=== PATIENT | female | born 1955 | race Caucasian/White ===

== ENCOUNTER 2017-02-09 06:55 | Inpatient (IN) | payer MEDICARE ==
[2017-02-09] MEDS ORDERED: IPRATROPIUM-ALBUTEROL 3 ML NEB INHALATION STA (07:06)
[2017-02-09] MEDS ORDERED: MAGNESIUM SULFATE-D5W PMX 1 GM in DEXTROSE/WATER 1 100ML.BAG IVPB STA (07:06)
[2017-02-09] MEDS ORDERED: SODIUM CHLORIDE 0.9% 1,000 ML IV STA (07:06)
[2017-02-09] MEDS ORDERED: methylPREDNISolone SOD SUCCI 125 MG/2 ML VIAL IV STA (07:06)
--- NOTE | 2017-02-09 07:22 | ED ---
SOB HPI - General Chief Complaint: Shortness of Breath Stated Complaint: Stemi Time Seen by Provider: 02/09/17 07:00 Source: patient, EMS, RN notes reviewed, old records reviewed Mode of arrival: EMS Limitations: physical limitation - History of Present Illness Initial Comments: This is a 61-year-old female history of COPD hypertension and depression who had the onset earlier this morning of shortness of breath. EMS was summoned and brought her in for evaluation. She was given 2 updraft treatments in route with some improvement. She complains some chest tightness. She also complains of fevers chills sweats also some phlegm production. MD Complaint: shortness of breath, chest pain - Related Data Home Medications Medication Instructions Recorded Confirmed Albuterol Inhaler [Ventolin Hfa 2 puff INHALATION RT-Q6H PRN 10/31/16 02/09/17 Inhaler] Cholecalciferol (Vitamin D3) 2,000 unit PO DAILY 10/31/16 02/09/17 [Vitamin D3] DULoxetine HCL [Cymbalta] 20 mg PO DAILY 10/31/16 02/09/17 Furosemide [Lasix] 20 mg PO DAILY 10/31/16 02/09/17 Ipratropium [place] [Atrovent Hfa] 2 puff INHALATION RT-BID 10/31/16 02/09/17 Potassium Chloride ER [K-Dur 20] 20 meq PO DAILY 10/31/16 02/09/17 Previous Rx's Medication Instructions Recorded ALPRAZolam [Xanax] 0.25 mg PO HS PRN #10 tab 11/04/16 Budesonide [Pulmicort] 0.5 mg INHALATION RT-BID #60 neb 11/04/16 Melatonin 10 mg PO HS tab 11/04/16 Montelukast [Singulair] 10 mg PO HS #30 tab 11/04/16 Omeprazole Magnesium [Prilosec OTC] 20 mg PO DAILY #30 tablet. 11/04/16 Allergies Allergy/AdvReac Type Severity Reaction Status Date / Time No Known Allergies Allergy Verified 02/09/17 07:37 Review of Systems ROS Statement: Those systems with pertinent positive or pertinent negative responses have been documented in the HPI. ROS Other: All systems not noted in ROS Statement are negative. Past Medical History Past Medical History: Asthma, Heart Failure, COPD, Osteoarthritis (OA), Pneumonia, Sleep Apnea/CPAP/BIPAP Additional Past Medical History / Comment(s): Bronhitis, chronic low back pain, TIMOTHY with CPAP, home O2 at 3L/NC, past L kneecap fx, occasional dependent pedal edema, depression, gallbladder disease, chronic tobacco use and dependence, urinary incontinence, migraine headaches, osteoporosis, sciatica, peptic ulcer disease, urethritis,. History of Any Multi-Drug Resistant Organisms: None Reported Past Surgical History: Hernia Repair, Tubal Ligation Additional Past Surgical History / Comment(s): Bilateral inguinal hernia repairs , colonoscopy with benign polyypectomy, surgery for "pinched nerve in my R hip. " Discectomy, right femur open reduction internal fixation. Past Psychological History: Depression Smoking Status: Former smoker Past Alcohol Use History: None Reported Past Drug Use History: Marijuana - Past Family History Father Family Medical History: Coronary Artery Disease (CAD) Additional Family Medical History / Comment(s): Father is 83 yrs old. He has had 2 vessel CABG and a pacer. Mother Family Medical History: Dementia Additional Family Medical History / Comment(s): Mother of dementia at the age of 78yrs. Brother(s) Family Medical History: No Reported History (patient had one brother who from an unknown cause) Sister(s) Family Medical History: No Reported History (patient has one sister no major medical problems.) Additional Family Medical History / Comment(s): Patient has 2 children no major medical problems. General Exam - General Exam Comments Initial Comments: This is a well-developed well-nourished awake alert oriented 3 female she is very anxious and very dyspneic Limitations: physical limitation General appearance: alert, anxious, in distress Head exam: Present: atraumatic, normocephalic, normal inspection Eye exam: Present: normal appearance, PERRL, EOMI. Absent: scleral icterus, conjunctival injection, periorbital swelling ENT exam: Present: mucous membranes dry Neck exam: Present: normal inspection. Absent: tenderness, meningismus, lymphadenopathy Respiratory exam: Present: accessory muscle use, decreased breath sounds. Absent: respiratory distress, wheezes, rales, rhonchi, stridor Cardiovascular Exam: Present: normal rhythm, tachycardia, normal heart sounds. Absent: systolic murmur, diastolic murmur, rubs, gallop, clicks GI/Abdominal exam: Present: soft, normal bowel sounds. Absent: distended, tenderness, guarding, rebound, rigid Extremities exam: Present: normal inspection, full ROM, normal capillary refill. Absent: tenderness, pedal edema, joint swelling, calf tenderness Back exam: Present: normal inspection Neurological exam: Present: alert, oriented X3, CN II-XII intact Psychiatric exam: Present: normal affect, normal mood Skin exam: Present: warm, dry, intact, normal color. Absent: rash Course Vital Signs 02/09/17 02/09/17 02/09/17 06:57 07:12 07:19 Temperature 99.6 F Pulse Rate 135 H 123 H 121 H Respiratory 28 H Rate Blood Pressure 160/84 O2 Sat by Pulse 85 L Oximetry 02/09/17 02/09/17 07:41 08:26 Temperature Pulse Rate 110 H 106 H Respiratory Rate Blood Pressure 134/79 130/80 O2 Sat by Pulse 97 97 Oximetry - Reevaluation(s) Reevaluation #1: 02/09/17 08:52 I did reevaluate the patient on several occasions she did demonstrate improvement. Medical Decision Making - Medical Decision Making The patient did demonstrate some improvement her saturation 97% on oxygen she is feeling somewhat better but still dyspneic. She will be admitted to the hospital for further inpatient treatment Dr. Michelle/Terri streeter is her jackaroo and will be consulted. - Lab Data Result diagrams: 02/09/17 06:59 02/09/17 06:59 Lab Results 02/09/17 02/09/17 02/09/17 Range/Units 06:59 06:59 06:59 WBC 13.0 H (3.8-10.6) k/uL RBC 4.84 (3.80-5.40) m/uL Hgb 13.3 (11.4-16.0) gm/dL Hct 45.8 (34.0-46.0) % MCV 94.6 (80.0-100.0) fL MCH 27.4 (25.0-35.0) pg MCHC 29.0 L (31.0-37.0) g/dL RDW 14.8 (11.5-15.5) % Plt Count 206 (150-450) k/uL Neutrophils % 87 % Lymphocytes % 4 % Monocytes % 7 % Eosinophils % 0 % Basophils % 1 % Neutrophils # 11.2 H (1.3-7.7) k/uL Lymphocytes # 0.5 L (1.0-4.8) k/uL Monocytes # 0.9 (0-1.0) k/uL Eosinophils # 0.0 (0-0.7) k/uL Basophils # 0.1 (0-0.2) k/uL Hypochromasia Marked PT (9.0-12.0) sec INR (<1.2) APTT (22.0-30.0) sec Sodium 139 (137-145) mmol/L Potassium 4.2 (3.5-5.1) mmol/L Chloride 85 L (98-107) mmol/L Carbon Dioxide 57 H* (22-30) mmol/L Anion Gap mmol/L BUN 14 (7-17) mg/dL Creatinine 0.45 L (0.52-1.04) mg/dL Est GFR (MDRD) Af Amer >60 (>60 ml/min/1.73 sqM) Est GFR (MDRD) Non-Af >60 (>60 ml/min/1.73 sqM) Glucose 191 H (74-99) mg/dL Calcium 9.7 (8.4-10.2) mg/dL Magnesium 2.0 (1.6-2.3) mg/dL Total Bilirubin 0.7 (0.2-1.3) mg/dL AST 19 (14-36) U/L ALT 41 (9-52) U/L Alkaline Phosphatase 168 H (38-126) U/L Total Creatine Kinase <20 L (30-135) U/L CK-MB (CK-2) 1.3 (0.0-2.4) ng/mL CK-MB (CK-2) Rel Index Troponin I <0.012 (0.000-0.034) ng/mL NT-Pro-B Natriuret Pep pg/mL Total Protein 6.4 (6.3-8.2) g/dL Albumin 3.7 (3.5-5.0) g/dL Influenza Type A RNA (Not Detectd) Influenza Type B (PCR) (Not Detectd) 02/09/17 02/09/17 02/09/17 Range/Units 06:59 06:59 07:52 WBC (3.8-10.6) k/uL RBC (3.80-5.40) m/uL Hgb (11.4-16.0) gm/dL Hct (34.0-46.0) % MCV (80.0-100.0) fL MCH (25.0-35.0) pg MCHC (31.0-37.0) g/dL RDW (11.5-15.5) % Plt Count (150-450) k/uL Neutrophils % % Lymphocytes % % Monocytes % % Eosinophils % % Basophils % % Neutrophils # (1.3-7.7) k/uL Lymphocytes # (1.0-4.8) k/uL Monocytes # (0-1.0) k/uL Eosinophils # (0-0.7) k/uL Basophils # (0-0.2) k/uL Hypochromasia PT 10.2 (9.0-12.0) sec INR 1.0 (<1.2) APTT 20.6 L (22.0-30.0) sec Sodium (137-145) mmol/L Potassium (3.5-5.1) mmol/L Chloride (98-107) mmol/L Carbon Dioxide (22-30) mmol/L Anion Gap mmol/L BUN (7-17) mg/dL Creatinine (0.52-1.04) mg/dL Est GFR (MDRD) Af Amer (>60 ml/min/1.73 sqM) Est GFR (MDRD) Non-Af (>60 ml/min/1.73 sqM) Glucose (74-99) mg/dL Calcium (8.4-10.2) mg/dL Magnesium (1.6-2.3) mg/dL Total Bilirubin (0.2-1.3) mg/dL AST (14-36) U/L ALT (9-52) U/L Alkaline Phosphatase (38-126) U/L Total Creatine Kinase (30-135) U/L CK-MB (CK-2) (0.0-2.4) ng/mL CK-MB (CK-2) Rel Index Troponin I (0.000-0.034) ng/mL NT-Pro-B Natriuret Pep 129 pg/mL Total Protein (6.3-8.2) g/dL Albumin (3.5-5.0) g/dL Influenza Type A RNA Not Detected (Not Detectd) Influenza Type B (PCR) Not Detected (Not Detectd) - EKG Data -: EKG Interpreted by Me (Sinus tachycardia rate of 109. Interval 172 QRS 128 QT since QTC of 374/50) Critical Care Time Critical Care Time: Yes Critical Care Time: 33 minutes of critical care time which includes the initial EMS encounter history physical labs x-rays multiple re-evaluations the patient response to therapy. Review of old charting review of labs and x-rays. Discussed with the patient regarding findings discussion with the admitting physician admission orders and documentation of the above. Disposition Clinical Impression: Adult respiratory distress syndrome, Acute exacerbation of chronic obstructive airways disease Disposition: ADMITTED IP TO THIS [facility] Condition: Stable Referrals: Matheus Benitez MD [Primary Care Provider] - 1-2 days
--- NOTE | 2017-02-09 07:26 | XR ---
EXAMINATION TYPE: XR chest 1V portable DATE OF EXAM: 02/09/2017 COMPARISON: 10/31/2016 HISTORY: Chest pain TECHNIQUE: Single frontal view of the chest is obtained. FINDINGS: There is no heart failure nor confluent pneumonic infiltrate. There is slight coarsening o f the lung markings. There is no definite pleural effusion. There are chest leads. Thoracic aorta is atheromatous. IMPRESSION: Mild pulmonary fibrosis. No heart failure. No change compared to last exam.
[2017-02-09 07:29] LABS: Basophils # (A) 0.1 k/uL (0-0.2); Basophils % (A) 1 %; Eosinophils % (A) 0 %; HCT 45.8 % (34.0-46.0); HGB 13.3 gm/dL (11.4-16.0); Hypochromasia Marked; Lymphocytes # (A) 0.5 k/uL (1.0-4.8); Lymphocytes % (A) 4 %; MCH 27.4 pg (25.0-35.0); MCV 94.6 fL (80.0-100.0); Mean Platelet Volume 6.9; Monocytes # (A) 0.9 k/uL (0-1.0); Monocytes % (A) 7 %; Neutrophils # (A) 11.2 k/uL (1.3-7.7); Neutrophils % (A) 87 %; Platelet Count 206 k/uL (150-450); RBC 4.84 m/uL (3.80-5.40); RDW 14.8 % (11.5-15.5)
[2017-02-09 07:41] LABS: Creatine Kinase <20 U/L (30-135); Partial Thromboplastin Time 20.6 sec (22.0-30.0); Prothrombin Time 10.2 sec (9.0-12.0)
[2017-02-09 07:43] LABS: ALT 41 U/L (9-52); AST 19 U/L (14-36); Albumin 3.7 g/dL (3.5-5.0); Alkaline Phosphatase 168 U/L (38-126); Blood Urea Nitrogen 14 mg/dL (7-17); Calcium 9.7 mg/dL (8.4-10.2); Chloride 85 mmol/L (98-107); Glucose 191 mg/dL (74-99); Potassium 4.2 mmol/L (3.5-5.1); Sodium 139 mmol/L (137-145); Total Bilirubin 0.7 mg/dL (0.2-1.3); Total Protein 6.4 g/dL (6.3-8.2)
[2017-02-09 07:53] LABS: Creatine Kinase MB 1.3 ng/mL (0.0-2.4); Troponin I <0.012 ng/mL (0.000-0.034)
[2017-02-09 07:55] LABS: Carbon Dioxide 57 mmol/L (22-30)
[2017-02-09] MEDS ORDERED: FUROSEMIDE 40 MG TAB PO SCH (09:00)
[2017-02-09] MEDS ORDERED: FUROSEMIDE 20 MG TAB PO SCH (09:30)
--- NOTE | 2017-02-09 09:46 | P.HPIM ---
History of Present Illness H&P Date: 02/09/17 Chief Complaint: SOB This is a 61-year-old female one of Dr. Benitez with a previous medical history significant for asthma/COPD on 3 L of oxygen 24 hours, anemia, anxiety disorder, chronic low back pain, depression, chronic tobacco use and dependence , migraine headaches, osteoarthritis, sciatica, patient was brought into the emergency department at [facility] today with increased shortness of breath associated with chest tightness, productive cough and fever. Patient underwent updraft treatment by the EMS and was found to be saturating at 87% at room air. The patient responded well to Solu-Medrol and to updraft treatment in the ER. Patient is too lethargic to give any history but does state that she was not feeling well for the past 2 days. She is currently on nonrebreather , tachycardic. EKG done in the ER suggest of right bundle branch block and left anterior fascicular block that was also seen in the previous EKG with sinus tachycardia. Chest x-ray suggestive of pulmonary fibrosis but no consolidation or sign of heart failure seen. And will be transferred to ICU for further management . Patient was last admitted on 11/01 for COPD exacerbation. Patient sees Dr. Green as outpatient and will be consulted Review of Systems Constitutional: Reports chills, Reports daytime sleepiness, Reports fatigue, Reports fever, Reports lethargy, Reports poor appetite, Reports weakness Eyes: denies diplopia, denies photophobia Ears, nose, mouth and throat: Denies headache, Denies hoarseness, Denies nasal congestion, Denies nasal discharge, Denies post-nasal drip, Denies sore throat Cardiovascular: Reports chest pain, Reports decreased exercise tolerance, Reports dyspnea on exertion, Reports shortness of breath, Denies edema, Denies irregular heart beat, Denies leg edema, Denies lightheadedness, Denies orthopnea , Denies syncope Respiratory: Reports congestion, Reports cough, Reports cough with sputum, Reports home oxygen, Reports wheezing Gastrointestinal: Denies abdominal pain, Denies belching, Denies bloating, Denies BRBPR, Denies change in bowel habits, Denies hematemesis, Denies hematochezia, Denies nausea, Denies vomiting Genitourinary: Denies hematuria, Denies kidney stones, Denies urinary frequency Musculoskeletal: Denies arm numbness/tingling, Denies low back pain, Denies morning stiffness, Denies muscle cramps, Denies muscle weakness Neurological: Denies aphasia, Denies change in speech, Denies motor disturbance Endocrine: Reports fatigue, Denies high blood sugars, Denies palpitations Past Medical History Past Medical History: Asthma, Heart Failure, COPD, Osteoarthritis (OA), Pneumonia, Sleep Apnea/CPAP/BIPAP Additional Past Medical History / Comment(s): Bronhitis, chronic low back pain, TIMOTHY with CPAP, home O2 at 3L/NC, past L kneecap fx, occasional dependent pedal edema, depression, gallbladder disease, chronic tobacco use and dependence, urinary incontinence, migraine headaches, osteoporosis, sciatica, peptic ulcer disease, urethritis,. History of Any Multi-Drug Resistant Organisms: None Reported Past Surgical History: Hernia Repair, Tubal Ligation Additional Past Surgical History / Comment(s): Bilateral inguinal hernia repairs , colonoscopy with benign polyypectomy, surgery for "pinched nerve in my R hip. " Discectomy, right femur open reduction internal fixation. Past Psychological History: Depression Smoking Status: Former smoker Past Alcohol Use History: None Reported Past Drug Use History: Marijuana - Past Family History Father Family Medical History: Coronary Artery Disease (CAD) Additional Family Medical History / Comment(s): Father is 83 yrs old. He has had 2 vessel CABG and a pacer. Mother Family Medical History: Dementia Additional Family Medical History / Comment(s): Mother of dementia at the age of 78yrs. Brother(s) Family Medical History: No Reported History (patient had one brother who from an unknown cause) Sister(s) Family Medical History: No Reported History (patient has one sister no major medical problems.) Additional Family Medical History / Comment(s): Patient has 2 children no major medical problems. Patient lives with her daughter Medications and Allergies Home Medications Medication Instructions Recorded Confirmed Type Albuterol Inhaler [Ventolin Hfa 2 puff INHALATION RT-Q6H PRN 10/31/16 02/09/17 History Inhaler] Cholecalciferol (Vitamin D3) 2,000 unit PO DAILY 10/31/16 02/09/17 History [Vitamin D3] DULoxetine HCL [Cymbalta] 20 mg PO DAILY 10/31/16 02/09/17 History Furosemide [Lasix] 20 mg PO DAILY 10/31/16 02/09/17 History Ipratropium [place] [Atrovent Hfa] 2 puff INHALATION RT-BID 10/31/16 02/09/17 History Potassium Chloride ER [K-Dur 20] 20 meq PO DAILY 10/31/16 02/09/17 History ALPRAZolam [Xanax] 0.25 mg PO HS PRN #10 tab 11/04/16 02/09/17 Rx Budesonide [Pulmicort] 0.5 mg INHALATION RT-BID #60 neb 11/04/16 02/09/17 Rx Melatonin 10 mg PO HS tab 11/04/16 02/09/17 Rx Montelukast [Singulair] 10 mg PO HS #30 tab 11/04/16 02/09/17 Rx Omeprazole Magnesium [Prilosec OTC] 20 mg PO DAILY #30 tablet. 11/04/16 Rx Allergies Allergy/AdvReac Type Severity Reaction Status Date / Time No Known Allergies Allergy Verified 02/09/17 07:37 Physical Exam Vitals: Vital Signs Temp Pulse Resp BP Pulse Ox 02/09/17 08:56 101 H 134/82 96 02/09/17 08:26 106 H 130/80 97 02/09/17 07:41 110 H 134/79 97 02/09/17 07:19 121 H 02/09/17 07:12 123 H 02/09/17 06:57 99.6 F 135 H 28 H 160/84 85 L Intake and Output 02/08/17 02/09/17 02/09/17 22:59 06:59 14:59 Other: Weight 65.771 kg - Constitutional General appearance: cooperative very lethargic, sleeps in between conversation. Currently on nonrebreather - EENT Eyes: anicteric sclerae, PERRLA, normal appearance ENT: hearing grossly normal - Neck Neck: no lymphadenopathy, normal ROM, no other, no rigidity, no stridor, no thyromegaly - Respiratory Respiratory: bilateral: Wheezing with rhonchi and dry crackles at bases - Cardiovascular Rhythm: Tachycardic Heart sounds: normal: S1, S2 Abnormal Heart Sounds: no systolic murmur, no diastolic murmur, no rub, no S3 Gallop, no S4 Gallop, no click, no other - Gastrointestinal General gastrointestinal: normal bowel sounds, soft, diffusely tender to palpate - Integumentary Integumentary: no rash - Neurologic Neurologic: Pupils are equal and reactive to light, no facial droop, patient moving both her extremities, no sensory deficit appreciated - Musculoskeletal Musculoskeletal: Gait not assessed strength equal bilaterally - Psychiatric Psychiatric: A&O x's 3, appropriate affect Results CBC & Chem 7: 02/09/17 06:59 02/09/17 06:59 Labs: Abnormal Lab Results - Last 24 Hours (Table) 02/09/17 02/09/17 02/09/17 Range/Units 06:59 06:59 06:59 WBC 13.0 H (3.8-10.6) k/uL MCHC 29.0 L (31.0-37.0) g/dL Neutrophils # 11.2 H (1.3-7.7) k/uL Lymphocytes # 0.5 L (1.0-4.8) k/uL APTT (22.0-30.0) sec Chloride 85 L (98-107) mmol/L Carbon Dioxide 57 H* (22-30) mmol/L Creatinine 0.45 L (0.52-1.04) mg/dL Glucose 191 H (74-99) mg/dL Alkaline Phosphatase 168 H (38-126) U/L Total Creatine Kinase <20 L (30-135) U/L 02/09/17 Range/Units 06:59 WBC (3.8-10.6) k/uL MCHC (31.0-37.0) g/dL Neutrophils # (1.3-7.7) k/uL Lymphocytes # (1.0-4.8) k/uL APTT 20.6 L (22.0-30.0) sec Chloride (98-107) mmol/L Carbon Dioxide (22-30) mmol/L Creatinine (0.52-1.04) mg/dL Glucose (74-99) mg/dL Alkaline Phosphatase (38-126) U/L Total Creatine Kinase (30-135) U/L Thrombosis Risk Factor Assmnt - DVT/VTE Prophylaxis DVT/VTE Prophylaxis: Pharmacologic Prophylaxis ordered Assessment and Plan Plan: 1. Acute respiratory insufficiency due to acute exacerbation of COPD with acute bronchitis. Patient currently on nonrebreather, patient would benefit from BiPAP placement. Start the patient on Solu-Medrol 60 mg IV push every 6 hours, nebulized treatment DuoNeb 3 mg nebulization 4 times every day, Pulmicort 1 mg position twice every day, start the patient on levofloxacin 500 mg IV once every day, pulmonary consultation from Dr. MELVIN Green. She would benefit from ICU monitoring for the first 24 hours 2. Chest pain. We will check cardiac enzymes 3, EKG with no ST or T-wave changes. Likely related to acute bronchitis 3. Chronic diastolic heart failure. Continue Lasix 20 mg orally once every day and potassium supplement, patient did have an echocardiogram last year in January 2016 that showed ejection fraction of 50% with right ventricular systolic pressure of 32 mmHg. 4. Depression. Continue patient on Cymbalta 20 mg orally once every day. 5. Osteoarthritis. Clinically stable. 6. 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 7. Migraine headaches. Stable at this point in time. 8. DVT prophylaxis. Lovenox 40 mg subcutaneously every 24 hours. 9. GI prophylaxis. Pepcid 20 mg twice a day 10. Admit to inpatient. Estimate length of stay 2 midnights. 11. Patient is a full code.
--- NOTE | 2017-02-09 09:56 | XR ---
EXAMINATION TYPE: XR abdomen 1V DATE OF EXAM: 02/09/2017 COMPARISON: NONE HISTORY: Tenderness TECHNIQUE: 2 views FINDINGS: There is no sign of intestinal obstruction or pneumoperitoneum. Fecal pattern is normal. Th ere is no evidence of a mass. There are no pathologic calcifications over the kidneys. Lung bases are clear. IMPRESSION: Nonacute abdomen.
[2017-02-09 10:09] LABS: ABG PH 7.34 (7.35-7.45)
[2017-02-09 10:10] LABS: ABG HCO3 50 mmol/L (21-25); ABG PCO2 94 mmHg (35-45); ABG PO2 254 mmHg (83-108); ABG TCO2 52 mmol/L (19-24)
[2017-02-09 10:47] LABS: Glucose,Whole Blood 216 mg/dL (75-99)
[2017-02-09] MEDS: IPRATROPIUM-ALBUTEROL 3 ML NEB INHALATION SCH ×4 (10:49→23:28)
[2017-02-09] MEDS ORDERED: NALOXONE 0.4 MG/ML 1 ML VIAL IV PRN (10:54)
[2017-02-09 11:10] VITALS: BMI 18.7
--- NOTE | 2017-02-09 12:27 | P.CNPUL ---
History of Present Illness Consult date: 02/09/17 Reason for consult: dyspnea, COPD Chief complaint: Shortness of breath History of present illness: This is a 61-year-old female who [facility] The patient presented emergency department complaining of shortness of breath. The patient states her daughter was smoking in the house around her. She also states she was around her grandchildren over the holidays who were sick. She does wear her BiPAP nightly. She has not had a cigarette in over a year. The patient was admitted to the ICU on BiPAP. Her ABG shows respiratory acidosis compensated with metabolic alkalosis. She does have a cough productive of phlegm. She does complain of some fevers and chills. Review of Systems All systems: negative Past Medical History Past Medical History: Asthma, Heart Failure, COPD, Osteoarthritis (OA), Pneumonia, Sleep Apnea/CPAP/BIPAP Additional Past Medical History / Comment(s): Bronhitis, chronic low back pain, TIMOTHY with CPAP, home O2 at 3L/NC, past L kneecap fx, occasional dependent pedal edema, depression, gallbladder disease, chronic tobacco use and dependence, urinary incontinence, migraine headaches, osteoporosis, sciatica, peptic ulcer disease, urethritis,. History of Any Multi-Drug Resistant Organisms: None Reported Past Surgical History: Hernia Repair, Tubal Ligation Additional Past Surgical History / Comment(s): Bilateral inguinal hernia repairs , colonoscopy with benign polyypectomy, surgery for "pinched nerve in my R hip. " Discectomy, right femur open reduction internal fixation. Smoking Status: Former smoker - Past Family History Father Family Medical History: Coronary Artery Disease (CAD) Additional Family Medical History / Comment(s): Father is 83 yrs old. He has had 2 vessel CABG and a pacer. Mother Family Medical History: Dementia Additional Family Medical History / Comment(s): Mother of dementia at the age of 78yrs. Brother(s) Family Medical History: No Reported History (patient had one brother who from an unknown cause) Sister(s) Family Medical History: No Reported History (patient has one sister no major medical problems.) Additional Family Medical History / Comment(s): Patient has 2 children no major medical problems. Patient lives with her daughter Medications and Allergies Home Medications Medication Instructions Recorded Confirmed Type Albuterol Inhaler [Ventolin Hfa 2 puff INHALATION RT-Q6H PRN 10/31/16 02/09/17 History Inhaler] Cholecalciferol (Vitamin D3) 2,000 unit PO DAILY 10/31/16 02/09/17 History [Vitamin D3] DULoxetine HCL [Cymbalta] 20 mg PO DAILY 10/31/16 02/09/17 History Furosemide [Lasix] 20 mg PO DAILY 10/31/16 02/09/17 History Ipratropium [place] [Atrovent Hfa] 2 puff INHALATION RT-BID 10/31/16 02/09/17 History Potassium Chloride ER [K-Dur 20] 20 meq PO DAILY 10/31/16 02/09/17 History ALPRAZolam [Xanax] 0.25 mg PO HS PRN #10 tab 11/04/16 02/09/17 Rx Budesonide [Pulmicort] 0.5 mg INHALATION RT-BID #60 neb 11/04/16 02/09/17 Rx Melatonin 10 mg PO HS tab 11/04/16 02/09/17 Rx Montelukast [Singulair] 10 mg PO HS #30 tab 11/04/16 02/09/17 Rx Omeprazole Magnesium [Prilosec OTC] 20 mg PO DAILY #30 tablet. 11/04/16 Rx Allergies Allergy/AdvReac Type Severity Reaction Status Date / Time No Known Allergies Allergy Verified 02/09/17 07:37 Physical Exam Osteopathic Statement: *. No significant issues noted on an osteopathic structural exam other than those noted in the History and Physical/Consult. Vitals: Vital Signs Temp Pulse Resp BP Pulse Ox 02/09/17 11:30 118 H 28 H 112/88 90 L 02/09/17 11:12 114 H 02/09/17 11:06 98.2 F 02/09/17 11:00 112 H 26 H 121/87 90 L 02/09/17 10:56 110 H 02/09/17 10:09 97.8 F 105 H 22 126/75 95 02/09/17 08:56 101 H 134/82 96 02/09/17 08:26 106 H 130/80 97 02/09/17 07:41 110 H 134/79 97 02/09/17 07:19 121 H 02/09/17 07:12 123 H 02/09/17 06:57 99.6 F 135 H 28 H 160/84 85 L Intake and Output 02/08/17 02/09/17 02/09/17 22:59 06:59 14:59 Intake Total 100 Balance 100 Intake: Intake, IV Titration 100 Amount Sodium Chloride 0.9% 1, 100 000 ml @ 100 mls/hr IV . Q10H [facility] Rx#:[id number] Other: Weight 65.771 kg 54.2 kg Patient Weight 02/10/17 06:59 Weight 54.2 kg Gen.: Patient is alert and oriented 3, she is tachypnic, on BiPAP Cardiovascular: Regular rate and rhythm, S1/S2, tachycardic Lungs: Diminished breath sounds bilaterally with scattered rhonchi Abdomen: Soft nontender nondistended positive bowel sounds Extremities: No edema Results - Laboratory Findings CBC and BMP: 02/09/17 06:59 02/09/17 06:59 ABG ABG pH 7.34 (7.35-7.45) L 02/09/17 09:48 ABG pCO2 94 mmHg (35-45) H* 02/09/17 09:48 ABG pO2 254 mmHg (83-108) H 02/09/17 09:48 ABG O2 Saturation 99.0 % (94-97) H 02/09/17 09:48 PT/INR, D-dimer PT 10.2 sec (9.0-12.0) 02/09/17 06:59 INR 1.0 (<1.2) 02/09/17 06:59 Abnormal lab findings: Abnormal Labs 02/09/17 02/09/17 02/09/17 06:59 06:59 06:59 WBC 13.0 H MCHC 29.0 L Neutrophils # 11.2 H Lymphocytes # 0.5 L APTT ABG pH ABG pCO2 ABG pO2 ABG HCO3 ABG Total CO2 ABG O2 Saturation Chloride 85 L Carbon Dioxide 57 H* Creatinine 0.45 L Glucose 191 H POC Glucose (mg/dL) Alkaline Phosphatase 168 H Total Creatine Kinase <20 L 02/09/17 02/09/17 02/09/17 06:59 09:48 10:44 WBC MCHC Neutrophils # Lymphocytes # APTT 20.6 L ABG pH 7.34 L ABG pCO2 94 H* ABG pO2 254 H ABG HCO3 50 H* ABG Total CO2 52 H ABG O2 Saturation 99.0 H Chloride Carbon Dioxide Creatinine Glucose POC Glucose (mg/dL) 216 H Alkaline Phosphatase Total Creatine Kinase - Diagnostic Findings Chest x-ray: report reviewed, image reviewed Assessment and Plan Assessment: Acute on chronic hypoxic and hypercapnic respiratory failure Acute exacerbation of COPD and severe persistent asthma Acute tracheobronchitis 3/4 SIRS Respiratory acidosis compensated with metabolic alkalosis History of tobacco abuse Depression and anxiety Chest pain, sinus tachycardia Chronic back pain History migraines Osteoarthritis Chronic diastolic congestive heart failure Continue BiPAP nightly and as needed O2 to maintain saturation greater than or equal to 88% IV Solu-Medrol Singulair Duo nebs Sputum culture Pulmicort Mucinex Gentle IVF hydration, hold Lasix for now Perforomist Tobacco cessation is to be continued Incentive spirometry and pulmonary hygiene Antibiotics: Levaquin GI and DVT prophylaxis: Lovenox and Pepcid EKG now, troponin, consult cardiology Thank you for this consultation. We will continue to follow along.
[2017-02-09 12:35] LABS: Glucose,Whole Blood 227 mg/dL (75-99)
[2017-02-09] MEDS: LEVOFLOXACIN 500MG-D5W PMX 500 MG in DEXTROSE/WATER 1 100ML.BAG IVPB SCH (12:46)
[2017-02-09] MEDS: SODIUM CHLORIDE 0.9% 1,000 ML IV SCH (12:47)
[2017-02-09] MEDS: INSULIN ASPART 100 UNIT/ML 1 ML 10 ML VIAL SQ SCH ×3 (12:49→21:07)
[2017-02-09] MEDS: CHOLECALCIFEROL 1,000 UNIT TAB PO SCH (12:55)
[2017-02-09] MEDS: POTASSIUM CHLORIDE ER 20 MEQ TAB.ER PO SCH (12:59)
[2017-02-09] MEDS: methylPREDNISolone SOD SUCCI 125 MG/2 ML VIAL IV SCH ×3 (12:59→23:05)
[2017-02-09] MEDS: DULoxetine HCL 20 MG CAPSULE.DR PO SCH (13:00)
[2017-02-09] MEDS: PANTOPRAZOLE 40 MG TABLET PO SCH (13:00)
[2017-02-09 17:45] LABS: Glucose,Whole Blood 186 mg/dL (75-99)
[2017-02-09 18:49] LABS: Hemoglobin A1C 7.1 % (4.0-6.0)
[2017-02-09] MEDS: FORMOTEROL FUMARATE 20 MCG/2 ML NEBU INHALATION SCH (19:31)
[2017-02-09] MEDS: BUDESONIDE 1 MG/2 ML NEBU INHALATION SCH (19:31)
[2017-02-09 20:38] LABS: Glucose,Whole Blood 180 mg/dL (75-99)
[2017-02-09] MEDS: FAMOTIDINE 20 MG TAB PO SCH (21:06)
[2017-02-09] MEDS: MONTELUKAST 10 MG TAB PO SCH (21:07)
[2017-02-09] MEDS: MELATONIN 5 MG TABLET PO SCH (21:07)
[2017-02-09] MEDS: guaiFENesin 600 MG TABLET.ER PO SCH (21:13)
[2017-02-10] MEDS: ALPRAZolam 0.25 MG TAB PO PRN ×2 (00:23→21:27)
[2017-02-10] MEDS: IPRATROPIUM-ALBUTEROL 3 ML NEB INHALATION SCH ×6 (03:24→23:07)
[2017-02-10 04:03] LABS: Anisocytosis Slight; Basophils % (A) 0 %; Eosinophils % (A) 0 %; HCT 42.7 % (34.0-46.0); HGB 12.1 gm/dL (11.4-16.0); Hypochromasia Marked; Lymphocytes # (A) 0.1 k/uL (1.0-4.8); Lymphocytes % (A) 2 %; MCH 27.4 pg (25.0-35.0); MCHC 28.4 g/dL (31.0-37.0); MCV 96.2 fL (80.0-100.0); Mean Platelet Volume 7.5; Monocytes # (A) 0.3 k/uL (0-1.0); Monocytes % (A) 5 %; Neutrophils # (A) 5.6 k/uL (1.3-7.7); Neutrophils % (A) 92 %; Platelet Count 158 k/uL (150-450); RBC 4.43 m/uL (3.80-5.40); RDW 16.4 % (11.5-15.5); WBC 6.1 k/uL (3.8-10.6)
[2017-02-10 04:13] LABS: Blood Urea Nitrogen 17 mg/dL (7-17); Calcium 9.5 mg/dL (8.4-10.2); Chloride 90 mmol/L (98-107); Glucose 205 mg/dL (74-99); Magnesium 1.9 mg/dL (1.6-2.3); Phosphorus 3.1 mg/dL (2.5-4.5); Potassium 4.6 mmol/L (3.5-5.1); Sodium 138 mmol/L (137-145)
[2017-02-10 04:19] LABS: Anion Gap 5 mmol/L
[2017-02-10 05:09] LABS: Carbon Dioxide 43 mmol/L (22-30)
[2017-02-10] MEDS: methylPREDNISolone SOD SUCCI 125 MG/2 ML VIAL IV SCH ×3 (05:31→17:29)
[2017-02-10] MEDS: SODIUM CHLORIDE 0.9% 1,000 ML IV SCH (05:31)
[2017-02-10] MEDS ORDERED: VANCOMYCIN 1,500 MG in SODIUM CHLORIDE 0.9% 500 ML IVPB STA (06:14)
[2017-02-10] MEDS ORDERED: VANCOMYCIN IV PER PHARMACY 1 EACH MISC MISCELLANE PRN (06:15)
[2017-02-10] MEDS: VANCOMYCIN 1,000 MG in SODIUM CHLORIDE 0.9% 250 ML IVPB SCH ×3 (06:57→22:13)
[2017-02-10] MEDS: MAGNESIUM SULFATE-D5W PMX 1 GM in DEXTROSE/WATER 1 100ML.BAG IVPB SCH ×2 (06:57→08:39)
[2017-02-10] MEDS: FORMOTEROL FUMARATE 20 MCG/2 ML NEBU INHALATION SCH ×2 (07:24→19:28)
[2017-02-10] MEDS: BUDESONIDE 1 MG/2 ML NEBU INHALATION SCH ×2 (07:24→19:28)
[2017-02-10 07:56] LABS: Glucose,Whole Blood 169 mg/dL (75-99)
[2017-02-10] MEDS: PANTOPRAZOLE 40 MG TABLET PO SCH (08:07)
[2017-02-10] MEDS: guaiFENesin 600 MG TABLET.ER PO SCH ×2 (08:07→21:13)
[2017-02-10] MEDS: CHOLECALCIFEROL 1,000 UNIT TAB PO SCH (08:07)
[2017-02-10] MEDS: DULoxetine HCL 20 MG CAPSULE.DR PO SCH (08:07)
[2017-02-10] MEDS: FAMOTIDINE 20 MG TAB PO SCH ×2 (08:07→21:13)
[2017-02-10] MEDS: POTASSIUM CHLORIDE ER 20 MEQ TAB.ER PO SCH (08:07)
[2017-02-10] MEDS: ENOXAPARIN 40 MG/0.4 ML SYRINGE SQ SCH (08:07)
[2017-02-10] MEDS: INSULIN ASPART 100 UNIT/ML 1 ML 10 ML VIAL SQ SCH ×4 (08:13→21:13)
--- NOTE | 2017-02-10 08:54 | P.CRDCN ---
History of Present Illness Consult date: 02/10/17 Chief complaint: Shortness of breath History of present illness: This is a pleasant 61-year-old female patient with a past medical history significant for chronic respiratory failure and chronic obstructive pulmonary disease presented to the hospital complaining of dyspnea. The patient describes shortness of breath associated with cough productive of sputum. Also she was having wheezing. No fever and no chills. In the hospital she was experiencing mild chest discomfort for and also she was feeling heart racing and fluttering. An EKG was performed and showed tachycardia and for that reason we get involved in her care. I reviewed the EKG which revealed to me sinus tachycardia with a differential diagnosis of atrial tachycardia and multifocal atrial tachycardia. The patient has been maintaining normal blood pressure. She is not aware of any prior cardiac history of coronary artery disease or congestive heart failure or any cardiac arrhythmia. She is known to have chronic respiratory failure and she is on home oxygen. Past Medical History Past Medical History: Asthma, Heart Failure, COPD, Osteoarthritis (OA), Pneumonia, Sleep Apnea/CPAP/BIPAP Additional Past Medical History / Comment(s): Bronhitis, chronic low back pain, TIMOTHY with CPAP, home O2 at 3L/NC, past L kneecap fx, occasional dependent pedal edema, depression, gallbladder disease, chronic tobacco use and dependence, urinary incontinence, migraine headaches, osteoporosis, sciatica, peptic ulcer disease, urethritis,. History of Any Multi-Drug Resistant Organisms: None Reported Past Surgical History: Hernia Repair, Tubal Ligation Additional Past Surgical History / Comment(s): Bilateral inguinal hernia repairs , colonoscopy with benign polyypectomy, surgery for "pinched nerve in my R hip. " Discectomy, right femur open reduction internal fixation. Past Psychological History: Depression Additional Psychological History / Comment(s): Pt resides with her krista in an apartment that has 4-5 steps. She uses a walker on occasion. She has a CPAP, nebulizer and home oxygen. She no longer drives, she uses senior transportation. Her daughter does most of the cooking and helps organize pt medication. Smoking Status: Former smoker Past Alcohol Use History: None Reported Past Drug Use History: Marijuana - Past Family History Father Family Medical History: Coronary Artery Disease (CAD) Additional Family Medical History / Comment(s): Father is 83 yrs old. He has had 2 vessel CABG and a pacer. Mother Family Medical History: Dementia Additional Family Medical History / Comment(s): Mother of dementia at the age of 78yrs. Brother(s) Family Medical History: No Reported History Sister(s) Family Medical History: No Reported History Additional Family Medical History / Comment(s): Patient has 2 children no major medical problems. Patient lives with her daughter Medications and Allergies Home Medications Medication Instructions Recorded Confirmed Type Albuterol Inhaler [Ventolin Hfa 2 puff INHALATION RT-Q6H PRN 10/31/16 02/09/17 History Inhaler] Cholecalciferol (Vitamin D3) 2,000 unit PO DAILY 10/31/16 02/09/17 History [Vitamin D3] DULoxetine HCL [Cymbalta] 20 mg PO DAILY 10/31/16 02/09/17 History Furosemide [Lasix] 20 mg PO DAILY 10/31/16 02/09/17 History Ipratropium [place] [Atrovent Hfa] 2 puff INHALATION RT-BID 10/31/16 02/09/17 History Potassium Chloride ER [K-Dur 20] 20 meq PO DAILY 10/31/16 02/09/17 History ALPRAZolam [Xanax] 0.25 mg PO HS PRN #10 tab 11/04/16 02/09/17 Rx Budesonide [Pulmicort] 0.5 mg INHALATION RT-BID #60 neb 11/04/16 02/09/17 Rx Melatonin 10 mg PO HS tab 11/04/16 02/09/17 Rx Montelukast [Singulair] 10 mg PO HS #30 tab 11/04/16 02/09/17 Rx Omeprazole Magnesium [Prilosec OTC] 20 mg PO DAILY #30 tablet. 11/04/16 Rx Allergies Allergy/AdvReac Type Severity Reaction Status Date / Time No Known Allergies Allergy Verified 02/09/17 07:37 Physical Exam Vitals: Vital Signs Temp Pulse Resp BP Pulse Ox 02/10/17 08:00 97.7 F 103 H 25 H 120/80 95 02/10/17 07:55 78 02/10/17 07:38 77 02/10/17 07:37 77 02/10/17 07:25 76 02/10/17 07:00 90 19 113/82 94 L 02/10/17 06:00 80 17 113/82 97 02/10/17 05:00 98.5 F 110 H 32 H 113/82 89 L 02/10/17 04:00 96 22 89 L 02/10/17 03:42 88 02/10/17 03:24 92 02/10/17 03:00 94 25 H 111/77 93 L 02/10/17 02:00 121 H 19 94 L 02/10/17 01:00 96 18 114/77 92 L 02/10/17 00:00 98.7 F 103 H 15 114/77 92 L 02/09/17 23:50 92 02/09/17 23:29 91 02/09/17 23:17 22 02/09/17 23:01 103 H 18 125/80 92 L 02/09/17 23:00 105 H 22 125/80 95 02/09/17 22:00 121 H 18 136/91 94 L 02/09/17 21:00 103 H 28 H 112/79 90 L 02/09/17 20:00 98.4 F 99 21 112/77 93 L 02/09/17 19:52 103 H 02/09/17 19:43 102 H 02/09/17 19:31 98 02/09/17 19:00 102 H 20 137/87 94 L 02/09/17 18:00 100 14 127/78 91 L 02/09/17 17:00 104 H 21 114/81 96 02/09/17 16:00 98.7 F 105 H 18 114/81 93 L 02/09/17 15:44 113 H 02/09/17 15:32 118 H 02/09/17 15:00 101 H 17 119/81 95 02/09/17 14:00 112 H 24 119/76 95 02/09/17 13:00 105 H 30 H 129/78 91 L 02/09/17 12:00 98.4 F 110 H 16 129/82 89 L 02/09/17 11:30 118 H 28 H 112/88 90 L 02/09/17 11:12 114 H 02/09/17 11:06 98.2 F 02/09/17 11:00 112 H 26 H 121/87 90 L 02/09/17 10:56 110 H 02/09/17 10:09 97.8 F 105 H 22 126/75 95 02/09/17 08:56 101 H 134/82 96 Intake and Output 02/09/17 02/10/17 02/10/17 22:59 06:59 14:59 Intake Total 400 450 350 Output Total 695 100 Balance -295 350 350 Intake: IV 150 450 50 Sodium Chloride 0.9% 1, 150 450 50 000 ml @ 50 mls/hr IV . Q20H [facility] Rx#:[id number] Intake, IV Titration 250 100 Amount Magnesium Sulfate-D5w Pmx 100 1 gm In Dextrose/Water 1 100ml.bag @ 100 mls/hr IVPB Q1H [facility] Rx#: [id number] Sodium Chloride 0.9% 1, 250 000 ml @ 50 mls/hr IV . Q20H [facility] Rx#:[id number] Oral 200 Output: Urine 695 100 Other: # Voids 2 1 # Bowel Movements 1 Weight 64.5 kg - Constitutional General appearance: no acute distress - Respiratory Respiratory: bilateral: wheezing - Cardiovascular Rhythm: regular Heart sounds: normal: S1, S2 Results 02/10/17 03:39 02/10/17 03:39 Cardiac Enzymes 02/09/17 02/09/17 Range/Units 12:41 20:02 Troponin I <0.012 <0.012 (0.000-0.034) ng/mL CBC 02/10/17 Range/Units 03:39 WBC 6.1 (3.8-10.6) k/uL RBC 4.43 (3.80-5.40) m/uL Hgb 12.1 (11.4-16.0) gm/dL Hct 42.7 (34.0-46.0) % Plt Count 158 (150-450) k/uL Comprehensive Metabolic Panel 02/10/17 Range/Units 03:39 Sodium 138 (137-145) mmol/L Potassium 4.6 (3.5-5.1) mmol/L Chloride 90 L (98-107) mmol/L Carbon Dioxide 43 H* (22-30) mmol/L BUN 17 (7-17) mg/dL Creatinine 0.40 L (0.52-1.04) mg/dL Glucose 205 H (74-99) mg/dL Calcium 9.5 (8.4-10.2) mg/dL Current Medications Generic Name Dose Route Start Last Admin Trade Name Freq PRN Reason Stop Dose Admin Acetaminophen 650 mg 02/09/17 09:29 Tylenol Tab PO Q6HR PRN Fever and/ or Pain Albuterol/Ipratropium 3 ml 02/09/17 12:00 02/10/17 07:24 Duoneb 0.5 Mg-3 Mg/3 Ml Soln INHALATION 3 ml RT-Q4H [facility] Administration Alprazolam 0.25 mg 02/09/17 09:00 02/10/17 00:23 Xanax PO 0.25 mg HS PRN Administration Anxiety Budesonide 1 mg 02/09/17 20:00 02/10/17 07:24 Pulmicort INHALATION 1 mg RT-BID [facility] Administration Cholecalciferol 2,000 unit 02/09/17 09:00 02/10/17 08:07 Vitamin D3 PO 2,000 unit DAILY [facility] Administration Duloxetine HCl 20 mg 02/09/17 09:00 02/10/17 08:07 Cymbalta PO 20 mg DAILY [facility] Administration Enoxaparin Sodium 40 mg 02/10/17 09:00 02/10/17 08:07 Lovenox SQ 40 mg DAILY [facility] Administration Famotidine 20 mg 02/09/17 21:00 02/10/17 08:07 Pepcid PO 20 mg BID [facility] Administration Formoterol Fumarate 20 mcg 02/09/17 20:00 02/10/17 07:24 Perforomist INHALATION 20 mcg RT-BID [facility] Administration Guaifenesin 600 mg 02/09/17 21:00 02/10/17 08:07 Mucinex PO 600 mg Q12HR [facility] Administration Sodium Chloride 1,000 mls @ 50 mls/hr 02/09/17 09:00 02/10/17 05:31 Saline 0.9% IV 50 mls/hr .Q20H [facility] Administration Levofloxacin 500 mg/ IV 100 mls @ 100 mls/hr 02/09/17 10:00 02/09/17 12:46 Solution IVPB 100 mls/hr Q24H [facility] Administration Vancomycin HCl 1,000 mg/ 250 mls @ 125 mls/hr 02/10/17 06:30 02/10/17 06:57 Sodium Chloride IVPB 125 mls/hr Q8H [facility] Administration Insulin Aspart 0 unit 02/09/17 12:30 02/10/17 08:13 Novolog SQ 2 unit ACHS [facility] Administration Protocol Melatonin 10 mg 02/09/17 21:00 02/09/17 21:07 Melatonin PO 10 mg HS [facility] Administration Methylprednisolone Sodium Succinate 60 mg 02/09/17 12:00 02/10/17 05:31 Solu-Medrol IV 60 mg Q6HR [facility] Administration Miscellaneous Information 1 each 02/11/17 13:30 Vancomycin Trough Due MISCELLANE 02/11/17 13:31 ONCE ONE Montelukast Sodium 10 mg 02/09/17 21:00 02/09/17 21:07 Singulair PO 10 mg HS [facility] Administration Naloxone HCl 0.2 mg 02/09/17 10:54 Narcan IV Q2M PRN Opioid Reversal Pantoprazole Sodium 40 mg 02/09/17 09:00 02/10/17 08:07 Protonix PO 40 mg [id number] [facility] Administration Potassium Chloride 20 meq 02/09/17 09:00 02/10/17 08:07 K-Dur 20 PO 20 meq DAILY [facility] Administration Intake and Output 02/09/17 02/10/17 02/10/17 22:59 06:59 14:59 Intake Total 400 450 350 Output Total 695 100 Balance -295 350 350 Intake: IV 150 450 50 Sodium Chloride 0.9% 1, 150 450 50 000 ml @ 50 mls/hr IV . Q20H [facility] Rx#:[id number] Intake, IV Titration 250 100 Amount Magnesium Sulfate-D5w Pmx 100 1 gm In Dextrose/Water 1 100ml.bag @ 100 mls/hr IVPB Q1H [facility] Rx#: [id number] Sodium Chloride 0.9% 1, 250 000 ml @ 50 mls/hr IV . Q20H [facility] Rx#:[id number] Oral 200 Output: Urine 695 100 Other: # Voids 2 1 # Bowel Movements 1 Weight 64.5 kg 02/10/17 03:39 02/10/17 03:39 Assessment and Plan Assessment: Assessment #1 acute on chronic respiratory failure #2 COPD exacerbation #3 tracheobronchitis #4 tachycardia #5 mild chest discomfort Plan #1 I will start the patient on calcium channel paradise with Cardizem #2 obtain an echocardiogram was Doppler #3 check the TSH #4 follow-up with the patient. Thank you for allowing us participate in her care and we'll continue following up with the patient.
[2017-02-10] MEDS: LEVOFLOXACIN 500MG-D5W PMX 500 MG in DEXTROSE/WATER 1 100ML.BAG IVPB SCH (10:09)
[2017-02-10] MEDS: DILTIAZEM ORAL 30 MG TAB PO SCH ×3 (10:09→21:13)
--- NOTE | 2017-02-10 10:18 | XR ---
EXAMINATION TYPE: XR chest 1V DATE OF EXAM: 02/10/2017 COMPARISON: 02/09/2017 HISTORY: Pain TECHNIQUE: Single frontal view of the chest is obtained. FINDINGS: Heart is prominent. Underlying COPD suspected. No overt failure or pneumothorax. No pleura l effusion. Atherosclerotic change of aorta. Scoliosis and degenerative change of the spine. IMPRESSION: 1. COPD with cardiomegaly.
[2017-02-10 12:00] LABS: Glucose,Whole Blood 227 mg/dL (75-99)
--- NOTE | 2017-02-10 12:13 | PN ---
PROGRESS NOTE She was seen on 02/10/2017. She is sleepy but arousable and appropriate on BiPAP. PHYSICAL EXAMINATION: On physical examination, her blood pressure is 123/83, respiratory rate of 14, pulse rate 100, O2 sat on 50% FiO2 is 98%. HEENT reveals pupils are equal. No jugular venous distention. Chest reveals decreased breath sounds with prolonged expiration. Cardiovascular system reveals an S1, S2. Abdomen is soft. There is trace pedal edema. IMPRESSION AT THIS TIME: 1. Severe asthma with chronic obstructive pulmonary disease with acute exacerbation. 2. Metabolic encephalopathy secondary to CO2 narcosis. At this point in time, continue IV steroids, bronchodilators, aerosolized steroids, and antibiotics. Keep the patient's FiO2 to keep her sats only 89 to 90. Depending on how she does, we shall make further changes to her care. VIDHI / SIMONN: [id number] /
--- NOTE | 2017-02-10 13:02 | ECHOF ---
Referral Reason: MEASUREMENTS -------- HEIGHT: 170.2 cm WEIGHT: 64.4 kg BP: 116/77 RVIDd: 3.2 cm (< 3.3) IVSd: 0.9 cm (0.6 - 1.1) LVIDd: 4.2 cm (3.9 - 5.3) LVPWd: 0.9 cm (0.6 - 1.1) IVSs: 1.4 cm LVIDs: 2.6 cm LVPWs: 1.4 cm LAESV Index (A-L): 18.31 ml/m Ao Diam: 3.5 cm (2.0 - 3.7) AV Cusp: 2.0 cm (1.5 - 2.6) MV EXCURSION: 13.666 mm (> 18.000) MV EF SLOPE: 75 mm/s (70 - 150) EPSS: 0.2 cm MV E Junior: 1.00 m/s MV DecT: 247 ms MV A Junior: 1.18 m/s MV E/A Ratio: 0.85 AV maxP.58 mmHg AV meanP.79 mmHg FINDINGS -------- Resting tachycardia (HR>100bpm). This was a technically adequate study. The left ventricular size is normal. Left ventricular wall thickness is normal. Overall left vent ricular systolic function is normal with, an EF between 60 - 65 %. The right ventricle is normal in size and function. Normal LA size by volume 22+/-6 ml/m2. The right atrium is normal in size. There is mild aortic valve sclerosis. Peak/mean gradient across the Aortic Valve is 18.58mmHg / 9.7 9mmHg. The mitral valve is normal. The tricuspid valve appears structurally normal. There is no pulmonic regurgitation present. The aortic root size is normal. Normal inferior vena cava with normal inspiratory collapse consistent with estimated right atrial pre ssure of 5 mmHg. There is no pericardial effusion. CONCLUSIONS -------- 1. Resting tachycardia (HR>100bpm). 2. This was a technically adequate study. 3. The left ventricular size is normal. 4. Left ventricular wall thickness is normal. 5. Overall left ventricular systolic function is normal with, an EF between 60 - 65 %. 6. The right ventricle is normal in size and function. 7. Normal LA size by volume 22+/-6 ml/m2. 8. The right atrium is normal in size. 9. There is mild aortic valve sclerosis. 10. Peak/mean gradient across the Aortic Valve is 18.58mmHg / 9.79mmHg. 11. The mitral valve is normal. 12. The tricuspid valve appears structurally normal. 13. There is no pulmonic regurgitation present. 14. The aortic root size is normal. 15. Normal inferior vena cava with normal inspiratory collapse consistent with estimated right atrial pressure of 5 mmHg. 16. There is no pericardial effusion. PLANER HAND: Kiera Pop RDCS
--- NOTE | 2017-02-10 14:05 | P.PN ---
Subjective Progress Note Date: 02/10/17 This is a 61-year-old female one of Dr. Benitez with a previous medical history significant for asthma/COPD on 3 L of oxygen 24 hours, anemia, anxiety disorder, chronic low back pain, depression, chronic tobacco use and dependence , migraine headaches, osteoarthritis, sciatica, patient was brought into the emergency department at [facility] today with increased shortness of breath associated with chest tightness, productive cough and fever. Patient underwent updraft treatment by the EMS and was found to be saturating at 87% at room air. The patient responded well to Solu-Medrol and to updraft treatment in the ER. Patient is too lethargic to give any history but does state that she was not feeling well for the past 2 days. She is currently on nonrebreather , tachycardic. EKG done in the ER suggest of right bundle branch block and left anterior fascicular block that was also seen in the previous EKG with sinus tachycardia. Chest x-ray suggestive of pulmonary fibrosis but no consolidation or sign of heart failure seen. And will be transferred to ICU for further management . Patient was last admitted on 11/01 for COPD exacerbation. Patient sees Dr. Green as outpatient and will be consulted 1/2: Patient remains in the intensive care unit on BiPAP was unable to tolerate weaning to nasal cannula. She has been seen by Dr. Tovar with recommendations to start Cardizem for tachycardia. Echocardiogram ordered. Repeat chest x-ray shows COPD with cardiomegaly. She is also followed by pulmonary medicine, Dr. MELVIN Green and Dr. Owens. Objective - Vital Signs Vital signs: Vital Signs Temp 97.7 F 02/10/17 08:00 Pulse 103 H 02/10/17 08:00 Resp 25 H 02/10/17 08:00 BP 120/80 02/10/17 08:00 Pulse Ox 95 02/10/17 08:00 Intake & Output 02/09/17 02/10/17 02/10/17 18:59 06:59 18:59 Intake Total 650 600 350 Output Total 725 220 Balance -75 380 350 Weight 54.2 kg 64.5 kg Intake: IV 600 50 Sodium Chloride 0.9% 1, 600 50 000 ml @ 50 mls/hr IV . Q20H [facility] Rx#:[id number] Intake, IV Titration 650 100 Amount Levofloxacin 500Mg-D5w 100 Pmx 500 mg In Dextrose/ Water 1 100ml.bag @ 100 mls/hr IVPB Q24H [facility] Rx#: [id number] Magnesium Sulfate-D5w Pmx 100 1 gm In Dextrose/Water 1 100ml.bag @ 100 mls/hr IVPB Q1H [facility] Rx#: [id number] Sodium Chloride 0.9% 1, 550 000 ml @ 50 mls/hr IV . Q20H [facility] Rx#:[id number] Oral 200 Output: Urine 725 220 Other: # Voids 1 1 # Bowel Movements 1 - Exam - Constitutional General appearance: cooperative very lethargic, sleeps in between conversation. Currently on nonrebreather - EENT Eyes: anicteric sclerae, PERRLA, normal appearance ENT: hearing grossly normal - Neck Neck: no lymphadenopathy, normal ROM, no other, no rigidity, no stridor, no thyromegaly - Respiratory Respiratory: bilateral: Wheezing with rhonchi and dry crackles at bases - Cardiovascular Rhythm: Tachycardic Heart sounds: normal: S1, S2 Abnormal Heart Sounds: no systolic murmur, no diastolic murmur, no rub, no S3 Gallop, no S4 Gallop, no click, no other - Gastrointestinal General gastrointestinal: normal bowel sounds, soft, diffusely tender to palpate - Integumentary Integumentary: no rash - Neurologic Neurologic: Pupils are equal and reactive to light, no facial droop, patient moving both her extremities, no sensory deficit appreciated - Musculoskeletal Musculoskeletal: Gait not assessed strength equal bilaterally - Psychiatric Psychiatric: A&O x's 3, appropriate affect - Labs CBC & Chem 7: 02/10/17 03:39 02/10/17 03:39 Labs: Abnormal Lab Results - Last 24 Hours (Table) 02/09/17 02/09/17 02/09/17 Range/Units 06:59 09:48 10:44 MCHC (31.0-37.0) g/dL RDW (11.5-15.5) % Lymphocytes # (1.0-4.8) k/uL ABG pH 7.34 L (7.35-7.45) ABG pCO2 94 H* (35-45) mmHg ABG pO2 254 H (83-108) mmHg ABG HCO3 50 H* (21-25) mmol/L ABG Total CO2 52 H (19-24) mmol/L ABG O2 Saturation 99.0 H (94-97) % Chloride (98-107) mmol/L Carbon Dioxide (22-30) mmol/L Creatinine (0.52-1.04) mg/dL Glucose (74-99) mg/dL POC Glucose (mg/dL) 216 H (75-99) mg/dL Hemoglobin A1c 7.1 H (4.0-6.0) % 02/09/17 02/09/17 02/09/17 Range/Units 12:33 17:42 20:37 MCHC (31.0-37.0) g/dL RDW (11.5-15.5) % Lymphocytes # (1.0-4.8) k/uL ABG pH (7.35-7.45) ABG pCO2 (35-45) mmHg ABG pO2 (83-108) mmHg ABG HCO3 (21-25) mmol/L ABG Total CO2 (19-24) mmol/L ABG O2 Saturation (94-97) % Chloride (98-107) mmol/L Carbon Dioxide (22-30) mmol/L Creatinine (0.52-1.04) mg/dL Glucose (74-99) mg/dL POC Glucose (mg/dL) 227 H 186 H 180 H (75-99) mg/dL Hemoglobin A1c (4.0-6.0) % 02/10/17 02/10/17 02/10/17 Range/Units 03:39 03:39 07:54 MCHC 28.4 L (31.0-37.0) g/dL RDW 16.4 H (11.5-15.5) % Lymphocytes # 0.1 L (1.0-4.8) k/uL ABG pH (7.35-7.45) ABG pCO2 (35-45) mmHg ABG pO2 (83-108) mmHg ABG HCO3 (21-25) mmol/L ABG Total CO2 (19-24) mmol/L ABG O2 Saturation (94-97) % Chloride 90 L (98-107) mmol/L Carbon Dioxide 43 H* (22-30) mmol/L Creatinine 0.40 L (0.52-1.04) mg/dL Glucose 205 H (74-99) mg/dL POC Glucose (mg/dL) 169 H (75-99) mg/dL Hemoglobin A1c (4.0-6.0) % Microbiology - Last 24 Hours (Table) 02/09/17 06:59 Blood Culture - Preliminary Blood Assessment and Plan Plan: 1. Acute toxic respiratory failure due to acute exacerbation of COPD with acute bronchitis. Patient currently on nonrebreather, patient would benefit from BiPAP placement. Start the patient on Solu-Medrol 60 mg IV push every 6 hours, nebulized treatment DuoNeb 3 mg nebulization 4 times every day, Pulmicort 1 mg position twice every day, start the patient on levofloxacin 500 mg IV once every day, pulmonary consultation from Dr. MELVIN Green. 2. Chest pain. We will check cardiac enzymes 3, EKG with no ST or T-wave changes. Likely related to acute bronchitis 3. Chronic diastolic heart failure. Continue Lasix 20 mg orally once every day and potassium supplement, patient did have an echocardiogram last year in January 2016 that showed ejection fraction of 50% with right ventricular systolic pressure of 32 mmHg. 4. Metabolic encephalopathy secondary to CO2 narcosis. 5. Sinus tachycardia. Cardiology following. Patient started on Cardizem orally. 6. Recurrent depression. Continue patient on Cymbalta 20 mg orally once every day. 7. Osteoarthritis. Clinically stable. 8. 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 9. Migraine headaches. Stable at this point in time. 10. DVT prophylaxis. Lovenox 40 mg subcutaneously every 24 hours. 11. GI prophylaxis. Pepcid 20 mg twice a day 12. Patient is a full code. Impression and plan of care have been directed as dictated by the signing physician. Belinda Marte nurse practitioner acting as scribe for signing physician.
[2017-02-10 17:25] LABS: Glucose,Whole Blood 133 mg/dL (75-99)
[2017-02-10 21:05] LABS: Glucose,Whole Blood 301 mg/dL (75-99)
[2017-02-10] MEDS: MONTELUKAST 10 MG TAB PO SCH (21:13)
[2017-02-10] MEDS: MELATONIN 5 MG TABLET PO SCH (21:13)
[2017-02-11] MEDS: methylPREDNISolone SOD SUCCI 125 MG/2 ML VIAL IV SCH ×3 (00:47→21:35)
[2017-02-11] MEDS: IPRATROPIUM-ALBUTEROL 3 ML NEB INHALATION SCH ×5 (03:26→19:52)
[2017-02-11 04:27] LABS: Basophils % (A) 0 %; Eosinophils % (A) 0 %; HGB 11.6 gm/dL (11.4-16.0); Hypochromasia Marked; Lymphocytes # (A) 0.1 k/uL (1.0-4.8); Lymphocytes % (A) 2 %; MCH 27.2 pg (25.0-35.0); Mean Platelet Volume 7.5; Monocytes # (A) 0.3 k/uL (0-1.0); Monocytes % (A) 5 %; Neutrophils # (A) 5.9 k/uL (1.3-7.7); Neutrophils % (A) 91 %; Platelet Count 166 k/uL (150-450); RBC 4.25 m/uL (3.80-5.40); RDW 14.7 % (11.5-15.5); WBC 6.4 k/uL (3.8-10.6)
[2017-02-11 05:04] LABS: Blood Urea Nitrogen 19 mg/dL (7-17); Calcium 9.4 mg/dL (8.4-10.2); Chloride 91 mmol/L (98-107); Glucose 164 mg/dL (74-99); Magnesium 2.1 mg/dL (1.6-2.3); Phosphorus 3.1 mg/dL (2.5-4.5); Potassium 4.5 mmol/L (3.5-5.1); Sodium 138 mmol/L (137-145)
[2017-02-11 05:11] LABS: Anion Gap 1 mmol/L
[2017-02-11 05:18] LABS: Carbon Dioxide 46 mmol/L (22-30)
[2017-02-11] MEDS: SODIUM CHLORIDE 0.9% 1,000 ML IV SCH ×3 (05:50→11:55)
[2017-02-11] MEDS: VANCOMYCIN 1,000 MG in SODIUM CHLORIDE 0.9% 250 ML IVPB SCH ×3 (06:08→21:36)
[2017-02-11 06:16] LABS: Glucose,Whole Blood 188 mg/dL (75-99)
[2017-02-11] MEDS: INSULIN ASPART 100 UNIT/ML 1 ML 10 ML VIAL SQ SCH ×4 (06:19→21:59)
[2017-02-11] MEDS: BUDESONIDE 1 MG/2 ML NEBU INHALATION SCH (06:59)
[2017-02-11] MEDS: FORMOTEROL FUMARATE 20 MCG/2 ML NEBU INHALATION SCH ×2 (06:59→19:52)
[2017-02-11 07:22] LABS: Glucose,Whole Blood 255 mg/dL (75-99)
--- NOTE | 2017-02-11 08:02 | XR ---
EXAMINATION TYPE: XR chest 1V DATE OF EXAM: 02/11/2017 COMPARISON: 02/10/2017 HISTORY: Shortness of breath TECHNIQUE: Single frontal view of the chest is obtained. FINDINGS: There is no focal air space opacity, pleural effusion, or pneumothorax seen. The cardiac silhouette size is within normal limits. The osseous structures are intact. Atherosclerotic change of aorta. IMPRESSION: No acute process.
[2017-02-11] MEDS: DILTIAZEM ORAL 30 MG TAB PO SCH (08:28)
[2017-02-11] MEDS: CHOLECALCIFEROL 1,000 UNIT TAB PO SCH (08:28)
[2017-02-11] MEDS: guaiFENesin 600 MG TABLET.ER PO SCH ×2 (08:29→21:36)
[2017-02-11] MEDS: FAMOTIDINE 20 MG TAB PO SCH ×2 (08:29→21:36)
[2017-02-11] MEDS: ENOXAPARIN 40 MG/0.4 ML SYRINGE SQ SCH (08:29)
[2017-02-11] MEDS: DULoxetine HCL 20 MG CAPSULE.DR PO SCH (08:29)
[2017-02-11] MEDS: POTASSIUM CHLORIDE ER 20 MEQ TAB.ER PO SCH (08:30)
--- NOTE | 2017-02-11 09:11 | P.PN ---
Subjective Progress Note Date: 02/11/17 Principal diagnosis: Sinus tachycardia This is a pleasant 61-year-old female patient with a past medical history significant for chronic respiratory failure and chronic obstructive pulmonary disease presented to the hospital complaining of dyspnea. The patient describes shortness of breath associated with cough productive of sputum. Also she was having wheezing. No fever and no chills. In the hospital she was experiencing mild chest discomfort for and also she was feeling heart racing and fluttering. An EKG was performed and showed tachycardia and for that reason we get involved in her care. I reviewed the EKG which revealed to me sinus tachycardia with a differential diagnosis of atrial tachycardia and multifocal atrial tachycardia. The patient has been maintaining normal blood pressure. She is not aware of any prior cardiac history of coronary artery disease or congestive heart failure or any cardiac arrhythmia. She is known to have chronic respiratory failure and she is on home oxygen. I'll follow-up with the patient today on February [id number], she still short of breath. She seems to be in mild respiratory distress. Yesterday she was started on Cardizem by mouth on the heart rate has improved a bit. The TSH was checked and came in to be within normal limits. An echocardiogram was performed and the results still pending at this point. Objective - Vital Signs Vital signs: Vital Signs Temp 97.9 F 02/11/17 04:00 Pulse 89 02/11/17 07:24 Resp 18 02/11/17 07:00 BP 137/89 02/11/17 07:00 Pulse Ox 94 L 02/11/17 07:00 Intake & Output 02/10/17 02/11/17 02/11/17 18:59 06:59 18:59 Intake Total 1290 1780 50 Output Total 700 900 Balance 590 880 50 Weight 64.8 kg Intake: IV 550 1300 50 Sodium Chloride 0.9% 1, 550 550 50 000 ml @ 50 mls/hr IV . Q20H [facility] Rx#:[id number] Vancomycin 1,000 mg In 750 Sodium Chloride 0.9% 250 ml @ 125 mls/hr IVPB Q8H [facility] Rx#:[id number] Intake, IV Titration 300 Amount Levofloxacin 500Mg-D5w 100 Pmx 500 mg In Dextrose/ Water 1 100ml.bag @ 100 mls/hr IVPB Q24H [facility] Rx#: [id number] Magnesium Sulfate-D5w Pmx 200 1 gm In Dextrose/Water 1 100ml.bag @ 100 mls/hr IVPB Q1H [facility] Rx#: [id number] Oral 440 480 Output: Urine 700 900 Other: Voiding Method Bedpan Bedpan # Voids 1 - Constitutional General appearance: Present: no acute distress - Respiratory Respiratory: bilateral: wheezing - Cardiovascular Rhythm: regular Heart sounds: normal: S1, S2 - Labs CBC & Chem 7: 02/11/17 03:38 02/11/17 03:38 Labs: Abnormal Lab Results - Last 24 Hours (Table) 02/10/17 02/10/17 02/10/17 Range/Units 11:58 17:23 21:03 MCHC (31.0-37.0) g/dL Lymphocytes # (1.0-4.8) k/uL Chloride (98-107) mmol/L Carbon Dioxide (22-30) mmol/L BUN (7-17) mg/dL Creatinine (0.52-1.04) mg/dL Glucose (74-99) mg/dL POC Glucose (mg/dL) 227 H 133 H 301 H (75-99) mg/dL 02/11/17 02/11/17 02/11/17 Range/Units 03:38 03:38 06:15 MCHC 29.0 L (31.0-37.0) g/dL Lymphocytes # 0.1 L (1.0-4.8) k/uL Chloride 91 L (98-107) mmol/L Carbon Dioxide 46 H* (22-30) mmol/L BUN 19 H (7-17) mg/dL Creatinine 0.50 L (0.52-1.04) mg/dL Glucose 164 H (74-99) mg/dL POC Glucose (mg/dL) 188 H (75-99) mg/dL 02/11/17 Range/Units 07:20 MCHC (31.0-37.0) g/dL Lymphocytes # (1.0-4.8) k/uL Chloride (98-107) mmol/L Carbon Dioxide (22-30) mmol/L BUN (7-17) mg/dL Creatinine (0.52-1.04) mg/dL Glucose (74-99) mg/dL POC Glucose (mg/dL) 255 H (75-99) mg/dL Microbiology - Last 24 Hours (Table) 02/10/17 06:37 Blood Culture - Preliminary Blood No Growth after 24 hours 02/10/17 06:28 Blood Culture - Preliminary Blood No Growth after 24 hours 02/09/17 06:59 Blood Culture Gram Stain - Preliminary Blood Blood Culture - Preliminary Coagulase Negative Staph 02/09/17 06:59 Blood Culture - Preliminary Blood Assessment and Plan Assessment: Assessment #1 acute on chronic respiratory failure #2 COPD exacerbation #3 tracheobronchitis #4 tachycardia #5 mild chest discomfort Plan #1 continue the Cardizem by mouth at this point and increase the dose if we need to #2 follow-up on the echocardiogram #3 the TSH was checked and came in to be within normal limits. #4 follow-up with the patient. Thank you for allowing us participate in her care and we'll continue following up with the patient.
--- NOTE | 2017-02-11 11:03 | P.PN ---
Subjective Progress Note Date: 02/11/17 Principal diagnosis: AECOPD Patient seen and examined in the ICU. The patient states she feels better today. She wore the bipap over night. She says her breathing is improving. She denies fevers and chills. She ate breakfast this morning. She has no issues with her bowels or bladder. Objective - Vital Signs Vital signs: Vital Signs Temp 98.4 F 02/11/17 08:00 Pulse 98 02/11/17 10:00 Resp 18 02/11/17 10:00 BP 139/82 02/11/17 10:00 Pulse Ox 89 L 02/11/17 10:00 Intake & Output 02/10/17 02/11/17 02/11/17 18:59 06:59 18:59 Intake Total 1290 1780 440 Output Total 700 900 Balance 590 880 440 Weight 64.8 kg Intake: IV 550 1300 200 Sodium Chloride 0.9% 1, 550 550 200 000 ml @ 50 mls/hr IV . Q20H [facility] Rx#:[id number] Vancomycin 1,000 mg In 750 Sodium Chloride 0.9% 250 ml @ 125 mls/hr IVPB Q8H [facility] Rx#:[id number] Intake, IV Titration 300 Amount Levofloxacin 500Mg-D5w 100 Pmx 500 mg In Dextrose/ Water 1 100ml.bag @ 100 mls/hr IVPB Q24H [facility] Rx#: [id number] Magnesium Sulfate-D5w Pmx 200 1 gm In Dextrose/Water 1 100ml.bag @ 100 mls/hr IVPB Q1H [facility] Rx#: [id number] Oral 440 480 240 Output: Urine 700 900 Other: Voiding Method Bedpan Bedpan Bedpan # Voids 1 1 - Exam Gen.: Patient is alert and oriented 3, NAD Cardiovascular: Regular rate and rhythm, S1/S2, tachycardic Lungs: Diminished breath sounds bilaterally with scattered rhonchi Abdomen: Soft nontender nondistended positive bowel sounds Extremities: No edema - Labs CBC & Chem 7: 02/11/17 03:38 02/11/17 03:38 Labs: Abnormal Lab Results - Last 24 Hours (Table) 02/10/17 02/10/17 02/10/17 Range/Units 11:58 17:23 21:03 MCHC (31.0-37.0) g/dL Lymphocytes # (1.0-4.8) k/uL Chloride (98-107) mmol/L Carbon Dioxide (22-30) mmol/L BUN (7-17) mg/dL Creatinine (0.52-1.04) mg/dL Glucose (74-99) mg/dL POC Glucose (mg/dL) 227 H 133 H 301 H (75-99) mg/dL 02/11/17 02/11/17 02/11/17 Range/Units 03:38 03:38 06:15 MCHC 29.0 L (31.0-37.0) g/dL Lymphocytes # 0.1 L (1.0-4.8) k/uL Chloride 91 L (98-107) mmol/L Carbon Dioxide 46 H* (22-30) mmol/L BUN 19 H (7-17) mg/dL Creatinine 0.50 L (0.52-1.04) mg/dL Glucose 164 H (74-99) mg/dL POC Glucose (mg/dL) 188 H (75-99) mg/dL 02/11/17 Range/Units 07:20 MCHC (31.0-37.0) g/dL Lymphocytes # (1.0-4.8) k/uL Chloride (98-107) mmol/L Carbon Dioxide (22-30) mmol/L BUN (7-17) mg/dL Creatinine (0.52-1.04) mg/dL Glucose (74-99) mg/dL POC Glucose (mg/dL) 255 H (75-99) mg/dL Microbiology - Last 24 Hours (Table) 02/10/17 06:37 Blood Culture - Preliminary Blood No Growth after 24 hours 02/10/17 06:28 Blood Culture - Preliminary Blood No Growth after 24 hours 02/09/17 06:59 Blood Culture Gram Stain - Preliminary Blood Blood Culture - Preliminary Coagulase Negative Staph 02/09/17 06:59 Blood Culture - Preliminary Blood Assessment and Plan Assessment: Acute on chronic hypoxic and hypercapnic respiratory failure Acute exacerbation of COPD and severe persistent asthma Acute tracheobronchitis 3/4 SIRS Respiratory acidosis compensated with metabolic alkalosis History of tobacco abuse Depression and anxiety Chest pain, sinus tachycardia Chronic back pain History migraines Osteoarthritis Chronic diastolic congestive heart failure Continue BiPAP nightly and as needed O2 to maintain saturation greater than or equal to 88% IV Solu-Medrol taper Singulair Duo nebs Sputum culture pending Pulmicort- decrease to 0.5mg BID Mucinex Decrease IVF to KVO Perforomist Tobacco cessation is to be continued Incentive spirometry and pulmonary hygiene Antibiotics: Levaquin GI and DVT prophylaxis: Lovenox and Pepcid OK to transfer out of ICU today
[2017-02-11] MEDS: LEVOFLOXACIN 500MG-D5W PMX 500 MG in DEXTROSE/WATER 1 100ML.BAG IVPB SCH (11:55)
[2017-02-11 11:56] LABS: Glucose,Whole Blood 228 mg/dL (75-99)
--- NOTE | 2017-02-11 12:24 | P.PN ---
Subjective Progress Note Date: 02/11/17 This is a 61-year-old female one of Dr. Benitez with a previous medical history significant for asthma/COPD on 3 L of oxygen 24 hours, anemia, anxiety disorder, chronic low back pain, depression, chronic tobacco use and dependence , migraine headaches, osteoarthritis, sciatica, patient was brought into the emergency department at [facility] today with increased shortness of breath associated with chest tightness, productive cough and fever. Patient underwent updraft treatment by the EMS and was found to be saturating at 87% at room air. The patient responded well to Solu-Medrol and to updraft treatment in the ER. Patient is too lethargic to give any history but does state that she was not feeling well for the past 2 days. She is currently on nonrebreather , tachycardic. EKG done in the ER suggest of right bundle branch block and left anterior fascicular block that was also seen in the previous EKG with sinus tachycardia. Chest x-ray suggestive of pulmonary fibrosis but no consolidation or sign of heart failure seen. And will be transferred to ICU for further management . Patient was last admitted on 11/01 for COPD exacerbation. Patient sees Dr. Green as outpatient and will be consulted 2: Patient remains in the intensive care unit on BiPAP was unable to tolerate weaning to nasal cannula. She has been seen by Dr. Tovar with recommendations to start Cardizem for tachycardia. Echocardiogram ordered. Repeat chest x-ray shows COPD with cardiomegaly. She is also followed by pulmonary medicine, Dr. MELVIN Green and Dr. Owens. 02/11: She remains in the intensive care unit but is now on 4 L nasal cannula and pulse ox seen 89. Pulmonary is asking for pulse ox of 89% is stable for patient. She is on 3 L at home. Patient states that she is not feeling any better. Patient will be transferred out of the intensive care unit today and to continue BiPAP nightly and as needed. She has been afebrile. Repeat chest x -ray shows no acute process. Echocardiogram reveals EF of 60-65%, mild aortic valve sclerosis. Objective - Vital Signs Vital signs: Vital Signs Temp 97.9 F 02/11/17 04:00 Pulse 89 02/11/17 07:24 Resp 18 02/11/17 07:00 BP 137/89 02/11/17 07:00 Pulse Ox 94 L 02/11/17 07:00 Intake & Output 02/10/17 02/11/17 02/11/17 18:59 06:59 18:59 Intake Total 1290 1780 50 Output Total 700 900 Balance 590 880 50 Weight 64.8 kg Intake: IV 550 1300 50 Sodium Chloride 0.9% 1, 550 550 50 000 ml @ 50 mls/hr IV . Q20H [facility] Rx#:[id number] Vancomycin 1,000 mg In 750 Sodium Chloride 0.9% 250 ml @ 125 mls/hr IVPB Q8H [facility] Rx#:[id number] Intake, IV Titration 300 Amount Levofloxacin 500Mg-D5w 100 Pmx 500 mg In Dextrose/ Water 1 100ml.bag @ 100 mls/hr IVPB Q24H [facility] Rx#: [id number] Magnesium Sulfate-D5w Pmx 200 1 gm In Dextrose/Water 1 100ml.bag @ 100 mls/hr IVPB Q1H [facility] Rx#: [id number] Oral 440 480 Output: Urine 700 900 Other: Voiding Method Bedpan Bedpan # Voids 1 - Exam - Constitutional General appearance: cooperative very lethargic, sleeps in between conversation. Currently on nonrebreather - EENT Eyes: anicteric sclerae, PERRLA, normal appearance ENT: hearing grossly normal - Neck Neck: no lymphadenopathy, normal ROM, no other, no rigidity, no stridor, no thyromegaly - Respiratory Respiratory: bilateral: Wheezing with rhonchi and dry crackles at bases - Cardiovascular Rhythm: Tachycardic Heart sounds: normal: S1, S2 Abnormal Heart Sounds: no systolic murmur, no diastolic murmur, no rub, no S3 Gallop, no S4 Gallop, no click, no other - Gastrointestinal General gastrointestinal: normal bowel sounds, soft, diffusely tender to palpate - Integumentary Integumentary: no rash - Neurologic Neurologic: Pupils are equal and reactive to light, no facial droop, patient moving both her extremities, no sensory deficit appreciated - Musculoskeletal Musculoskeletal: Gait not assessed strength equal bilaterally - Psychiatric Psychiatric: A&O x's 3, appropriate affect - Labs CBC & Chem 7: 02/11/17 03:38 02/11/17 03:38 Labs: Abnormal Lab Results - Last 24 Hours (Table) 02/10/17 02/10/17 02/10/17 Range/Units 11:58 17:23 21:03 MCHC (31.0-37.0) g/dL Lymphocytes # (1.0-4.8) k/uL Chloride (98-107) mmol/L Carbon Dioxide (22-30) mmol/L BUN (7-17) mg/dL Creatinine (0.52-1.04) mg/dL Glucose (74-99) mg/dL POC Glucose (mg/dL) 227 H 133 H 301 H (75-99) mg/dL 02/11/17 02/11/17 02/11/17 Range/Units 03:38 03:38 06:15 MCHC 29.0 L (31.0-37.0) g/dL Lymphocytes # 0.1 L (1.0-4.8) k/uL Chloride 91 L (98-107) mmol/L Carbon Dioxide 46 H* (22-30) mmol/L BUN 19 H (7-17) mg/dL Creatinine 0.50 L (0.52-1.04) mg/dL Glucose 164 H (74-99) mg/dL POC Glucose (mg/dL) 188 H (75-99) mg/dL 02/11/17 Range/Units 07:20 MCHC (31.0-37.0) g/dL Lymphocytes # (1.0-4.8) k/uL Chloride (98-107) mmol/L Carbon Dioxide (22-30) mmol/L BUN (7-17) mg/dL Creatinine (0.52-1.04) mg/dL Glucose (74-99) mg/dL POC Glucose (mg/dL) 255 H (75-99) mg/dL Microbiology - Last 24 Hours (Table) 02/09/17 06:59 Blood Culture Gram Stain - Preliminary Blood Blood Culture - Preliminary Coagulase Negative Staph 02/09/17 06:59 Blood Culture - Preliminary Blood Assessment and Plan Plan: 1. Acute hypoxic respiratory failure due to acute exacerbation of COPD, severe persistent asthma with acute bronchitis. Patient currently on nonrebreather, patient would benefit from BiPAP placement. Start the patient on Solu-Medrol 60 mg IV push every 12 hours, nebulized treatment DuoNeb 3 mg nebulization 4 times every day, Pulmicort 0.5 mg position twice every day, start the patient on levofloxacin 500 mg IV once every day, pulmonary consultation from Dr. MELVIN Green. 2. Chest pain. We will check cardiac enzymes 3, EKG with no ST or T-wave changes. Likely related to acute bronchitis 3. Chronic diastolic heart failure. Continue Lasix 20 mg orally once every day and potassium supplement, patient did have an echocardiogram last year in January 2016 that showed ejection fraction of 50% with right ventricular systolic pressure of 32 mmHg. 4. Metabolic encephalopathy secondary to CO2 narcosis. 5. Sinus tachycardia. Cardiology following. Patient started on Cardizem orally. 6. Recurrent depression. Continue patient on Cymbalta 20 mg orally once every day. 7. Osteoarthritis. Clinically stable. 8. End-stage COPD. on 3 L at home 24 hours Continue treatment as in paragraph # 1. 9. Migraine headaches. Stable at this point in time. 10. DVT prophylaxis. Lovenox 40 mg subcutaneously every 24 hours. 11. GI prophylaxis. Pepcid 20 mg twice a day 12. Patient is a full code. Impression and plan of care have been directed as dictated by the signing physician. Belinda Marte nurse practitioner acting as scribe for signing physician.
[2017-02-11] MEDS ORDERED: DILTIAZEM ORAL 30 MG TAB PO STA (12:39)
[2017-02-11] MEDS ORDERED: VANCOMYCIN TROUGH DUE 1 EACH MISC MISCELLANE ONE (13:30)
[2017-02-11 17:17] LABS: Glucose,Whole Blood 157 mg/dL (75-99)
[2017-02-11] MEDS: DILTIAZEM ORAL 60 MG TAB PO SCH ×2 (17:18→21:36)
[2017-02-11] MEDS: BUDESONIDE 0.5 MG/2 ML NEBU INHALATION SCH (19:52)
[2017-02-11] MEDS: MONTELUKAST 10 MG TAB PO SCH (21:36)
[2017-02-11] MEDS: MELATONIN 5 MG TABLET PO SCH (21:36)
[2017-02-11] MEDS: ALPRAZolam 0.25 MG TAB PO PRN (21:36)
[2017-02-11 21:46] LABS: Glucose,Whole Blood 238 mg/dL (75-99)
[2017-02-12] MEDS: IPRATROPIUM-ALBUTEROL 3 ML NEB INHALATION SCH ×7 (00:14→23:40)
[2017-02-12] MEDS: guaiFENesin-DM 100-10MG/5ML 10 ML CUP PO PRN ×2 (01:19→08:23)
[2017-02-12] MEDS: INSULIN ASPART 100 UNIT/ML 1 ML 10 ML VIAL SQ SCH ×4 (06:34→21:51)
[2017-02-12] MEDS: VANCOMYCIN 1,000 MG in SODIUM CHLORIDE 0.9% 250 ML IVPB SCH ×3 (06:52→21:51)
[2017-02-12 07:00] LABS: Glucose,Whole Blood 199 mg/dL (75-99)
[2017-02-12 07:19] LABS: Blood Urea Nitrogen 19 mg/dL (7-17); Calcium 9.6 mg/dL (8.4-10.2); Chloride 92 mmol/L (98-107); Glucose 211 mg/dL (74-99); Magnesium 1.9 mg/dL (1.6-2.3); Phosphorus 3.7 mg/dL (2.5-4.5); Potassium 5.1 mmol/L (3.5-5.1); Sodium 139 mmol/L (137-145)
[2017-02-12 07:26] LABS: Anion Gap 6 mmol/L
[2017-02-12 07:29] LABS: Carbon Dioxide 41 mmol/L (22-30)
[2017-02-12] MEDS: methylPREDNISolone SOD SUCCI 125 MG/2 ML VIAL IV SCH ×2 (08:08→21:50)
[2017-02-12] MEDS: ENOXAPARIN 40 MG/0.4 ML SYRINGE SQ SCH (08:09)
[2017-02-12] MEDS: FAMOTIDINE 20 MG TAB PO SCH ×2 (08:09→22:17)
[2017-02-12] MEDS: DULoxetine HCL 20 MG CAPSULE.DR PO SCH (08:09)
[2017-02-12] MEDS: CHOLECALCIFEROL 1,000 UNIT TAB PO SCH (08:09)
[2017-02-12] MEDS: POTASSIUM CHLORIDE ER 20 MEQ TAB.ER PO SCH ×2 (08:09→08:11)
[2017-02-12] MEDS: guaiFENesin 600 MG TABLET.ER PO SCH ×2 (08:09→21:49)
[2017-02-12] MEDS: DILTIAZEM ORAL 60 MG TAB PO SCH ×3 (08:09→21:50)
[2017-02-12] MEDS: ACETAMINOPHEN TAB 325 MG TAB PO PRN (08:23)
[2017-02-12] MEDS: FORMOTEROL FUMARATE 20 MCG/2 ML NEBU INHALATION SCH ×2 (09:08→19:15)
[2017-02-12] MEDS: BUDESONIDE 0.5 MG/2 ML NEBU INHALATION SCH ×2 (09:08→19:16)
--- NOTE | 2017-02-12 09:50 | P.PN ---
Subjective Progress Note Date: 02/12/17 Principal diagnosis: Acute exacerbation of COPD Patient seen and examined. Patient is currently getting a breathing treatment. She states she did wear the BiPAP overnight. She states she is not feeling as well today. She states she is just more tired today. She does not have a cough and is not producing phlegm. She denies fevers and chills. Objective - Vital Signs Vital signs: Vital Signs Temp 97.3 F L 02/12/17 08:00 Pulse 92 02/12/17 09:36 Resp 22 02/12/17 08:00 BP 124/76 02/12/17 08:00 Pulse Ox 91 L 02/12/17 08:00 Intake & Output 02/11/17 02/12/17 02/12/17 18:59 06:59 18:59 Intake Total 840 725 Output Total 350 Balance 840 375 Weight 67.5 kg Intake: IV 500 245 Sodium Chloride 0.9% 1, 500 120 000 ml @ 20 mls/hr IV . Q24H [facility] Rx#:[id number] Vancomycin 1,000 mg In 125 Sodium Chloride 0.9% 250 ml @ 125 mls/hr IVPB Q8H [facility] Rx#:[id number] Intake, IV Titration 100 Amount Levofloxacin 500Mg-D5w 100 Pmx 500 mg In Dextrose/ Water 1 100ml.bag @ 100 mls/hr IVPB Q24H [facility] Rx#: [id number] Oral 240 480 Output: Urine 350 Other: Voiding Method Bedpan Bedpan Bedpan # Voids 3 2 - Exam Gen.: Patient is alert and oriented 3, NAD Cardiovascular: Regular rate and rhythm, S1/S2, tachycardic Lungs: Diminished breath sounds bilaterally with expiratory wheezing Abdomen: Soft nontender nondistended positive bowel sounds Extremities: No edema - Labs CBC & Chem 7: 02/11/17 03:38 02/12/17 06:38 Labs: Abnormal Lab Results - Last 24 Hours (Table) 02/11/17 02/11/17 02/11/17 Range/Units 11:52 17:16 21:43 Chloride (98-107) mmol/L Carbon Dioxide (22-30) mmol/L BUN (7-17) mg/dL Creatinine (0.52-1.04) mg/dL Glucose (74-99) mg/dL POC Glucose (mg/dL) 228 H 157 H 238 H (75-99) mg/dL 02/12/17 02/12/17 Range/Units 06:24 06:38 Chloride 92 L (98-107) mmol/L Carbon Dioxide 41 H* (22-30) mmol/L BUN 19 H (7-17) mg/dL Creatinine 0.42 L (0.52-1.04) mg/dL Glucose 211 H (74-99) mg/dL POC Glucose (mg/dL) 199 H (75-99) mg/dL Microbiology - Last 24 Hours (Table) 02/10/17 06:37 Blood Culture - Preliminary Blood No Growth after 48 hours 02/10/17 06:28 Blood Culture - Preliminary Blood No Growth after 48 hours Assessment and Plan Assessment: Acute on chronic hypoxic and hypercapnic respiratory failure Acute exacerbation of COPD and severe persistent asthma Acute tracheobronchitis 3/4 SIRS Respiratory acidosis compensated with metabolic alkalosis History of tobacco abuse Depression and anxiety Chest pain, sinus tachycardia Chronic back pain History migraines Osteoarthritis Chronic diastolic congestive heart failure Coagulation negative staph bacteremia, likely contamination Continue BiPAP nightly and as needed O2 to maintain saturation greater than or equal to 88% IV Solu-Medrol taper Singulair Duo nebs Sputum culture pending Pulmicort Mucinex Decrease IVF to KVO Perforomist Tobacco cessation is to be continued Incentive spirometry and pulmonary hygiene Antibiotics: Levaquin GI and DVT prophylaxis: Lovenox and Pepcid PT and OT
[2017-02-12 09:57] LABS: VBG PH 7.36 (7.31-7.41)
[2017-02-12 10:00] LABS: Anisocytosis Slight; Basophils % (A) 1 %; Eosinophils % (A) 0 %; HCT 43.1 % (34.0-46.0); HGB 12.5 gm/dL (11.4-16.0); Hypochromasia Marked; Lymphocytes # (A) 0.2 k/uL (1.0-4.8); Lymphocytes % (A) 3 %; MCH 27.2 pg (25.0-35.0); MCHC 28.9 g/dL (31.0-37.0); MCV 94.1 fL (80.0-100.0); Mean Platelet Volume 7.6; Monocytes # (A) 0.3 k/uL (0-1.0); Monocytes % (A) 5 %; Neutrophils # (A) 6.2 k/uL (1.3-7.7); Neutrophils % (A) 90 %; Platelet Count 162 k/uL (150-450); RBC 4.57 m/uL (3.80-5.40); RDW 16.2 % (11.5-15.5); WBC 6.9 k/uL (3.8-10.6)
[2017-02-12] MEDS: SODIUM CHLORIDE 0.9% 1,000 ML IV SCH (11:32)
[2017-02-12] MEDS: LEVOFLOXACIN 500MG-D5W PMX 500 MG in DEXTROSE/WATER 1 100ML.BAG IVPB SCH (11:35)
[2017-02-12 12:38] LABS: Glucose,Whole Blood 222 mg/dL (75-99)
--- NOTE | 2017-02-12 14:47 | P.PN ---
Subjective Progress Note Date: 02/12/17 Principal diagnosis: Sinus tachycardia This is a 61-year-old female with past medical history significant for respiratory failure, COPD, who presented to the hospital with progressive dyspnea. While in the hospital patient was experiencing mild chest discomfort and felt her heart racing and fluttering. An EKG was performed which showed tachycardia, and for this reason a cardiology consultation was requested. Patient was seen in consultation by Dr. Blanco, who felt that the EKG revealed sinus tachycardia with a differential diagnosis of atrial tachycardia and multifocal atrial tachycardia. Patient was seen and examined today, in normal sinus rhythm. Complaining of feeling tired today. Heart rate on the monitor in the 80s. Objective - Vital Signs Vital signs: Vital Signs Temp 97.3 F L 02/12/17 08:00 Pulse 100 02/12/17 12:41 Resp 22 02/12/17 08:00 BP 124/76 02/12/17 08:00 Pulse Ox 91 L 02/12/17 08:00 Intake & Output 02/11/17 02/12/17 02/12/17 18:59 06:59 18:59 Intake Total 840 725 Output Total 350 Balance 840 375 Weight 67.5 kg Intake: IV 500 245 Sodium Chloride 0.9% 1, 500 120 000 ml @ 20 mls/hr IV . Q24H [facility] Rx#:[id number] Vancomycin 1,000 mg In 125 Sodium Chloride 0.9% 250 ml @ 125 mls/hr IVPB Q8H [facility] Rx#:[id number] Intake, IV Titration 100 Amount Levofloxacin 500Mg-D5w 100 Pmx 500 mg In Dextrose/ Water 1 100ml.bag @ 100 mls/hr IVPB Q24H [facility] Rx#: [id number] Oral 240 480 Output: Urine 350 Other: Voiding Method Bedpan Bedpan Bedpan # Voids 3 2 - Exam PHYSICAL EXAMINATION: HEENT: Head is atraumatic, normocephalic. Pupils equal, round. Neck is supple. There is no elevated jugular venous pressure. HEART EXAMINATION: Heart S1, S2 normal. No murmur or gallop heard. CHEST EXAMINATION: Lungs reveal bilateral wheezing ABDOMEN: Soft, nontender. Bowel sounds are heard. No organomegaly noted. EXTREMITIES: 2+ peripheral pulses with no evidence of peripheral edema and no calf tenderness noted. NEUROLOGIC patient is awake, alert and oriented -3. . - Labs CBC & Chem 7: 02/12/17 09:33 02/12/17 06:38 Labs: Abnormal Lab Results - Last 24 Hours (Table) 02/11/17 02/11/17 02/12/17 Range/Units 17:16 21:43 06:24 MCHC (31.0-37.0) g/dL RDW (11.5-15.5) % Lymphocytes # (1.0-4.8) k/uL VBG pCO2 (37-51) mmHg VBG HCO3 (24-28) mmol/L Chloride (98-107) mmol/L Carbon Dioxide (22-30) mmol/L BUN (7-17) mg/dL Creatinine (0.52-1.04) mg/dL Glucose (74-99) mg/dL POC Glucose (mg/dL) 157 H 238 H 199 H (75-99) mg/dL 02/12/17 02/12/17 02/12/17 Range/Units 06:38 09:33 09:33 MCHC 28.9 L (31.0-37.0) g/dL RDW 16.2 H (11.5-15.5) % Lymphocytes # 0.2 L (1.0-4.8) k/uL VBG pCO2 81 H* (37-51) mmHg VBG HCO3 45 H (24-28) mmol/L Chloride 92 L (98-107) mmol/L Carbon Dioxide 41 H* (22-30) mmol/L BUN 19 H (7-17) mg/dL Creatinine 0.42 L (0.52-1.04) mg/dL Glucose 211 H (74-99) mg/dL POC Glucose (mg/dL) (75-99) mg/dL 02/12/17 Range/Units 12:21 MCHC (31.0-37.0) g/dL RDW (11.5-15.5) % Lymphocytes # (1.0-4.8) k/uL VBG pCO2 (37-51) mmHg VBG HCO3 (24-28) mmol/L Chloride (98-107) mmol/L Carbon Dioxide (22-30) mmol/L BUN (7-17) mg/dL Creatinine (0.52-1.04) mg/dL Glucose (74-99) mg/dL POC Glucose (mg/dL) 222 H (75-99) mg/dL Microbiology - Last 24 Hours (Table) 02/10/17 06:37 Blood Culture - Preliminary Blood No Growth after 48 hours 02/10/17 06:28 Blood Culture - Preliminary Blood No Growth after 48 hours Assessment and Plan Plan: Assessment and plan #1 acute exacerbation of COPD with associated tracheobronchitis #2 tachycardia, TSH normal, echocardiogram with Doppler study revealed an ejection fraction of 60-65%. #3 nicotine dependence Plan Cardiology's perspective, we'll recommend to continue current medications which include the Cardizem 60 mg one tablet by mouth 3 times a day. We will follow this patient with you now on an as-needed basis only, please don't hesitate to call with any questions. DNP note has been reviewed, I agree with a documented findings and plan of care. Patient was seen and examined.
--- NOTE | 2017-02-12 15:25 | P.PN ---
Subjective Progress Note Date: 02/12/17 This is a 61-year-old female one of Dr. Benitez with a previous medical history significant for asthma/COPD on 3 L of oxygen 24 hours, anemia, anxiety disorder, chronic low back pain, depression, chronic tobacco use and dependence , migraine headaches, osteoarthritis, sciatica, patient was brought into the emergency department at [facility] today with increased shortness of breath associated with chest tightness, productive cough and fever. Patient underwent updraft treatment by the EMS and was found to be saturating at 87% at room air. The patient responded well to Solu-Medrol and to updraft treatment in the ER. Patient is too lethargic to give any history but does state that she was not feeling well for the past 2 days. She is currently on nonrebreather , tachycardic. EKG done in the ER suggest of right bundle branch block and left anterior fascicular block that was also seen in the previous EKG with sinus tachycardia. Chest x-ray suggestive of pulmonary fibrosis but no consolidation or sign of heart failure seen. And will be transferred to ICU for further management . Patient was last admitted on 11/01 for COPD exacerbation. Patient sees Dr. Green as outpatient and will be consulted 02/10: Patient remains in the intensive care unit on BiPAP was unable to tolerate weaning to nasal cannula. She has been seen by Dr. Tovar with recommendations to start Cardizem for tachycardia. Echocardiogram ordered. Repeat chest x-ray shows COPD with cardiomegaly. She is also followed by pulmonary medicine, Dr. MELVIN Green and Dr. Owens. 02/11: She remains in the intensive care unit but is now on 4 L nasal cannula and pulse ox seen 89. Pulmonary is asking for pulse ox of 89% is stable for patient. She is on 3 L at home. Patient states that she is not feeling any better. Patient will be transferred out of the intensive care unit today and to continue BiPAP nightly and as needed. She has been afebrile. Repeat chest x -ray shows no acute process. Echocardiogram reveals EF of 60-65%, mild aortic valve sclerosis. 02/12: Patient was only on BiPAP for 2 and half hours during the night. She is currently on 3 L nasal cannula but does not have some mild confusion. Requested respiratory [facility]aurus plan BiPAP for now. Venous blood gas ordered. Cardiology is now following on an as-needed basis. Social work is following for discharge needs. Objective - Vital Signs Vital signs: Vital Signs Temp 97.3 F L 02/12/17 08:00 Pulse 92 02/12/17 09:23 Resp 22 02/12/17 08:00 BP 124/76 02/12/17 08:00 Pulse Ox 91 L 02/12/17 08:00 Intake & Output 02/11/17 02/12/17 02/12/17 18:59 06:59 18:59 Intake Total 840 725 Output Total 350 Balance 840 375 Weight 67.5 kg Intake: IV 500 245 Sodium Chloride 0.9% 1, 500 120 000 ml @ 20 mls/hr IV . Q24H [facility] Rx#:[id number] Vancomycin 1,000 mg In 125 Sodium Chloride 0.9% 250 ml @ 125 mls/hr IVPB Q8H [facility] Rx#:[id number] Intake, IV Titration 100 Amount Levofloxacin 500Mg-D5w 100 Pmx 500 mg In Dextrose/ Water 1 100ml.bag @ 100 mls/hr IVPB Q24H [facility] Rx#: [id number] Oral 240 480 Output: Urine 350 Other: Voiding Method Bedpan Bedpan Bedpan # Voids 3 2 - Exam - Constitutional General appearance: cooperative very lethargic, sleeps in between conversation. Currently on nonrebreather - EENT Eyes: anicteric sclerae, PERRLA, normal appearance ENT: hearing grossly normal - Neck Neck: no lymphadenopathy, normal ROM, no other, no rigidity, no stridor, no thyromegaly - Respiratory Respiratory: bilateral: Wheezing with rhonchi and dry crackles at bases - Cardiovascular Rhythm: Tachycardic Heart sounds: normal: S1, S2 Abnormal Heart Sounds: no systolic murmur, no diastolic murmur, no rub, no S3 Gallop, no S4 Gallop, no click, no other - Gastrointestinal General gastrointestinal: normal bowel sounds, soft, diffusely tender to palpate - Integumentary Integumentary: no rash - Neurologic Neurologic: Pupils are equal and reactive to light, no facial droop, patient moving both her extremities, no sensory deficit appreciated - Musculoskeletal Musculoskeletal: Gait not assessed strength equal bilaterally - Psychiatric Psychiatric: A&O x's 3, appropriate affect - Labs CBC & Chem 7: 02/12/17 09:33 02/12/17 06:38 Labs: Abnormal Lab Results - Last 24 Hours (Table) 02/11/17 02/11/17 02/11/17 Range/Units 11:52 17:16 21:43 Chloride (98-107) mmol/L Carbon Dioxide (22-30) mmol/L BUN (7-17) mg/dL Creatinine (0.52-1.04) mg/dL Glucose (74-99) mg/dL POC Glucose (mg/dL) 228 H 157 H 238 H (75-99) mg/dL 02/12/17 02/12/17 Range/Units 06:24 06:38 Chloride 92 L (98-107) mmol/L Carbon Dioxide 41 H* (22-30) mmol/L BUN 19 H (7-17) mg/dL Creatinine 0.42 L (0.52-1.04) mg/dL Glucose 211 H (74-99) mg/dL POC Glucose (mg/dL) 199 H (75-99) mg/dL Microbiology - Last 24 Hours (Table) 02/10/17 06:37 Blood Culture - Preliminary Blood No Growth after 48 hours 02/10/17 06:28 Blood Culture - Preliminary Blood No Growth after 48 hours Assessment and Plan Plan: 1. Acute hypoxic respiratory failure due to acute exacerbation of COPD, severe persistent asthma with acute bronchitis. Patient currently on nonrebreather, patient would benefit from BiPAP placement. Start the patient on Solu-Medrol 60 mg IV push every 12 hours, nebulized treatment DuoNeb 3 mg nebulization 4 times every day, Pulmicort 0.5 mg position twice every day, start the patient on levofloxacin 500 mg IV once every day, pulmonary consultation from Dr. MELVIN Green. 2. Chest pain. We will check cardiac enzymes 3, EKG with no ST or T-wave changes. Likely related to acute bronchitis 3. Chronic diastolic heart failure. Continue Lasix 20 mg orally once every day and potassium supplement, patient did have an echocardiogram last year in January 2016 that showed ejection fraction of 50% with right ventricular systolic pressure of 32 mmHg. 4. Metabolic encephalopathy secondary to CO2 narcosis. 5. Sinus tachycardia. Cardiology following. Patient started on Cardizem orally. 6. Recurrent depression. Continue patient on Cymbalta 20 mg orally once every day. 7. Osteoarthritis. Clinically stable. 8. End-stage COPD. on 3 L at home 24 hours Continue treatment as in paragraph # 1. 9. Migraine headaches. Stable at this point in time. 10. DVT prophylaxis. Lovenox 40 mg subcutaneously every 24 hours. 11. GI prophylaxis. Pepcid 20 mg twice a day 12. Patient is a full code. Discharge plan: To be determined Impression and plan of care have been directed as dictated by the signing physician. Belinda Marte nurse practitioner acting as scribe for signing physician.
[2017-02-12 17:10] LABS: Glucose,Whole Blood 229 mg/dL (75-99)
[2017-02-12 21:02] LABS: Glucose,Whole Blood 158 mg/dL (75-99)
[2017-02-12] MEDS: MELATONIN 5 MG TABLET PO SCH (21:49)
[2017-02-12] MEDS: MONTELUKAST 10 MG TAB PO SCH (21:50)
[2017-02-12] MEDS: ALPRAZolam 0.25 MG TAB PO PRN (21:50)
[2017-02-13] MEDS: guaiFENesin-DM 100-10MG/5ML 10 ML CUP PO PRN ×3 (03:05→21:04)
[2017-02-13] MEDS: IPRATROPIUM-ALBUTEROL 3 ML NEB INHALATION SCH ×6 (03:50→23:13)
[2017-02-13 05:55] LABS: Glucose,Whole Blood 238 mg/dL (75-99)
[2017-02-13] MEDS: INSULIN ASPART 100 UNIT/ML 1 ML 10 ML VIAL SQ SCH ×4 (06:17→21:03)
[2017-02-13] MEDS: VANCOMYCIN 1,000 MG in SODIUM CHLORIDE 0.9% 250 ML IVPB SCH (06:17)
[2017-02-13] MEDS: ACETAMINOPHEN TAB 325 MG TAB PO PRN (07:58)
[2017-02-13] MEDS: DULoxetine HCL 20 MG CAPSULE.DR PO SCH (07:59)
[2017-02-13] MEDS: DILTIAZEM ORAL 60 MG TAB PO SCH ×3 (07:59→21:04)
[2017-02-13] MEDS: ENOXAPARIN 40 MG/0.4 ML SYRINGE SQ SCH (07:59)
[2017-02-13] MEDS: CHOLECALCIFEROL 1,000 UNIT TAB PO SCH (07:59)
[2017-02-13] MEDS: guaiFENesin 600 MG TABLET.ER PO SCH ×2 (08:00→21:03)
[2017-02-13] MEDS: methylPREDNISolone SOD SUCCI 125 MG/2 ML VIAL IV SCH (08:00)
[2017-02-13] MEDS: FAMOTIDINE 20 MG TAB PO SCH ×2 (08:00→21:03)
[2017-02-13] MEDS: POTASSIUM CHLORIDE ER 20 MEQ TAB.ER PO SCH (08:05)
[2017-02-13] MEDS: BUDESONIDE 0.5 MG/2 ML NEBU INHALATION SCH ×2 (08:59→20:43)
[2017-02-13] MEDS: LEVOFLOXACIN 500MG-D5W PMX 500 MG in DEXTROSE/WATER 1 100ML.BAG IVPB SCH (10:43)
[2017-02-13] MEDS: SODIUM CHLORIDE 0.9% 1,000 ML IV SCH (10:43)
[2017-02-13 11:56] LABS: Glucose,Whole Blood 323 mg/dL (75-99)
--- NOTE | 2017-02-13 12:34 | PN ---
PROGRESS NOTE DATE OF SERVICE: 02/13/2017 Patient is a 61-year-old female who is seen lying in bed, is on BiPAP at this time, resting, so chose to put it on. Patient feels as she is back to baseline with her breathing. No significant complaints at this time. Patient is hemodynamically stable, afebrile, in no acute distress. PHYSICAL EXAM: VITAL SIGNS: Temp is 97.3, heart rate is 88, respiratory rate is 22, blood pressure is 133/86, O2 sats 91% on 3 L O2 via nasal cannula. HEENT: Head is normocephalic, atraumatic. Neck is supple. Trachea is midline. Lungs with diminished breath sounds. No clear rales or wheezes. HEART: S1, S2 are heard, not tachycardic. Abdomen is soft. Bowel sounds are positive. Extremities with no edema. NEUROLOGIC: Patient is awake and alert. LABS: No new labs to review. No new imaging to review. IMPRESSION: 1. Acute on chronic hypoxic and hypercapnic respiratory failure. 2. Acute exacerbation of chronic obstructive pulmonary disease and severe persistent asthma. 3. Acute tracheal bronchitis. 4. 3/4 SIRS. 5. Respiratory acidosis, compensated with metabolic alkalosis. 6. History of tobacco abuse. 7. Depression and anxiety. 8. Chest pain, sinus tachycardia. 9. Chronic back pain. 10.History of migraines. 11.Osteoarthritis. 12.Chronic diastolic congestive heart failure. 13.Coagulation, negative Staphylococcus bacteremia, likely contamination. PLAN: Continue BiPAP nightly and p.r.n. during the day. Continue oxygen to maintain sats greater than or equal to 88%. Will start oral prednisone 60 mg p.o. today and stop the IV Solu-Medrol. Continue the leukotriene inhibitors. Continue bronchodilators and aerosolized steroids. Continue with antibiotics. Smoking cessation to be continued. Continue with incentive spirometry and pulmonary hygiene. Continue GI and DVT prophylaxis. Increase activity with PT and OT and will follow patient closely with you making further changes as necessary. MMODL / IJN: [id number] /
--- NOTE | 2017-02-13 13:02 | P.PN ---
Subjective Progress Note Date: 02/13/17 This is a 61-year-old female one of Dr. Benitez with a previous medical history significant for asthma/COPD on 3 L of oxygen 24 hours, anemia, anxiety disorder, chronic low back pain, depression, chronic tobacco use and dependence , migraine headaches, osteoarthritis, sciatica, patient was brought into the emergency department at [facility] today with increased shortness of breath associated with chest tightness, productive cough and fever. Patient underwent updraft treatment by the EMS and was found to be saturating at 87% at room air. The patient responded well to Solu-Medrol and to updraft treatment in the ER. Patient is too lethargic to give any history but does state that she was not feeling well for the past 2 days. She is currently on nonrebreather , tachycardic. EKG done in the ER suggest of right bundle branch block and left anterior fascicular block that was also seen in the previous EKG with sinus tachycardia. Chest x-ray suggestive of pulmonary fibrosis but no consolidation or sign of heart failure seen. And will be transferred to ICU for further management . Patient was last admitted on 11/01 for COPD exacerbation. Patient sees Dr. Green as outpatient and will be consulted 02/10: Patient remains in the intensive care unit on BiPAP was unable to tolerate weaning to nasal cannula. She has been seen by Dr. Tovar with recommendations to start Cardizem for tachycardia. Echocardiogram ordered. Repeat chest x-ray shows COPD with cardiomegaly. She is also followed by pulmonary medicine, Dr. MELVIN Green and Dr. Owens. 02/11: She remains in the intensive care unit but is now on 4 L nasal cannula and pulse ox seen 89. Pulmonary is asking for pulse ox of 89% is stable for patient. She is on 3 L at home. Patient states that she is not feeling any better. Patient will be transferred out of the intensive care unit today and to continue BiPAP nightly and as needed. She has been afebrile. Repeat chest x -ray shows no acute process. Echocardiogram reveals EF of 60-65%, mild aortic valve sclerosis. 02/12: Patient was only on BiPAP for 2 and half hours during the night. She is currently on 3 L nasal cannula but does not have some mild confusion. Requested respiratory Taurus plan BiPAP for now. Venous blood gas ordered. Cardiology is now following on an as-needed basis. Social work is following for discharge needs. 02/13: Patient is seen this morning and she is on BiPAP. Patient stated that she has on BiPAP at home at nighttime and nasal cannula at 3 L during the day. Patient is complaining of constipation but she did have a bowel movement this morning. She has some generalized mid abdominal discomfort. Blood sugars are elevated for which additional dose of insulin given. Pulmonary medicine to switch over to prednisone 60 mg daily and stop IV Solu-Medrol. Physical therapy has recommended home with homecare. Objective - Vital Signs Vital signs: Vital Signs Temp 97.3 F L 02/13/17 08:00 Pulse 88 02/13/17 09:17 Resp 22 02/13/17 08:00 BP 133/86 02/13/17 08:00 Pulse Ox 91 L 02/13/17 08:00 Intake & Output 02/12/17 02/13/17 02/13/17 18:59 06:59 18:59 Intake Total 360 120 Output Total 800 300 Balance -440 -180 Weight 68 kg Intake: IV 120 Sodium Chloride 0.9% 1, 120 000 ml @ 20 mls/hr IV . Q24H [facility] Rx#:[id number] Oral 360 Output: Urine 800 300 Other: Voiding Method Bedpan Bedside Commode Bedside Commode # Voids 1 - Exam - Constitutional General appearance: cooperative very lethargic, sleeps in between conversation. Currently on nonrebreather - EENT Eyes: anicteric sclerae, PERRLA, normal appearance ENT: hearing grossly normal - Neck Neck: no lymphadenopathy, normal ROM, no other, no rigidity, no stridor, no thyromegaly - Respiratory Respiratory: bilateral: Wheezing with rhonchi and dry crackles at bases - Cardiovascular Rhythm: Tachycardic Heart sounds: normal: S1, S2 Abnormal Heart Sounds: no systolic murmur, no diastolic murmur, no rub, no S3 Gallop, no S4 Gallop, no click, no other - Gastrointestinal General gastrointestinal: normal bowel sounds, soft, diffusely tender to palpate - Integumentary Integumentary: no rash - Neurologic Neurologic: Pupils are equal and reactive to light, no facial droop, patient moving both her extremities, no sensory deficit appreciated - Musculoskeletal Musculoskeletal: Gait not assessed strength equal bilaterally - Psychiatric Psychiatric: A&O x's 3, appropriate affect - Labs CBC & Chem 7: 02/12/17 09:33 02/12/17 06:38 Labs: Abnormal Lab Results - Last 24 Hours (Table) 02/12/17 02/12/17 02/12/17 Range/Units 09:33 09:33 12:21 MCHC 28.9 L (31.0-37.0) g/dL RDW 16.2 H (11.5-15.5) % Lymphocytes # 0.2 L (1.0-4.8) k/uL VBG pCO2 81 H* (37-51) mmHg VBG HCO3 45 H (24-28) mmol/L POC Glucose (mg/dL) 222 H (75-99) mg/dL 02/12/17 02/12/17 02/13/17 Range/Units 16:32 21:01 05:52 MCHC (31.0-37.0) g/dL RDW (11.5-15.5) % Lymphocytes # (1.0-4.8) k/uL VBG pCO2 (37-51) mmHg VBG HCO3 (24-28) mmol/L POC Glucose (mg/dL) 229 H 158 H 238 H (75-99) mg/dL Microbiology - Last 24 Hours (Table) 02/10/17 06:37 Blood Culture - Preliminary Blood No Growth after 72 hours 02/10/17 06:28 Blood Culture - Preliminary Blood No Growth after 72 hours 02/09/17 06:59 Blood Culture Gram Stain - Final Blood Blood Culture - Final Staphylococcus haemolyticus 02/09/17 06:59 Blood Culture - Final Blood Assessment and Plan Plan: 1. Acute hypoxic respiratory failure due to acute exacerbation of COPD, severe persistent asthma with acute bronchitis. Patient currently on nonrebreather, patient would benefit from BiPAP placement. Start the patient on Solu-Medrol to Prednisone 60 mg daily, nebulized treatment DuoNeb 3 mg nebulization 4 times every day, Pulmicort 0.5 mg twice every day, start the patient on levofloxacin 500 mg once every day, pulmonary consultation from Dr. MELVIN Green. 2. Chest pain. We will check cardiac enzymes 3, EKG with no ST or T-wave changes. Likely related to acute bronchitis 3. Chronic diastolic heart failure. Continue Lasix 20 mg orally once every day and potassium supplement, patient did have an echocardiogram last year in January 2016 that showed ejection fraction of 50% with right ventricular systolic pressure of 32 mmHg. 4. Metabolic encephalopathy secondary to CO2 narcosis. 5. Sinus tachycardia. Cardiology following on an as-needed basis only. Patient started on Cardizem orally. 6. Recurrent depression. Continue patient on Cymbalta 20 mg orally once every day. 7. Osteoarthritis. Clinically stable. 8. End-stage COPD. on 3 L at home 24 hours Continue treatment as in paragraph # 1. 9. Migraine headaches. Stable at this point in time. 10. DVT prophylaxis. Lovenox 40 mg subcutaneously every 24 hours. 11. GI prophylaxis. Pepcid 20 mg twice a day 12. Patient is a full code. Discharge plan: Home with [facility] Impression and plan of care have been directed as dictated by the signing physician. Belinda Marte nurse practitioner acting as scribe for signing physician.
[2017-02-13] MEDS: FORMOTEROL FUMARATE 20 MCG/2 ML NEBU INHALATION SCH ×2 (13:09→20:43)
[2017-02-13 16:43] LABS: Glucose,Whole Blood 172 mg/dL (75-99)
[2017-02-13 20:00] LABS: Glucose,Whole Blood 190 mg/dL (75-99)
[2017-02-13] MEDS: MONTELUKAST 10 MG TAB PO SCH (21:04)
[2017-02-13] MEDS: MELATONIN 5 MG TABLET PO SCH (21:04)
[2017-02-13] MEDS: ALPRAZolam 0.25 MG TAB PO PRN (21:04)
[2017-02-14] MEDS: IPRATROPIUM-ALBUTEROL 3 ML NEB INHALATION SCH ×6 (03:29→23:31)
[2017-02-14 06:07] LABS: Glucose,Whole Blood 193 mg/dL (75-99)
[2017-02-14] MEDS: INSULIN ASPART 100 UNIT/ML 1 ML 10 ML VIAL SQ SCH ×4 (06:24→20:25)
[2017-02-14 06:30] LABS: Anisocytosis Slight; HCT 39.9 % (34.0-46.0); HGB 11.6 gm/dL (11.4-16.0); Hypochromasia Marked; MCH 27.5 pg (25.0-35.0); MCHC 29.1 g/dL (31.0-37.0); MCV 94.3 fL (80.0-100.0); Mean Platelet Volume 7.7; Platelet Count 164 k/uL (150-450); RBC 4.23 m/uL (3.80-5.40)
[2017-02-14 06:38] LABS: ALT 44 U/L (9-52); AST 14 U/L (14-36); Albumin 3.1 g/dL (3.5-5.0); Alkaline Phosphatase 101 U/L (38-126); Blood Urea Nitrogen 21 mg/dL (7-17); Calcium 9.4 mg/dL (8.4-10.2); Chloride 86 mmol/L (98-107); Glucose 168 mg/dL (74-99); Potassium 4.2 mmol/L (3.5-5.1); Sodium 139 mmol/L (137-145); Total Bilirubin 0.4 mg/dL (0.2-1.3); Total Protein 5.2 g/dL (6.3-8.2)
[2017-02-14 06:46] LABS: Anion Gap 1 mmol/L
[2017-02-14 06:48] LABS: Carbon Dioxide 52 mmol/L (22-30)
[2017-02-14] MEDS: BUDESONIDE 0.5 MG/2 ML NEBU INHALATION SCH ×2 (08:03→21:01)
[2017-02-14] MEDS: FORMOTEROL FUMARATE 20 MCG/2 ML NEBU INHALATION SCH ×2 (08:03→21:01)
[2017-02-14] MEDS: CHOLECALCIFEROL 1,000 UNIT TAB PO SCH (09:28)
[2017-02-14] MEDS: predniSONE 20 MG TAB PO SCH (09:29)
[2017-02-14] MEDS: ENOXAPARIN 40 MG/0.4 ML SYRINGE SQ SCH (09:29)
[2017-02-14] MEDS: DILTIAZEM ORAL 60 MG TAB PO SCH ×3 (09:29→20:26)
[2017-02-14] MEDS: guaiFENesin 600 MG TABLET.ER PO SCH ×2 (09:29→20:26)
[2017-02-14] MEDS: DULoxetine HCL 20 MG CAPSULE.DR PO SCH (09:29)
[2017-02-14] MEDS: FAMOTIDINE 20 MG TAB PO SCH ×2 (09:29→20:25)
[2017-02-14] MEDS: LEVOFLOXACIN 500 MG TAB PO SCH (09:29)
[2017-02-14] MEDS: POTASSIUM CHLORIDE ER 20 MEQ TAB.ER PO SCH (09:30)
[2017-02-14] MEDS: SODIUM CHLORIDE 0.9% 1,000 ML IV SCH (09:31)
[2017-02-14] MEDS: guaiFENesin-DM 100-10MG/5ML 10 ML CUP PO PRN ×2 (09:51→19:05)
--- NOTE | 2017-02-14 11:04 | P.PN ---
Subjective Progress Note Date: 02/14/17 patient feels some improvement since yesterday still lethargic using BiPAP and high flow nasal cannula. Patient seems to be alert and oriented 3 denying chest pain, nausea, vomiting, abdominal pain Objective - Vital Signs Vital signs: Vital Signs Temp 96.9 F L 02/14/17 08:00 Pulse 89 02/14/17 08:28 Resp 22 02/14/17 08:00 BP 123/96 02/14/17 08:00 Pulse Ox 94 L 02/14/17 08:03 Intake & Output 02/13/17 02/14/17 02/14/17 18:59 06:59 18:59 Intake Total 560 300 120 Output Total 850 850 Balance -290 -550 120 Weight 66 kg Intake: Oral 560 300 120 Output: Urine 850 850 Other: Voiding Method Bedside Commode Bedside Commode # Voids 2 1 # Bowel Movements 1 - Exam lungs diminished bilaterally Heart normal S1-S2 Abdomen soft no tenderness plus follow sounds all 4 quadrant skin no new rash psych alert and oriented 3 asked - Labs CBC & Chem 7: 02/14/17 06:04 02/14/17 06:04 Labs: Abnormal Lab Results - Last 24 Hours (Table) 02/13/17 02/13/17 02/13/17 Range/Units 11:52 16:38 19:59 MCHC (31.0-37.0) g/dL RDW (11.5-15.5) % Chloride (98-107) mmol/L Carbon Dioxide (22-30) mmol/L BUN (7-17) mg/dL Creatinine (0.52-1.04) mg/dL Glucose (74-99) mg/dL POC Glucose (mg/dL) 323 H 172 H 190 H (75-99) mg/dL Total Protein (6.3-8.2) g/dL Albumin (3.5-5.0) g/dL 02/14/17 02/14/17 02/14/17 Range/Units 05:56 06:04 06:04 MCHC 29.1 L (31.0-37.0) g/dL RDW 16.0 H (11.5-15.5) % Chloride 86 L (98-107) mmol/L Carbon Dioxide 52 H* (22-30) mmol/L BUN 21 H (7-17) mg/dL Creatinine 0.50 L (0.52-1.04) mg/dL Glucose 168 H (74-99) mg/dL POC Glucose (mg/dL) 193 H (75-99) mg/dL Total Protein 5.2 L (6.3-8.2) g/dL Albumin 3.1 L (3.5-5.0) g/dL Microbiology - Last 24 Hours (Table) 02/10/17 06:37 Blood Culture - Preliminary Blood No Growth after 96 hours 02/10/17 06:28 Blood Culture - Preliminary Blood No Growth after 96 hours Assessment and Plan Assessment: 1. Acute respiratory failure with hypoxia. 2. COPD with exacerbation. 3.chronic diastolic heart failure. 4. Anxiety and depression. 5. Migraine headache. Would continue weaning off steroids as tolerated. Would continue current diuretics dose. We will continue aggressive pulmonary hygiene and follow-up with pulmonary recommendation. Plan discussed with the patient and she is agreeable and will consider discharging patient's home once she is improved
[2017-02-14 12:00] LABS: Glucose,Whole Blood 184 mg/dL (75-99)
--- NOTE | 2017-02-14 12:56 | P.PN ---
Subjective Progress Note Date: 02/14/17 Principal diagnosis: Acute COPD exacerbation, acute on chronic hypoxic respiratory failure, severe COPD 02/14/2017, This patient seen and evaluated examined while covering for Dr. Owens, patient has been getting breathing treatments on a regular basis and seems to be controlling symptoms patient has been on supplemental oxygen sats are in low 90s she does get short of short of breath on activity and exertion however she is using BiPAP machine each night feels that quality of sleep is better with the BiPAP machine she feels well rested during the daytime with decreased sleepiness during the day along with improved respiratory status, she continued to have cough which is associated with his sputum which is light yellow to clear This is a 61-year-old female one of Dr. Benitez with a previous medical history significant for asthma/COPD on 3 L of oxygen 24 hours, anemia, anxiety disorder, chronic low back pain, depression, chronic tobacco use and dependence , migraine headaches, osteoarthritis, sciatica, patient was brought into the emergency department at [facility] with increased shortness of breath associated with chest tightness, productive cough and fever. Patient underwent updraft treatment by the EMS and was found to be saturating at 87% at room air. The patient responded well to Solu-Medrol and to updraft treatment in the ER. Patient was too lethargic to give any history but does state that she was not feeling well for the past 2 days. She was treated at nonrebreather , tachycardic. EKG done in the ER suggest of right bundle branch block and left anterior fascicular block that was also seen in the previous EKG with sinus tachycardia. Chest x-ray suggestive of pulmonary fibrosis but no consolidation or sign of heart failure seen. Initially she was kept at ICU for further management now as she improved moved out of the ICU to stepdown unit Objective - Vital Signs Vital signs: Vital Signs Temp 96.9 F L 02/14/17 08:00 Pulse 110 H 02/14/17 12:00 Resp 18 02/14/17 12:00 BP 108/70 02/14/17 12:00 Pulse Ox 90 L 02/14/17 12:00 Intake & Output 02/13/17 02/14/17 02/14/17 18:59 06:59 18:59 Intake Total 560 300 120 Output Total 850 850 Balance -290 -550 120 Weight 66 kg Intake: Oral 560 300 120 Output: Urine 850 850 Other: Voiding Method Bedside Commode Bedside Commode # Voids 2 1 1 # Bowel Movements 1 0 - Exam - Constitutional General appearance: cooperative very lethargic, sleeps in between conversation. Currently on nonrebreather - EENT Eyes: anicteric sclerae, PERRLA, normal appearance ENT: hearing grossly normal - Neck Neck: no lymphadenopathy, normal ROM, no other, no rigidity, no stridor, no thyromegaly - Respiratory Respiratory: bilateral: Wheezing with rhonchi and dry crackles at bases - Cardiovascular Rhythm: Tachycardic Heart sounds: normal: S1, S2 Abnormal Heart Sounds: no systolic murmur, no diastolic murmur, no rub, no S3 Gallop, no S4 Gallop, no click, no other - Gastrointestinal General gastrointestinal: normal bowel sounds, soft, diffusely tender to palpate - Integumentary Integumentary: no rash - Neurologic Neurologic: Pupils are equal and reactive to light, no facial droop, patient moving both her extremities, no sensory deficit appreciated - Musculoskeletal Musculoskeletal: Gait not assessed strength equal bilaterally - Psychiatric Psychiatric: A&O x's 3, appropriate affect - Labs CBC & Chem 7: 02/14/17 06:04 02/14/17 06:04 Labs: Abnormal Lab Results - Last 24 Hours (Table) 02/13/17 02/13/17 02/14/17 Range/Units 16:38 19:59 05:56 MCHC (31.0-37.0) g/dL RDW (11.5-15.5) % Chloride (98-107) mmol/L Carbon Dioxide (22-30) mmol/L BUN (7-17) mg/dL Creatinine (0.52-1.04) mg/dL Glucose (74-99) mg/dL POC Glucose (mg/dL) 172 H 190 H 193 H (75-99) mg/dL Total Protein (6.3-8.2) g/dL Albumin (3.5-5.0) g/dL 02/14/17 02/14/17 02/14/17 Range/Units 06:04 06:04 11:48 MCHC 29.1 L (31.0-37.0) g/dL RDW 16.0 H (11.5-15.5) % Chloride 86 L (98-107) mmol/L Carbon Dioxide 52 H* (22-30) mmol/L BUN 21 H (7-17) mg/dL Creatinine 0.50 L (0.52-1.04) mg/dL Glucose 168 H (74-99) mg/dL POC Glucose (mg/dL) 184 H (75-99) mg/dL Total Protein 5.2 L (6.3-8.2) g/dL Albumin 3.1 L (3.5-5.0) g/dL Microbiology - Last 24 Hours (Table) 02/10/17 06:37 Blood Culture - Preliminary Blood No Growth after 96 hours 02/10/17 06:28 Blood Culture - Preliminary Blood No Growth after 96 hours Assessment and Plan Plan: 1. Acute hypoxic respiratory failure due to acute exacerbation of COPD, severe persistent asthma with acute bronchitis. Patient currently supplemental oxygen and she has been getting benefit from BiPAP placement. Maintain patient on Prednisone 60 mg daily, titrated down slowly over the period of a week to 2 continue nebulized treatment DuoNeb 3 mg nebulization 4 times every day, Pulmicort 0.5 mg twice every day, maintain the patient on levofloxacin 500 mg once every day, however I feel that 5-6 day of therapy should be adequate and to avoid long-term use of antibiotic related to side effect of tendon rupture. 2. Chest pain. Resolve and improve now 3. Acute on Chronic diastolic heart failure. With component of cor pulmonale early and pulmonary hypertension related to severe COPD and chronic hypoxic respiratory failure Continue Lasix 20 mg orally once every day and potassium supplement, patient did have an echocardiogram last year in January 2016 that showed ejection fraction of 50% with right ventricular systolic pressure of 32 mmHg. 4. Metabolic encephalopathy secondary to CO2 narcosis. 5. Sinus tachycardia. Cardiology following on an as-needed basis only. Patient started on Cardizem orally. 6. Recurrent depression. Continue patient on Cymbalta 20 mg orally once every day. 7. Osteoarthritis. Clinically stable. 8. End-stage COPD. on 3 L at home 24 hours Continue treatment as in paragraph # 1. 9. Migraine headaches. Stable at this point in time. 10. DVT prophylaxis. Lovenox 40 mg subcutaneously every 24 hours. 11. GI prophylaxis. Pepcid 20 mg twice a day Time with Patient: Greater than 30
[2017-02-14 17:05] LABS: Glucose,Whole Blood 227 mg/dL (75-99)
[2017-02-14] MEDS: ACETAMINOPHEN TAB 325 MG TAB PO PRN (20:24)
[2017-02-14] MEDS: MELATONIN 5 MG TABLET PO SCH (20:25)
[2017-02-14] MEDS: MONTELUKAST 10 MG TAB PO SCH (20:25)
[2017-02-14 20:33] LABS: Glucose,Whole Blood 268 mg/dL (75-99)
[2017-02-14] MEDS: ALPRAZolam 0.25 MG TAB PO PRN (22:08)
[2017-02-15] MEDS: guaiFENesin-DM 100-10MG/5ML 10 ML CUP PO PRN ×3 (03:30→19:43)
[2017-02-15] MEDS: IPRATROPIUM-ALBUTEROL 3 ML NEB INHALATION SCH ×5 (03:58→20:17)
[2017-02-15 06:15] LABS: Glucose,Whole Blood 102 mg/dL (75-99)
[2017-02-15] MEDS: INSULIN ASPART 100 UNIT/ML 1 ML 10 ML VIAL SQ SCH ×4 (06:26→21:53)
[2017-02-15] MEDS: predniSONE 20 MG TAB PO SCH (07:57)
[2017-02-15] MEDS: CHOLECALCIFEROL 1,000 UNIT TAB PO SCH (07:57)
[2017-02-15] MEDS: FAMOTIDINE 20 MG TAB PO SCH ×2 (07:57→19:42)
[2017-02-15] MEDS: LEVOFLOXACIN 500 MG TAB PO SCH (07:58)
[2017-02-15] MEDS: DILTIAZEM ORAL 60 MG TAB PO SCH ×3 (07:58→21:53)
[2017-02-15] MEDS: DULoxetine HCL 20 MG CAPSULE.DR PO SCH (07:58)
[2017-02-15] MEDS: guaiFENesin 600 MG TABLET.ER PO SCH ×2 (07:58→19:42)
[2017-02-15] MEDS: ENOXAPARIN 40 MG/0.4 ML SYRINGE SQ SCH (07:58)
[2017-02-15] MEDS: SODIUM CHLORIDE 0.9% 1,000 ML IV SCH (07:59)
[2017-02-15] MEDS: POTASSIUM CHLORIDE ER 20 MEQ TAB.ER PO SCH (07:59)
[2017-02-15] MEDS: BUDESONIDE 0.5 MG/2 ML NEBU INHALATION SCH ×2 (08:48→20:17)
[2017-02-15] MEDS: FORMOTEROL FUMARATE 20 MCG/2 ML NEBU INHALATION SCH ×2 (08:48→20:17)
[2017-02-15 12:11] LABS: Glucose,Whole Blood 186 mg/dL (75-99)
--- NOTE | 2017-02-15 12:35 | P.PN ---
Subjective Progress Note Date: 02/15/17 Principal diagnosis: Acute exacerbation of COPD Patient seen and examined. Patient states she is feeling much better today. She wears a BiPAP overnight. She is still having some expiratory wheezing. She states that she is getting up to the bedside commode. She did ambulate to the door with her was several days ago. She states that at the time it was very difficult. Objective - Vital Signs Vital signs: Vital Signs Temp 97 F L 02/15/17 08:00 Pulse 97 02/15/17 11:48 Resp 19 02/15/17 08:00 BP 121/78 02/15/17 08:00 Pulse Ox 96 02/15/17 08:48 Intake & Output 02/14/17 02/15/17 02/15/17 18:59 06:59 18:59 Intake Total 740 120 Output Total 400 300 Balance 340 -180 Weight 66.5 kg Intake: IV 140 Sodium Chloride 0.9% 1, 140 000 ml @ 20 mls/hr IV . Q24H REGIS Rx#:[id number] Oral 600 120 Output: Urine 400 300 Other: # Voids 200 1 # Bowel Movements 0 - Exam Gen.: Patient is alert and oriented 3, NAD Cardiovascular: Regular rate and rhythm, S1/S2, tachycardic Lungs: Diminished breath sounds bilaterally with expiratory wheezing Abdomen: Soft nontender nondistended positive bowel sounds Extremities: No edema - Labs CBC & Chem 7: 02/14/17 06:04 02/14/17 06:04 Labs: Abnormal Lab Results - Last 24 Hours (Table) 02/14/17 02/14/17 02/15/17 Range/Units 16:39 20:21 06:03 POC Glucose (mg/dL) 227 H 268 H 102 H (75-99) mg/dL 02/15/17 Range/Units 11:35 POC Glucose (mg/dL) 186 H (75-99) mg/dL Microbiology - Last 24 Hours (Table) 02/10/17 06:37 Blood Culture - Preliminary Blood No Growth after 120 hours 02/10/17 06:28 Blood Culture - Preliminary Blood No Growth after 120 hours Assessment and Plan Assessment: Acute on chronic hypoxic and hypercapnic respiratory failure Acute exacerbation of COPD and severe persistent asthma Acute tracheobronchitis 3/4 SIRS Respiratory acidosis compensated with metabolic alkalosis History of tobacco abuse Depression and anxiety Chest pain, sinus tachycardia Chronic back pain History migraines Osteoarthritis Chronic diastolic congestive heart failure Coagulation negative staph bacteremia, likely contamination Continue BiPAP nightly and as needed O2 to maintain saturation greater than or equal to 88% Prednisone taper Singulair Duo nebs Sputum culture pending Pulmicort Mucinex, increase dose Decrease IVF to KVO Perforomist Tobacco cessation is to be continued Incentive spirometry and pulmonary hygiene Flutter tx Antibiotics: Levaquin x 5 days total GI and DVT prophylaxis: Lovenox and Pepcid PT and OT, encourage ambulation
--- NOTE | 2017-02-15 15:45 | P.PN ---
Subjective Progress Note Date: 02/15/17 Patient had episode of severe shortness of breath in the morning when she was trying to get out of bed responded well to breathing treatment and BiPAP patient currently is down to 3 L nasal cannula fluid was discontinued yesterday after the shortness of breath and patient seems to be tolerating diet today patient overall continued to be stable without any major events except as above Objective - Vital Signs Vital signs: Vital Signs Temp 97 F L 02/15/17 08:00 Pulse 112 H 02/15/17 12:00 Resp 20 02/15/17 12:00 BP 125/81 02/15/17 12:00 Pulse Ox 89 L 02/15/17 12:00 Intake & Output 02/14/17 02/15/17 02/15/17 18:59 06:59 18:59 Intake Total 740 240 Output Total 400 300 Balance 340 -60 Weight 66.5 kg Intake: IV 140 Sodium Chloride 0.9% 1, 140 000 ml @ 20 mls/hr IV . Q24H RGEIS Rx#:[id number] Oral 600 240 Output: Urine 400 300 Other: # Voids 200 1 2 # Bowel Movements 0 1 - Exam lungs diminished bilaterally Heart normal S1-S2 Abdomen soft no tenderness plus follow sounds all 4 quadrant skin no new rash psych alert and oriented 3 asked - Labs CBC & Chem 7: 02/14/17 06:04 02/14/17 06:04 Labs: Abnormal Lab Results - Last 24 Hours (Table) 02/14/17 02/14/17 02/15/17 Range/Units 16:39 20:21 06:03 POC Glucose (mg/dL) 227 H 268 H 102 H (75-99) mg/dL 02/15/17 Range/Units 11:35 POC Glucose (mg/dL) 186 H (75-99) mg/dL Microbiology - Last 24 Hours (Table) 02/10/17 06:37 Blood Culture - Preliminary Blood No Growth after 120 hours 02/10/17 06:28 Blood Culture - Preliminary Blood No Growth after 120 hours Assessment and Plan Assessment: 1. Acute respiratory failure with hypoxia. 2. COPD with exacerbation. 3.chronic diastolic heart failure. 4. Anxiety and depression. 5. Migraine headache. Would continue weaning off steroids as tolerated. Would continue current diuretics dose. We will continue aggressive pulmonary hygiene and follow-up with pulmonary recommendation. Patient currently on BiPAP and seems to be slightly improved we would continue monitoring closely and follow up with pulmonary recommendation patient may benefit from long-term care facility discharge as her weaning off steroids and BiPAP process is kind of slow Plan discussed with the patient and she is agreeable and will consider discharging patient's home once she is improved
[2017-02-15 17:14] LABS: Glucose,Whole Blood 311 mg/dL (75-99)
[2017-02-15] MEDS: MELATONIN 5 MG TABLET PO SCH (19:41)
[2017-02-15] MEDS: MONTELUKAST 10 MG TAB PO SCH (19:42)
[2017-02-15 20:32] LABS: Glucose,Whole Blood 276 mg/dL (75-99)
[2017-02-16] MEDS: IPRATROPIUM-ALBUTEROL 3 ML NEB INHALATION SCH ×4 (00:04→11:45)
[2017-02-16 06:07] LABS: Glucose,Whole Blood 94 mg/dL (75-99)
[2017-02-16] MEDS: INSULIN ASPART 100 UNIT/ML 1 ML 10 ML VIAL SQ SCH ×2 (06:08→12:39)
[2017-02-16] MEDS: FORMOTEROL FUMARATE 20 MCG/2 ML NEBU INHALATION SCH (08:12)
[2017-02-16] MEDS: BUDESONIDE 0.5 MG/2 ML NEBU INHALATION SCH (08:12)
[2017-02-16] MEDS: DULoxetine HCL 20 MG CAPSULE.DR PO SCH (09:42)
[2017-02-16] MEDS: guaiFENesin 600 MG TABLET.ER PO SCH (09:42)
[2017-02-16] MEDS: FAMOTIDINE 20 MG TAB PO SCH (09:42)
[2017-02-16] MEDS: ENOXAPARIN 40 MG/0.4 ML SYRINGE SQ SCH (09:42)
[2017-02-16] MEDS: DILTIAZEM ORAL 60 MG TAB PO SCH ×2 (09:42→15:46)
[2017-02-16] MEDS: LEVOFLOXACIN 500 MG TAB PO SCH (09:43)
[2017-02-16] MEDS: POTASSIUM CHLORIDE ER 20 MEQ TAB.ER PO SCH (09:43)
[2017-02-16] MEDS: predniSONE 20 MG TAB PO SCH (09:43)
[2017-02-16] MEDS: CHOLECALCIFEROL 1,000 UNIT TAB PO SCH (09:45)
--- NOTE | 2017-02-16 10:07 | P.PN ---
Subjective Progress Note Date: 02/16/17 Principal diagnosis: Acute exacerbation of COPD Patient seen and examined. Patient states her breathing is about the same as it was yesterday. She appears tachypnic and states she just got back to bed from the commode. She denies cough, fever, chills. She is wanting to go to rehab and states she has been to [facility] in the past and would like to go back there. Objective - Vital Signs Vital signs: Vital Signs Temp 96.9 F L 02/16/17 03:16 Pulse 96 02/16/17 08:43 Resp 18 02/16/17 03:16 BP 114/71 02/16/17 03:16 Pulse Ox 98 02/16/17 03:16 Intake & Output 02/15/17 02/16/17 02/16/17 18:59 06:59 18:59 Intake Total 240 240 Output Total 901 300 Balance -661 -300 240 Weight 65.1 kg Intake: Oral 240 240 Output: Urine 900 300 Stool 1 Other: # Voids 2 2 # Bowel Movements 1 - Exam Gen.: Patient is alert and oriented 3, NAD Cardiovascular: Regular rate and rhythm, S1/S2, tachycardic Lungs: Diminished breath sounds bilaterally with expiratory wheezing Abdomen: Soft nontender nondistended positive bowel sounds Extremities: No edema - Labs CBC & Chem 7: 02/14/17 06:04 02/14/17 06:04 Labs: Abnormal Lab Results - Last 24 Hours (Table) 02/15/17 02/15/17 02/15/17 Range/Units 11:35 16:38 20:30 POC Glucose (mg/dL) 186 H 311 H 276 H (75-99) mg/dL Microbiology - Last 24 Hours (Table) 02/10/17 06:37 Blood Culture - Final Blood No Growth after 144 hours 02/10/17 06:28 Blood Culture - Final Blood No Growth after 144 hours Assessment and Plan Assessment: Acute on chronic hypoxic and hypercapnic respiratory failure Acute exacerbation of COPD and severe persistent asthma Acute tracheobronchitis 3/4 SIRS Respiratory acidosis compensated with metabolic alkalosis History of tobacco abuse Depression and anxiety Chest pain, sinus tachycardia Chronic back pain History migraines Osteoarthritis Chronic diastolic congestive heart failure Coagulation negative staph bacteremia, likely contamination Continue BiPAP nightly and as needed O2 to maintain saturation greater than or equal to 88% Prednisone taper Singulair Matto nebs Pulmicort Mucinex Decrease IVF to KVO Perforomist Tobacco cessation is to be continued Incentive spirometry and pulmonary hygiene Flutter tx Antibiotics: Levaquin x 5 days total GI and DVT prophylaxis: Lovenox and Pepcid PT and OT, encourage ambulation Patient would benefit from rehab. She would also benefit from outpatient pulmonary rehab once able. Ok to DC to rehab from pulmonary standpoint. Follow up in 1-2 weeks. Continue current nebulizer regimen.
[2017-02-16 11:49] VITALS: RESP 20
[2017-02-16 11:59] LABS: Glucose,Whole Blood 193 mg/dL (75-99)
--- NOTE | 2017-02-16 13:00 | P.DS ---
Providers Date of admission: 02/09/17 08:56 Expected date of discharge: 02/16/17 Attending physician: Judith Pat MD Consults: 02/09/17 08:56 Consult Physician Routine Consulting Provider: Abhilash Green Consult Reason/Comments: COPD exacerbation Do you want consulting provider notified?: Yes 02/09/17 09:55 Consult Physician Urgent Consulting Provider: Apple Owens Consult Reason/Comments: COPD exacerbation, ICU admission Do you want consulting provider notified?: Already Contacted 02/09/17 12:09 Consult Physician Routine Consulting Provider: Lilly Alvarez Consult Reason/Comments: tachycardia Do you want consulting provider notified?: Yes Primary care physician: Matheus Benitez [facility] Course: This is a 61-year-old female one of Dr. Benitez with a previous medical history significant for asthma/COPD on 3 L of oxygen 24 hours, anemia, anxiety disorder, chronic low back pain, depression, chronic tobacco use and dependence , migraine headaches, osteoarthritis, sciatica, patient was brought into the emergency department at [facility] with increased shortness of breath associated with chest tightness, productive cough and fever. Patient underwent updraft treatment by the EMS and was found to be saturating at 87% at room air. The patient responded well to Solu-Medrol and to updraft treatment in the ER. Patient is too lethargic to give any history but does state that she was not feeling well for the past 2 days. She is currently on nonrebreather , tachycardic. EKG done in the ER suggest of right bundle branch block and left anterior fascicular block that was also seen in the previous EKG with sinus tachycardia. Chest x-ray suggestive of pulmonary fibrosis but no consolidation or sign of heart failure seen. And will be transferred to ICU for further management . Patient was last admitted on 11/01 for COPD exacerbation. Patient sees Dr. Green as outpatient and will be consulted 02/10: Patient remains in the intensive care unit on BiPAP was unable to tolerate weaning to nasal cannula. She has been seen by Dr. Tovar with recommendations to start Cardizem for tachycardia. Echocardiogram ordered. Repeat chest x-ray shows COPD with cardiomegaly. She is also followed by pulmonary medicine, Dr. MELVIN Green and Dr. Owens. 02/11: She remains in the intensive care unit but is now on 4 L nasal cannula and pulse ox seen 89. Pulmonary is asking for pulse ox of 89% is stable for patient. She is on 3 L at home. Patient states that she is not feeling any better. Patient will be transferred out of the intensive care unit today and to continue BiPAP nightly and as needed. She has been afebrile. Repeat chest x -ray shows no acute process. Echocardiogram reveals EF of 60-65%, mild aortic valve sclerosis. 02/12: Patient was only on BiPAP for 2 and half hours during the night. She is currently on 3 L nasal cannula but does not have some mild confusion. Requested respiratory [place] plan BiPAP for now. Venous blood gas ordered. Cardiology is now following on an as-needed basis. Social work is following for discharge needs. 02/13: Patient is seen this morning and she is on BiPAP. Patient stated that she has on BiPAP at home at nighttime and nasal cannula at 3 L during the day. Patient is complaining of constipation but she did have a bowel movement this morning. She has some generalized mid abdominal discomfort. Blood sugars are elevated for which additional dose of insulin given. Pulmonary medicine to switch over to prednisone 60 mg daily and stop IV Solu-Medrol. Physical therapy has recommended home with homecare. 02/14: patient feels some improvement since yesterday still lethargic using BiPAP and high flow nasal cannula. Patient seems to be alert and oriented 3 denying chest pain, nausea, vomiting, abdominal pain 02/15:Patient had episode of severe shortness of breath in the morning when she was trying to get out of bed responded well to breathing treatment and BiPAP patient currently is down to 3 L nasal cannula fluid was discontinued yesterday after the shortness of breath and patient seems to be tolerating diet today patient overall continued to be stable without any major events except as above 02/16: Patient has been seen by Dr. Owens this morning and cleared for discharge. Breathing status is improved and near baseline.Patient will be discharged home today in stable condition. Discharge diagnoses: 1. Acute hypoxic respiratory failure due to acute exacerbation of COPD, severe persistent asthma with acute bronchitis. 2. Chest pain related to acute bronchitis 3. Chronic diastolic heart failure. 4. Metabolic encephalopathy secondary to CO2 narcosis. 5. Sinus tachycardia. 6. Recurrent depression. 7. Osteoarthritis. 8. End-stage COPD with chronic hypoxic and hypercapnic respiratory failure. 9. Migraine headaches. Discharge plan: Home with [facility] Impression and plan of care have been directed as dictated by the signing physician. Belinda Marte nurse practitioner acting as scribe for signing physician. Patient Condition at Discharge: Good Plan - Discharge Summary Discharge Rx Participant: Yes New Discharge Prescriptions: New Diltiazem Oral [Cardizem*] 60 mg PO TID #90 tab guaiFENesin [Mucinex] 1,200 mg PO Q12HR tablet.er guaiFENesin-DM 100-10MG/5ML [Robitussin DM] 10 ml PO Q6H PRN cup PRN Reason: Cough Levofloxacin [Levaquin] 500 mg PO DAILY #3 tab predniSONE 0 mg PO DIRECTED #60 tab Indacaterol/Glycopyrrolate [Utibron Neohaler 27.5-15.6 Mcg] 1 puff INHALATION BID #1 device Continue Ipratropium Kal[place] [Atrovent Hfa] 2 puff INHALATION RT-BID Albuterol Inhaler [Ventolin Hfa Inhaler] 2 puff INHALATION RT-Q6H PRN PRN Reason: Shortness Of Breath DULoxetine HCL [Cymbalta] 20 mg PO DAILY Cholecalciferol (Vitamin D3) [Vitamin D3] 2,000 unit PO DAILY Potassium Chloride ER [K-Dur 20] 20 meq PO DAILY Furosemide [Lasix] 20 mg PO DAILY Budesonide [Pulmicort] 0.5 mg INHALATION RT-BID #60 neb Melatonin 10 mg PO HS tab Montelukast [Singulair] 10 mg PO HS #30 tab ALPRAZolam [Xanax] 0.25 mg PO HS PRN #10 tab PRN Reason: Anxiety Omeprazole Magnesium [Prilosec OTC] 20 mg PO DAILY #30 tablet.dr Discharge Medication List Albuterol Inhaler [Ventolin Hfa Inhaler] 2 puff INHALATION RT-Q6H PRN 10/31/16 [ History] Cholecalciferol (Vitamin D3) [Vitamin D3] 2,000 unit PO DAILY 10/31/16 [History] DULoxetine HCL [Cymbalta] 20 mg PO DAILY 10/31/16 [History] Furosemide [Lasix] 20 mg PO DAILY 10/31/16 [History] Ipratropium Kalida [Atrovent Hfa] 2 puff INHALATION RT-BID 10/31/16 [History] Potassium Chloride ER [K-Dur 20] 20 meq PO DAILY 10/31/16 [History] ALPRAZolam [Xanax] 0.25 mg PO HS PRN #10 tab 11/04/16 [Rx] Budesonide [Pulmicort] 0.5 mg INHALATION RT-BID #60 neb 11/04/16 [Rx] Melatonin 10 mg PO HS tab 11/04/16 [Rx] Montelukast [Singulair] 10 mg PO HS #30 tab 11/04/16 [Rx] Omeprazole Magnesium [Prilosec OTC] 20 mg PO DAILY #30 tablet.dr 11/04/16 [Rx] Diltiazem Oral [Cardizem*] 60 mg PO TID #90 tab 02/16/17 [Rx] Indacaterol/Glycopyrrolate [Utibron Neohaler 27.5-15.6 Mcg] 1 puff INHALATION BID #1 device 02/16/17 [Rx] Levofloxacin [Levaquin] 500 mg PO DAILY #3 tab 02/16/17 [Rx] guaiFENesin [Mucinex] 1,200 mg PO Q12HR tablet.er 02/16/17 [Rx] guaiFENesin-DM 100-10MG/5ML [Robitussin DM] 10 ml PO Q6H PRN cup 02/16/17 [Rx] predniSONE 0 mg PO DIRECTED #60 tab 02/16/17 [Rx] Follow up Appointment(s)/Referral(s): [facility], [NON-STAFF] - Matheus Benitez MD [Primary Care Provider] - 02/19/17 1:15 pm Apple Owens DO [Doctor of Osteopathic Medicine] - 2 Weeks Patient Instructions/Handouts: COPD (Chronic Obstructive Pulmonary Disease) (DC ) Activity/Diet/Wound Care/Special Instructions: Continue Prednisone 10mg daily until rechecked by Dr. MELVIN Green/Graciela Discharge Disposition: HOME WITH HOME HEALTH SERVICES
[2017-02-16] MEDS: ALPRAZolam 0.25 MG TAB PO PRN (15:46)
[2017-02-16 16:01] VITALS: BP 127/84; PULSE 104; TEMP 97
[2017-02-16 17:24] LABS: Glucose,Whole Blood 217 mg/dL (75-99)
== END 2017-02-16 17:01 | disposition home health service (06) | DRG 189 ==
LOC: EC 06:55 → 5MS5E 08:56 → 6ICU 09:37 → 6SEL 02-12 00:48
PROVIDERS: ADMIT Internal Medicine; ATTEND Internal Medicine
DX: J96.21 Acute and chronic respiratory failure with hypoxia (principal); G93.41 Metabolic encephalopathy; E87.4 Mixed disorder of acid-base balance; I27.20 Pulmonary hypertension, unspecified; J44.0 Chronic obstructive pulmonary disease with (acute) lower respiratory infection; I50.32 Chronic diastolic (congestive) heart failure; J45.51 Severe persistent asthma with (acute) exacerbation; F33.9 Major depressive disorder, recurrent, unspecified; I11.0 Hypertensive heart disease with heart failure; J44.1 Chronic obstructive pulmonary disease with (acute) exacerbation; I45.2 Bifascicular block; Z99.81 Dependence on supplemental oxygen; I27.81 Cor pulmonale (chronic); J96.22 Acute and chronic respiratory failure with hypercapnia; J20.9 Acute bronchitis, unspecified; G47.33 Obstructive sleep apnea (adult) (pediatric); F41.9 Anxiety disorder, unspecified; M81.0 Age-related osteoporosis without current pathological fracture; K59.00 Constipation, unspecified; I35.8 Other nonrheumatic aortic valve disorders; G43.909 Migraine, unspecified, not intractable, without status migrainosus; M19.91 Primary osteoarthritis, unspecified site; G89.29 Other chronic pain; M54.5 Low back pain; M54.30 Sciatica, unspecified side; R32 Unspecified urinary incontinence; Z79.51 Long term (current) use of inhaled steroids; Z79.899 Other long term (current) drug therapy; Z77.22 Contact with and (suspected) exposure to environmental tobacco smoke (acute) (chronic); Z87.891 Personal history of nicotine dependence; Z87.11 Personal history of peptic ulcer disease; Z87.01 Personal history of pneumonia (recurrent); Z87.81 Personal history of (healed) traumatic fracture
CPT/HCPCS: 36415; 36600; 71045; 74018; 80048; 80053; 80202; 82550; 82553; 82803; 82805; 83036; 83605; 83735; 83880; 84100; 84443; 84484; 85025; 85027; 85610; 85730; 87040; 87077; 87186; 87502; 93005; 93306; 94640; 94660; 94664; 94667; 96361; 96365; 96375; 99291

== ENCOUNTER 2017-02-20 11:27 | Inpatient (IN) | payer MEDICARE, OTHER ==
[2017-02-20] MEDS ORDERED: DIPH,PERTUS(ACELL)TETVAC-LF 0.5 ML VIAL IM ONE (11:32)
[2017-02-20] MEDS ORDERED: IPRATROPIUM-ALBUTEROL 3 ML NEB INHALATION STA (11:33)
--- NOTE | 2017-02-20 11:40 | ED ---
General Adult HPI - General Stated complaint: Stemi Time Seen by Provider: 02/20/17 11:31 Source: patient, EMS, RN notes reviewed, old records reviewed - History of Present Illness Initial comments: 61-year-old female presents status post fall. Patient was initially found by her daughter face down after a fall. No significant downtime. Patient had head injury and injury to the left leg. Patient was able to ambulate after the fall. She was brought in by EMS reported that the patient did develop some central chest pain. EKG was obtained, EKG was interpreted by EMS as an ST segment elevated AK and the patient was brought in as a priority 1. At the time my evaluation patient did complain of some mild chest pain which she attributed to the fall. She also complaining of left leg pain, mild headache, and left arm pain. Patient has history of COPD on home oxygen. - Related Data Home Medications Medication Instructions Recorded Confirmed Albuterol Inhaler [Ventolin Hfa 2 puff INHALATION RT-Q6H PRN 10/31/16 02/20/17 Inhaler] Cholecalciferol (Vitamin D3) 2,000 unit PO DAILY 10/31/16 02/20/17 [Vitamin D3] DULoxetine HCL [Cymbalta] 20 mg PO DAILY 10/31/16 02/20/17 Furosemide [Lasix] 20 mg PO DAILY 10/31/16 02/20/17 Ipratropium [place] [Atrovent Hfa] 2 puff INHALATION RT-BID 10/31/16 02/20/17 Potassium Chloride ER [K-Dur 20] 20 meq PO DAILY 10/31/16 02/20/17 Indacaterol/Glycopyrrolate 1 puff INHALATION RT-BID 02/20/17 02/20/17 [Utibron Neohaler 27.5-15.6 Mcg] predniSONE See Taper PO DAILY 02/20/17 02/20/17 Previous Rx's Medication Instructions Recorded ALPRAZolam [Xanax] 0.25 mg PO HS PRN #10 tab 11/04/16 Budesonide [Pulmicort] 0.5 mg INHALATION RT-BID #60 neb 11/04/16 Melatonin 10 mg PO HS tab 11/04/16 Montelukast [Singulair] 10 mg PO HS #30 tab 11/04/16 Omeprazole Magnesium [Prilosec OTC] 20 mg PO DAILY #30 tablet. 11/04/16 Diltiazem Oral [Cardizem*] 60 mg PO TID #90 tab 02/16/17 guaiFENesin [Mucinex] 1,200 mg PO Q12HR tablet.er 02/16/17 guaiFENesin-DM 100-10MG/5ML 10 ml PO Q6H PRN cup 02/16/17 [Robitussin DM] Allergies Allergy/AdvReac Type Severity Reaction Status Date / Time No Known Allergies Allergy Verified 02/20/17 13:00 Review of Systems ROS Statement: Those systems with pertinent positive or pertinent negative responses have been documented in the HPI. ROS Other: All systems not noted in ROS Statement are negative. Past Medical History Past Medical History: Asthma, Heart Failure, COPD, Osteoarthritis (OA), Pneumonia, Sleep Apnea/CPAP/BIPAP Additional Past Medical History / Comment(s): Bronhitis, chronic low back pain, TIMOTHY with CPAP, home O2 at 3L/NC, past L kneecap fx, occasional dependent pedal edema, depression, gallbladder disease, chronic tobacco use and dependence, urinary incontinence, migraine headaches, osteoporosis, sciatica, peptic ulcer disease, urethritis,. History of Any Multi-Drug Resistant Organisms: None Reported Past Surgical History: Hernia Repair, Tubal Ligation Additional Past Surgical History / Comment(s): Bilateral inguinal hernia repairs , colonoscopy with benign polyypectomy, surgery for "pinched nerve in my R hip. " Discectomy, right femur open reduction internal fixation. Past Psychological History: Depression Additional Psychological History / Comment(s): Pt resides with her krista in an apartment that has 4-5 steps. She uses a walker on occasion. She has a CPAP, nebulizer and home oxygen. She no longer drives, she uses senior transportation. Her daughter does most of the cooking and helps organize pt medication. Smoking Status: Former smoker Past Alcohol Use History: None Reported Past Drug Use History: Marijuana - Past Family History Father Family Medical History: Coronary Artery Disease (CAD) Additional Family Medical History / Comment(s): Father is 83 yrs old. He has had 2 vessel CABG and a pacer. Mother Family Medical History: Dementia Additional Family Medical History / Comment(s): Mother of dementia at the age of 78yrs. Brother(s) Family Medical History: No Reported History Sister(s) Family Medical History: No Reported History Additional Family Medical History / Comment(s): Patient has 2 children no major medical problems. Patient lives with her daughter General Exam General appearance: alert, in distress Head exam: Present: normocephalic, other Eye exam: Present: normal appearance, PERRL, EOMI (Superficial abrasion laceration above the right eye). Absent: periorbital swelling, periorbital tenderness Neck exam: Present: normal inspection. Absent: tenderness, meningismus Respiratory exam: Present: normal lung sounds bilaterally. Absent: respiratory distress, wheezes Cardiovascular Exam: Present: normal rhythm, tachycardia GI/Abdominal exam: Present: soft. Absent: distended, tenderness Extremities exam: Present: other (Skin avulsion and laceration lateral left lower extremity below the knee, no pain with internal/external rotation of either leg) Neurological exam: Present: alert, oriented X3, CN II-XII intact. Absent: motor sensory deficit Psychiatric exam: Present: normal affect, normal mood Skin exam: Present: warm, dry, intact. Absent: cyanosis, diaphoretic Course Vital Signs 02/20/17 02/20/17 02/20/17 11:29 11:49 12:00 Temperature 97.9 F Pulse Rate 115 H 97 103 H Respiratory 18 18 Rate Blood Pressure 104/59 124/77 O2 Sat by Pulse 84 L 93 L Oximetry 02/20/17 02/20/17 02/20/17 12:11 12:32 13:34 Temperature Pulse Rate 100 98 97 Respiratory 18 18 Rate Blood Pressure 119/79 113/67 O2 Sat by Pulse 91 L 92 L Oximetry 02/20/17 02/20/17 02/20/17 13:40 13:45 14:18 Temperature Pulse Rate 84 91 107 H Respiratory 18 18 Rate Blood Pressure 114/77 114/68 O2 Sat by Pulse 92 L 95 Oximetry 02/20/17 15:06 Temperature Pulse Rate 94 Respiratory 18 Rate Blood Pressure 108/72 O2 Sat by Pulse 95 Oximetry EKG Findings - EKG Comments: EKG Findings:: EKG shows sinus tachycardia, ventricular rate 121, [place] of 01 18, QRS duration 124, QTC 479, right bundle branch block. No ST segment elevation or depression Procedures - Laceration Laceration #1 Consent Obtained: verbal consent Time Out Performed: Yes Indication: laceration Site: lower extremity Description: linear, flap, avulsion Depth: simple, single layer Anesthetic Used: lidocaine 1% Anesthesia Technique: local infiltration Pre-repair: wound explored, irrigated extensively, deep structures intact Type of Sutures: nylon Size of Sutures: 5-0 Number of Sutures: 7 Technique: simple, interrupted Patient Tolerated Procedure: well Medical Decision Making - Medical Decision Making 61-year-old female presenting status post fall with left lower extremity and facial trauma. Uncertain if there was loss consciousness. Patient has history of COPD, she states she believes she tripped on her oxygen tubing. No preceding chest pain or shortness of breath. Patient did have some chest pain status post fall. X-rays are obtained including chest and pelvis x-ray which are negative for any acute metabolic, x-ray of the tibia negative for bony antibody or foreign body. Laceration in the left lower leg is repaired with nylon suture. Patient receives CT of the head which shows concern for recent ischemia in the right internal capsule as well as concern for small basilar aneurysm. Patient is diffusely weak with no localizing features. CT of the cervical spine is negative for fracture, there is a 2 mm anterolisthesis at C5- C6, no pain associated with this likely chronic. Laboratory studies reveal mild elevation of white blood cell count, normal hemoglobin, CO2 60 likely secondary to chronic CO2 retention Given the CT findings, case is discussed with neurology, Dr. Crook. MRI of the brain will be ordered for stroke evaluation as well as MRA of the brain and neck for evaluation of possible basilar aneurysm. Patient is started on aspirin. She will also be admitted for further evaluation and treatment of COPD exacerbation. Pulmonology is placed on consult. - Lab Data Result diagrams: 02/20/17 11:48 02/20/17 11:48 Lab Results 02/20/17 02/20/17 02/20/17 Range/Units 11:48 11:48 11:48 WBC (3.8-10.6) k/uL RBC (3.80-5.40) m/uL Hgb (11.4-16.0) gm/dL Hct (34.0-46.0) % MCV (80.0-100.0) fL MCH (25.0-35.0) pg MCHC (31.0-37.0) g/dL RDW (11.5-15.5) % Plt Count (150-450) k/uL Neutrophils % % Lymphocytes % % Monocytes % % Eosinophils % % Basophils % % Neutrophils # (1.3-7.7) k/uL Lymphocytes # (1.0-4.8) k/uL Monocytes # (0-1.0) k/uL Eosinophils # (0-0.7) k/uL Basophils # (0-0.2) k/uL Hypochromasia PT (9.0-12.0) sec INR (<1.2) APTT (22.0-30.0) sec Sodium 140 (137-145) mmol/L Potassium 4.1 (3.5-5.1) mmol/L Chloride 77 L* (98-107) mmol/L Carbon Dioxide 60 H* (22-30) mmol/L Anion Gap 3 mmol/L BUN 15 (7-17) mg/dL Creatinine 0.50 L (0.52-1.04) mg/dL Est GFR (MDRD) Af Amer >60 (>60 ml/min/1.73 sqM) Est GFR (MDRD) Non-Af >60 (>60 ml/min/1.73 sqM) Glucose 185 H (74-99) mg/dL Calcium 9.2 (8.4-10.2) mg/dL Total Bilirubin 0.4 (0.2-1.3) mg/dL AST 32 (14-36) U/L ALT 62 H (9-52) U/L Alkaline Phosphatase 144 H (38-126) U/L Total Creatine Kinase <20 L (30-135) U/L CK-MB (CK-2) 0.9 (0.0-2.4) ng/mL CK-MB (CK-2) Rel Index Troponin I <0.012 (0.000-0.034) ng/mL Total Protein 5.9 L (6.3-8.2) g/dL Albumin 3.5 (3.5-5.0) g/dL Urine Color Urine Appearance (Clear) Urine pH (5.0-8.0) Ur Specific [place] (1.001-1.035) Urine Protein (Negative) Urine Glucose (UA) (Negative) Urine Ketones (Negative) Urine Blood (Negative) Urine Nitrite (Negative) Urine Bilirubin (Negative) Urine Urobilinogen (<2.0) mg/dL Ur Leukocyte Esterase (Negative) Urine RBC (0-5) /hpf Urine WBC (0-5) /hpf Ur Squamous Epith Cells (0-4) /hpf Urine Bacteria (None) /hpf Hyaline Casts (0-2) /lpf Urine Mucus (None) /hpf Ur Yeast w Hyphae (None) /hpf Urine Yeast (Budding) (None) /hpf Serum Alcohol <10 mg/dL Blood Type B Positive Blood Type Recheck No Antibody Screen NEGATIVE Spec Expiration Date 02/23/2017234702/20/17 02/20/17 02/20/17 Range/Units 11:48 11:48 11:55 WBC 12.2 H (3.8-10.6) k/uL RBC 4.58 (3.80-5.40) m/uL Hgb 12.7 (11.4-16.0) gm/dL Hct 43.1 (34.0-46.0) % MCV 93.9 (80.0-100.0) fL MCH 27.7 (25.0-35.0) pg MCHC 29.5 L (31.0-37.0) g/dL RDW 15.3 (11.5-15.5) % Plt Count 264 (150-450) k/uL Neutrophils % 88 % Lymphocytes % 5 % Monocytes % 5 % Eosinophils % 0 % Basophils % 0 % Neutrophils # 10.7 H (1.3-7.7) k/uL Lymphocytes # 0.6 L (1.0-4.8) k/uL Monocytes # 0.6 (0-1.0) k/uL Eosinophils # 0.0 (0-0.7) k/uL Basophils # 0.0 (0-0.2) k/uL Hypochromasia Marked PT 9.9 (9.0-12.0) sec INR 1.0 (<1.2) APTT 20.2 L (22.0-30.0) sec Sodium (137-145) mmol/L Potassium (3.5-5.1) mmol/L Chloride (98-107) mmol/L Carbon Dioxide (22-30) mmol/L Anion Gap mmol/L BUN (7-17) mg/dL Creatinine (0.52-1.04) mg/dL Est GFR (MDRD) Af Amer (>60 ml/min/1.73 sqM) Est GFR (MDRD) Non-Af (>60 ml/min/1.73 sqM) Glucose (74-99) mg/dL Calcium (8.4-10.2) mg/dL Total Bilirubin (0.2-1.3) mg/dL AST (14-36) U/L ALT (9-52) U/L Alkaline Phosphatase (38-126) U/L Total Creatine Kinase (30-135) U/L CK-MB (CK-2) (0.0-2.4) ng/mL CK-MB (CK-2) Rel Index Troponin I (0.000-0.034) ng/mL Total Protein (6.3-8.2) g/dL Albumin (3.5-5.0) g/dL Urine Color Light Yellow Urine Appearance Cloudy H (Clear) Urine pH 5.5 (5.0-8.0) Ur Specific [place] 1.007 (1.001-1.035) Urine Protein Negative (Negative) Urine Glucose (UA) Negative (Negative) Urine Ketones Negative (Negative) Urine Blood Negative (Negative) Urine Nitrite Negative (Negative) Urine Bilirubin Negative (Negative) Urine Urobilinogen <2.0 (<2.0) mg/dL Ur Leukocyte Esterase Large H (Negative) Urine RBC 1 (0-5) /hpf Urine WBC 19 H (0-5) /hpf Ur Squamous Epith Cells 16 H (0-4) /hpf Urine Bacteria Occasional H (None) /hpf Hyaline Casts 17 H (0-2) /lpf Urine Mucus Rare H (None) /hpf Ur Yeast w Hyphae Rare (None) /hpf Urine Yeast (Budding) Moderate H (None) /hpf Serum Alcohol mg/dL Blood Type Blood Type Recheck Antibody Screen Spec Expiration Date Critical Care Time Critical Care Time: Yes Total Critical Care Time: 45 Disposition Clinical Impression: CVA (cerebral vascular accident), Acute exacerbation of chronic obstructive airways disease Disposition: ADMITTED IP TO THIS [facility] Condition: Serious Referrals: Matheus Benitez MD [Primary Care Provider] - 1-2 days Decision to Admit Reason: Admit from EC Decision Date: 02/20/17 Decision Time: 15:49
[2017-02-20 12:13] LABS: Basophils % (A) 0 %; Eosinophils % (A) 0 %; HCT 43.1 % (34.0-46.0); HGB 12.7 gm/dL (11.4-16.0); Hypochromasia Marked; Lymphocytes # (A) 0.6 k/uL (1.0-4.8); Lymphocytes % (A) 5 %; MCH 27.7 pg (25.0-35.0); MCHC 29.5 g/dL (31.0-37.0); MCV 93.9 fL (80.0-100.0); Mean Platelet Volume 7.6; Monocytes # (A) 0.6 k/uL (0-1.0); Monocytes % (A) 5 %; Neutrophils # (A) 10.7 k/uL (1.3-7.7); Neutrophils % (A) 88 %; Platelet Count 264 k/uL (150-450); RBC 4.58 m/uL (3.80-5.40); RDW 15.3 % (11.5-15.5); WBC 12.2 k/uL (3.8-10.6)
[2017-02-20 12:17] LABS: Appearance,Urine Cloudy (Clear); Bacteria,Urine Occasional /hpf; Bilirubin,Urine Negative (Negative); Blood,Urine Negative (Negative); Budding Yeast,Urine Moderate /hpf; Color,Urine Light Yellow; Glucose,Urine (UA) Negative (Negative); Hyaline Casts,Urine 17 /lpf (0-2); Hyphae Yeast, Urine Rare /hpf; Ketones,Urine Negative (Negative); Leukocyte Esterase,Urine Large (Negative); Mucus,Urine Rare /hpf; Nitrite,Urine Negative (Negative); PH, Urine 5.5 (5.0-8.0); Protein,Urine Negative (Negative); RBC,Urine 1 /hpf (0-5); Specific Gravity,Urine 1.007 (1.001-1.035); Squamous Epithelial Cell,Urine 16 /hpf (0-4); Urobilinogen,Urine <2.0 mg/dL (<2.0); WBC,Urine 19 /hpf (0-5)
[2017-02-20 12:18] LABS: Prothrombin Time 9.9 sec (9.0-12.0)
[2017-02-20 12:20] LABS: ALT 62 U/L (9-52); AST 32 U/L (14-36); Albumin 3.5 g/dL (3.5-5.0); Alcohol <10 mg/dL; Alkaline Phosphatase 144 U/L (38-126); Blood Urea Nitrogen 15 mg/dL (7-17); Calcium 9.2 mg/dL (8.4-10.2); Glucose 185 mg/dL (74-99); Potassium 4.1 mmol/L (3.5-5.1); Sodium 140 mmol/L (137-145); Total Bilirubin 0.4 mg/dL (0.2-1.3); Total Protein 5.9 g/dL (6.3-8.2)
[2017-02-20 12:26] LABS: Anion Gap 3 mmol/L
[2017-02-20 12:32] LABS: Creatine Kinase <20 U/L (30-135)
[2017-02-20 12:35] LABS: Chloride 77 mmol/L (98-107)
[2017-02-20 12:36] LABS: Carbon Dioxide 60 mmol/L (22-30)
[2017-02-20 12:45] LABS: Creatine Kinase MB 0.9 ng/mL (0.0-2.4); Troponin I <0.012 ng/mL (0.000-0.034)
--- NOTE | 2017-02-20 12:46 | CT ---
EXAMINATION TYPE: CT brain charo valdez con DATE OF EXAM: 02/20/2017 COMPARISON: NONE HISTORY: STEMI with fall CT DLP: 1661 mGycm Automated exposure control for dose reduction was used. TECHNIQUE: CT scan of the head and cervical spine are performed without contrast. FINDINGS: Changes of chronic sinusitis noted. Arthropathy of the right TMJ noted. Calvarium appears intact. There is abnormal attenuation within the internal capsule on the right and within the white matter bilaterally which are indeterminate age. Additional areas bilaterally of low-attenuation the w james matter are seen. Recent ischemia not excluded. No acute hemorrhage. There is prominence of the b asilar tip and vertebrobasilar system which could been the basis of dolichoectasia. Small aneurysm no t excluded. Emphysematous changes involving the lung apices noted. There is multilevel degenerative disc disease and facet arthropathy at all levels with the most marked findings seen at C5-6 and C6-C7. There is a 2 mm anterolisthesis of C4 on C5. Multilevel foraminal encroachment noted. IMPRESSION: 1. There is no acute fracture in the cervical spine. 2 to 3 mm anterolisthesis of C4 on C5 noted. 2. No acute intracranial hemorrhage, mass effect, or midline shift is seen. Area of recent ischemia i nvolving the right internal capsule and white matter of the right parietal lobe not excluded. Recomme nd correlation clinically and with MRI. 3. Basilar artery appears prominent particularly the tip. MRA [place] recommended to exclude small aneurysm.
[2017-02-20 12:49] LABS: Partial Thromboplastin Time 20.2 sec (22.0-30.0)
[2017-02-20] MEDS ORDERED: DEXAMETHASONE SOD PHOSPHATE 10 MG/ML 1 ML VIAL IV STA (13:08)
[2017-02-20] MEDS ORDERED: KETOROLAC 30 MG/ML 1 ML VIAL IVP STA (13:08)
[2017-02-20] MEDS ORDERED: ALBUTEROL NEBULIZED 2.5 MG/3 ML INHALATION STA (13:08)
--- NOTE | 2017-02-20 13:31 | XR ---
EXAMINATION TYPE: XR chest 1V portable DATE OF EXAM: 02/20/2017 COMPARISON: 02/11/2017 HISTORY: Chest pain TECHNIQUE: Single frontal view of the chest is obtained. FINDINGS: There is no focal air space opacity, pleural effusion, or pneumothorax seen. The cardiac silhouette size is within normal limits. The osseous structures are intact. Atherosclerotic change aorta. Scoliosis of the spine. Diffuse osteopenia and arthropathy of the shoulders. IMPRESSION: No acute process.
--- NOTE | 2017-02-20 13:32 | XR ---
EXAMINATION TYPE: XR pelvis AP view DATE OF EXAM: 02/20/2017 COMPARISON: NONE HISTORY: Pain The osseous structures are intact and the joint spaces are preserved. No acute fracture is seen. Vi sualized bowel gas pattern is nonspecific. Calcifications in the pelvis noted. There is diffuse oste openia and arthropathy of the shoulders. IMPRESSION: 1. No acute fracture.
--- NOTE | 2017-02-20 13:33 | XR ---
EXAMINATION TYPE: XR tibia fibula LT DATE OF EXAM: 02/20/2017 CLINICAL HISTORY: Left lower extremity pain after a fall TECHNIQUE: Two views of the left leg are obtained. COMPARISON: None. FINDINGS: There is no acute fracture or dislocation seen in the left tibia or fibula. The left knee and ankle joints appear within normal limits. The overlying soft tissue appears unremarkable. Multi ple centrally lucent phleboliths are noted. IMPRESSION: There is no acute fracture or dislocation seen in the left tibia or fibula.
[2017-02-20] MEDS ORDERED: ASPIRIN 325 MG TAB PO STA (15:26)
[2017-02-20] MEDS ORDERED: MORPHINE SULFATE 2 MG/ML SYRINGE IV PRN (15:39)
[2017-02-20] MEDS ORDERED: NALOXONE 0.4 MG/ML 1 ML VIAL IV PRN (15:39)
[2017-02-20] MEDS ORDERED: ALBUTEROL NEBULIZED 2.5 MG/3 ML INHALATION PRN (15:44)
[2017-02-20] MEDS: SODIUM CHLORIDE 0.9% 1,000 ML IV SCH (16:03)
--- NOTE | 2017-02-20 16:03 | US ---
EXAMINATION TYPE: US carotid duplex BILAT DATE OF EXAM: 02/20/2017 COMPARISON: NONE CLINICAL HISTORY: CVA. Fall EXAM MEASUREMENTS: RIGHT: Peak Systolic Velocity (PSV) cm/sec ----- Right CCA: 88.5 ----- Right ICA: 114.5 ----- Right ECA: 95.1 ICA/CCA ratio: 1.3 RIGHT: End Diastole cm/sec ----- Right CCA: 13.6 ----- Right ICA: 37.0 ----- Right ECA: 7.9 LEFT: Peak Systolic Velocity (PSV) cm/sec ----- Left CCA: 98.4 ----- Left ICA: 104.3 ----- Left ECA: 64.6 ICA/CCA ratio: 1.1 LEFT: End Diastole cm/sec ----- Left CCA: 19.2 ----- Left ICA: 43.2 ----- Left ECA: 10.2 VERTEBRALS (direction of flow): Right Vertebral: Antegrade Left Vertebral: Antegrade Rhythm: Normal Minimal amount of plaque visualized bilaterally. No elevated velocities, no significant stenosis. Grayscale, color Doppler, spectral Doppler imaging performed of the carotid arteries. Waveform analys is does not show significant stenosis of the proximal internal carotid arteries bilaterally by Dopple r criteria. IMPRESSION: No hemodynamic significant stenosis of the proximal internal carotid arteries by Doppler criteria, an indirect measurement of carotid stenosis
[2017-02-20] MEDS: ALBUTEROL NEBULIZED 2.5 MG/3 ML INHALATION SCH ×2 (16:23→20:46)
--- NOTE | 2017-02-20 18:52 | P.CNNES ---
History of Present Illness Consult date: 02/20/17 History of Present Illness: The patient is a 61-year-old right-handed white female who states that this afternoon she was standing in the kitchen and to talking to her family and she fell. When asked how she fell she states she thinks she tripped on her oxygen hose. She did hit her left dela cruz and had to some bruising on the head. She is not sure whether she passed out. She had a similar fall one month ago when she was walking at home. Again she injured herself bruising the left leg and also injuring her back. Several days later she presented to the hospital and she was given a back brace. Computed tomography scan of the head and cervical spine were done in the emergency room. There was no acute fracture of the cervical spine. CT of the brain showed an area of recent ischemia in the right internal capsule. So there was some prominence of the nasal her artery. X Patient denies any weakness at present. She does admit to recurrent falls but is not clear about how frequently. She has a history of COPD and is on home oxygen. She is on disability due to asthma. She has a history of smoking. His admitted to the hospital with stroke. Patient had a carotid ultrasound which did not show any significant stenosis Review of Systems Constitutional: Reports as per HPI Eyes: denies blurred vision, denies pain Ears, nose, mouth and throat: Denies headache, Denies sore throat Cardiovascular: Denies chest pain, Denies shortness of breath Respiratory: Denies cough Genitourinary: Denies dysuria, Denies hematuria Neurological: Denies numbness, Denies weakness Psychiatric: Denies anxiety, Denies depression Past Medical History Past Medical History: Asthma, Heart Failure, COPD, Osteoarthritis (OA), Pneumonia, Sleep Apnea/CPAP/BIPAP Additional Past Medical History / Comment(s): Bronhitis, chronic low back pain, TIMOTHY with CPAP, home O2 , past L kneecap fx, occasional dependent pedal edema, depression, gallbladder disease, chronic tobacco use and dependence, urinary incontinence, migraine headaches, osteoporosis, sciatica, peptic ulcer disease, urethritis,. History of Any Multi-Drug Resistant Organisms: None Reported Past Surgical History: Hernia Repair, Tubal Ligation Additional Past Surgical History / Comment(s): Bilateral inguinal hernia repairs , colonoscopy with benign polyypectomy, surgery for "pinched nerve in my R hip. " Discectomy, right femur open reduction internal fixation. Past Anesthesia/Blood Transfusion Reactions: No Reported Reaction Smoking Status: Former smoker - Past Family History Father Family Medical History: Coronary Artery Disease (CAD) Additional Family Medical History / Comment(s): Father is 83 yrs old. He has had 2 vessel CABG and a pacer. Mother Family Medical History: Dementia Additional Family Medical History / Comment(s): Mother of dementia at the age of 78yrs. Brother(s) Family Medical History: No Reported History Sister(s) Family Medical History: No Reported History Additional Family Medical History / Comment(s): Patient has 2 children no major medical problems. Patient lives with her daughter Medications and Allergies Home Medications Medication Instructions Recorded Confirmed Type Albuterol Inhaler [Ventolin Hfa 2 puff INHALATION RT-Q6H PRN 10/31/16 02/20/17 History Inhaler] Cholecalciferol (Vitamin D3) 2,000 unit PO DAILY 10/31/16 02/20/17 History [Vitamin D3] DULoxetine HCL [Cymbalta] 20 mg PO DAILY 10/31/16 02/20/17 History Furosemide [Lasix] 20 mg PO DAILY 10/31/16 02/20/17 History Ipratropium [place] [Atrovent Hfa] 2 puff INHALATION RT-BID 10/31/16 02/20/17 History Potassium Chloride ER [K-Dur 20] 20 meq PO DAILY 10/31/16 02/20/17 History ALPRAZolam [Xanax] 0.25 mg PO HS PRN #10 tab 11/04/16 02/20/17 Rx Budesonide [Pulmicort] 0.5 mg INHALATION RT-BID #60 neb 11/04/16 02/20/17 Rx Melatonin 10 mg PO HS tab 11/04/16 02/20/17 Rx Montelukast [Singulair] 10 mg PO HS #30 tab 11/04/16 02/20/17 Rx Omeprazole Magnesium [Prilosec OTC] 20 mg PO DAILY #30 tablet. 11/04/16 Rx Diltiazem Oral [Cardizem*] 60 mg PO TID #90 tab 02/16/17 02/20/17 Rx guaiFENesin [Mucinex] 1,200 mg PO Q12HR tablet.er 02/16/17 02/20/17 Rx guaiFENesin-DM 100-10MG/5ML 10 ml PO Q6H PRN cup 02/16/17 02/20/17 Rx [Robitussin DM] Indacaterol/Glycopyrrolate 1 puff INHALATION RT-BID 02/20/17 02/20/17 History [Utibron Neohaler 27.5-15.6 Mcg] predniSONE See Taper PO DAILY 02/20/17 02/20/17 History Allergies Allergy/AdvReac Type Severity Reaction Status Date / Time No Known Allergies Allergy Verified 02/20/17 13:00 Physical Examination - Vital Signs Vital Signs: Vital Signs Temp Pulse Resp BP Pulse Ox 02/20/17 16:43 97.9 F 02/20/17 16:40 105 H 16 112/75 95 02/20/17 16:33 96 02/20/17 16:23 98 02/20/17 16:10 97.9 F 97 18 114/75 95 02/20/17 15:06 94 18 108/72 95 02/20/17 14:18 107 H 18 114/68 95 02/20/17 13:45 91 02/20/17 13:40 84 18 114/77 92 L 02/20/17 13:34 97 02/20/17 12:32 98 18 113/67 92 L 02/20/17 12:11 100 18 119/79 91 L 02/20/17 12:00 103 H 02/20/17 11:49 97 18 124/77 93 L 02/20/17 11:29 97.9 F 115 H 18 104/59 84 L Intake and Output 02/20/17 02/20/17 02/20/17 06:59 14:59 22:59 Other: Weight 65.771 kg Patient Weight 02/21/17 06:59 Weight 65.771 kg - Constitutional General appearance: average body habitus - EENT EENT: PERRL - Respiratory Respiratory: lungs clear - Cardiovascular Cardiovascular: regular rate - Neurologic Mental status she was awake alert and oriented 3 Cranial nerve examination: PERRL, EOMI, face symmetric, tongue midline Sensorimotor examination: intact Detailed motor examination: grossly full strength in all extremities Detailed sensory examination: intact - Psychiatric Psychiatric: mood/affect appropriate Results - Laboratory Findings CBC and BMP: 02/20/17 11:48 02/20/17 11:48 Abnormal Lab Findings: Abnormal Labs 02/20/17 02/20/17 02/20/17 11:48 11:48 11:48 WBC 12.2 H MCHC 29.5 L Neutrophils # 10.7 H Lymphocytes # 0.6 L APTT Chloride 77 L* Carbon Dioxide 60 H* Creatinine 0.50 L Glucose 185 H ALT 62 H Alkaline Phosphatase 144 H Total Creatine Kinase <20 L Total Protein 5.9 L Urine Appearance Ur Leukocyte Esterase Urine WBC Ur Squamous Epith Cells Urine Bacteria Hyaline Casts Urine Mucus Urine Yeast (Budding) 02/20/17 02/20/17 11:48 11:55 WBC MCHC Neutrophils # Lymphocytes # APTT 20.2 L Chloride Carbon Dioxide Creatinine Glucose ALT Alkaline Phosphatase Total Creatine Kinase Total Protein Urine Appearance Cloudy H Ur Leukocyte Esterase Large H Urine WBC 19 H Ur Squamous Epith Cells 16 H Urine Bacteria Occasional H Hyaline Casts 17 H Urine Mucus Rare H Urine Yeast (Budding) Moderate H Assessment and Plan (1) CVA (cerebral vascular accident) Current Visit: Yes Status: Acute SNOMED Code(s): 369424419 (2) Recurrent falls Current Visit: Yes Status: Acute SNOMED Code(s): 871024377 Plan: The patient is a 61-year-old woman with history of recurrent falls. She is admitted to the hospital with a recurrent fall and new onset stroke. She had a CT of the brain in the emergency room which showed a recent ischemia in the right internal capsule. We will do further evaluation with MRI of the brain and MRA of the [place]. MRI [place] is to rule out basilar artery aneurysm since there was some prominence in that area seen on CT. She will also have carotid ultrasound and echocardiogram. She has been placed on aspirin. The patient is also being admitted for treatment of her COPD.
--- NOTE | 2017-02-20 19:58 | P.HPIM ---
History of Present Illness H&P Date: 02/20/17 Chief Complaint: She fell at home, trauma to the legs, abnormal CT of the brain This is a 61-year-old female one of Dr. Benitez with a previous medical history significant for asthma/COPD on 3 L of oxygen 24 hours, anemia, anxiety disorder, chronic low back pain, depression, chronic tobacco use and dependence , migraine headaches, osteoarthritis, sciatica, essentially admitted from our facility [facility] from 02/09/2017 to 02/16/2017 secondary to with increased shortness of breath associated with chest tightness, productive cough and fever. Patient underwent updraft treatment by the EMS and was found to be saturating at 87% at room air. Tachypneic and having respiratory difficulty requiring ICU management during her last admission. Pap treatments, without any intubation, echocardiogram shows EF of 60-65% with mild aortic valve sclerosis, patient was seen by cardiology secondary to tachycardia and was started on Cardizem, patient was discharged home on a 3 L nasal cannula and tapering oral prednisone oral antibiotic nebulizer treatments she sees Dr. Sarah Green Seen in the emergency room on 02/20/2017 secondary to a fall at home, patient cannot recollect the events at home, patient lives with the daughter and requires a walker for ambulation. She might have thought that she might have tripped against a walker also unknown whether she says that her leg might have given out, she hit her leg with the walker, sustaining lacerations with stitches in place at the emergency room. Patient cannot recollect whether she had a syncopal event, patient denies any focal neurologic deficits when she came to, patient denies any lightheadedness or dizziness prior to the event . She had CT imaging in the ER including the brain and cervical region that shows area of recent ischemia involving the right internal capsule and white matter of the right parietal lobe not excluded, MRI needed, Genesis artery prominence , MRA of [place] of [place], multilevel DJD changes C5-C6 C6-C7 with 2 mm anterolisthesis C 4 and C5 with multilevel foraminal encroachment, no fractures in the x-ray tib-fib no fractures pelvic x-rays no fractures she requires stitches in the emergency room from the laceration tetanus vaccination ordered from the emergency room completed Review of Systems Constitutional: Reports as per HPI, Denies anorexia, Denies chills, Denies chronic headaches, Denies chronic pain, Denies daytime sleepiness, Denies fatigue, Denies fever, Denies lethargy, Denies malaise, Denies night sweats, Denies poor appetite, Denies sweats, Denies weakness, Denies weight gain, Denies weight loss Ears, nose, mouth and throat: Reports as per HPI, Denies ant. neck pain, Denies bleeding gums, Denies dental pain, Denies dysphagia, Denies epistaxis, Denies headache, Denies hoarseness, Denies mouth pain, Denies nasal congestion, Denies nasal discharge, Denies neck fullness/pressure, Denies neck lump, Denies nose pain, Denies odynophagia, Denies post-nasal drip, Denies sinus pain, Denies sinus pressure, Denies swelling in mouth, Denies swelling in throat, Denies sore throat, Denies vertigo, Denies voice changes Cardiovascular: Reports as per HPI, Denies chest pain, Denies claudication, Denies decreased exercise tolerance, Denies dyspnea on exertion, Denies edema, Denies high blood pressure, Denies irregular heart beat, Denies leg edema, Denies lightheadedness, Denies orthopnea, Denies palpitations, Denies paroxysmal nocturnal dyspnea, Denies phlebitis, Denies rapid heart beat, Denies shortness of breath, Denies syncope Respiratory: Reports cough, Reports dyspnea, Reports home oxygen, Reports wheezing Gastrointestinal: Reports as per HPI, Denies abdominal pain, Denies belching, Denies bloating, Denies BRBPR, Denies change in bowel habits, Denies coffee ground emesis, Denies constipation, Denies diarrhea, Denies dyspepsia, Denies early satiety, Denies excessive gas, Denies heartburn, Denies hematemesis, Denies hematochezia, Denies indigestion, Denies jaundice, Denies lactose intolerance, Denies loss of appetite, Denies melena, Denies nausea, Denies vomiting Menstruation: Reports as per HPI, Denies amenorrhea, Denies amenorrhea on BC, Denies currently menstrual, Denies cycle < 21 days, Denies cycle > 35 days, Denies cycle variable, Denies menses 1-7 days, Denies menses 8 or > days, Denies menses variable, Denies period heavy, Denies period light, Denies period normal, Denies period spotting, Denies post hysterectomy, Denies postmenopausal , Denies premenarcheal Musculoskeletal: Reports as per HPI Integumentary: Reports as per HPI Neurological: Reports as per HPI, Reports balance difficulties, Denies aphasia, Denies ataxia, Denies burning pain, Denies change in mentation, Denies change in smell/taste, Denies change in speech, Denies confusion, Denies convulsions, Denies double vision, Denies gait dysfunction, Denies head injury, Denies headaches, Denies hearing difficulties, Denies lack of coordination, Denies loss of vision, Denies memory loss, Denies migraines, Denies motor disturbance, Denies numbness, Denies paralysis, Denies paresthesias, Denies seizures, Denies sensory deficit, Denies spasticity, Denies syncope, Denies tic, Denies tingling , Denies transient paralysis, Denies tremors, Denies vertigo, Denies weakness, Denies visual changes Psychiatric: Reports as per HPI, Denies anhedonia, Denies anxiety, Denies anxiety attacks, Denies change in appetite, Denies change in libido, Denies change in sleep habits, Denies confusion, Denies depression, Denies difficulty concentrating, Denies disorientation, Denies hallucinations, Denies hopelessness , Denies hypersomnia, Denies insomnia, Denies irritability, Denies memory loss, Denies mood swings, Denies paranoia, Denies sadness/tearfulness, Denies sleep disturbances, Denies suicidal ideation Endocrine: Reports as per HPI, Denies cold intolerance, Denies deepening of the voice, Denies excessive sweating, Denies excessive thirst, Denies fatigue, Denies flushing, Denies heat intolerance, Denies high blood sugars, Denies increase in ring/shoe/hat size, Denies low blood sugars, Denies nocturia, Denies palpitations, Denies polydipsia, Denies polyphagia, Denies polyuria, Denies proptosis, Denies recent glucocorticoid use, Denies thyroid mass, Denies weight change Hematologic/Lymphatic: Reports as per HPI, Denies easy bleeding, Denies easy bruising, Denies lymphadenopathy, Denies lymphedema, Denies thrombophilia Allergic/Immunologic: Reports as per HPI, Denies allergic rhinitis, Denies anaphylaxis, Denies angioedema, Denies gluten intolerance, Denies persistent infections, Denies seasonal allergies, Denies urticaria, Denies wheezing Past Medical History Past Medical History: Asthma, Heart Failure, COPD, Osteoarthritis (OA), Pneumonia, Sleep Apnea/CPAP/BIPAP Additional Past Medical History / Comment(s): Bronhitis, chronic low back pain, TIMOTHY with CPAP, home O2 , past L kneecap fx, occasional dependent pedal edema, depression, gallbladder disease, chronic tobacco use and dependence, urinary incontinence, migraine headaches, osteoporosis, sciatica, peptic ulcer disease, urethritis,. History of Any Multi-Drug Resistant Organisms: None Reported Past Surgical History: Hernia Repair, Tubal Ligation Additional Past Surgical History / Comment(s): Bilateral inguinal hernia repairs , colonoscopy with benign polyypectomy, surgery for "pinched nerve in my R hip. " Discectomy, right femur open reduction internal fixation. Past Anesthesia/Blood Transfusion Reactions: No Reported Reaction Smoking Status: Former smoker - Past Family History Father Family Medical History: Coronary Artery Disease (CAD) Additional Family Medical History / Comment(s): Father is 83 yrs old. He has had 2 vessel CABG and a pacer. Mother Family Medical History: Dementia Additional Family Medical History / Comment(s): Mother of dementia at the age of 78yrs. Brother(s) Family Medical History: No Reported History Sister(s) Family Medical History: No Reported History Additional Family Medical History / Comment(s): Patient has 2 children no major medical problems. Patient lives with her daughter Medications and Allergies Home Medications Medication Instructions Recorded Confirmed Type Albuterol Inhaler [Ventolin Hfa 2 puff INHALATION RT-Q6H PRN 10/31/16 02/20/17 History Inhaler] Cholecalciferol (Vitamin D3) 2,000 unit PO DAILY 10/31/16 02/20/17 History [Vitamin D3] DULoxetine HCL [Cymbalta] 20 mg PO DAILY 10/31/16 02/20/17 History Furosemide [Lasix] 20 mg PO DAILY 10/31/16 02/20/17 History Ipratropium [place] [Atrovent Hfa] 2 puff INHALATION RT-BID 10/31/16 02/20/17 History Potassium Chloride ER [K-Dur 20] 20 meq PO DAILY 10/31/16 02/20/17 History ALPRAZolam [Xanax] 0.25 mg PO HS PRN #10 tab 11/04/16 02/20/17 Rx Budesonide [Pulmicort] 0.5 mg INHALATION RT-BID #60 neb 11/04/16 02/20/17 Rx Melatonin 10 mg PO HS tab 11/04/16 02/20/17 Rx Montelukast [Singulair] 10 mg PO HS #30 tab 11/04/16 02/20/17 Rx Omeprazole Magnesium [Prilosec OTC] 20 mg PO DAILY #30 tablet. 11/04/16 Rx Diltiazem Oral [Cardizem*] 60 mg PO TID #90 tab 02/16/17 02/20/17 Rx guaiFENesin [Mucinex] 1,200 mg PO Q12HR tablet.er 02/16/17 02/20/17 Rx guaiFENesin-DM 100-10MG/5ML 10 ml PO Q6H PRN cup 02/16/17 02/20/17 Rx [Robitussin DM] Indacaterol/Glycopyrrolate 1 puff INHALATION RT-BID 02/20/17 02/20/17 History [Utibron Neohaler 27.5-15.6 Mcg] predniSONE See Taper PO DAILY 02/20/17 02/20/17 History Allergies Allergy/AdvReac Type Severity Reaction Status Date / Time No Known Allergies Allergy Verified 02/20/17 13:00 Physical Exam Vitals: Vital Signs Temp Pulse Resp BP Pulse Ox 02/20/17 16:43 97.9 F 02/20/17 16:40 105 H 16 112/75 95 02/20/17 16:33 96 02/20/17 16:23 98 02/20/17 16:10 97.9 F 97 18 114/75 95 02/20/17 15:06 94 18 108/72 95 02/20/17 14:18 107 H 18 114/68 95 02/20/17 13:45 91 02/20/17 13:40 84 18 114/77 92 L 02/20/17 13:34 97 02/20/17 12:32 98 18 113/67 92 L 02/20/17 12:11 100 18 119/79 91 L 02/20/17 12:00 103 H 02/20/17 11:49 97 18 124/77 93 L 02/20/17 11:29 97.9 F 115 H 18 104/59 84 L Intake and Output 02/20/17 02/20/17 02/20/17 06:59 14:59 22:59 Other: Weight 65.771 kg Patient Weight 02/21/17 06:59 Weight 65.771 kg - Constitutional General appearance: average body habitus, no acute distress - EENT Eyes: anicteric sclerae, EOMI, dentition normal, normal appearance ENT: no hard of hearing, hearing grossly normal, no NA/AT, normal oropharynx, no other, no pharyngeal erythema, no thrush, no tonsillar exudates, no tonsillar swelling - Neck Neck: no lymphadenopathy, normal ROM, no other, no rigidity, no stridor, no thyromegaly - Respiratory Respiratory: bilateral: CTA, negative: diminished, dullness, rales, rhonchi - Cardiovascular Rhythm: regular Heart sounds: normal: S1, S2 Abnormal Heart Sounds: no systolic murmur, no diastolic murmur, no rub, no S3 Gallop, no S4 Gallop, no click, no other - Gastrointestinal General gastrointestinal: normal bowel sounds, soft - Integumentary Integumentary: decreased turgor, normal (Except for laceration anterior or upper tibial region requiring laceration with good coaptation the dressing in place) - Neurologic Neurologic: CNII-XII intact, focal deficits - Musculoskeletal Musculoskeletal: generalized weakness, strength equal bilaterally - Psychiatric Psychiatric: A&O x's 3, appropriate affect, intact judgment & insight Results CBC & Chem 7: 02/20/17 11:48 02/20/17 11:48 Labs: Abnormal Lab Results - Last 24 Hours (Table) 02/20/17 02/20/17 02/20/17 Range/Units 11:48 11:48 11:48 WBC 12.2 H (3.8-10.6) k/uL MCHC 29.5 L (31.0-37.0) g/dL Neutrophils # 10.7 H (1.3-7.7) k/uL Lymphocytes # 0.6 L (1.0-4.8) k/uL APTT (22.0-30.0) sec Chloride 77 L* (98-107) mmol/L Carbon Dioxide 60 H* (22-30) mmol/L Creatinine 0.50 L (0.52-1.04) mg/dL Glucose 185 H (74-99) mg/dL ALT 62 H (9-52) U/L Alkaline Phosphatase 144 H (38-126) U/L Total Creatine Kinase <20 L (30-135) U/L Total Protein 5.9 L (6.3-8.2) g/dL Urine Appearance (Clear) Ur Leukocyte Esterase (Negative) Urine WBC (0-5) /hpf Ur Squamous Epith Cells (0-4) /hpf Urine Bacteria (None) /hpf Hyaline Casts (0-2) /lpf Urine Mucus (None) /hpf Urine Yeast (Budding) (None) /hpf 02/20/17 02/20/17 Range/Units 11:48 11:55 WBC (3.8-10.6) k/uL MCHC (31.0-37.0) g/dL Neutrophils # (1.3-7.7) k/uL Lymphocytes # (1.0-4.8) k/uL APTT 20.2 L (22.0-30.0) sec Chloride (98-107) mmol/L Carbon Dioxide (22-30) mmol/L Creatinine (0.52-1.04) mg/dL Glucose (74-99) mg/dL ALT (9-52) U/L Alkaline Phosphatase (38-126) U/L Total Creatine Kinase (30-135) U/L Total Protein (6.3-8.2) g/dL Urine Appearance Cloudy H (Clear) Ur Leukocyte Esterase Large H (Negative) Urine WBC 19 H (0-5) /hpf Ur Squamous Epith Cells 16 H (0-4) /hpf Urine Bacteria Occasional H (None) /hpf Hyaline Casts 17 H (0-2) /lpf Urine Mucus Rare H (None) /hpf Urine Yeast (Budding) Moderate H (None) /hpf Laboratory Results WBC 12.2 k/uL (3.8-10.6) H 02/20/17 11:48 RBC 4.58 m/uL (3.80-5.40) 02/20/17 11:48 Hgb 12.7 gm/dL (11.4-16.0) 02/20/17 11:48 Hct 43.1 % (34.0-46.0) 02/20/17 11:48 MCV 93.9 fL (80.0-100.0) 02/20/17 11:48 MCH 27.7 pg (25.0-35.0) 02/20/17 11:48 MCHC 29.5 g/dL (31.0-37.0) L 02/20/17 11:48 RDW 15.3 % (11.5-15.5) 02/20/17 11:48 Plt Count 264 k/uL (150-450) 02/20/17 11:48 Neutrophils % 88 % 02/20/17 11:48 Lymphocytes % 5 % 02/20/17 11:48 Monocytes % 5 % 02/20/17 11:48 Eosinophils % 0 % 02/20/17 11:48 Basophils % 0 % 02/20/17 11:48 Neutrophils # 10.7 k/uL (1.3-7.7) H 02/20/17 11:48 Lymphocytes # 0.6 k/uL (1.0-4.8) L 02/20/17 11:48 Monocytes # 0.6 k/uL (0-1.0) 02/20/17 11:48 Eosinophils # 0.0 k/uL (0-0.7) 02/20/17 11:48 Basophils # 0.0 k/uL (0-0.2) 02/20/17 11:48 Hypochromasia Marked 02/20/17 11:48 PT 9.9 sec (9.0-12.0) 02/20/17 11:48 INR 1.0 (<1.2) 02/20/17 11:48 APTT 20.2 sec (22.0-30.0) L 02/20/17 11:48 Sodium 140 mmol/L (137-145) 02/20/17 11:48 Potassium 4.1 mmol/L (3.5-5.1) 02/20/17 11:48 Chloride 77 mmol/L (98-107) L* 02/20/17 11:48 Carbon Dioxide 60 mmol/L (22-30) H* 02/20/17 11:48 Anion Gap 3 mmol/L 02/20/17 11:48 BUN 15 mg/dL (7-17) 02/20/17 11:48 Creatinine 0.50 mg/dL (0.52-1.04) L 02/20/17 11:48 Est GFR (MDRD) Af Amer >60 (>60 ml/min/1.73 sqM) 02/20/17 11:48 Est GFR (MDRD) Non-Af >60 (>60 ml/min/1.73 sqM) 02/20/17 11:48 Glucose 185 mg/dL (74-99) H 02/20/17 11:48 Calcium 9.2 mg/dL (8.4-10.2) 02/20/17 11:48 Total Bilirubin 0.4 mg/dL (0.2-1.3) 02/20/17 11:48 AST 32 U/L (14-36) 02/20/17 11:48 ALT 62 U/L (9-52) H 02/20/17 11:48 Alkaline Phosphatase 144 U/L (38-126) H 02/20/17 11:48 Total Creatine Kinase <20 U/L (30-135) L 02/20/17 11:48 CK-MB (CK-2) 0.9 ng/mL (0.0-2.4) 02/20/17 11:48 CK-MB (CK-2) Rel Index 02/20/17 11:48 Troponin I <0.012 ng/mL (0.000-0.034) 02/20/17 11:48 Total Protein 5.9 g/dL (6.3-8.2) L 02/20/17 11:48 Albumin 3.5 g/dL (3.5-5.0) 02/20/17 11:48 Urine Color Light Yellow 02/20/17 11:55 Urine Appearance Cloudy (Clear) H 02/20/17 11:55 Urine pH 5.5 (5.0-8.0) 02/20/17 11:55 Ur Specific [place] 1.007 (1.001-1.035) 02/20/17 11:55 Urine Protein Negative (Negative) 02/20/17 11:55 Urine Glucose (UA) Negative (Negative) 02/20/17 11:55 Urine Ketones Negative (Negative) 02/20/17 11:55 Urine Blood Negative (Negative) 02/20/17 11:55 Urine Nitrite Negative (Negative) 02/20/17 11:55 Urine Bilirubin Negative (Negative) 02/20/17 11:55 Urine Urobilinogen <2.0 mg/dL (<2.0) 02/20/17 11:55 Ur Leukocyte Esterase Large (Negative) H 02/20/17 11:55 Urine RBC 1 /hpf (0-5) 02/20/17 11:55 Urine WBC 19 /hpf (0-5) H 02/20/17 11:55 Ur Squamous Epith Cells 16 /hpf (0-4) H 02/20/17 11:55 Urine Bacteria Occasional /hpf (None) H 02/20/17 11:55 Hyaline Casts 17 /lpf (0-2) H 02/20/17 11:55 Urine Mucus Rare /hpf (None) H 02/20/17 11:55 Ur Yeast w Hyphae Rare /hpf (None) 02/20/17 11:55 Urine Yeast (Budding) Moderate /hpf (None) H 02/20/17 11:55 Serum Alcohol <10 mg/dL 02/20/17 11:48 Blood Type B Positive 02/20/17 11:48 Blood Type Recheck No 02/20/17 11:48 Antibody Screen NEGATIVE 02/20/17 11:48 Spec Expiration Date 02/23/2017234702/20/17 11:48 Thrombosis Risk Factor Assmnt - DVT/VTE Prophylaxis DVT/VTE Prophylaxis: Pharmacologic Prophylaxis ordered, Contraindicated - See note (Left lower extremity trauma secondary to fall) Assessment and Plan Plan: Assessment and Plan Plan: 1. Fall at home salting trauma to the lower extremities requiring laceration repair hernan her CAT scan of the brain shows suspected area of recent ischemia involving the right internal capsule and white matter off the right parietal lobe, MRI is needed, there is also a basilar artery prominence in the tip, MRA of the [place] of [place] recommended to evaluate small aneurysm, farhatwater made to Dr. Crook who has seen her already. She is on aspirin, carotid Dopplers showing no hemodynamically significant stenosis of the proximal internal carotid artery, she already had an echocardiogram from the last admission, she would need telemetry monitoring to evaluate for any malignant arrhythmias 2. Acute chronic hypoxic respiratory failure due Gianacrlo bronchospasm COPD, severe persistent asthma w No Significant decompensation from her last admission, Start the patient on Solu-Medrol 40 mg IV push every 12 hours, nebulized treatment DuoNeb 3 mg nebulization 4 times every day, Pulmicort 0.5 mg position twice every day, she had completed Levaquin prior to admission no new antibiotics needed, Teskleberon Kelly Flonase for cough pulmonary consultation from Dr. MELVIN Green. 3. Chronic diastolic heart failure. Continue Lasix 20 mg orally once every day and potassium supplement, patient did have an echocardiogram last yearand 2018 that showed ejection fraction o60-65%,qiith right ventricular systolic pressure of 32 mmHg., mild aortic sclerosis without stenosis, no pericardial effusion 4. History Metabolic encephalopathy inactive 5. prior history of Sinus tachycardia. maintained on Cardizem orally. follow-up outpatient with cardiology 6. Recurrent depression. Continue patient on Cymbalta 20 mg orally once every day. 7. Osteoarthritis. Clinically stable. 8. End-stage COPD. on 3 L at home 24 hours Continue treatment as in paragraph 9. Migraine headaches. Stable at this point in time. 10. DVT prophylaxis. Lovenox 40 mg subcutaneously every 24 hours. 11. GI prophylaxis. Pepcid 20 mg twice a day 12. Patient is a full code.
[2017-02-20 21:16] LABS: Glucose,Whole Blood 448 mg/dL (75-99)
[2017-02-20] MEDS: BENZONATATE 100 MG CAP PO SCH (21:18)
[2017-02-20] MEDS ORDERED: INSULIN REGULAR BOLUS (FROM DRIP BAG) IV ONE (21:37)
[2017-02-20] MEDS ORDERED: INSULIN REGULAR 100 UNIT in SODIUM CHLORIDE 0.9% 100 ML IV SCH (21:45)
[2017-02-20] MEDS: MELATONIN 5 MG TABLET PO SCH (21:48)
[2017-02-20] MEDS: ALPRAZolam 0.25 MG TAB PO PRN (21:48)
[2017-02-20] MEDS: MONTELUKAST 10 MG TAB PO SCH (21:48)
[2017-02-20] MEDS: guaiFENesin 600 MG TABLET.ER PO SCH (21:48)
[2017-02-20] MEDS: DILTIAZEM ORAL 60 MG TAB PO SCH (21:48)
[2017-02-20] MEDS: FLUTICASONE 50MCG/SPRAY NASAL 16GM EA NOSTRIL SCH (22:17)
[2017-02-20 22:25] LABS: Glucose,Whole Blood 407 mg/dL (75-99)
[2017-02-20] MEDS: methylPREDNISolone SOD SUCCI 40 MG/ML 1 ML VIAL IV SCH (23:00)
[2017-02-20 23:09] LABS: Glucose,Whole Blood 360 mg/dL (75-99)
[2017-02-20] MEDS: ACETAMINOPHEN TAB 325 MG TAB PO PRN (23:34)
[2017-02-20 23:36] LABS: Glucose,Whole Blood 190 mg/dL (75-99)
[2017-02-20] MEDS: IPRATROPIUM-ALBUTEROL 3 ML NEB INHALATION SCH (23:46)
[2017-02-21 01:32] LABS: Glucose,Whole Blood 77 mg/dL (75-99)
[2017-02-21 02:39] LABS: Glucose,Whole Blood 180 mg/dL (75-99)
[2017-02-21] MEDS: IPRATROPIUM-ALBUTEROL 3 ML NEB INHALATION SCH ×7 (03:30→23:48)
[2017-02-21 04:31] LABS: Glucose,Whole Blood 170 mg/dL (75-99)
[2017-02-21 06:25] LABS: Glucose,Whole Blood 170 mg/dL (75-99)
[2017-02-21] MEDS: PANTOPRAZOLE 40 MG TABLET PO SCH (06:27)
[2017-02-21 06:57] LABS: Basophils % (A) 0 %; Eosinophils % (A) 0 %; HCT 40.9 % (34.0-46.0); HGB 11.9 gm/dL (11.4-16.0); Hypochromasia Marked; Lymphocytes # (A) 0.2 k/uL (1.0-4.8); Lymphocytes % (A) 3 %; MCH 27.3 pg (25.0-35.0); MCV 94.2 fL (80.0-100.0); Mean Platelet Volume 7.5; Monocytes # (A) 0.3 k/uL (0-1.0); Monocytes % (A) 4 %; Neutrophils # (A) 6.9 k/uL (1.3-7.7); Neutrophils % (A) 93 %; Platelet Count 242 k/uL (150-450); RBC 4.35 m/uL (3.80-5.40); RDW 15.4 % (11.5-15.5); WBC 7.5 k/uL (3.8-10.6)
[2017-02-21 07:12] LABS: ALT 57 U/L (9-52); AST 22 U/L (14-36); Albumin 3.3 g/dL (3.5-5.0); Alkaline Phosphatase 128 U/L (38-126); Blood Urea Nitrogen 22 mg/dL (7-17); Calcium 9.6 mg/dL (8.4-10.2); Glucose 136 mg/dL (74-99); Potassium 4.2 mmol/L (3.5-5.1); Sodium 137 mmol/L (137-145); Total Bilirubin 0.3 mg/dL (0.2-1.3); Total Protein 5.5 g/dL (6.3-8.2)
[2017-02-21] MEDS ORDERED: INSULIN ASPART 100 UNIT/ML 1 ML 10 ML VIAL SQ SCH (07:30)
[2017-02-21 07:40] LABS: Anion Gap 5 mmol/L
[2017-02-21 07:47] LABS: Carbon Dioxide 55 mmol/L (22-30); Chloride 77 mmol/L (98-107)
[2017-02-21] MEDS ORDERED: NON-FORMULARY DRUG (Ipratropium Bromide [Atrovent Hfa] 2 PUFF) INHALATION SCH (08:00)
[2017-02-21 08:31] LABS: T4, Free (Free Thyroxine) 0.64 ng/dL (0.78-2.19)
[2017-02-21] MEDS: BUDESONIDE 0.5 MG/2 ML NEBU INHALATION SCH ×3 (08:40→19:54)
--- NOTE | 2017-02-21 08:45 | MR ---
EXAMINATION TYPE: MR angio head wo con DATE OF EXAM: 02/21/2017 8:35 AM COMPARISON: NONE HISTORY: CVA, basilar aneurysm TECHNIQUE: Time of flight images focusing on the [place] of [place] were performed without contrast. FINDINGS: The vertebral arteries are codominant. There is dolichoectasia of the vertebrobasilar syste m. There is no basilar tip aneurysm. The left posterior communicating arteries visualized. The right is not Both ophthalmic arteries are visualized. There is normal arborization of the middle cerebral arteries bilaterally. No sizable aneurysm is iden tified. 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
--- NOTE | 2017-02-21 08:57 | MR ---
EXAMINATION TYPE: MR brain wo/w con DATE OF EXAM: 02/21/2017 8:50 AM COMPARISON: Previous CT scan of the brain dated 02/20/2017 HISTORY: r/o CVA TECHNIQUE: Multiplanar, multiecho imaging of the brain was obtained with and without intravenous adm inistration of 6.5 mL intravenous Gadavist. FINDINGS: The study is compromised by patient motion artifact. Midline structures are unremarkable. There is a normal craniocervical junction. Echoplanar diffusion imaging is normal. There are normal vascular flow voids. The orbits appear normal. There is no evidence of a CP angle mass lesion. There is both punctate and confluent periventricular white matter change compatible with a combinatio n of small vessel disease and chronic white matter ischemic change. There is no mass effect, midline shift or intracranial blood. Following the intravenous administration of gadolinium, I do not see evidence of abnormal enhancement . IMPRESSION: 1. NO ACUTE INTRACRANIAL ABNORMALITY. 2. BOTH PUNCTATE AND CONFLUENT PERIVENTRICULAR FLAIR LESIONS, COMPATIBLE WITH A COMBINATION OF SMALL VESSEL DISEASE AND CHRONIC ISCHEMIC CHANGE.
[2017-02-21] MEDS ORDERED: FUROSEMIDE 20 MG TAB PO SCH (09:00)
[2017-02-21 09:06] LABS: Glucose,Whole Blood 328 mg/dL (75-99)
[2017-02-21] MEDS: UTIBRON NEOHALER INHALATION SCH ×2 (09:08→19:57)
[2017-02-21] MEDS: SODIUM CHLORIDE 0.9% 1,000 ML IV SCH ×2 (09:09→10:45)
[2017-02-21] MEDS: ASPIRIN 325 MG TAB PO SCH (09:10)
[2017-02-21] MEDS: DILTIAZEM ORAL 60 MG TAB PO SCH ×3 (09:10→21:00)
[2017-02-21] MEDS: CHOLECALCIFEROL 1,000 UNIT TAB PO SCH (09:10)
[2017-02-21] MEDS: guaiFENesin 600 MG TABLET.ER PO SCH ×2 (09:10→20:57)
[2017-02-21] MEDS: BENZONATATE 100 MG CAP PO SCH ×3 (09:10→20:59)
[2017-02-21] MEDS: methylPREDNISolone SOD SUCCI 40 MG/ML 1 ML VIAL IV SCH (09:10)
[2017-02-21] MEDS: DULoxetine HCL 20 MG CAPSULE.DR PO SCH (09:10)
[2017-02-21] MEDS: FLUTICASONE 50MCG/SPRAY NASAL 16GM EA NOSTRIL SCH ×2 (09:10→21:35)
[2017-02-21] MEDS: POTASSIUM CHLORIDE ER 20 MEQ TAB.ER PO SCH (09:10)
[2017-02-21] MEDS: INSULIN DETEMIR 100 UNIT/ML 10 ML VIAL SQ SCH (11:07)
[2017-02-21] MEDS: acetaZOLAMIDE 250 MG TAB PO SCH (11:07)
[2017-02-21 11:37] LABS: Glucose,Whole Blood 159 mg/dL (75-99)
--- NOTE | 2017-02-21 11:55 | P.PN ---
Subjective Progress Note Date: 02/21/17 This is a 61-year-old female one of Dr. Benitez with a previous medical history significant for asthma/COPD on 3 L of oxygen 24 hours, anemia, anxiety disorder, chronic low back pain, depression, chronic tobacco use and dependence , migraine headaches, osteoarthritis, sciatica, essentially admitted from our facility [facility] from 02/09/2017 to 02/16/2017 secondary to with increased shortness of breath associated with chest tightness, productive cough and fever. Patient underwent updraft treatment by the EMS and was found to be saturating at 87% at room air. Tachypneic and having respiratory difficulty requiring ICU management during her last admission. Pap treatments, without any intubation, echocardiogram shows EF of 60-65% with mild aortic valve sclerosis, patient was seen by cardiology secondary to tachycardia and was started on Cardizem, patient was discharged home on a 3 L nasal cannula and tapering oral prednisone oral antibiotic nebulizer treatments she sees Dr. Sarah Green Seen in the emergency room on 02/20/2017 secondary to a fall at home, patient cannot recollect the events at home, patient lives with the daughter and requires a walker for ambulation. She might have thought that she might have tripped against a walker also unknown whether she says that her leg might have given out, she hit her leg with the walker, sustaining lacerations with stitches in place at the emergency room. Patient cannot recollect whether she had a syncopal event, patient denies any focal neurologic deficits when she came to, patient denies any lightheadedness or dizziness prior to the event . She had CT imaging in the ER including the brain and cervical region that shows area of recent ischemia involving the right internal capsule and white matter of the right parietal lobe not excluded, MRI needed, Genesis artery prominence , MRA of andreafski of Person, multilevel DJD changes C5-C6 C6-C7 with 2 mm anterolisthesis C 4 and C5 with multilevel foraminal encroachment, no fractures in the x-ray tib-fib no fractures pelvic x-rays no fractures she requires stitches in the emergency room from the laceration tetanus vaccination ordered from the emergency room completed 02/21: Patient has been seen by Dr. Crook with recommendations for MRI and MRA. 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 MRI of the brain reveals no acute intracranial abnormality. Both punctate and confluent periventricular flair lesions compatible with small vessel disease and chronic ischemic change. She denies any sided weakness and states she tripped in her kitchen at home. Patient's breathing status is improving and Solu-Medrol will be switched over to prednisone 40 mg daily. Noted chloride is 77 and Lasix stopped, Diamox added along with IV fluids at 50 mL per hour. Anticipate discharge home tomorrow. Patient will be transferred to the [facility] floor. Objective - Vital Signs Vital signs: Vital Signs Temp 98.8 F 02/21/17 00:00 Pulse 87 02/21/17 04:00 Resp 18 02/21/17 04:00 BP 129/83 02/21/17 04:00 Pulse Ox 92 L 02/21/17 06:51 Intake & Output 02/20/17 02/21/17 02/21/17 18:59 06:59 18:59 Intake Total 46.362 240 Output Total 725 200 Balance -678.638 40 Weight 65.771 kg 62.1 kg Intake: Intake, IV Titration 46.362 Amount Insulin Regular 100 unit 46.362 In Sodium Chloride 0.9% 100 ml @ Titrate IV .Q0M [facility] Rx#:[id number] Oral 240 Output: Urine 725 200 Other: Voiding Method Bedside Commode # Voids 1 1 - Exam General appearance: average body habitus, no acute distress - EENT Eyes: anicteric sclerae, EOMI, dentition normal, normal appearance ENT: no hard of hearing, hearing grossly normal, no NA/AT, normal oropharynx, no other, no pharyngeal erythema, no thrush, no tonsillar exudates, no tonsillar swelling - Neck Neck: no lymphadenopathy, normal ROM, no other, no rigidity, no stridor, no thyromegaly - Respiratory Respiratory: bilateral: CTA, negative: diminished, dullness, rales, rhonchi - Cardiovascular Rhythm: regular Heart sounds: normal: S1, S2 Abnormal Heart Sounds: no systolic murmur, no diastolic murmur, no rub, no S3 Gallop, no S4 Gallop, no click, no other - Gastrointestinal General gastrointestinal: normal bowel sounds, soft - Integumentary Integumentary: decreased turgor, normal (Except for laceration anterior or upper tibial region requiring laceration with good coaptation the dressing in place) - Neurologic Neurologic: CNII-XII intact, focal deficits - Musculoskeletal Musculoskeletal: generalized weakness, strength equal bilaterally - Psychiatric Psychiatric: A&O x's 3, appropriate affect, intact judgment & insight - Labs CBC & Chem 7: 02/21/17 06:13 02/21/17 06:13 Labs: Abnormal Lab Results - Last 24 Hours (Table) 02/20/17 02/20/17 02/20/17 Range/Units 11:48 11:48 11:48 WBC 12.2 H (3.8-10.6) k/uL MCHC 29.5 L (31.0-37.0) g/dL Neutrophils # 10.7 H (1.3-7.7) k/uL Lymphocytes # 0.6 L (1.0-4.8) k/uL APTT (22.0-30.0) sec Chloride 77 L* (98-107) mmol/L Carbon Dioxide 60 H* (22-30) mmol/L BUN (7-17) mg/dL Creatinine 0.50 L (0.52-1.04) mg/dL Glucose 185 H (74-99) mg/dL POC Glucose (mg/dL) (75-99) mg/dL ALT 62 H (9-52) U/L Alkaline Phosphatase 144 H (38-126) U/L Total Creatine Kinase <20 L (30-135) U/L Total Protein 5.9 L (6.3-8.2) g/dL Albumin (3.5-5.0) g/dL TSH (0.465-4.680) mIU/L Free T4 (0.78-2.19) ng/dL Urine Appearance (Clear) Ur Leukocyte Esterase (Negative) Urine WBC (0-5) /hpf Ur Squamous Epith Cells (0-4) /hpf Urine Bacteria (None) /hpf Hyaline Casts (0-2) /lpf Urine Mucus (None) /hpf Urine Yeast (Budding) (None) /hpf 02/20/17 02/20/17 02/20/17 Range/Units 11:48 11:55 21:14 WBC (3.8-10.6) k/uL MCHC (31.0-37.0) g/dL Neutrophils # (1.3-7.7) k/uL Lymphocytes # (1.0-4.8) k/uL APTT 20.2 L (22.0-30.0) sec Chloride (98-107) mmol/L Carbon Dioxide (22-30) mmol/L BUN (7-17) mg/dL Creatinine (0.52-1.04) mg/dL Glucose (74-99) mg/dL POC Glucose (mg/dL) 448 H (75-99) mg/dL ALT (9-52) U/L Alkaline Phosphatase (38-126) U/L Total Creatine Kinase (30-135) U/L Total Protein (6.3-8.2) g/dL Albumin (3.5-5.0) g/dL TSH (0.465-4.680) mIU/L Free T4 (0.78-2.19) ng/dL Urine Appearance Cloudy H (Clear) Ur Leukocyte Esterase Large H (Negative) Urine WBC 19 H (0-5) /hpf Ur Squamous Epith Cells 16 H (0-4) /hpf Urine Bacteria Occasional H (None) /hpf Hyaline Casts 17 H (0-2) /lpf Urine Mucus Rare H (None) /hpf Urine Yeast (Budding) Moderate H (None) /hpf 02/20/17 02/20/17 02/20/17 Range/Units 22:19 22:57 23:30 WBC (3.8-10.6) k/uL MCHC (31.0-37.0) g/dL Neutrophils # (1.3-7.7) k/uL Lymphocytes # (1.0-4.8) k/uL APTT (22.0-30.0) sec Chloride (98-107) mmol/L Carbon Dioxide (22-30) mmol/L BUN (7-17) mg/dL Creatinine (0.52-1.04) mg/dL Glucose (74-99) mg/dL POC Glucose (mg/dL) 407 H 360 H 190 H (75-99) mg/dL ALT (9-52) U/L Alkaline Phosphatase (38-126) U/L Total Creatine Kinase (30-135) U/L Total Protein (6.3-8.2) g/dL Albumin (3.5-5.0) g/dL TSH (0.465-4.680) mIU/L Free T4 (0.78-2.19) ng/dL Urine Appearance (Clear) Ur Leukocyte Esterase (Negative) Urine WBC (0-5) /hpf Ur Squamous Epith Cells (0-4) /hpf Urine Bacteria (None) /hpf Hyaline Casts (0-2) /lpf Urine Mucus (None) /hpf Urine Yeast (Budding) (None) /hpf 02/21/17 02/21/17 02/21/17 Range/Units 02:35 04:27 06:13 WBC (3.8-10.6) k/uL MCHC 29.0 L (31.0-37.0) g/dL Neutrophils # (1.3-7.7) k/uL Lymphocytes # 0.2 L (1.0-4.8) k/uL APTT (22.0-30.0) sec Chloride (98-107) mmol/L Carbon Dioxide (22-30) mmol/L BUN (7-17) mg/dL Creatinine (0.52-1.04) mg/dL Glucose (74-99) mg/dL POC Glucose (mg/dL) 180 H 170 H (75-99) mg/dL ALT (9-52) U/L Alkaline Phosphatase (38-126) U/L Total Creatine Kinase (30-135) U/L Total Protein (6.3-8.2) g/dL Albumin (3.5-5.0) g/dL TSH (0.465-4.680) mIU/L Free T4 (0.78-2.19) ng/dL Urine Appearance (Clear) Ur Leukocyte Esterase (Negative) Urine WBC (0-5) /hpf Ur Squamous Epith Cells (0-4) /hpf Urine Bacteria (None) /hpf Hyaline Casts (0-2) /lpf Urine Mucus (None) /hpf Urine Yeast (Budding) (None) /hpf 02/21/17 02/21/17 Range/Units 06:13 06:19 WBC (3.8-10.6) k/uL MCHC (31.0-37.0) g/dL Neutrophils # (1.3-7.7) k/uL Lymphocytes # (1.0-4.8) k/uL APTT (22.0-30.0) sec Chloride 77 L* (98-107) mmol/L Carbon Dioxide 55 H* (22-30) mmol/L BUN 22 H (7-17) mg/dL Creatinine 0.50 L (0.52-1.04) mg/dL Glucose 136 H (74-99) mg/dL POC Glucose (mg/dL) 170 H (75-99) mg/dL ALT 57 H (9-52) U/L Alkaline Phosphatase 128 H (38-126) U/L Total Creatine Kinase (30-135) U/L Total Protein 5.5 L (6.3-8.2) g/dL Albumin 3.3 L (3.5-5.0) g/dL TSH 0.197 L (0.465-4.680) mIU/L Free T4 0.64 L (0.78-2.19) ng/dL Urine Appearance (Clear) Ur Leukocyte Esterase (Negative) Urine WBC (0-5) /hpf Ur Squamous Epith Cells (0-4) /hpf Urine Bacteria (None) /hpf Hyaline Casts (0-2) /lpf Urine Mucus (None) /hpf Urine Yeast (Budding) (None) /hpf Assessment and Plan Plan: 1. Fall at home causing trauma to the lower extremities requiring laceration repair. CT of the brain shows suspected area of recent ischemia involving the right internal capsule and white matter off the right parietal lobe. MRI was negative for stroke. Neurology consult appreciated. Patient has been started on aspirin. 2. Acute on chronic hypoxic respiratory failure due to bronchospasm and COPD, severe persistent asthma, continue Solu-Medrol to prednisone, nebulized treatment DuoNeb 3 mg nebulization 4 times every day, Pulmicort 0.5 mg position twice every day, she had completed Levaquin prior to admission no new antibiotics needed, Tessalon Perles Flonase for cough pulmonary consultation from Dr. MELVIN Green. 3. Chronic diastolic heart failure. Continue Lasix 20 mg orally once every day and potassium supplement, patient did have an echocardiogram last yearand 2018 that showed ejection fraction o60-65%,qiith right ventricular systolic pressure of 32 mmHg., mild aortic sclerosis without stenosis, no pericardial effusion 4. Severe hypo-chloremia. Lasix will be stopped, patient started on Diamox and IV fluids at 50 mL per hour. Recheck lab work tomorrow morning. 5. prior history of Sinus tachycardia. maintained on Cardizem orally. follow-up outpatient with cardiology 6. Recurrent depression. Continue patient on Cymbalta 20 mg orally once every day. 7. Osteoarthritis. Clinically stable. 8. End-stage COPD. on 3 L at home 24 hours Continue treatment as in paragraph 1 9. Migraine headaches. Stable at this point in time. 10. DVT prophylaxis. Lovenox 40 mg subcutaneously every 24 hours. 11. GI prophylaxis. Pepcid 20 mg twice a day 12. Patient is a full code. Discharge plan: Return home tomorrow Impression and plan of care have been directed as dictated by the signing physician. Belinda Marte nurse practitioner acting as scribe for signing physician.
[2017-02-21] MEDS: INSULIN ASPART 100 UNIT/ML 1 ML 10 ML VIAL SQ SCH ×3 (12:03→20:57)
[2017-02-21 12:35] VITALS: BMI 21.4
--- NOTE | 2017-02-21 13:33 | CONS ---
CONSULTATION Olena Roman is a 61-year-old female who presented to the ED at [facility] on 02/20/2017. At that time, she was found face down after a fall at home by her daughter. She was able to ambulate after the fall. EMS had come in. She developed some chest pain. She subsequently was admitted to the hospital for further evaluation. She has been having some increased shortness of breath and recently had been admitted to [facility]. PAST MEDICAL HISTORY: Positive for severe COPD, severe asthma, obstructive sleep apnea, history of CO2 retention with chronic respiratory failure, history of being on CPAP, oxygen dependence, history of bilateral inguinal hernia repair, colonoscopy, depression. FAMILY HISTORY: Positive for dementia in her mother. Coronary artery disease in the father. SOCIAL HISTORY: Patient used to smoke quite heavily. Does not smoke at this time. She does not drink alcohol excessively. MEDICATIONS: Her medications prior to admission were prednisone, guaifenesin with dextromethorphan, K-Dur, Prilosec, Singulair, melatonin, Atrovent, indacaterol glycopyrrolate, Lasix, Cardizem, Cymbalta, vitamin D3, Pulmicort, Ventolin, and Xanax. REVIEW OF SYSTEMS: Noncontributory. PHYSICAL EXAMINATION: On physical examination, blood pressure is 129/84, respiratory rate of 20, pulse rate of 95, O2 saturation on 4 L by nasal cannula is 96%. HEENT reveals pupils are equal. No jugular venous distention. Chest reveals decreased breath sounds, prolonged expiration. Faint expiratory wheeze. Cardiovascular system reveals an S1, S2. Abdomen is soft. There is a surgical dressing over the left dela cruz. White count of 7.5, hemoglobin of 11.9. Sodium 137, potassium 4.2, chloride 77, bicarb 55, BUN 22, creatinine of 0.9. ABG has not been done. MRI of the brain does not show any acute changes. Chest x-ray shows no acute process. IMPRESSION AT THIS TIME: 1. Acute on chronic respiratory failure with CO2 retention. 2. Metabolic alkalosis, which is secondary to a primary acute on chronic respiratory acidosis is likely. 3. Obstructive sleep apnea. 4. Metabolic encephalopathy because of increased pCO2, which may be contributing to her recent fall. 5. Laceration of the left lower extremity. 6. Medical debility. 7. Malnutrition. 8. Acute on chronic respiratory failure. At this point in time, keep her on BiPAP when she is hypoxic, but also during the night in her sleep. Keep her on systemic steroids, bronchodilators, increase her activity level. Have her seen by Physical Medicine and Rehab to see she is a candidate for acute inpatient rehab. Would have surgery further evaluate the patient regarding her trauma and followup for her laceration which apparently did require stitches. It is not clear whether the Diamox may help this patient at this time because the primary problem is the respiratory acidosis. It may help stimulate her respiratory center and for now we will continue it. Her prognosis at this time is guarded. MMODL / IJN: [id number] /
[2017-02-21 17:48] LABS: Glucose,Whole Blood 285 mg/dL (75-99)
--- NOTE | 2017-02-21 18:44 | P.PN ---
Subjective Progress Note Date: 02/21/17 The patient is a 61-year-old woman who presented to the hospital yesterday after having a fall. She has been having recurrent falls at home. Recently she is also had a syncopal event unexplained. The patient has a history of injuries from her fall and is wearing a back brace. She had numerous x-rays done yesterday and there were no new fractures. X Patient is doing about the same. She has no new complaints. He had had a CAT scan of the brain which showed an area of ischemia on the right internal capsule. Today she had an MRI for further evaluation and this showed no acute intracranial abnormality. There were combination of small vessel disease and chronic ischemic changes. Also an MRA was done to further evaluate the basilar artery. There was no evidence of aneurysm. Objective - Vital Signs Vital signs: Vital Signs Temp 97.3 F L 02/21/17 17:00 Pulse 116 H 02/21/17 17:00 Resp 20 02/21/17 17:00 BP 139/87 02/21/17 17:00 Pulse Ox 92 L 02/21/17 17:05 Intake & Output 02/20/17 02/21/17 02/21/17 18:59 06:59 18:59 Intake Total 46.362 363.75 Output Total 725 650 Balance -678.638 -286.25 Weight 65.771 kg 62.1 kg 62.1 kg Intake: Intake, IV Titration 46.362 3.75 Amount Insulin Regular 100 unit 46.362 3.75 In Sodium Chloride 0.9% 100 ml @ Titrate IV .Q0M [facility] Rx#:[id number] Oral 360 Output: Urine 725 650 Other: Voiding Method Bedside Commode Bedside Commode # Voids 1 1 - Constitutional General appearance: Present: average body habitus, cooperative - EENT Eyes: Present: EOMI, PERRLA ENT: Present: hearing grossly normal - Respiratory Respiratory: bilateral: CTA - Cardiovascular Rhythm: regular - Neurologic Neurologic Comment(s): Mental status she was awake alert and oriented 3 her speech was fluent there is no aphasia or dysarthria Neurologic: Present: CNII-XII intact - Musculoskeletal Musculoskeletal: Present: strength equal bilaterally - Psychiatric Psychiatric: Present: A&O x's 3 - Labs CBC & Chem 7: 02/21/17 06:13 02/21/17 06:13 Labs: Abnormal Lab Results - Last 24 Hours (Table) 02/20/17 02/20/17 02/20/17 Range/Units 21:14 22:19 22:57 MCHC (31.0-37.0) g/dL Lymphocytes # (1.0-4.8) k/uL Chloride (98-107) mmol/L Carbon Dioxide (22-30) mmol/L BUN (7-17) mg/dL Creatinine (0.52-1.04) mg/dL Glucose (74-99) mg/dL POC Glucose (mg/dL) 448 H 407 H 360 H (75-99) mg/dL ALT (9-52) U/L Alkaline Phosphatase (38-126) U/L Total Protein (6.3-8.2) g/dL Albumin (3.5-5.0) g/dL TSH (0.465-4.680) mIU/L Free T4 (0.78-2.19) ng/dL 02/20/17 02/21/17 02/21/17 Range/Units 23:30 02:35 04:27 MCHC (31.0-37.0) g/dL Lymphocytes # (1.0-4.8) k/uL Chloride (98-107) mmol/L Carbon Dioxide (22-30) mmol/L BUN (7-17) mg/dL Creatinine (0.52-1.04) mg/dL Glucose (74-99) mg/dL POC Glucose (mg/dL) 190 H 180 H 170 H (75-99) mg/dL ALT (9-52) U/L Alkaline Phosphatase (38-126) U/L Total Protein (6.3-8.2) g/dL Albumin (3.5-5.0) g/dL TSH (0.465-4.680) mIU/L Free T4 (0.78-2.19) ng/dL 02/21/17 02/21/17 02/21/17 Range/Units 06:13 06:13 06:19 MCHC 29.0 L (31.0-37.0) g/dL Lymphocytes # 0.2 L (1.0-4.8) k/uL Chloride 77 L* (98-107) mmol/L Carbon Dioxide 55 H* (22-30) mmol/L BUN 22 H (7-17) mg/dL Creatinine 0.50 L (0.52-1.04) mg/dL Glucose 136 H (74-99) mg/dL POC Glucose (mg/dL) 170 H (75-99) mg/dL ALT 57 H (9-52) U/L Alkaline Phosphatase 128 H (38-126) U/L Total Protein 5.5 L (6.3-8.2) g/dL Albumin 3.3 L (3.5-5.0) g/dL TSH 0.197 L (0.465-4.680) mIU/L Free T4 0.64 L (0.78-2.19) ng/dL 02/21/17 02/21/17 02/21/17 Range/Units 08:54 11:32 17:16 MCHC (31.0-37.0) g/dL Lymphocytes # (1.0-4.8) k/uL Chloride (98-107) mmol/L Carbon Dioxide (22-30) mmol/L BUN (7-17) mg/dL Creatinine (0.52-1.04) mg/dL Glucose (74-99) mg/dL POC Glucose (mg/dL) 328 H 159 H 285 H (75-99) mg/dL ALT (9-52) U/L Alkaline Phosphatase (38-126) U/L Total Protein (6.3-8.2) g/dL Albumin (3.5-5.0) g/dL TSH (0.465-4.680) mIU/L Free T4 (0.78-2.19) ng/dL Assessment and Plan (1) CVA (cerebral vascular accident) Current Visit: Yes Status: Acute SNOMED Code(s): 406293186 (2) Recurrent falls Current Visit: Yes Status: Acute SNOMED Code(s): 210812201 Plan: Patient is a 61-year-old woman with history of recurrent falls and chronic low back pain as well as COPD. She had an MRI today which showed no evidence of an acute stroke. MRI was suggestive of small vessel disease and chronic ischemic changes. Also there was no evidence on MRA of an aneurysm. She had a carotid ultrasound which did not show any stenosis.. Recommend continue OT PT for unsteady gait . Patient can switched to baby aspirin daily
--- NOTE | 2017-02-21 18:50 | P.GSCN ---
History of Present Illness Consult date: 02/21/17 Reason for Consult: trauma consult s/p fall from standing History of present illness: 61-year-old female who had a fall from standing in her kitchen at home. She's had multiple falls in the past. She does not recall the events so there is an unknown loss of consciousness. At this time she has no complaints she complains she states that she has a minor amount of pain in her left anterior lower leg. She is tolerating diet. Denies abdominal pain denies any chest pain. Unknown what caused her fall possibly syncopal event Past Medical History Past Medical History: Asthma, Heart Failure, COPD, Osteoarthritis (OA), Pneumonia, Sleep Apnea/CPAP/BIPAP Additional Past Medical History / Comment(s): Bronhitis, chronic low back pain, TIMOTHY with CPAP, home O2 , past L kneecap fx, occasional dependent pedal edema, depression, gallbladder disease, chronic tobacco use and dependence, urinary incontinence, migraine headaches, osteoporosis, sciatica, peptic ulcer disease, urethritis,. History of Any Multi-Drug Resistant Organisms: None Reported Past Surgical History: Hernia Repair, Tubal Ligation Additional Past Surgical History / Comment(s): Bilateral inguinal hernia repairs , colonoscopy with benign polyypectomy, surgery for "pinched nerve in my R hip. " Discectomy, right femur open reduction internal fixation. Past Anesthesia/Blood Transfusion Reactions: No Reported Reaction Smoking Status: Former smoker - Past Family History Father Family Medical History: Coronary Artery Disease (CAD) Additional Family Medical History / Comment(s): Father is 83 yrs old. He has had 2 vessel CABG and a pacer. Mother Family Medical History: Dementia Additional Family Medical History / Comment(s): Mother of dementia at the age of 78yrs. Brother(s) Family Medical History: No Reported History Sister(s) Family Medical History: No Reported History Additional Family Medical History / Comment(s): Patient has 2 children no major medical problems. Patient lives with her daughter Medications and Allergies Home Medications Medication Instructions Recorded Confirmed Type Albuterol Inhaler [Ventolin Hfa 2 puff INHALATION RT-Q6H PRN 10/31/16 02/20/17 History Inhaler] Cholecalciferol (Vitamin D3) 2,000 unit PO DAILY 10/31/16 02/20/17 History [Vitamin D3] DULoxetine HCL [Cymbalta] 20 mg PO DAILY 10/31/16 02/20/17 History Furosemide [Lasix] 20 mg PO DAILY 10/31/16 02/20/17 History Ipratropium [place] [Atrovent Hfa] 2 puff INHALATION RT-BID 10/31/16 02/20/17 History Potassium Chloride ER [K-Dur 20] 20 meq PO DAILY 10/31/16 02/20/17 History ALPRAZolam [Xanax] 0.25 mg PO HS PRN #10 tab 11/04/16 02/20/17 Rx Budesonide [Pulmicort] 0.5 mg INHALATION RT-BID #60 neb 11/04/16 02/20/17 Rx Melatonin 10 mg PO HS tab 11/04/16 02/20/17 Rx Montelukast [Singulair] 10 mg PO HS #30 tab 11/04/16 02/20/17 Rx Omeprazole Magnesium [Prilosec OTC] 20 mg PO DAILY #30 tablet. 11/04/16 Rx Diltiazem Oral [Cardizem*] 60 mg PO TID #90 tab 02/16/17 02/20/17 Rx guaiFENesin [Mucinex] 1,200 mg PO Q12HR tablet.er 02/16/17 02/20/17 Rx guaiFENesin-DM 100-10MG/5ML 10 ml PO Q6H PRN cup 02/16/17 02/20/17 Rx [Robitussin DM] Indacaterol/Glycopyrrolate 1 puff INHALATION RT-BID 02/20/17 02/20/17 History [Utibron Neohaler 27.5-15.6 Mcg] predniSONE See Taper PO DAILY 02/20/17 02/20/17 History Allergies Allergy/AdvReac Type Severity Reaction Status Date / Time No Known Allergies Allergy Verified 02/20/17 13:00 Surgical - Exam Osteopathic Statement: *. No significant issues noted on an osteopathic structural exam other than those noted in the History and Physical/Consult. Vital Signs Temp Pulse Resp BP Pulse Ox 97.9 F 115 H 18 104/59 84 L 02/20/17 11:29 02/20/17 11:29 02/20/17 11:29 02/20/17 11:29 02/20/17 11:29 - General well developed, no distress - Eyes echimosis around right orbit PERRL - ENT normal pinna, normal nares, normal mucosa - Neck no masses, no bruits, trachea midline - Respiratory No pain to palpation normal expansion, normal respiratory effort - Cardiovascular Rhythm: regular - Abdomen Abdomen: soft, non tender - Integumentary Laceration on left anterior lower leg well approximated with nylon sutures clean dry and intact - Neurologic normal coordination, normal sensation - Psychiatric oriented to time, oriented to person Results - Labs 02/21/17 06:13 02/21/17 06:13 Abnormal Lab Results - Last 24 Hours (Table) 02/20/17 02/20/17 02/20/17 Range/Units 21:14 22:19 22:57 MCHC (31.0-37.0) g/dL Lymphocytes # (1.0-4.8) k/uL Chloride (98-107) mmol/L Carbon Dioxide (22-30) mmol/L BUN (7-17) mg/dL Creatinine (0.52-1.04) mg/dL Glucose (74-99) mg/dL POC Glucose (mg/dL) 448 H 407 H 360 H (75-99) mg/dL ALT (9-52) U/L Alkaline Phosphatase (38-126) U/L Total Protein (6.3-8.2) g/dL Albumin (3.5-5.0) g/dL TSH (0.465-4.680) mIU/L Free T4 (0.78-2.19) ng/dL 02/20/17 02/21/17 02/21/17 Range/Units 23:30 02:35 04:27 MCHC (31.0-37.0) g/dL Lymphocytes # (1.0-4.8) k/uL Chloride (98-107) mmol/L Carbon Dioxide (22-30) mmol/L BUN (7-17) mg/dL Creatinine (0.52-1.04) mg/dL Glucose (74-99) mg/dL POC Glucose (mg/dL) 190 H 180 H 170 H (75-99) mg/dL ALT (9-52) U/L Alkaline Phosphatase (38-126) U/L Total Protein (6.3-8.2) g/dL Albumin (3.5-5.0) g/dL TSH (0.465-4.680) mIU/L Free T4 (0.78-2.19) ng/dL 02/21/17 02/21/17 02/21/17 Range/Units 06:13 06:13 06:19 MCHC 29.0 L (31.0-37.0) g/dL Lymphocytes # 0.2 L (1.0-4.8) k/uL Chloride 77 L* (98-107) mmol/L Carbon Dioxide 55 H* (22-30) mmol/L BUN 22 H (7-17) mg/dL Creatinine 0.50 L (0.52-1.04) mg/dL Glucose 136 H (74-99) mg/dL POC Glucose (mg/dL) 170 H (75-99) mg/dL ALT 57 H (9-52) U/L Alkaline Phosphatase 128 H (38-126) U/L Total Protein 5.5 L (6.3-8.2) g/dL Albumin 3.3 L (3.5-5.0) g/dL TSH 0.197 L (0.465-4.680) mIU/L Free T4 0.64 L (0.78-2.19) ng/dL 02/21/17 02/21/17 02/21/17 Range/Units 08:54 11:32 17:16 MCHC (31.0-37.0) g/dL Lymphocytes # (1.0-4.8) k/uL Chloride (98-107) mmol/L Carbon Dioxide (22-30) mmol/L BUN (7-17) mg/dL Creatinine (0.52-1.04) mg/dL Glucose (74-99) mg/dL POC Glucose (mg/dL) 328 H 159 H 285 H (75-99) mg/dL ALT (9-52) U/L Alkaline Phosphatase (38-126) U/L Total Protein (6.3-8.2) g/dL Albumin (3.5-5.0) g/dL TSH (0.465-4.680) mIU/L Free T4 (0.78-2.19) ng/dL Diabetes panel 02/21/17 Range/Units 06:13 Sodium 137 (137-145) mmol/L Potassium 4.2 (3.5-5.1) mmol/L Chloride 77 L* (98-107) mmol/L Carbon Dioxide 55 H* (22-30) mmol/L BUN 22 H (7-17) mg/dL Creatinine 0.50 L (0.52-1.04) mg/dL Glucose 136 H (74-99) mg/dL Calcium 9.6 (8.4-10.2) mg/dL AST 22 (14-36) U/L ALT 57 H (9-52) U/L Alkaline Phosphatase 128 H (38-126) U/L Total Protein 5.5 L (6.3-8.2) g/dL Albumin 3.3 L (3.5-5.0) g/dL Thyroid panel 02/21/17 Range/Units 06:13 TSH 0.197 L (0.465-4.680) mIU/L Calcium panel 02/21/17 Range/Units 06:13 Calcium 9.6 (8.4-10.2) mg/dL Albumin 3.3 L (3.5-5.0) g/dL Pituitary panel 02/21/17 Range/Units 06:13 Sodium 137 (137-145) mmol/L Potassium 4.2 (3.5-5.1) mmol/L Chloride 77 L* (98-107) mmol/L Carbon Dioxide 55 H* (22-30) mmol/L BUN 22 H (7-17) mg/dL Creatinine 0.50 L (0.52-1.04) mg/dL Glucose 136 H (74-99) mg/dL Calcium 9.6 (8.4-10.2) mg/dL TSH 0.197 L (0.465-4.680) mIU/L Adrenal panel 02/21/17 Range/Units 06:13 Sodium 137 (137-145) mmol/L Potassium 4.2 (3.5-5.1) mmol/L Chloride 77 L* (98-107) mmol/L Carbon Dioxide 55 H* (22-30) mmol/L BUN 22 H (7-17) mg/dL Creatinine 0.50 L (0.52-1.04) mg/dL Glucose 136 H (74-99) mg/dL Calcium 9.6 (8.4-10.2) mg/dL Total Bilirubin 0.3 (0.2-1.3) mg/dL AST 22 (14-36) U/L ALT 57 H (9-52) U/L Alkaline Phosphatase 128 H (38-126) U/L Total Protein 5.5 L (6.3-8.2) g/dL Albumin 3.3 L (3.5-5.0) g/dL - Imaging Chest x-ray: report reviewed, image reviewed Abdominal x-ray: report reviewed, image reviewed Assessment and Plan Assessment: 61-year-old female status post fall from standing unknown loss of consciousness. Left lower extremity laceration Plan: At this time patient is stable from a trauma surgical standpoint. She may follow-up to my office in 7-10 days for suture removal. Thank you for allowing me to participate in this patient's care there are any concerns please feel free to contact me directly
[2017-02-21] MEDS: ACETAMINOPHEN TAB 325 MG TAB PO PRN (20:16)
[2017-02-21] MEDS: ALPRAZolam 0.25 MG TAB PO PRN (20:17)
[2017-02-21 20:45] LABS: Glucose,Whole Blood 282 mg/dL (75-99)
[2017-02-21] MEDS: MELATONIN 5 MG TABLET PO SCH (20:58)
[2017-02-21] MEDS: MONTELUKAST 10 MG TAB PO SCH (21:35)
[2017-02-22] MEDS: IPRATROPIUM-ALBUTEROL 3 ML NEB INHALATION SCH ×5 (04:26→19:54)
[2017-02-22] MEDS: SODIUM CHLORIDE 0.9% 1,000 ML IV SCH (06:15)
[2017-02-22 07:32] LABS: Glucose,Whole Blood 179 mg/dL (75-99)
[2017-02-22] MEDS: ACETAMINOPHEN TAB 325 MG TAB PO PRN ×2 (08:07→22:52)
[2017-02-22] MEDS: guaiFENesin 600 MG TABLET.ER PO SCH ×2 (08:09→21:08)
[2017-02-22] MEDS: DULoxetine HCL 20 MG CAPSULE.DR PO SCH (08:09)
[2017-02-22] MEDS: POTASSIUM CHLORIDE ER 20 MEQ TAB.ER PO SCH (08:09)
[2017-02-22] MEDS: INSULIN ASPART 100 UNIT/ML 1 ML 10 ML VIAL SQ SCH ×4 (08:09→21:08)
[2017-02-22] MEDS: DILTIAZEM ORAL 60 MG TAB PO SCH ×3 (08:09→21:09)
[2017-02-22] MEDS: FLUTICASONE 50MCG/SPRAY NASAL 16GM EA NOSTRIL SCH ×2 (08:09→21:07)
[2017-02-22] MEDS: ASPIRIN 325 MG TAB PO SCH (08:10)
[2017-02-22] MEDS: PANTOPRAZOLE 40 MG TABLET PO SCH (08:10)
[2017-02-22] MEDS: UTIBRON NEOHALER INHALATION SCH ×2 (08:10→19:55)
[2017-02-22] MEDS: acetaZOLAMIDE 250 MG TAB PO SCH (08:10)
[2017-02-22] MEDS: BENZONATATE 100 MG CAP PO SCH ×3 (08:11→21:08)
[2017-02-22] MEDS: CHOLECALCIFEROL 1,000 UNIT TAB PO SCH (08:11)
[2017-02-22] MEDS: predniSONE 20 MG TAB PO SCH (08:12)
[2017-02-22] MEDS: INSULIN DETEMIR 100 UNIT/ML 10 ML VIAL SQ SCH (08:22)
[2017-02-22] MEDS: BUDESONIDE 0.5 MG/2 ML NEBU INHALATION SCH ×2 (08:30→19:54)
[2017-02-22 09:29] LABS: Basophils % (A) 0 %; Eosinophils % (A) 0 %; HCT 41.8 % (34.0-46.0); Hypochromasia Marked; Lymphocytes # (A) 0.7 k/uL (1.0-4.8); Lymphocytes % (A) 6 %; MCH 27.7 pg (25.0-35.0); MCHC 28.7 g/dL (31.0-37.0); MCV 96.6 fL (80.0-100.0); Mean Platelet Volume 7.3; Monocytes # (A) 0.7 k/uL (0-1.0); Monocytes % (A) 6 %; Neutrophils # (A) 9.9 k/uL (1.3-7.7); Neutrophils % (A) 86 %; Platelet Count 264 k/uL (150-450); RBC 4.33 m/uL (3.80-5.40); RDW 14.2 % (11.5-15.5); WBC 11.5 k/uL (3.8-10.6)
[2017-02-22 09:38] LABS: ALT 50 U/L (9-52); AST 25 U/L (14-36); Albumin 3.2 g/dL (3.5-5.0); Alkaline Phosphatase 118 U/L (38-126); Blood Urea Nitrogen 19 mg/dL (7-17); Calcium 9.6 mg/dL (8.4-10.2); Chloride 90 mmol/L (98-107); Glucose 344 mg/dL (74-99); Potassium 4.1 mmol/L (3.5-5.1); Sodium 138 mmol/L (137-145); Total Bilirubin 0.4 mg/dL (0.2-1.3); Total Protein 5.3 g/dL (6.3-8.2)
[2017-02-22 09:44] LABS: Anion Gap 4 mmol/L
[2017-02-22 09:47] LABS: Carbon Dioxide 44 mmol/L (22-30)
[2017-02-22 12:06] LABS: Glucose,Whole Blood 282 mg/dL (75-99)
--- NOTE | 2017-02-22 12:19 | P.PN ---
Subjective Progress Note Date: 02/22/17 This is a 61-year-old female one of Dr. Benitez with a previous medical history significant for asthma/COPD on 3 L of oxygen 24 hours, anemia, anxiety disorder, chronic low back pain, depression, chronic tobacco use and dependence , migraine headaches, osteoarthritis, sciatica, essentially admitted from our facility [facility] from 02/09/2017 to 02/16/2017 secondary to with increased shortness of breath associated with chest tightness, productive cough and fever. Patient underwent updraft treatment by the EMS and was found to be saturating at 87% at room air. Tachypneic and having respiratory difficulty requiring ICU management during her last admission. Pap treatments, without any intubation, echocardiogram shows EF of 60-65% with mild aortic valve sclerosis, patient was seen by cardiology secondary to tachycardia and was started on Cardizem, patient was discharged home on a 3 L nasal cannula and tapering oral prednisone oral antibiotic nebulizer treatments she sees Dr. Sarah Green Seen in the emergency room on 02/20/2017 secondary to a fall at home, patient cannot recollect the events at home, patient lives with the daughter and requires a walker for ambulation. She might have thought that she might have tripped against a walker also unknown whether she says that her leg might have given out, she hit her leg with the walker, sustaining lacerations with stitches in place at the emergency room. Patient cannot recollect whether she had a syncopal event, patient denies any focal neurologic deficits when she came to, patient denies any lightheadedness or dizziness prior to the event . She had CT imaging in the ER including the brain and cervical region that shows area of recent ischemia involving the right internal capsule and white matter of the right parietal lobe not excluded, MRI needed, Genesis artery prominence , MRA of [place] of [place], multilevel DJD changes C5-C6 C6-C7 with 2 mm anterolisthesis C 4 and C5 with multilevel foraminal encroachment, no fractures in the x-ray tib-fib no fractures pelvic x-rays no fractures she requires stitches in the emergency room from the laceration tetanus vaccination ordered from the emergency room completed 02/21: Patient has been seen by Dr. Crook with recommendations for MRI and MRA. 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 MRI of the brain reveals no acute intracranial abnormality. Both punctate and confluent periventricular flair lesions compatible with small vessel disease and chronic ischemic change. She denies any sided weakness and states she tripped in her kitchen at home. Patient's breathing status is improving and Solu-Medrol will be switched over to prednisone 40 mg daily. Noted chloride is 77 and Lasix stopped, Diamox added along with IV fluids at 50 mL per hour. Anticipate discharge home tomorrow. Patient [facility] be [facility] to [facility] floor. 02/22: Patient noted to have elevated blood sugar and hemoglobin A1c is 7. Patient will be started on Tradjenta and continue NovoLog scale. She is currently on prednisone 40 mg daily. PT has recommended subacute rehab patient states she wants to go home instead and home care will be arranged. Noted consult in place with Dr. Roach for inpatient rehab. IV fluids changed to saline lock. Patient does state that she is a little nauseated and her abdomen is a little sore. She did have a bowel movement this morning but states it was not enough. Senokot will be added. Chloride is improved to 90 and she will be continued on Diamox. Recheck electrolytes in the morning. Anticipate discharge tomorrow. Patient does state that her breathing is okay and she is on 3 L at home. Patient has been seen by Dr. MELVIN Green with recommendations for BiPAP as needed during the day and at nighttime scheduled. Patient has been seen by Dr. sorenson with recommendations to follow up in 7-10 days for suture removal in the office if needed. She is stable from a trauma surgical standpoint. Dr. Crook has recommended switching her to a baby aspirin daily which will be done. Objective - Vital Signs Vital signs: Vital Signs Temp 97.0 F L 02/21/17 23:00 Pulse 118 H 02/22/17 11:58 Resp 20 02/22/17 05:02 BP 125/79 02/22/17 05:02 Pulse Ox 90 L 02/22/17 08:32 Intake & Output 02/21/17 02/22/17 02/22/17 18:59 06:59 18:59 Intake Total 363.75 1080 Output Total 650 Balance -286.25 1080 Weight 62.1 kg 62.1 kg Intake: Intake, IV Titration 3.75 Amount Insulin Regular 100 unit 3.75 In Sodium Chloride 0.9% 100 ml @ Titrate IV .Q0M [facility] Rx#:[id number] Oral 360 1080 Output: Urine 650 Other: Voiding Method Bedside Commode Bedside Commode # Voids 1 3 # Bowel Movements 1 - Exam General appearance: average body habitus, no acute distress - EENT Eyes: anicteric sclerae, EOMI, dentition normal, normal appearance ENT: no hard of hearing, hearing grossly normal, no NA/AT, normal oropharynx, no other, no pharyngeal erythema, no thrush, no tonsillar exudates, no tonsillar swelling - Neck Neck: no lymphadenopathy, normal ROM, no other, no rigidity, no stridor, no thyromegaly - Respiratory Respiratory: bilateral: CTA, negative: diminished, dullness, rales, rhonchi - Cardiovascular Rhythm: regular Heart sounds: normal: S1, S2 Abnormal Heart Sounds: no systolic murmur, no diastolic murmur, no rub, no S3 Gallop, no S4 Gallop, no click, no other - Gastrointestinal General gastrointestinal: normal bowel sounds, soft - Integumentary Integumentary: decreased turgor, normal (Except for laceration anterior or upper tibial region requiring laceration with good coaptation the dressing in place) - Neurologic Neurologic: CNII-XII intact, focal deficits - Musculoskeletal Musculoskeletal: generalized weakness, strength equal bilaterally - Psychiatric Psychiatric: A&O x's 3, appropriate affect, intact judgment & insight - Labs CBC & Chem 7: 02/22/17 08:52 02/22/17 08:52 Labs: Abnormal Lab Results - Last 24 Hours (Table) 02/21/17 02/21/17 02/21/17 Range/Units 06:13 17:16 20:37 WBC (3.8-10.6) k/uL MCHC (31.0-37.0) g/dL Neutrophils # (1.3-7.7) k/uL Lymphocytes # (1.0-4.8) k/uL Chloride (98-107) mmol/L Carbon Dioxide (22-30) mmol/L BUN (7-17) mg/dL Glucose (74-99) mg/dL POC Glucose (mg/dL) 285 H 282 H (75-99) mg/dL Hemoglobin A1c 7.0 H (4.0-6.0) % Total Protein (6.3-8.2) g/dL Albumin (3.5-5.0) g/dL 02/22/17 02/22/17 02/22/17 Range/Units 07:27 08:52 08:52 WBC 11.5 H (3.8-10.6) k/uL MCHC 28.7 L (31.0-37.0) g/dL Neutrophils # 9.9 H (1.3-7.7) k/uL Lymphocytes # 0.7 L (1.0-4.8) k/uL Chloride 90 L (98-107) mmol/L Carbon Dioxide 44 H* (22-30) mmol/L BUN 19 H (7-17) mg/dL Glucose 344 H (74-99) mg/dL POC Glucose (mg/dL) 179 H (75-99) mg/dL Hemoglobin A1c (4.0-6.0) % Total Protein 5.3 L (6.3-8.2) g/dL Albumin 3.2 L (3.5-5.0) g/dL 02/22/17 Range/Units 12:02 WBC (3.8-10.6) k/uL MCHC (31.0-37.0) g/dL Neutrophils # (1.3-7.7) k/uL Lymphocytes # (1.0-4.8) k/uL Chloride (98-107) mmol/L Carbon Dioxide (22-30) mmol/L BUN (7-17) mg/dL Glucose (74-99) mg/dL POC Glucose (mg/dL) 282 H (75-99) mg/dL Hemoglobin A1c (4.0-6.0) % Total Protein (6.3-8.2) g/dL Albumin (3.5-5.0) g/dL Assessment and Plan Plan: 1. Fall at home causing trauma to the lower extremities requiring laceration repair. CT of the brain shows suspected area of recent ischemia involving the right internal capsule and white matter off the right parietal lobe. MRI was negative for stroke. Neurology consult appreciated. Patient has been started on aspirin. 2. Acute on chronic hypoxic respiratory failure due to bronchospasm and COPD, severe persistent asthma, respiratory acidosis, continue Solu-Medrol to prednisone, nebulized treatment DuoNeb 3 mg nebulization 4 times every day, Pulmicort 0.5 mg position twice every day, she had completed Levaquin prior to admission no new antibiotics needed, Teskody Mendoza Flonase for cough pulmonary consultation from Dr. MELVIN Green. 3. Chronic diastolic heart failure. Continue Lasix 20 mg orally once every day and potassium supplement, patient did have an echocardiogram last yearand 2018 that showed ejection fraction o60-65%,qiith right ventricular systolic pressure of 32 mmHg., mild aortic sclerosis without stenosis, no pericardial effusion 4. Severe hypo-chloremia. Lasix will be stopped, continue Diamox. Recheck lab work tomorrow morning. 5. prior history of Sinus tachycardia. maintained on Cardizem orally. follow-up outpatient with cardiology 6. Recurrent depression. Continue patient on Cymbalta 20 mg orally once every day. 7. Osteoarthritis. Clinically stable. 8. End-stage COPD. on 3 L at home 24 hours Continue treatment as in paragraph 1 9. Migraine headaches. Stable at this point in time. 10. DVT prophylaxis. Lovenox 40 mg subcutaneously every 24 hours. 11. GI prophylaxis. Pepcid 20 mg twice a day 12. Patient is a full code. Discharge plan: Possible inpatient rehab versus home with home care. Impression and plan of care have been directed as dictated by the signing physician. Belinda Marte nurse practitioner acting as scribe for signing physician.
[2017-02-22] MEDS: LINAGLIPTIN 5 MG TABLET PO SCH (12:34)
[2017-02-22 17:01] LABS: Glucose,Whole Blood 280 mg/dL (75-99)
--- NOTE | 2017-02-22 17:04 | PN ---
PROGRESS NOTE DATE OF SERVICE: February 22, 2017. Patient has been hemodynamically stable. She is less short of breath, more awake and alert. On physical examination, her blood pressure is 147/94, respiratory rate of 18, pulse rate of 103, temperature 100.3, O2 saturation on 2 L by nasal cannula is 86%. HEENT is unremarkable. Chest reveals occasional rhonchi. Cardiovascular system reveals an S1, S2. Abdomen is soft. There is trace pedal edema. Bicarb is 44. White count 11.3, hemoglobin of 12, glucose 179. IMPRESSION: 1. Metabolic encephalopathy. 2. Chronic obstructive pulmonary disease with asthma with acute exacerbation. 3. Obstructive sleep apnea. 4. CO2 retention. 5. Low-grade fever, etiology of which is unclear. At this point in time, would continue her on steroids and bronchodilators. Increase activity level. Her medications were reviewed. Depending on how she does we should make further changes to her care. MMODL / IJN: [id number] /
[2017-02-22 20:27] LABS: Glucose,Whole Blood 292 mg/dL (75-99)
[2017-02-22] MEDS: MELATONIN 5 MG TABLET PO SCH (21:07)
[2017-02-22] MEDS: MONTELUKAST 10 MG TAB PO SCH (21:08)
[2017-02-22] MEDS: SENNOSIDES-DOCUSATE SODIUM 1 EACH TAB PO SCH (21:09)
--- NOTE | 2017-02-23 06:53 | P.CONS ---
History of Present Illness - Chief Complaint Gait disturbance - History of Present Illness I had the opportunity to see patient for inpatient rehab consultation with regard to gait disturbance. She was admitted to [facility] February 20 history fall at home and laceration left lower leg. Seen by who reviewed CT and diagnosed right internal capsule infarct. Seen by Dr. hurley for the left lower extremity trauma. Chest x-ray pelvic x-ray and tib-fib x- rays negative. Head CT demonstrates basal artery dilation especially at the tip. C-spine with anterior listhesis C3/4. Brain MRI demonstrated small vessel change only. MRA demonstrated only dolichoectasia vertebrobasilar but without aneurysm of the tip. PT reports supervision for bed mobility. Unable to stand. OT prescribed. Previous functional history as elicited from patient: 61-year-old right-handed white female who lives with daughter in first-floor apartment. Patient single. On disability. Daughter does cooking, laundry, driving. Daughter physically assist patient with dressing, bathing, mobility with 4 wheeled walker. History smoking but doesn't smoke or drink currently. Dr. Benitez is PMD. Family history father with NE. Review of Systems Review of systems: ENT: Denies sneezes or discharge. Eyes: Denies discharge or photophobia. Cardiac: Denies chest pain or palpitation. Pulmonary: Denies cough or shortness of breath. Breast: Denies discharge or lumps. Gastrointestinal: Denies nausea, emesis, constipation, diarrhea. Genitourinary: Denies discharge or frequency. Musculoskeletal: Comfort left lower leg from laceration. Neurologic: Denies motor or sensory change. Endocrine: Denies shakes or sweats. Oncology: Denies cancers. Dermatologic: Denies rash, itching, pruritus. ALLERGY/immunology: Denies sneezes, rashes. Past Medical History Past Medical History: Asthma, Heart Failure, COPD, Osteoarthritis (OA), Pneumonia, Sleep Apnea/CPAP/BIPAP Additional Past Medical History / Comment(s): Bronhitis, chronic low back pain, TIMOTHY with CPAP, home O2 , past L kneecap fx, occasional dependent pedal edema, depression, gallbladder disease, chronic tobacco use and dependence, urinary incontinence, migraine headaches, osteoporosis, sciatica, peptic ulcer disease, urethritis,. History of Any Multi-Drug Resistant Organisms: None Reported Past Surgical History: Hernia Repair, Tubal Ligation Additional Past Surgical History / Comment(s): Bilateral inguinal hernia repairs , colonoscopy with benign polyypectomy, surgery for "pinched nerve in my R hip. " Discectomy, right femur open reduction internal fixation. Past Anesthesia/Blood Transfusion Reactions: No Reported Reaction Smoking Status: Former smoker - Past Family History Father Family Medical History: Coronary Artery Disease (CAD) Additional Family Medical History / Comment(s): Father is 83 yrs old. He has had 2 vessel CABG and a pacer. Mother Family Medical History: Dementia Additional Family Medical History / Comment(s): Mother of dementia at the age of 78yrs. Brother(s) Family Medical History: No Reported History Sister(s) Family Medical History: No Reported History Additional Family Medical History / Comment(s): Patient has 2 children no major medical problems. Patient lives with her daughter Medications and Allergies Home Medications Medication Instructions Recorded Confirmed Type Albuterol Inhaler [Ventolin Hfa 2 puff INHALATION RT-Q6H PRN 10/31/16 02/20/17 History Inhaler] Cholecalciferol (Vitamin D3) 2,000 unit PO DAILY 10/31/16 02/20/17 History [Vitamin D3] DULoxetine HCL [Cymbalta] 20 mg PO DAILY 10/31/16 02/20/17 History Furosemide [Lasix] 20 mg PO DAILY 10/31/16 02/20/17 History Ipratropium [place] [Atrovent Hfa] 2 puff INHALATION RT-BID 10/31/16 02/20/17 History Potassium Chloride ER [K-Dur 20] 20 meq PO DAILY 10/31/16 02/20/17 History ALPRAZolam [Xanax] 0.25 mg PO HS PRN #10 tab 11/04/16 02/20/17 Rx Budesonide [Pulmicort] 0.5 mg INHALATION RT-BID #60 neb 11/04/16 02/20/17 Rx Melatonin 10 mg PO HS tab 11/04/16 02/20/17 Rx Montelukast [Singulair] 10 mg PO HS #30 tab 11/04/16 02/20/17 Rx Omeprazole Magnesium [Prilosec OTC] 20 mg PO DAILY #30 tablet. 11/04/16 Rx Diltiazem Oral [Cardizem*] 60 mg PO TID #90 tab 02/16/17 02/20/17 Rx guaiFENesin [Mucinex] 1,200 mg PO Q12HR tablet.er 02/16/17 02/20/17 Rx guaiFENesin-DM 100-10MG/5ML 10 ml PO Q6H PRN cup 02/16/17 02/20/17 Rx [Robitussin DM] Indacaterol/Glycopyrrolate 1 puff INHALATION RT-BID 02/20/17 02/20/17 History [Utibron Neohaler 27.5-15.6 Mcg] predniSONE See Taper PO DAILY 02/20/17 02/20/17 History Allergies Allergy/AdvReac Type Severity Reaction Status Date / Time No Known Allergies Allergy Verified 02/20/17 13:00 Physical Exam Vitals: Vital Signs Temp Pulse Pulse Pulse Resp BP BP 02/22/17 23:00 97.4 F L 96 16 02/22/17 20:08 108 H 02/22/17 19:55 108 H 02/22/17 15:52 105 H 02/22/17 15:41 100 02/22/17 15:30 147/94 120/79 02/22/17 14:55 103 H 02/22/17 14:50 02/22/17 14:40 100.3 F H 124 H 18 02/22/17 12:10 114 H 02/22/17 11:58 118 H 02/22/17 08:44 104 H 02/22/17 08:32 110 H 02/22/17 07:00 98.7 F 94 18 BP BP BP BP Pulse Ox 02/22/17 23:00 122/77 93 L 02/22/17 20:08 02/22/17 19:55 02/22/17 15:52 02/22/17 15:41 02/22/17 15:30 115/75 02/22/17 14:55 93 L 02/22/17 14:50 88 L 02/22/17 14:40 147/94 86 L 02/22/17 12:10 02/22/17 11:58 02/22/17 08:44 02/22/17 08:32 90 L 02/22/17 07:00 120/63 95 Intake and Output 02/22/17 02/22/17 02/23/17 14:59 22:59 06:59 Intake Total 400 340 Output Total 500 Balance 400 -160 Intake: IV 400 100 Sodium Chloride 0.9% 1, 400 100 000 ml @ 50 mls/hr IV . Q20H REGIS Rx#:[id number] Oral 240 Output: Urine 500 Other: # Voids 5 2 2 # Bowel Movements 1 Skin: Good color, texture, turgor. Laceration left lower leg currently clean and dressed with sutures and Curlex. General: Medium build and comfortable appearance. Head: Normocephalic, atraumatic. Eyes: Symmetric. Pupils equal round. Ears: Symmetric. Hearing within normal limits. Mouth: Clear. Neck: Supple. Carotid without bruit. Cardiac: Regular rate and rhythm. Lungs: Clear anteriorly and posteriorly. Abdomen: Soft active nontender. Extremities: Normal tone. Neurological: Mental status: Alert, cooperative, pleasant. Cranial nerves: Symmetric facial tone and trapezius. Motor: Active movements all 4 limbs. Sensation: Intact throughout. DTRs: Symmetric and equal throughout. Mobility: Appears would require physical assistance to sit up in bed. Results CBC & Chem 7: 02/22/17 08:52 02/22/17 08:52 Labs: Abnormal Lab Results - Last 24 Hours (Table) 02/22/17 02/22/17 02/22/17 Range/Units 07:27 08:52 08:52 WBC 11.5 H (3.8-10.6) k/uL MCHC 28.7 L (31.0-37.0) g/dL Neutrophils # 9.9 H (1.3-7.7) k/uL Lymphocytes # 0.7 L (1.0-4.8) k/uL Chloride 90 L (98-107) mmol/L Carbon Dioxide 44 H* (22-30) mmol/L BUN 19 H (7-17) mg/dL Glucose 344 H (74-99) mg/dL POC Glucose (mg/dL) 179 H (75-99) mg/dL Total Protein 5.3 L (6.3-8.2) g/dL Albumin 3.2 L (3.5-5.0) g/dL 02/22/17 02/22/17 02/22/17 Range/Units 12:02 16:46 20:25 WBC (3.8-10.6) k/uL MCHC (31.0-37.0) g/dL Neutrophils # (1.3-7.7) k/uL Lymphocytes # (1.0-4.8) k/uL Chloride (98-107) mmol/L Carbon Dioxide (22-30) mmol/L BUN (7-17) mg/dL Glucose (74-99) mg/dL POC Glucose (mg/dL) 282 H 280 H 292 H (75-99) mg/dL Total Protein (6.3-8.2) g/dL Albumin (3.5-5.0) g/dL Chest x-ray: report reviewed (Negative.) CT Scan - head: report reviewed (Dilation of basilar artery specially attempt. MRA however negative for aneurysm. C-spine with anterolisthesis C3/4.) MRI - head: report reviewed (Chronic small vessel change only. MRA negative for aneurysm basilar artery.) Assessment and Plan (1) CVA (cerebral vascular accident) Current Visit: Yes Status: Acute Code(s): I63.9 - CEREBRAL INFARCTION, UNSPECIFIED SNOMED Code(s): 580534198 Plan: Pressure and: 1. Gait disturbance. 2. Stroke result in one above. 3. History of frequent falls. 4. COPD exacerbation. History of asthma. 5. History of CHF. 6. Osteoarthritis. 7. Sleep apnea. Comments and plan: At this time PT and OT are ongoing. We'll add speech therapy for communication cognition. Note PT currently recommending subacute rehab. We'll follow benefit today though.
[2017-02-23] MEDS: ACETAMINOPHEN TAB 325 MG TAB PO PRN (06:55)
[2017-02-23 07:33] LABS: Glucose,Whole Blood 108 mg/dL (75-99)
[2017-02-23 07:40] VITALS: TEMP 98.1
[2017-02-23] MEDS: IPRATROPIUM-ALBUTEROL 3 ML NEB INHALATION SCH ×2 (07:41→11:33)
[2017-02-23] MEDS: BUDESONIDE 0.5 MG/2 ML NEBU INHALATION SCH (07:42)
[2017-02-23] MEDS: UTIBRON NEOHALER INHALATION SCH (07:45)
[2017-02-23] MEDS: INSULIN ASPART 100 UNIT/ML 1 ML 10 ML VIAL SQ SCH ×2 (08:06→12:29)
[2017-02-23] MEDS: SENNOSIDES-DOCUSATE SODIUM 1 EACH TAB PO SCH (08:12)
[2017-02-23] MEDS: FLUTICASONE 50MCG/SPRAY NASAL 16GM EA NOSTRIL SCH (08:12)
[2017-02-23] MEDS: guaiFENesin 600 MG TABLET.ER PO SCH (08:12)
[2017-02-23] MEDS: LINAGLIPTIN 5 MG TABLET PO SCH (08:12)
[2017-02-23] MEDS: predniSONE 20 MG TAB PO SCH (08:13)
[2017-02-23] MEDS: PANTOPRAZOLE 40 MG TABLET PO SCH (08:13)
[2017-02-23] MEDS: POTASSIUM CHLORIDE ER 20 MEQ TAB.ER PO SCH (08:13)
[2017-02-23] MEDS: DILTIAZEM ORAL 60 MG TAB PO SCH (08:13)
[2017-02-23] MEDS: acetaZOLAMIDE 250 MG TAB PO SCH (08:13)
[2017-02-23] MEDS: CHOLECALCIFEROL 1,000 UNIT TAB PO SCH (08:13)
[2017-02-23] MEDS: BENZONATATE 100 MG CAP PO SCH (08:13)
[2017-02-23] MEDS: DULoxetine HCL 20 MG CAPSULE.DR PO SCH (08:13)
[2017-02-23 08:25] LABS: Basophils % (A) 0 %; Eosinophils % (A) 0 %; HCT 40.8 % (34.0-46.0); HGB 11.9 gm/dL (11.4-16.0); Hypochromasia Marked; Lymphocytes # (A) 1.1 k/uL (1.0-4.8); Lymphocytes % (A) 8 %; MCH 27.4 pg (25.0-35.0); MCHC 29.2 g/dL (31.0-37.0); MCV 93.7 fL (80.0-100.0); Mean Platelet Volume 7.2; Monocytes # (A) 0.8 k/uL (0-1.0); Monocytes % (A) 6 %; Neutrophils # (A) 10.9 k/uL (1.3-7.7); Neutrophils % (A) 83 %; Platelet Count 254 k/uL (150-450); RBC 4.35 m/uL (3.80-5.40); RDW 15.7 % (11.5-15.5); WBC 13.1 k/uL (3.8-10.6)
[2017-02-23] MEDS: INSULIN DETEMIR 100 UNIT/ML 10 ML VIAL SQ SCH (08:32)
[2017-02-23] MEDS ORDERED: ASPIRIN 81 MG PO SCH (09:00)
[2017-02-23 09:02] LABS: Blood Urea Nitrogen 18 mg/dL (7-17); Calcium 9.6 mg/dL (8.4-10.2); Chloride 96 mmol/L (98-107); Glucose 108 mg/dL (74-99); Potassium 3.7 mmol/L (3.5-5.1); Sodium 140 mmol/L (137-145)
[2017-02-23 09:10] LABS: Anion Gap 3 mmol/L
[2017-02-23 09:19] LABS: Carbon Dioxide 41 mmol/L (22-30)
[2017-02-23 10:48] VITALS: RESP 18
[2017-02-23 12:19] LABS: Glucose,Whole Blood 257 mg/dL (75-99)
--- NOTE | 2017-02-23 13:54 | P.DS ---
Providers Date of admission: 02/20/17 15:39 Expected date of discharge: 02/23/17 Attending physician: Cari Rehman Consults: 02/20/17 15:41 Consult Physician Urgent Consulting Provider: Emily Crook Consult Reason/Comments: CVA, concern for basilar artery aneurysm. Do you want consulting provider notified?: Yes 02/20/17 20:04 Consult Physician Routine Consulting Provider: Abhilash Green Consult Reason/Comments: copd/severe asthma Do you want consulting provider notified?: Yes, Notify in am 02/21/17 12:39 Consult Physician Routine Consulting Provider: Arden Tan Consult Reason/Comments: trauma, laceration left lower extremity Do you want consulting provider notified?: Yes 02/21/17 12:40 Consult Physician Routine Consulting Provider: Sinan Roach Consult Reason/Comments: gait abnormality,medical debility Do you want consulting provider notified?: Yes Primary care physician: Matheus Benitez [place] [facility] Course: This is a 61-year-old female one of Dr. Benitez with a previous medical history significant for asthma/COPD on 3 L of oxygen 24 hours, anemia, anxiety disorder, chronic low back pain, depression, chronic tobacco use and dependence , migraine headaches, osteoarthritis, sciatica, essentially admitted from our facility [facility] from 02/09/2017 to 02/16/2017 secondary to with increased shortness of breath associated with chest tightness, productive cough and fever. Patient underwent updraft treatment by the EMS and was found to be saturating at 87% at room air. Tachypneic and having respiratory difficulty requiring ICU management during her last admission. Pap treatments, without any intubation, echocardiogram shows EF of 60-65% with mild aortic valve sclerosis, patient was seen by cardiology secondary to tachycardia and was started on Cardizem, patient was discharged home on a 3 L nasal cannula and tapering oral prednisone oral antibiotic nebulizer treatments she sees Dr. Saarh Green Seen in the emergency room on 02/20/2017 secondary to a fall at home, patient cannot recollect the events at home, patient lives with the daughter and requires a walker for ambulation. She might have thought that she might have tripped against a walker also unknown whether she says that her leg might have given out, she hit her leg with the walker, sustaining lacerations with stitches in place at the emergency room. Patient cannot recollect whether she had a syncopal event, patient denies any focal neurologic deficits when she came to, patient denies any lightheadedness or dizziness prior to the event . She had CT imaging in the ER including the brain and cervical region that shows area of recent ischemia involving the right internal capsule and white matter of the right parietal lobe not excluded, MRI needed, Genesis artery prominence , MRA of [place] of [place], multilevel DJD changes C5-C6 C6-C7 with 2 mm anterolisthesis C 4 and C5 with multilevel foraminal encroachment, no fractures in the x-ray tib-fib no fractures pelvic x-rays no fractures she requires stitches in the emergency room from the laceration tetanus vaccination ordered from the emergency room completed 02/21: Patient has been seen by Dr. Crook with recommendations for MRI and MRA. 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 MRI of the brain reveals no acute intracranial abnormality. Both punctate and confluent periventricular flair lesions compatible with small vessel disease and chronic ischemic change. She denies any sided weakness and states she tripped in her kitchen at home. Patient's breathing status is improving and Solu-Medrol will be switched over to prednisone 40 mg daily. Noted chloride is 77 and Lasix stopped, Diamox added along with IV fluids at 50 mL per hour. Anticipate discharge home tomorrow. Patient will be transferred to the [facility] floor. 02/22: Patient noted to have elevated blood sugar and hemoglobin A1c is 7. Patient will be started on Tradjenta and continue NovoLog scale. She is currently on prednisone 40 mg daily. PT has recommended subacute rehab patient states she wants to go home instead and home care will be arranged. Noted consult in place with Dr. Roach for inpatient rehab. IV fluids changed to saline lock. Patient does state that she is a little nauseated and her abdomen is a little sore. She did have a bowel movement this morning but states it was not enough. Senokot will be added. Chloride is improved to 90 and she will be continued on Diamox. Recheck electrolytes in the morning. Anticipate discharge tomorrow. Patient does state that her breathing is okay and she is on 3 L at home. Patient has been seen by Dr. MELVIN Green with recommendations for BiPAP as needed during the day and at nighttime scheduled. Patient has been seen by Dr. tan with recommendations to follow up in 7-10 days for suture removal in the office if needed. She is stable from a trauma surgical standpoint. Dr. Crook has recommended switching her to a baby aspirin daily which will be done. 02/23: Patient has been seen by Dr. Roach and accepted at [facility] for inpatient rehab and patient is agreeable. Patient will be discharged today in stable condition. Discharge diagnoses: 1. Fall at home causing trauma to the lower extremities requiring laceration repair. 2. Acute on chronic hypoxic respiratory failure due to bronchospasm and COPD, severe persistent asthma, respiratory acidosis 3. Chronic diastolic heart failure. 4. Severe hypo-chloremia. 5. prior history of Sinus tachycardia. 6. Recurrent depression. 7. Osteoarthritis. 8. End-stage COPD. on 3 L at home 24 hours 9. Migraine headaches. Discharge plan: inpatient rehab Impression and plan of care have been directed as dictated by the signing physician. Belinda Marte nurse practitioner acting as scribe for signing physician. Patient Condition at Discharge: Good Plan - Discharge Summary Discharge Rx Participant: No New Discharge Prescriptions: New Aspirin 81 mg PO DAILY chew Benzonatate [Tessalon Perles] 100 mg PO TID cap Fluticasone Nasal [place] [Flonase Nasal [place]] 1 spray EA NOSTRIL BID spr Ipratropium-Albuterol Nebulize [Duoneb 0.5 mg-3 mg/3 ml Soln] 3 ml INHALATION RT-QID ampul.neb Linagliptin [Tradjenta] 5 mg PO DAILY tablet Sennosides-Docusate Sodium [Senokot-S] 2 each PO BID tab Continue DULoxetine HCL [Cymbalta] 20 mg PO DAILY Cholecalciferol (Vitamin D3) [Vitamin D3] 2,000 unit PO DAILY Potassium Chloride ER [K-Dur 20] 20 meq PO DAILY Furosemide [Lasix] 20 mg PO DAILY Budesonide [Pulmicort] 0.5 mg INHALATION RT-BID #60 neb Melatonin 10 mg PO HS tab Montelukast [Singulair] 10 mg PO HS #30 tab ALPRAZolam [Xanax] 0.25 mg PO HS PRN #10 tab PRN Reason: Anxiety Omeprazole Magnesium [Prilosec OTC] 20 mg PO DAILY #30 tablet. Diltiazem Oral [Cardizem*] 60 mg PO TID #90 tab guaiFENesin [Mucinex] 1,200 mg PO Q12HR tablet.er predniSONE See Taper PO DAILY Indacaterol/Glycopyrrolate [Utibron Neohaler 27.5-15.6 Mcg] 1 puff INHALATION RT-BID Discontinued Ipratropium [place] [Atrovent Hfa] 2 puff INHALATION RT-BID Albuterol Inhaler [Ventolin Hfa Inhaler] 2 puff INHALATION RT-Q6H PRN PRN Reason: Shortness Of Breath guaiFENesin-DM 100-10MG/5ML [Robitussin DM] 10 ml PO Q6H PRN cup PRN Reason: Cough Discharge Medication List Cholecalciferol (Vitamin D3) [Vitamin D3] 2,000 unit PO DAILY 10/31/16 [History] DULoxetine HCL [Cymbalta] 20 mg PO DAILY 10/31/16 [History] Furosemide [Lasix] 20 mg PO DAILY 10/31/16 [History] Potassium Chloride ER [K-Dur 20] 20 meq PO DAILY 10/31/16 [History] ALPRAZolam [Xanax] 0.25 mg PO HS PRN #10 tab 11/04/16 [Rx] Budesonide [Pulmicort] 0.5 mg INHALATION RT-BID #60 neb 11/04/16 [Rx] Melatonin 10 mg PO HS tab 11/04/16 [Rx] Montelukast [Singulair] 10 mg PO HS #30 tab 11/04/16 [Rx] Omeprazole Magnesium [Prilosec OTC] 20 mg PO DAILY #30 tablet. 11/04/16 [Rx] Diltiazem Oral [Cardizem*] 60 mg PO TID #90 tab 02/16/17 [Rx] guaiFENesin [Mucinex] 1,200 mg PO Q12HR tablet.er 02/16/17 [Rx] Indacaterol/Glycopyrrolate [Utibron Neohaler 27.5-15.6 Mcg] 1 puff INHALATION RT -BID 02/20/17 [History] predniSONE See Taper PO DAILY 02/20/17 [History] Aspirin 81 mg PO DAILY chew 02/23/17 [Rx] Benzonatate [Tessalon Perles] 100 mg PO TID cap 02/23/17 [Rx] Fluticasone Nasal [place] [Flonase Nasal [place]] 1 spray EA NOSTRIL BID spr [Rx] Ipratropium-Albuterol Nebulize [Duoneb 0.5 mg-3 mg/3 ml Soln] 3 ml INHALATION RT -QID ampul.neb 02/23/17 [Rx] Linagliptin [Tradjenta] 5 mg PO DAILY tablet 02/23/17 [Rx] Sennosides-Docusate Sodium [Senokot-S] 2 each PO BID tab 02/23/17 [Rx] Follow up Appointment(s)/Referral(s): [facility], [NON-STAFF] - Matheus Benitez MD [Primary Care Provider] - 03/03/17 1:00 pm Abhilash Green MD [STAFF PHYSICIAN] - 03/02/17 9:30 am Patient Instructions/Handouts: Heart Failure (DC), Type 2 Diabetes in Adults ( DC), COPD (Chronic Obstructive Pulmonary Disease) (DC), Basic Carbohydrate Counting (DC) Discharge Disposition: OTHER INSTITUTION NOT DEFINED
[2017-02-23 14:58] VITALS: BP 118/68; PULSE 105
--- NOTE | 2017-02-23 16:41 | PN ---
PROGRESS NOTE DATE OF SERVICE: 02/23/2017 The patient was seen again on February2017. The patient has been hemodynamically stable. She is less short of breath and is almost back to baseline. On physical examination respiratory rate is 18, pulse rate of 111. The patient is afebrile. HEENT is unremarkable. Chest reveals decreased breath sounds. Prolonged expiration. Cardiovascular system is S1, S2. Abdomen is soft. There is no pedal edema. IMPRESSION: At this time is: 1. Chronic obstructive pulmonary disease with acute exacerbation. 2. Metabolic encephalopathy. 3. Medical debility and recent fall. 4. Obstructive sleep apnea with CO2 retention. Agree with discharge planning to rehab. Her prognosis at this time is fair. MMODL / IJN: [id number] /
== END 2017-02-23 15:32 | disposition home health service (06) | DRG 190 ==
LOC: EC 11:27 → 6SEL 15:39 → 4MS4W 02-21 16:59
PROVIDERS: ADMIT Family Medicine; ATTEND Family Medicine
PROC: 0HQLXZZ Repair Left Lower Leg Skin, External Approach (ICD-10-PCS; principal; 2017-02-20)
PROC: 3E0234Z Introduction of Serum, Toxoid and Vaccine into Muscle, Percutaneous Approach (ICD-10-PCS; 2017-02-20)
DX: J44.1 Chronic obstructive pulmonary disease with (acute) exacerbation (principal); G93.41 Metabolic encephalopathy; J96.21 Acute and chronic respiratory failure with hypoxia; E46 Unspecified protein-calorie malnutrition; E87.8 Other disorders of electrolyte and fluid balance, not elsewhere classified; F33.9 Major depressive disorder, recurrent, unspecified; J45.51 Severe persistent asthma with (acute) exacerbation; E87.2 Acidosis; G45.0 Vertebro-basilar artery syndrome; I50.32 Chronic diastolic (congestive) heart failure; S81.812A Laceration without foreign body, left lower leg, initial encounter; Z99.81 Dependence on supplemental oxygen; Z23 Encounter for immunization; S00.93XA Contusion of unspecified part of head, initial encounter; G89.29 Other chronic pain; G43.909 Migraine, unspecified, not intractable, without status migrainosus; F41.9 Anxiety disorder, unspecified; M50.322 Other cervical disc degeneration at C5-C6 level; M54.40 Lumbago with sciatica, unspecified side; M43.12 Spondylolisthesis, cervical region; G47.33 Obstructive sleep apnea (adult) (pediatric); I70.0 Atherosclerosis of aorta; R26.9 Unspecified abnormalities of gait and mobility; I73.9 Peripheral vascular disease, unspecified; M81.0 Age-related osteoporosis without current pathological fracture; R00.0 Tachycardia, unspecified; R73.9 Hyperglycemia, unspecified; K82.9 Disease of gallbladder, unspecified; R32 Unspecified urinary incontinence; R29.6 Repeated falls; M19.91 Primary osteoarthritis, unspecified site; Z68.21 Body mass index [BMI] 21.0-21.9, adult; Z79.51 Long term (current) use of inhaled steroids; Z79.899 Other long term (current) drug therapy; Z87.11 Personal history of peptic ulcer disease; Z87.891 Personal history of nicotine dependence; Z87.81 Personal history of (healed) traumatic fracture; Z87.01 Personal history of pneumonia (recurrent); W01.0XXA Fall on same level from slipping, tripping and stumbling without subsequent striking against object, initial encounter; Y92.000 Kitchen of unspecified non-institutional (private) residence as the place of occurrence of the external cause
CPT/HCPCS: 36415; 70450; 70544; 70553; 71045; 72125; 72170; 80048; 80053; 80320; 81001; 82550; 82553; 83036; 84439; 84443; 84484; 85025; 85610; 85730; 86850; 86900; 86901; 93005; 93880; 94640; 94760; 96374; 96375; 99291

== ENCOUNTER 2018-04-14 16:59 | Inpatient (IN) | payer MEDICARE, OTHER ==
[2018-04-14] MEDS ORDERED: IPRATROPIUM-ALBUTEROL 3 ML NEB INHALATION STA (17:08)
--- NOTE | 2018-04-14 17:10 | ED ---
General Adult HPI - General Chief complaint: Shortness of Breath Stated complaint: Dyspnea Time Seen by Provider: 04/14/18 17:03 Source: patient, RN notes reviewed Mode of arrival: EMS Limitations: no limitations - History of Present Illness Initial comments: Patient is a pleasant 60-year-old female presenting to the emergency Department with complaints of shortness of breath. Patient does have chronic dyspnea associated with COPD. Patient does have some associated discomfort in her chest described as tightness. Patient states discomfort is currently 6 or 7/ 10. Patient states she does frequently get this discomfort with or dyspnea. Patient does have cough with occasional non-colored sputum. No fevers. Family was concerned as reported by EMS that patient is less alert than normal. - Related Data Home Medications Medication Instructions Recorded Confirmed Cholecalciferol (Vitamin D3) 2,000 unit PO DAILY 10/31/16 02/20/17 [Vitamin D3] DULoxetine HCL [Cymbalta] 20 mg PO DAILY 10/31/16 02/20/17 Furosemide [Lasix] 20 mg PO DAILY 10/31/16 02/20/17 Potassium Chloride ER [K-Dur 20] 20 meq PO DAILY 10/31/16 02/20/17 Indacaterol/Glycopyrrolate 1 puff INHALATION RT-BID 02/20/17 02/20/17 [Utibron Neohaler 27.5-15.6 Mcg] predniSONE See Taper PO DAILY 02/20/17 02/20/17 Previous Rx's Medication Instructions Recorded ALPRAZolam [Xanax] 0.25 mg PO HS PRN #10 tab 11/04/16 Budesonide [Pulmicort] 0.5 mg INHALATION RT-BID #60 neb 11/04/16 Melatonin 10 mg PO HS tab 11/04/16 Montelukast [Singulair] 10 mg PO HS #30 tab 11/04/16 Omeprazole Magnesium [PriLOSEC OTC] 20 mg PO DAILY #30 tablet. 11/04/16 Diltiazem Oral [Cardizem*] 60 mg PO TID #90 tab 02/16/17 guaiFENesin [Mucinex] 1,200 mg PO Q12HR tablet.er 02/16/17 Aspirin 81 mg PO DAILY chew 02/23/17 Benzonatate [Tessalon Perles] 100 mg PO TID cap 02/23/17 Fluticasone Nasal [place] [Flonase 1 spray EA NOSTRIL BID spr 02/23/17 Nasal [place]] Ipratropium-Albuterol Nebulize 3 ml INHALATION RT-QID ampul.neb 02/23/17 [Duoneb 0.5 mg-3 mg/3 ml Soln] Linagliptin [Tradjenta] 5 mg PO DAILY tablet 02/23/17 Sennosides-Docusate Sodium 2 each PO BID tab 02/23/17 [Senokot-S] Allergies Allergy/AdvReac Type Severity Reaction Status Date / Time No Known Allergies Allergy Verified 02/20/17 13:00 Review of Systems ROS Statement: Those systems with pertinent positive or pertinent negative responses have been documented in the HPI. ROS Other: All systems not noted in ROS Statement are negative. Constitutional: Denies: fever Eyes: Denies: eye pain ENT: Denies: ear pain Respiratory: Reports: cough, dyspnea Cardiovascular: Reports: chest pain Endocrine: Reports: fatigue Gastrointestinal: Denies: abdominal pain Genitourinary: Denies: dysuria Musculoskeletal: Denies: back pain Skin: Denies: rash Neurological: Denies: weakness Past Medical History Past Medical History: Asthma, Heart Failure, COPD, Osteoarthritis (OA), Pneumonia, Sleep Apnea/CPAP/BIPAP Additional Past Medical History / Comment(s): Bronhitis, chronic low back pain, TIMOTHY with CPAP, home O2 , past L kneecap fx, occasional dependent pedal edema, depression, gallbladder disease, chronic tobacco use and dependence, urinary incontinence, migraine headaches, osteoporosis, sciatica, peptic ulcer disease, urethritis,. History of Any Multi-Drug Resistant Organisms: None Reported Past Surgical History: Hernia Repair, Tubal Ligation Additional Past Surgical History / Comment(s): Bilateral inguinal hernia repairs , colonoscopy with benign polyypectomy, surgery for "pinched nerve in my R hip. " Discectomy, right femur open reduction internal fixation. Past Anesthesia/Blood Transfusion Reactions: No Reported Reaction Past Psychological History: Depression Smoking Status: Former smoker Past Alcohol Use History: None Reported Past Drug Use History: None Reported - Past Family History Father Family Medical History: Coronary Artery Disease (CAD) Additional Family Medical History / Comment(s): Father is 83 yrs old. He has had 2 vessel CABG and a pacer. Mother Family Medical History: Dementia Additional Family Medical History / Comment(s): Mother of dementia at the age of 78yrs. Brother(s) Family Medical History: No Reported History Sister(s) Family Medical History: No Reported History Additional Family Medical History / Comment(s): Patient has 2 children no major medical problems. Patient lives with her daughter General Exam Limitations: no limitations General appearance: alert Head exam: Present: atraumatic Eye exam: Present: normal appearance, PERRL ENT exam: Present: normal oropharynx Neck exam: Present: normal inspection Respiratory exam: Present: normal lung sounds bilaterally. Absent: chest wall tenderness Cardiovascular Exam: Present: regular rate, normal rhythm Expanded Peripheral pulses: 2+: Radial (R), Radial (L), Dorsalis Pedis (R), Dorsalis Pedis (L) GI/Abdominal exam: Present: soft. Absent: tenderness Extremities exam: Present: normal inspection. Absent: pedal edema, calf tenderness Neurological exam: Present: alert Psychiatric exam: Present: normal affect, normal mood Skin exam: Present: normal color Course Vital Signs 04/14/18 04/14/18 04/14/18 17:00 17:30 17:46 Pulse Rate 86 85 90 Respiratory 24 Rate Blood Pressure 124/81 O2 Sat by Pulse 91 L Oximetry - Reevaluation(s) Reevaluation #1: 04/14/18 17:12 EKG #2 shows normal sinus rhythm 82. WA 128. QRS 126. QT 354. QTC 413. Left axis. Right bundle branch block. Left anterior fascicular block. Nonspecific ST-T. EKG Findings - EKG Comments: EKG Findings:: Sinus rhythm at 88. WA 120. QRS 128. QT 336. QTc 406. Left axis. Right bundle branch block. Left anterior fascicular block. Nonspecific ST-T. Procedures - ABG Interpretation Ph: 7.34 PCO2: 91.8 PO2: 67.6 Interpretation: respiratory acidosis Medical Decision Making - Medical Decision Making Patient reevaluated and started to improve with BiPAP. Patient updated on results and plan. Case discussed in detail with Dr. Vernon, who will admit covering for Dr. Benitez. - Lab Data Result diagrams: 04/14/18 17:07 04/14/18 17:07 Lab Results 03/06/19 03/06/19 03/06/19 Range/Units 17:07 17:07 17:07 WBC 14.2 H (3.8-10.6) k/uL RBC 4.80 (3.80-5.40) m/uL Hgb 11.2 L (11.4-16.0) gm/dL Hct 40.9 (34.0-46.0) % MCV 85.2 (80.0-100.0) fL MCH 23.3 L (25.0-35.0) pg MCHC 27.3 L (31.0-37.0) g/dL RDW 17.7 H (11.5-15.5) % Plt Count 373 (150-450) k/uL Neutrophils % 95 % Lymphocytes % 2 % Monocytes % 3 % Eosinophils % 0 % Basophils % 0 % Neutrophils # 13.5 H (1.3-7.7) k/uL Lymphocytes # 0.3 L (1.0-4.8) k/uL Monocytes # 0.4 (0-1.0) k/uL Eosinophils # 0.0 (0-0.7) k/uL Basophils # 0.0 (0-0.2) k/uL Hypochromasia Marked Anisocytosis Slight PT (9.0-12.0) sec INR (<1.2) APTT (22.0-30.0) sec Sample Site ABG pH (7.35-7.45) ABG pCO2 (35-45) mmHg ABG pO2 (83-108) mmHg ABG HCO3 (21-25) mmol/L ABG Total CO2 (19-24) mmol/L ABG O2 Saturation (94-97) % ABG Base Excess mmol/L Minor Test FiO2 % Sodium 140 (137-145) mmol/L Potassium (3.5-5.1) mmol/L Chloride 85 L (98-107) mmol/L Carbon Dioxide 45 H* (22-30) mmol/L Anion Gap 10 mmol/L BUN 19 H (7-17) mg/dL Creatinine 0.32 L (0.52-1.04) mg/dL Est GFR (CKD-EPI)AfAm >90 (>60 ml/min/1.73 sqM) Est GFR (CKD-EPI)NonAf >90 (>60 ml/min/1.73 sqM) Glucose 143 H (74-99) mg/dL Calcium 9.7 (8.4-10.2) mg/dL Magnesium 1.4 L (1.6-2.3) mg/dL Total Bilirubin 0.5 (0.2-1.3) mg/dL AST 18 (14-36) U/L ALT 26 (9-52) U/L Alkaline Phosphatase 87 (38-126) U/L Troponin I (0.000-0.034) ng/mL NT-Pro-B Natriuret Pep 168 pg/mL Total Protein 7.2 (6.3-8.2) g/dL Albumin 4.2 (3.5-5.0) g/dL Lipase 54 (23-300) U/L 04/14/18 04/14/18 04/14/18 Range/Units 17:07 17:07 17:29 WBC (3.8-10.6) k/uL RBC (3.80-5.40) m/uL Hgb (11.4-16.0) gm/dL Hct (34.0-46.0) % MCV (80.0-100.0) fL MCH (25.0-35.0) pg MCHC (31.0-37.0) g/dL RDW (11.5-15.5) % Plt Count (150-450) k/uL Neutrophils % % Lymphocytes % % Monocytes % % Eosinophils % % Basophils % % Neutrophils # (1.3-7.7) k/uL Lymphocytes # (1.0-4.8) k/uL Monocytes # (0-1.0) k/uL Eosinophils # (0-0.7) k/uL Basophils # (0-0.2) k/uL Hypochromasia Anisocytosis PT 10.0 (9.0-12.0) sec INR 0.9 (<1.2) APTT 22.3 (22.0-30.0) sec Sample Site LRAD ABG pH 7.34 L (7.35-7.45) ABG pCO2 92 H* (35-45) mmHg ABG pO2 68 L (83-108) mmHg ABG HCO3 50 H* (21-25) mmol/L ABG Total CO2 52 H (19-24) mmol/L ABG O2 Saturation 92.2 L (94-97) % ABG Base Excess 23.7 mmol/L Minor Test Yes FiO2 36 % Sodium (137-145) mmol/L Potassium (3.5-5.1) mmol/L Chloride (98-107) mmol/L Carbon Dioxide (22-30) mmol/L Anion Gap mmol/L BUN (7-17) mg/dL Creatinine (0.52-1.04) mg/dL Est GFR (CKD-EPI)AfAm (>60 ml/min/1.73 sqM) Est GFR (CKD-EPI)NonAf (>60 ml/min/1.73 sqM) Glucose (74-99) mg/dL Calcium (8.4-10.2) mg/dL Magnesium (1.6-2.3) mg/dL Total Bilirubin (0.2-1.3) mg/dL AST (14-36) U/L ALT (9-52) U/L Alkaline Phosphatase (38-126) U/L Troponin I <0.012 (0.000-0.034) ng/mL NT-Pro-B Natriuret Pep pg/mL Total Protein (6.3-8.2) g/dL Albumin (3.5-5.0) g/dL Lipase (23-300) U/L - Radiology Data Radiology results: image reviewed (Chest x-ray shows small pleural reaction or effusion on the right.) Critical Care Time Critical Care Time: Yes Total Critical Care Time: 33 Disposition Clinical Impression: Acute exacerbation of chronic obstructive airways disease, Acute respiratory failure Disposition: ADMITTED IP TO THIS HOSP Is patient prescribed a controlled substance at d/c from ED?: No Referrals: Matheus Benitez MD [Primary Care Provider] - 1-2 days Decision Time: 18:08
[2018-04-14 17:27] LABS: Anisocytosis Slight; Basophils % (A) 0 %; Eosinophils % (A) 0 %; HCT 40.9 % (34.0-46.0); HGB 11.2 gm/dL (11.4-16.0); Hypochromasia Marked; Lymphocytes # (A) 0.3 k/uL (1.0-4.8); Lymphocytes % (A) 2 %; MCH 23.3 pg (25.0-35.0); MCHC 27.3 g/dL (31.0-37.0); MCV 85.2 fL (80.0-100.0); Mean Platelet Volume 6.8; Monocytes # (A) 0.4 k/uL (0-1.0); Monocytes % (A) 3 %; Neutrophils # (A) 13.5 k/uL (1.3-7.7); Neutrophils % (A) 95 %; Platelet Count 373 k/uL (150-450); RDW 17.7 % (11.5-15.5); WBC 14.2 k/uL (3.8-10.6)
[2018-04-14 17:31] LABS: ABG Base Excess 23.7 mmol/L; ABG Oxygen Saturation 92.2 % (94-97); ABG PH 7.34 (7.35-7.45); ABG PO2 68 mmHg (83-108); ABG TCO2 52 mmol/L (19-24)
[2018-04-14 17:50] LABS: ALT 26 U/L (9-52); AST 18 U/L (14-36); Albumin 4.2 g/dL (3.5-5.0); Alkaline Phosphatase 87 U/L (38-126); Blood Urea Nitrogen 19 mg/dL (7-17); Calcium 9.7 mg/dL (8.4-10.2); Chloride 85 mmol/L (98-107); Glucose 143 mg/dL (74-99); Lipase 54 U/L (23-300); Magnesium 1.4 mg/dL (1.6-2.3); Sodium 140 mmol/L (137-145); Total Bilirubin 0.5 mg/dL (0.2-1.3); Total Protein 7.2 g/dL (6.3-8.2)
[2018-04-14 17:52] LABS: INR 0.9 (<1.2); Partial Thromboplastin Time 22.3 sec (22.0-30.0)
[2018-04-14 18:02] LABS: Anion Gap 10 mmol/L; Carbon Dioxide 45 mmol/L (22-30)
--- NOTE | 2018-04-14 18:04 | XR ---
EXAMINATION TYPE: XR chest 1V portable DATE OF EXAM: 04/14/2018 COMPARISON: 02/20/2017 HISTORY: Short of breath TECHNIQUE: Single frontal view of the chest is obtained. FINDINGS: There is slight blunting of right costophrenic angle. Heart size is normal. There is no he art failure. Thoracic aorta is atheromatous. There are chest leads. IMPRESSION: Small right pleural effusion or pleural reaction is new compared to old exam. Normal hea rt.
[2018-04-14] MEDS ORDERED: methylPREDNISolone SOD SUCCI 125 MG/2 ML VIAL IV STA (18:08)
[2018-04-14] MEDS ORDERED: IPRATROPIUM-ALBUTEROL 3 ML NEB INHALATION PRN (18:08)
[2018-04-14] MEDS: IPRATROPIUM-ALBUTEROL 3 ML NEB INHALATION SCH (20:28)
[2018-04-14] MEDS: methylPREDNISolone SOD SUCCI 125 MG/2 ML VIAL IV SCH (22:59)
[2018-04-14] MEDS ORDERED: MAGNESIUM SULFATE-D5W PMX 1 GM in DEXTROSE/WATER 1 100ML.BAG IVPB SCH (23:45)
[2018-04-14] MEDS: ALPRAZolam 0.25 MG TAB PO PRN (23:50)
[2018-04-14] MEDS ORDERED: Magnesium Replacement Protocol 1 EACH MISC MISCELLANE PRN (23:59)
[2018-04-15] MEDS ORDERED: Magnesium Replacement Protocol 1 EACH MISC MISCELLANE PRN (00:06)
[2018-04-15] MEDS: MAGNESIUM SULFATE-D5W PMX 1 GM in DEXTROSE/WATER 1 100ML.BAG IVPB SCH ×2 (00:20→01:48)
[2018-04-15] MEDS: MELATONIN 5 MG TABLET PO SCH ×2 (01:35→21:07)
[2018-04-15 06:07] LABS: Glucose,Whole Blood 201 mg/dL (75-99)
[2018-04-15 06:30] LABS: Blood Urea Nitrogen 22 mg/dL (7-17); Calcium 9.4 mg/dL (8.4-10.2); Chloride 87 mmol/L (98-107); Glucose 203 mg/dL (74-99); Magnesium 2.1 mg/dL (1.6-2.3); Potassium 4.4 mmol/L (3.5-5.1); Sodium 138 mmol/L (137-145)
[2018-04-15 06:36] LABS: Anion Gap 5 mmol/L
[2018-04-15 06:42] LABS: Carbon Dioxide 46 mmol/L (22-30)
[2018-04-15] MEDS: INSULIN ASPART (NovoLOG) 100 UNIT/ML VIAL SQ SCH ×4 (06:58→21:07)
[2018-04-15] MEDS: methylPREDNISolone SOD SUCCI 125 MG/2 ML VIAL IV SCH ×4 (06:58→22:58)
[2018-04-15] MEDS: IPRATROPIUM-ALBUTEROL 3 ML NEB INHALATION SCH ×4 (07:28→19:07)
[2018-04-15] MEDS ORDERED: ALPRAZolam 0.25 MG TAB PO SCH (10:30)
[2018-04-15 11:20] LABS: Glucose,Whole Blood 179 mg/dL (75-99)
--- NOTE | 2018-04-15 11:47 | P.HPIM ---
History of Present Illness H&P Date: 04/15/18 Chief Complaint: Acute hypercarbic respiratory failure due to COPD exacerbation This is a 62-year-old female one of Dr. Benitez with a previous medical history significant for chronic hypoxemic respiratory failure oxygen dependent, severe COPD, chronic diastolic heart failure, asthma, sleep apnea on a CPAP, chronic low back pain, GERD, prior history of tobacco use and dependence, overactive bladder, migraine headaches and osteoporosis, patient came to the emergency department at [facility] via EMS because of left-sided chest tightness associated with mental status changes with increased confusion she had a blood gases in the ER that showed a pH of 7.34 pCO2 of 92 pO2 of 68 on FiO2 of 36% her bicarb was 45 and chloride was. Low patient was started on IV fluid and she was placed on a BiPAP she had improved however because of her presentation she was admitted to the hospital for evaluation pulmonary consultation was obtained from Dr. MELVIN Green. Patient was started on nebulized treatment as well as steroid and oxygen support as well. Review of Systems Constitutional: Reports lethargy, Reports weakness, Denies anorexia, Denies chronic headaches, Denies chronic pain, Denies weight gain Eyes: Ears: Ears, nose, mouth and throat: Denies dysphagia, Denies neck lump, Denies swelling in mouth, Denies swelling in throat Cardiovascular: Reports chest pain, Reports decreased exercise tolerance, Reports dyspnea on exertion, Reports shortness of breath, Denies lightheadedness, Denies orthopnea, Denies rapid heart beat, Denies syncope Respiratory: Reports cough, Reports cough with sputum, Reports dyspnea, Reports home oxygen, Reports sleep apnea, Reports wheezing, Denies congestion, Denies snoring Gastrointestinal: Denies abdominal pain, Denies BRBPR, Denies excessive gas, Denies melena, Denies nausea, Denies vomiting Genitourinary: Denies dysuria, Denies hematuria Menstruation: Reports postmenopausal Musculoskeletal: Reports gait dysfunction, Denies myalgias Musculoskeletal: Integumentary: Denies pruritus, Denies rash Neurological: Reports confusion, Denies numbness, Denies weakness Psychiatric: Reports anxiety, Reports depression, Denies sadness/tearfulness, Denies sleep disturbances, Denies suicidal ideation Endocrine: Denies fatigue, Denies weight change Past Medical History Past Medical History: Asthma, Heart Failure, COPD, GERD/Reflux, Musculoskeletal Disorder, Osteoarthritis (OA), Pneumonia, Sleep Apnea/CPAP/BIPAP Additional Past Medical History / Comment(s): Bronhitis, chronic low back pain, TIMOTHY with CPAP, home O2 , past L kneecap fx, occasional dependent pedal edema, depression, gallbladder disease, chronic tobacco use and dependence, urinary incontinence, migraine headaches, osteoporosis, sciatica, peptic ulcer disease, urethritis,. History of Any Multi-Drug Resistant Organisms: None Reported Past Surgical History: Hernia Repair, Tubal Ligation Additional Past Surgical History / Comment(s): Bilateral inguinal hernia repairs, colonoscopy with benign polyypectomy, surgery for "pinched nerve in my R hip." Discectomy, right femur open reduction internal fixation. Past Anesthesia/Blood Transfusion Reactions: No Reported Reaction Past Psychological History: Depression Additional Psychological History / Comment(s): Pt resides with her krista in an apartment that has 4-5 steps. She uses a walker on occasion. She has a CPAP, nebulizer and home oxygen. She no longer drives, she uses senior transportation. Her daughter does most of the cooking and helps organize pt medication. Smoking Status: Former smoker Past Alcohol Use History: None Reported Additional Past Alcohol Use History / Comment(s): started smoking at age 20(1975) and quit 2017 was smoking 1.5 ppd Past Drug Use History: None Reported - Past Family History Father Family Medical History: Coronary Artery Disease (CAD) Additional Family Medical History / Comment(s): Father is 83 yrs old. He has had 2 vessel CABG and a pacer. Mother Family Medical History: Dementia Additional Family Medical History / Comment(s): Mother of dementia at the age of 78yrs. Brother(s) Family Medical History: No Reported History Sister(s) Family Medical History: No Reported History Additional Family Medical History / Comment(s): Patient has 2 children no major medical problems. Patient lives with her daughter Medications and Allergies Home Medications Medication Instructions Recorded Confirmed Type Cholecalciferol (Vitamin D3) 2,000 unit PO DAILY 10/31/16 04/15/18 History [Vitamin D3] DULoxetine HCL [Cymbalta] 20 mg PO DAILY 10/31/16 04/15/18 History Furosemide [Lasix] 20 mg PO DAILY 10/31/16 04/15/18 History Budesonide [Pulmicort] 0.5 mg INHALATION RT-BID #60 neb 11/04/16 04/15/18 Rx Montelukast [Singulair] 10 mg PO HS #30 tab 11/04/16 04/15/18 Rx Omeprazole Magnesium [PriLOSEC OTC] 20 mg PO DAILY #30 tablet. 11/04/16 0 04/15/18 Rx Ipratropium-Albuterol Nebulize 3 ml INHALATION RT-QID ampul.neb 02/23/17 04/15/18 Rx [Duoneb 0.5 mg-3 mg/3 ml Soln] ALPRAZolam [Xanax] 0.25 mg PO TID 04/15/18 04/15/18 History Albuterol Inhaler [Ventolin Hfa 2 puff INHALATION RT-Q6H PRN 04/15/18 04/15/18 History Inhaler] Albuterol Nebulized (Conc) 2.5 mg INHALATION RT-QID 04/15/18 04/15/18 History [Ventolin Nebulized (Conc)] Atorvastatin [Lipitor] 10 mg PO DAILY 04/15/18 04/15/18 History Calcitonin Nasal [Fortical 1 spray NASAL DAILY 04/15/18 04/15/18 History (Miacalcin)] Cyanocobalamin (Vitamin B-12) 1,000 mcg PO DAILY 04/15/18 04/15/18 History [Vitamin B-12] HYDROcodone/APAP 5-325MG [[place] 1 tab PO TID PRN 04/15/18 04/15/18 History 5-325] Ipratropium [place] [Atrovent Hfa] 2 puff INHALATION RT-QID 04/15/18 04/15/18 History Metoprolol Tartrate [Lopressor] 25 mg PO BID 04/15/18 04/15/18 History Potassium Chloride ER [K-Dur 10] 10 meq PO DAILY 04/15/18 04/15/18 History Sucralfate [Carafate] 1 gm PO QID 04/15/18 04/15/18 History Verapamil HCl 40 mg PO TID 04/15/18 04/15/18 History metFORMIN HCL [Glucophage] 1,000 mg PO BID 04/15/18 04/15/18 History Allergies Allergy/AdvReac Type Severity Reaction Status Date / Time No Known Allergies Allergy Verified 04/14/18 18:50 Physical Exam Vitals: Vital Signs Temp Pulse Pulse Resp BP BP Pulse Ox 04/15/18 11:20 96 04/15/18 11:07 91 18 125/66 90 L 04/15/18 11:05 96 04/15/18 08:00 98.6 F 98 18 133/78 92 L 04/15/18 07:42 84 04/15/18 07:28 84 04/15/18 04:00 98.0 F 84 18 105/69 95 04/15/18 00:00 98.2 F 98 18 99/65 92 L 04/14/18 21:10 98.8 F 109 H 18 121/78 88 L 04/14/18 20:38 96 04/14/18 20:30 93 109/75 93 L 04/14/18 20:29 96 04/14/18 20:00 89 105/69 04/14/18 19:30 85 99/69 04/14/18 19:00 81 116/89 04/14/18 18:30 88 103/82 93 L 04/14/18 18:00 86 131/74 93 L 04/14/18 17:46 90 04/14/18 17:30 82 110/76 04/14/18 17:12 85 97 04/14/18 17:00 86 24 124/81 91 L Intake and Output 04/14/18 04/15/18 04/15/18 22:59 06:59 14:59 Other: Voiding Method Bedside Commode Bedside Commode # Voids 1 1 Weight 66 kg 63.3 kg - Constitutional General appearance: mild distress, thin - EENT Eyes: anicteric sclerae, EOMI, PERRLA, no ptosis, no scleral icterus, normal appearance ENT: hearing grossly normal, NA/AT, normal oropharynx, no thrush Ears: - Neck Neck: no lymphadenopathy, normal ROM, no rigidity, no stridor, no thyromegaly Carotids: - Respiratory Respiratory: - Cardiovascular Heart sounds: - Gastrointestinal General gastrointestinal: normal bowel sounds, soft, no tenderness, no umbilical hernia, no ventral hernia - Integumentary Integumentary: normal, normal turgor - Neurologic Neurologic: CNII-XII intact - Musculoskeletal Musculoskeletal: gait normal, generalized weakness, strength equal bilaterally - Psychiatric Psychiatric: A&O x's 3, appropriate affect, intact judgment & insight Results CBC & Chem 7: 04/14/18 17:07 04/15/18 05:40 Labs: Abnormal Lab Results - Last 24 Hours (Table) 04/14/18 04/14/18 04/14/18 Range/Units 17:07 17:07 17:29 WBC 14.2 H (3.8-10.6) k/uL Hgb 11.2 L (11.4-16.0) gm/dL MCH 23.3 L (25.0-35.0) pg MCHC 27.3 L (31.0-37.0) g/dL RDW 17.7 H (11.5-15.5) % Neutrophils # 13.5 H (1.3-7.7) k/uL Lymphocytes # 0.3 L (1.0-4.8) k/uL ABG pH 7.34 L (7.35-7.45) ABG pCO2 92 H* (35-45) mmHg ABG pO2 68 L (83-108) mmHg ABG HCO3 50 H* (21-25) mmol/L ABG Total CO2 52 H (19-24) mmol/L ABG O2 Saturation 92.2 L (94-97) % Chloride 85 L (98-107) mmol/L Carbon Dioxide 45 H* (22-30) mmol/L BUN 19 H (7-17) mg/dL Creatinine 0.32 L (0.52-1.04) mg/dL Glucose 143 H (74-99) mg/dL POC Glucose (mg/dL) (75-99) mg/dL Magnesium 1.4 L (1.6-2.3) mg/dL 04/15/18 04/15/18 04/15/18 Range/Units 05:40 05:42 11:18 WBC (3.8-10.6) k/uL Hgb (11.4-16.0) gm/dL MCH (25.0-35.0) pg MCHC (31.0-37.0) g/dL RDW (11.5-15.5) % Neutrophils # (1.3-7.7) k/uL Lymphocytes # (1.0-4.8) k/uL ABG pH (7.35-7.45) ABG pCO2 (35-45) mmHg ABG pO2 (83-108) mmHg ABG HCO3 (21-25) mmol/L ABG Total CO2 (19-24) mmol/L ABG O2 Saturation (94-97) % Chloride 87 L (98-107) mmol/L Carbon Dioxide 46 H* (22-30) mmol/L BUN 22 H (7-17) mg/dL Creatinine 0.29 L (0.52-1.04) mg/dL Glucose 203 H (74-99) mg/dL POC Glucose (mg/dL) 201 H 179 H (75-99) mg/dL Magnesium (1.6-2.3) mg/dL Thrombosis Risk Factor Assmnt - DVT/VTE Prophylaxis DVT/VTE Prophylaxis: Pharmacologic Prophylaxis ordered, Mechanical Prophylaxis ordered - Choose All That Apply Any of the Below Risk Factors Present?: Yes Each Factor Represents 1 point: Abnormal pulmonary function (COPD) Other Risk Factors: Yes Each Risk Factor Represents 2 Points: Age 61-74 years Other congenital or acquired thrombophilia - If yes, enter type in comment: No Thrombosis Risk Factor Assessment Total Risk Factor Score: 3 Thrombosis Risk Factor Assessment Level: Moderate Risk Assessment and Plan Assessment: Assessment and plan: 1. Acute hypoxemic/hypercarbic respiratory failure due to acute exacerbation of COPD with obstructive sleep apnea. Continue BiPAP, continue patient on oxygen, DuoNeb 3 mL nebulization 4 times every day, Pulmicort 0.5 mg nebulization twice every day, Solu-Medrol 60 mg IV push every 6 hours, discontinue Lasix, discontinue potassium supplement, IV fluid resuscitation normal saline 75 mL an hour for the next 24 hours, pulmonary consultation Dr. MELVIN Green. 2. Metabolic encephalopathy due to acute hypercarbic respiratory failure with elevated CO2. Continue BiPAP continue IV fluid resuscitation. 3. Contraction alkalosis. Discontinue Lasix continue IV fluid for the next 24 hours. 4. Acute COPD exacerbation. Continue treatment as in paragraph #1 continue with Solu-Medrol 60 mg IV push every 6 hours, DuoNeb 3 mL nebulization 4 times every day, Pulmicort 0.5mg nebulization twice every day. 5. Chronic diastolic heart failure. Continue metoprolol 25 mg orally twice every day, verapamil 40 mg orally 3 times every day, discontinue Lasix and potassium supplement. 6. Hypertension and hypertensive cardiovascular disease. Continue metoprolol 25 mg orally twice every day and verapamil 40 mg orally 3 times every day. 7. History of asthma. Continue treatment as in paragraph #1 8. GERD. Continue PPI. 9. Depression. Continue Cymbalta 20 mg orally once every day. 10. Anxiety. Continue Xanax as needed. 11. Chronic low back pain. Continue pain medicine with caution. 12. Obstructive sleep apnea. Continue with current BiPAP. 13. Diabetes mellitus type 2. Continue metformin 1000 mg orally twice every day. Along with a sliding scale insulin. 14. DVT prophylaxis. Continue patient on Lovenox 40 mg subcutaneously every 24 hours. 15. GI prophylaxis. Continue PPI. 16. Admit to inpatient. Estimate a length of stay 2 midnights. 17. Patient is full code.
[2018-04-15] MEDS: METOPROLOL TARTRATE 25 MG TAB PO SCH ×2 (12:06→21:07)
[2018-04-15] MEDS: VERAPAMIL 40 MG TAB PO SCH ×3 (12:06→21:07)
[2018-04-15] MEDS: SUCRALFATE 1 GM TAB PO SCH ×3 (12:07→21:07)
[2018-04-15 16:01] LABS: Glucose,Whole Blood 143 mg/dL (75-99)
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
[2018-04-15] MEDS: metFORMIN 500 MG TAB PO SCH (16:56)
[2018-04-15] MEDS: ALPRAZolam 0.25 MG TAB PO PRN (18:15)
[2018-04-15] MEDS: BUDESONIDE 0.5 MG/2 ML NEBU INHALATION SCH (19:08)
[2018-04-15 20:44] LABS: Glucose,Whole Blood 229 mg/dL (75-99)
[2018-04-15] MEDS: MONTELUKAST 10 MG TAB PO SCH (21:07)
[2018-04-16] MEDS: ALPRAZolam 0.25 MG TAB PO PRN ×3 (02:19→17:02)
[2018-04-16 06:27] LABS: Glucose,Whole Blood 191 mg/dL (75-99)
[2018-04-16] MEDS: methylPREDNISolone SOD SUCCI 125 MG/2 ML VIAL IV SCH ×2 (06:36→11:36)
[2018-04-16] MEDS: PANTOPRAZOLE 40 MG TABLET PO SCH (06:36)
[2018-04-16] MEDS: metFORMIN 500 MG TAB PO SCH ×2 (06:36→17:02)
[2018-04-16] MEDS: INSULIN ASPART (NovoLOG) 100 UNIT/ML VIAL SQ SCH ×4 (06:36→21:19)
[2018-04-16 06:38] LABS: Anisocytosis Slight; Basophils % (A) 0 %; Eosinophils # (A) 0.1 k/uL (0-0.7); Eosinophils % (A) 1 %; HCT 35.8 % (34.0-46.0); HGB 10.1 gm/dL (11.4-16.0); Hypochromasia Marked; Lymphocytes # (A) 0.3 k/uL (1.0-4.8); Lymphocytes % (A) 4 %; MCHC 28.3 g/dL (31.0-37.0); MCV 81.4 fL (80.0-100.0); Mean Platelet Volume 6.6; Microcytosis Slight; Monocytes # (A) 0.3 k/uL (0-1.0); Monocytes % (A) 4 %; Neutrophils # (A) 5.7 k/uL (1.3-7.7); Neutrophils % (A) 90 %; Platelet Count 360 k/uL (150-450); RDW 17.8 % (11.5-15.5); WBC 6.4 k/uL (3.8-10.6)
[2018-04-16 06:58] LABS: ALT 17 U/L (9-52); AST 12 U/L (14-36); Albumin 3.6 g/dL (3.5-5.0); Alkaline Phosphatase 70 U/L (38-126); Blood Urea Nitrogen 24 mg/dL (7-17); Calcium 9.7 mg/dL (8.4-10.2); Chloride 89 mmol/L (98-107); Glucose 180 mg/dL (74-99); Magnesium 1.8 mg/dL (1.6-2.3); Potassium 4.8 mmol/L (3.5-5.1); Sodium 138 mmol/L (137-145); Total Bilirubin 0.5 mg/dL (0.2-1.3)
[2018-04-16 07:05] LABS: Anion Gap 8 mmol/L; Carbon Dioxide 41 mmol/L (22-30)
[2018-04-16] MEDS: CYANOCOBALAMIN 500 MCG TAB PO SCH (08:49)
[2018-04-16] MEDS: ENOXAPARIN 40 MG/0.4 ML SYRINGE SQ SCH (08:50)
[2018-04-16] MEDS: METOPROLOL TARTRATE 25 MG TAB PO SCH ×2 (08:50→21:18)
[2018-04-16] MEDS: SUCRALFATE 1 GM TAB PO SCH ×4 (08:50→21:19)
[2018-04-16] MEDS: DULoxetine HCL 20 MG CAPSULE.DR PO SCH (08:50)
[2018-04-16] MEDS: VERAPAMIL 40 MG TAB PO SCH ×3 (08:50→21:19)
[2018-04-16] MEDS: ATORVASTATIN 10 MG TAB PO SCH (08:50)
[2018-04-16] MEDS ORDERED: FUROSEMIDE 20 MG TAB PO SCH (09:00)
[2018-04-16] MEDS ORDERED: POTASSIUM CHLORIDE ER 10 MEQ TAB.ER.PRT PO SCH (09:00)
[2018-04-16] MEDS: BUDESONIDE 0.5 MG/2 ML NEBU INHALATION SCH ×2 (09:55→19:59)
[2018-04-16] MEDS: IPRATROPIUM-ALBUTEROL 3 ML NEB INHALATION SCH ×4 (09:56→20:00)
[2018-04-16 11:17] LABS: Glucose,Whole Blood 137 mg/dL (75-99)
[2018-04-16] MEDS: ACETAMINOPHEN TAB 325 MG TAB PO PRN (11:35)
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
--- NOTE | 2018-04-16 13:24 | P.PN ---
<Belinda Marte A - Last Filed: 04/16/18 13:14> Subjective Progress Note Date: 04/16/18 This is a 62-year-old female one of Dr. Benitez with a previous medical history significant for chronic hypoxemic respiratory failure oxygen dependent, severe COPD, chronic diastolic heart failure, asthma, sleep apnea on a CPAP, chronic low back pain, GERD, prior history of tobacco use and dependence, overactive bladder, migraine headaches and osteoporosis, patient came to the emergency department at [facility] via EMS because of left-sided chest tightness associated with mental status changes with increased confusion she had a blood gases in the ER that showed a pH of 7.34 pCO2 of 92 pO2 of 68 on FiO2 of 36% her bicarb was 45 and chloride was. Low patient was started on IV fluid and she was placed on a BiPAP she had improved however because of her presentation she was admitted to the hospital for evaluation pulmonary consultation was obtained from Dr. MELVIN Green. Patient was started on nebulized treatment as well as steroid and oxygen support as well. 04/16: Patient is seen and is followed by Dr. Owens. She is currently on BiPAP at 35% with pulse ox 92%. She is sleeping but awakens easily to verbal stimuli. She states she slept okay last night. She is passing gas and did have a bowel movement today. She's been afebrile, heart rate in the 80s and 90s, blood pressure 118/68. White count is normal, hemoglobin 10.1. Chloride 89, CO2 41, BUN 24 and creatinine 0.39. Capillary blood glucose running between 137 and 229. Xanax was added last night for anxiety. Dr. Owens is transitioning her Solu-Medrol down to 40 mg every 8 hours. Review of Systems Constitutional: Reports lethargy, Reports weakness, Denies anorexia, Denies chronic headaches, Denies chronic pain, Denies weight gain Ears, nose, mouth and throat: Denies dysphagia, Denies neck lump, Denies swelling in mouth, Denies swelling in throat Cardiovascular: Reports chest pain, Reports decreased exercise tolerance, Reports dyspnea on exertion, Reports shortness of breath, Denies lightheadedness, Denies orthopnea, Denies rapid heart beat, Denies syncope Respiratory: Reports cough, Reports cough with sputum, Reports continued dyspnea, Reports home oxygen, Reports sleep apnea, Reports wheezing, Denies congestion, Denies snoring Gastrointestinal: Denies abdominal pain, Denies BRBPR, Denies excessive gas, Denies melena, Denies nausea, Denies vomiting Genitourinary: Denies dysuria, Denies hematuria Menstruation: Reports postmenopausal Musculoskeletal: Reports gait dysfunction, Denies myalgias Musculoskeletal: Integumentary: Denies pruritus, Denies rash Neurological: Reports confusion, Denies numbness, Denies weakness Psychiatric: Reports anxiety, Reports depression, Denies sadness/tearfulness, Denies sleep disturbances, Denies suicidal ideation Endocrine: Denies fatigue, Denies weight change Objective - Vital Signs Vital signs: Vital Signs Temp 98.3 F 04/16/18 08:00 Pulse 93 04/16/18 08:00 Resp 24 04/16/18 08:00 BP 118/68 04/16/18 08:00 Pulse Ox 92 L 04/16/18 08:00 Intake & Output 04/15/18 04/16/18 04/16/18 18:59 06:59 18:59 Intake Total 700 240 Output Total 400 400 Balance 300 -400 240 Weight 63.9 kg Intake: Oral 700 240 Output: Urine 400 400 Other: Voiding Method Bedside Commode Bedside Commode # Voids 1 2 1 # Bowel Movements 1 - Exam General appearance: mild distress at rest, thin - EENT Eyes: anicteric sclerae, EOMI, PERRLA, no ptosis, no scleral icterus, normal appearance ENT: hearing grossly normal, NA/AT, normal oropharynx, no thrush Ears: - Neck Neck: no lymphadenopathy, normal ROM, no rigidity, no stridor, no thyromegaly Carotids: - Respiratory Respiratory: - Cardiovascular Heart sounds: - Gastrointestinal General gastrointestinal: normal bowel sounds, soft, no tenderness, no umbilical hernia, no ventral hernia - Integumentary Integumentary: normal, normal turgor - Neurologic Neurologic: CNII-XII intact - Musculoskeletal Musculoskeletal: gait normal, generalized weakness, strength equal bilaterally - Psychiatric Psychiatric: A&O x's 3, appropriate affect, intact judgment & insight - Labs CBC & Chem 7: 04/16/18 05:47 04/16/18 05:47 Labs: Abnormal Lab Results - Last 24 Hours (Table) 04/15/18 04/15/18 04/15/18 Range/Units 11:18 15:59 20:34 Hgb (11.4-16.0) gm/dL MCH (25.0-35.0) pg MCHC (31.0-37.0) g/dL RDW (11.5-15.5) % Lymphocytes # (1.0-4.8) k/uL Chloride (98-107) mmol/L Carbon Dioxide (22-30) mmol/L BUN (7-17) mg/dL Creatinine (0.52-1.04) mg/dL Glucose (74-99) mg/dL POC Glucose (mg/dL) 179 H 143 H 229 H (75-99) mg/dL AST (14-36) U/L Total Protein (6.3-8.2) g/dL 04/16/18 04/16/18 04/16/18 Range/Units 05:47 05:47 06:25 Hgb 10.1 L (11.4-16.0) gm/dL MCH 23.0 L (25.0-35.0) pg MCHC 28.3 L (31.0-37.0) g/dL RDW 17.8 H (11.5-15.5) % Lymphocytes # 0.3 L (1.0-4.8) k/uL Chloride 89 L (98-107) mmol/L Carbon Dioxide 41 H* (22-30) mmol/L BUN 24 H (7-17) mg/dL Creatinine 0.39 L (0.52-1.04) mg/dL Glucose 180 H (74-99) mg/dL POC Glucose (mg/dL) 191 H (75-99) mg/dL AST 12 L (14-36) U/L Total Protein 6.0 L (6.3-8.2) g/dL Assessment and Plan Plan: 1. Acute on Chronic hypoxemic and hypercarbic respiratory failure due to acute exacerbation of COPD with obstructive sleep apnea. Continue BiPAP, continue patient on oxygen, DuoNeb 3 mL nebulization 4 times every day, Pulmicort 0.5 mg nebulization twice every day, Solu-Medrol decreased to 40 mg every 8 hours, discontinue Lasix, discontinue potassium supplement, IV fluid discontinued, pulmonary consultation with Dr. Abbasi is appreciated 2. Metabolic encephalopathy due to acute hypercarbic respiratory failure with elevated CO2. Continue BiPAP continue IV fluid resuscitation. 3. Contraction alkalosis. Discontinue Lasix continue IV fluid for the next 24 hours. 4. Acute COPD exacerbation. Continue treatment as in paragraph #1 continue with Solu-Medrol 40 mg IV push every 8 hours, DuoNeb 3 mL nebulization 4 times every day, Pulmicort 0.5mg nebulization twice every day. 5. Chronic diastolic heart failure. Continue metoprolol 25 mg orally twice e very day, verapamil 40 mg orally 3 times every day, discontinue Lasix and potassium supplement. 6. Hypertension and hypertensive cardiovascular disease. Continue metoprolol 25 mg orally twice every day and verapamil 40 mg orally 3 times every day. 7. History of asthma. Continue treatment as in paragraph #1 8. GERD. Continue PPI. 9. Depression. Continue Cymbalta 20 mg orally once every day. 10. Anxiety. Continue Xanax as needed. 11. Chronic low back pain. Continue pain medicine with caution. 12. Obstructive sleep apnea. Continue with current BiPAP. 13. Diabetes mellitus type 2. Continue metformin 1000 mg orally twice every day. Along with a sliding scale insulin. 14. DVT prophylaxis. Continue patient on Lovenox 40 mg subcutaneously every 24 hours. 15. GI prophylaxis. Continue PPI. 16. Patient is full code. Discharge plan: Home with the [facility] and plan of care have been directed as dictated by the signing physician. Belinda Marte nurse practitioner acting as scribe for signing physician. <Lori Vernon - Last Filed: 04/16/18 16:20> Objective - Vital Signs Vital signs: Vital Signs Temp 98.6 F 04/16/18 15:33 Pulse 92 04/16/18 16:16 Resp 16 04/16/18 15:33 BP 113/54 04/16/18 15:33 Pulse Ox 95 04/16/18 16:04 Intake & Output 04/15/18 04/16/18 04/16/18 18:59 06:59 18:59 Intake Total 700 240 Output Total 400 400 Balance 300 -400 240 Weight 63.9 kg Intake: Oral 700 240 Output: Urine 400 400 Other: Voiding Method Bedside Commode Bedside Commode Bedside Commode # Voids 1 2 1 # Bowel Movements 1 - Labs CBC & Chem 7: 04/16/18 05:47 04/16/18 05:47 Labs: Abnormal Lab Results - Last 24 Hours (Table) 04/15/18 04/16/18 04/16/18 Range/Units 20:34 05:47 05:47 Hgb 10.1 L (11.4-16.0) gm/dL MCH 23.0 L (25.0-35.0) pg MCHC 28.3 L (31.0-37.0) g/dL RDW 17.8 H (11.5-15.5) % Lymphocytes # 0.3 L (1.0-4.8) k/uL Chloride 89 L (98-107) mmol/L Carbon Dioxide 41 H* (22-30) mmol/L BUN 24 H (7-17) mg/dL Creatinine 0.39 L (0.52-1.04) mg/dL Glucose 180 H (74-99) mg/dL POC Glucose (mg/dL) 229 H (75-99) mg/dL AST 12 L (14-36) U/L Total Protein 6.0 L (6.3-8.2) g/dL 04/16/18 04/16/18 04/16/18 Range/Units 06:25 11:15 16:14 Hgb (11.4-16.0) gm/dL MCH (25.0-35.0) pg MCHC (31.0-37.0) g/dL RDW (11.5-15.5) % Lymphocytes # (1.0-4.8) k/uL Chloride (98-107) mmol/L Carbon Dioxide (22-30) mmol/L BUN (7-17) mg/dL Creatinine (0.52-1.04) mg/dL Glucose (74-99) mg/dL POC Glucose (mg/dL) 191 H 137 H 319 H (75-99) mg/dL AST (14-36) U/L Total Protein (6.3-8.2) g/dL 04/16/18 Range/Units 16:16 Hgb (11.4-16.0) gm/dL MCH (25.0-35.0) pg MCHC (31.0-37.0) g/dL RDW (11.5-15.5) % Lymphocytes # (1.0-4.8) k/uL Chloride (98-107) mmol/L Carbon Dioxide (22-30) mmol/L BUN (7-17) mg/dL Creatinine (0.52-1.04) mg/dL Glucose (74-99) mg/dL POC Glucose (mg/dL) 273 H (75-99) mg/dL AST (14-36) U/L Total Protein (6.3-8.2) g/dL Assessment and Plan Assessment: Please addendum physical examination: Heart examination : first heart sound is depressed, second heart sound is distant, I could not appreciate any gallop or murmur. Chest examination : Decreased breath sounds at the bases, few rhonchi, minimal expiratory wheezes, no chest wall tenderness, no intercostal retractions.
[2018-04-16 16:15] LABS: Glucose,Whole Blood 319 mg/dL (75-99)
[2018-04-16 16:17] LABS: Glucose,Whole Blood 273 mg/dL (75-99)
[2018-04-16] MEDS: methylPREDNISolone SOD SUCCI 40 MG/ML 1 ML VIAL IV SCH ×2 (17:06→23:41)
[2018-04-16 20:51] LABS: Glucose,Whole Blood 146 mg/dL (75-99)
[2018-04-16] MEDS: MONTELUKAST 10 MG TAB PO SCH (21:18)
[2018-04-16] MEDS: MELATONIN 5 MG TABLET PO SCH (21:18)
[2018-04-16] MEDS ORDERED: ALPRAZolam 0.25 MG TAB PO SCH (22:00)
[2018-04-16] MEDS: HYDROcodone/APAP 5-325MG 1 EACH TAB PO PRN (23:40)
[2018-04-17] MEDS: ACETAMINOPHEN TAB 325 MG TAB PO PRN (04:52)
[2018-04-17] MEDS: ALPRAZolam 0.25 MG TAB PO PRN (04:52)
[2018-04-17 06:08] LABS: Glucose,Whole Blood 204 mg/dL (75-99)
[2018-04-17] MEDS: metFORMIN 500 MG TAB PO SCH ×2 (06:40→17:09)
[2018-04-17] MEDS: PANTOPRAZOLE 40 MG TABLET PO SCH (06:40)
[2018-04-17] MEDS: INSULIN ASPART (NovoLOG) 100 UNIT/ML VIAL SQ SCH ×4 (06:40→21:26)
[2018-04-17] MEDS: IPRATROPIUM-ALBUTEROL 3 ML NEB INHALATION SCH ×5 (08:10→19:28)
[2018-04-17] MEDS ORDERED: MORPHINE SULFATE 2 MG/ML SYRINGE IVP STA (08:17)
[2018-04-17] MEDS ORDERED: ONDANSETRON 4 MG/2 ML VIAL IVP PRN ×2 (08:20→11:49)
--- NOTE | 2018-04-17 09:24 | XR ---
EXAMINATION TYPE: XR abdomen 2V DATE OF EXAM: 04/17/2018 8:44 AM CLINICAL HISTORY: Abdominal pain TECHNIQUE: Supine and upright images of the abdomen is obtained. COMPARISON: 02/09/2017 FINDINGS: Moderate degree of pneumoperitoneum consistent with a hollow viscus rupture is seen beneath both hemidiaphragms. Dilated loops of bowel measure up to 9.4 cm. Osseous structures are generally d emineralized with moderate degenerative change. No suspicious calcifications in the abdomen or pelvis . Findings were discussed with the nurse Soo by Dr. Dixon at 9:20 AM on 04/17/2017 who will page in t o speak to Dr. Joe, general surgeon. IMPRESSION: Moderate degree pneumoperitoneum consistent with hollow viscus rupture. Findings were dis cussed with the nurse Soo by Dr. Dixon at 9:20 AM on 04/17/2017 who will page in to speak to Dr. Nano bains, general surgeon.
[2018-04-17] MEDS ORDERED: SODIUM CHLORIDE 0.9% 1,000 ML IV ONE (10:21)
[2018-04-17] MEDS: SODIUM CHLORIDE 0.9% 1,000 ML IV SCH ×2 (10:51→20:19)
[2018-04-17 10:59] LABS: Anisocytosis Slight; Basophils % (A) 0 %; Eosinophils # (A) 0.1 k/uL (0-0.7); Eosinophils % (A) 0 %; HCT 38.4 % (34.0-46.0); Hypochromasia Marked; Lymphocytes # (A) 0.3 k/uL (1.0-4.8); Lymphocytes % (A) 1 %; MCH 23.1 pg (25.0-35.0); MCHC 28.7 g/dL (31.0-37.0); MCV 80.3 fL (80.0-100.0); Mean Platelet Volume 7.1; Microcytosis Slight; Monocytes # (A) 1.1 k/uL (0-1.0); Monocytes % (A) 5 %; Neutrophils # (A) 20.8 k/uL (1.3-7.7); Neutrophils % (A) 93 %; Platelet Count 381 k/uL (150-450); RBC 4.78 m/uL (3.80-5.40); RDW 17.9 % (11.5-15.5); WBC 22.4 k/uL (3.8-10.6)
[2018-04-17] MEDS: SUCRALFATE 1 GM TAB PO SCH ×2 (11:01→15:53)
[2018-04-17] MEDS: ENOXAPARIN 40 MG/0.4 ML SYRINGE SQ SCH (11:01)
[2018-04-17] MEDS: METOPROLOL TARTRATE 25 MG TAB PO SCH ×2 (11:01→21:30)
[2018-04-17] MEDS: CYANOCOBALAMIN 500 MCG TAB PO SCH (11:01)
[2018-04-17] MEDS: ATORVASTATIN 10 MG TAB PO SCH (11:01)
[2018-04-17] MEDS: DULoxetine HCL 20 MG CAPSULE.DR PO SCH (11:01)
[2018-04-17] MEDS: VERAPAMIL 40 MG TAB PO SCH ×3 (11:02→21:30)
[2018-04-17 11:03] LABS: Glucose,Whole Blood 93 mg/dL (75-99)
[2018-04-17 11:11] LABS: ALT 21 U/L (9-52); AST 11 U/L (14-36); Albumin 3.5 g/dL (3.5-5.0); Alkaline Phosphatase 75 U/L (38-126); Anion Gap 5 mmol/L; Blood Urea Nitrogen 30 mg/dL (7-17); Calcium 9.9 mg/dL (8.4-10.2); Carbon Dioxide 39 mmol/L (22-30); Chloride 93 mmol/L (98-107); Glucose 85 mg/dL (74-99); Lipase 39 U/L (23-300); Potassium 4.1 mmol/L (3.5-5.1); Sodium 137 mmol/L (137-145); Total Bilirubin 0.4 mg/dL (0.2-1.3); Total Protein 5.8 g/dL (6.3-8.2)
[2018-04-17 11:12] LABS: INR 0.9 (<1.2); Prothrombin Time 10.1 sec (9.0-12.0)
--- NOTE | 2018-04-17 11:16 | P.GSCN ---
History of Present Illness Consult date: 04/17/18 History of present illness: This is a 62-year-old female that was admitted on 04/14/18 secondary to acute hypoxemic/hypercarbic respiratory failure due to acute exacerbation of COPD with obstructive sleep apnea. She also was noted to have some encephalopathy secondary to CO2 retention. She states that prior to her presentation, she was having abdominal pain over the past few weeks. She states that the pain has usually been in the bilateral lower quadrants. She states that yesterday, she had a sudden increase in abdominal pain after a meal, she states that this pain was in the epigastrium and right upper quadrant. This morning, abdominal x-ray was performed due to the fact that the patient had increased distention and moderate amount of pneumoperitoneum was noted. On current exam, the patient is complaining of generalized abdominal pain that see ms to be most significant in the right upper quadrant and periumbilical area. She also complained of one episode of emesis. She denies any change in bowel function. She has been on IV methylprednisone secondary to COPD exacerbation. She denies ever having any previous abdominal surgery. She is not on any anticoagulation.. Review of Systems All systems: negative Past Medical History Past Medical History: Asthma, Heart Failure, COPD, GERD/Reflux, Musculoskeletal Disorder, Osteoarthritis (OA), Pneumonia, Sleep Apnea/CPAP/BIPAP Additional Past Medical History / Comment(s): Bronhitis, chronic low back pain, TIMOTHY with CPAP, home O2 , past L kneecap fx, occasional dependent pedal edema, de pression, gallbladder disease, chronic tobacco use and dependence, urinary incontinence, migraine headaches, osteoporosis, sciatica, peptic ulcer disease, urethritis,. History of Any Multi-Drug Resistant Organisms: None Reported Past Surgical History: Hernia Repair, Tubal Ligation Additional Past Surgical History / Comment(s): Bilateral inguinal hernia repairs, colonoscopy with benign polyypectomy, surgery for "pinched nerve in my R hip." Discectomy, right femur open reduction internal fixation. Past Anesthesia/Blood Transfusion Reactions: No Reported Reaction Past Psychological History: Depression Additional Psychological History / Comment(s): Pt resides with her krista in an apartment that has 4-5 steps. She uses a walker on occasion. She has a CPAP, nebulizer and home oxygen. She no longer drives, she uses senior transportation. Her daughter does most of the cooking and helps organize pt medication. Smoking Status: Former smoker Past Alcohol Use History: None Reported Additional Past Alcohol Use History / Comment(s): started smoking at age 20(1976) and quit 2017 was smoking 1.5 ppd Past Drug Use History: None Reported - Past Family History Father Family Medical History: Coronary Artery Disease (CAD) Additional Family Medical History / Comment(s): Father is 83 yrs old. He has had 2 vessel CABG and a pacer. Mother Family Medical History: Dementia Additional Family Medical History / Comment(s): Mother of dementia at the age of 78yrs. Brother(s) Family Medical History: No Reported History Sister(s) Family Medical History: No Reported History Additional Family Medical History / Comment(s): Patient has 2 children no major medical problems. Patient lives with her daughter Medications and Allergies Home Medications Medication Instructions Recorded Confirmed Type Cholecalciferol (Vitamin D3) 2,000 unit PO DAILY 10/31/16 04/15/18 History [Vitamin D3] DULoxetine HCL [Cymbalta] 20 mg PO DAILY 10/31/16 04/15/18 History Furosemide [Lasix] 20 mg PO DAILY 10/31/16 04/15/18 History Budesonide [Pulmicort] 0.5 mg INHALATION RT-BID #60 neb 11/04/16 04/15/18 Rx Montelukast [Singulair] 10 mg PO HS #30 tab 11/04/16 04/15/18 Rx Omeprazole Magnesium [PriLOSEC OTC] 20 mg PO DAILY #30 tablet. 11/04/16 04/15/18 Rx Ipratropium-Albuterol Nebulize 3 ml INHALATION RT-QID ampul.clive 02/23/17 04/15/18 Rx [Duoneb 0.5 mg-3 mg/3 ml Soln] ALPRAZolam [Xanax] 0.25 mg PO TID 04/15/18 04/15/18 History Albuterol Inhaler [Ventolin Hfa 2 puff INHALATION RT-Q6H PRN 04/15/18 04/15/18 History Inhaler] Albuterol Nebulized (Conc) 2.5 mg INHALATION RT-QID 04/15/18 04/15/18 History [Ventolin Nebulized (Conc)] Atorvastatin [Lipitor] 10 mg PO DAILY 04/15/18 04/15/18 History Calcitonin Nasal [Fortical 1 spray NASAL DAILY 04/15/18 04/15/18 History (Miacalcin)] Cyanocobalamin (Vitamin B-12) 1,000 mcg PO DAILY 04/15/18 04/15/18 History [Vitamin B-12] HYDROcodone/APAP 5-325MG [Trail 1 tab PO TID PRN 04/15/18 04/15/18 History 5-325] Ipratropium [place] [Atrovent Hfa] 2 puff INHALATION RT-QID 04/15/18 04/15/18 History Metoprolol Tartrate [Lopressor] 25 mg PO BID 04/15/18 04/15/18 History Potassium Chloride ER [K-Dur 10] 10 meq PO DAILY 04/15/18 04/15/18 History Sucralfate [Carafate] 1 gm PO QID 04/15/18 04/15/18 History Verapamil HCl 40 mg PO TID 04/15/18 04/15/18 History metFORMIN HCL [Glucophage] 1,000 mg PO BID 04/15/18 04/15/18 History Allergies Allergy/AdvReac Type Severity Reaction Status Date / Time No Known Allergies Allergy Verified 04/14/18 18:50 Surgical - Exam Osteopathic Statement: *. No significant issues noted on an osteopathic structural exam other than those noted in the History and Physical/Consult. Vital Signs Pulse Resp BP Pulse Ox 86 24 124/81 91 L 04/14/18 17:00 04/14/18 17:00 04/14/18 17:00 04/14/18 17:00 - General no distress, moderate pain - Eyes PERRL, normal ocular movement - ENT normal mucosa, no hearing loss - Neck trachea midline - Respiratory No difficulty with respiration - Cardiovascular Rhythm: regular - Abdomen Distended, tympanic to percussion, positive rebound and guarding with peritonitis - Neurologic normal coordination - Psychiatric oriented to time, oriented to person, oriented to place Results - Labs 04/16/18 05:47 04/17/18 10:26 Abnormal Lab Results - Last 24 Hours (Table) 04/16/18 04/16/18 04/16/18 Range/Units 11:15 16:14 16:16 POC Glucose (mg/dL) 137 H 319 H 273 H (75-99) mg/dL 04/16/18 04/17/18 Range/Units 20:50 06:07 POC Glucose (mg/dL) 146 H 204 H (75-99) mg/dL - Imaging Abdominal x-ray: report reviewed, image reviewed (Moderate amount pneumoperitoneum) Assessment and Plan Plan: 62yo female with pneumoperitoneum and peritonitis - Begin IV fluid resuscitation - Patient is currently receiving Zosyn and Levaquin secondary to COPD exacerbation and possible underlying pneumonia, we will continue with these antibiotics for intra-abdominal source as well - Patient was seen by the medicine service and EKG was ordered - Keep the patient nothing by mouth with plan for exploratory laparotomy - I did discuss surgery with the patient in depth. There is the possibility of ostomy based on source of perforation. The patient was explained the risks, benefits and alternatives to surgery. She is agreeable with this plan. - Further recommendations after surgery Thank you for this consultation, I look forward in providing in this patient's care.
[2018-04-17] MEDS ORDERED: HEPARIN SODIUM,PORCINE 5,000 UNIT/ML 1 ML VIAL ONE (11:46)
[2018-04-17] MEDS ORDERED: ROCURONIUM BROMIDE 10 MG/ML 10 ML VIAL IV ONE (11:46)
[2018-04-17] MEDS ORDERED: NEOSTIGMINE 1 MG/ML 10 ML VIAL ONE (11:46)
[2018-04-17] MEDS ORDERED: ONDANSETRON 4 MG/2 ML VIAL ONE (11:46)
[2018-04-17] MEDS ORDERED: fentaNYL (PF) 50 MCG/ML 2 ML AMP ONE (11:46)
[2018-04-17] MEDS ORDERED: DEXAMETHASONE SOD PHOS (MDV) 100 MG/10 ML VIAL ONE (11:46)
[2018-04-17] MEDS ORDERED: SUCCINYLCHOLINE CHLORIDE 100 MG/5 ML SYR IV ONE (11:46)
[2018-04-17] MEDS ORDERED: GLYCOPYRROLATE 0.2 MG/ML 2 ML VIAL ONE (11:46)
[2018-04-17] MEDS ORDERED: KETOROLAC 30 MG/ML 1 ML VIAL ONE (11:46)
[2018-04-17] MEDS ORDERED: LIDOCAINE 1% INJ 10MG/ML (20 ML MDV) ONE (11:46)
[2018-04-17] MEDS ORDERED: PROPOFOL 10 MG/ML 20 ML VIAL IV ONE (11:46)
[2018-04-17] MEDS ORDERED: diphenhydrAMINE 50 MG/ML 1 ML VIAL IVP PRN (11:49)
[2018-04-17] MEDS ORDERED: NALOXONE 0.4 MG/ML 1 ML VIAL IV PRN (11:49)
[2018-04-17] MEDS ORDERED: IV FLUID CONTINUATION 600 ML IV ONE (11:51)
[2018-04-17] MEDS ORDERED: SODIUM CHLORIDE 0.9% 100 ML with ceFAZolin 2,000 MG IV ONE ×2 (12:00)
[2018-04-17] MEDS ORDERED: PIPERACILLIN-TAZOBACTAM 3.375 GM in SODIUM CHLORIDE 0.9% 100 ML IVPB SCH (12:00)
[2018-04-17] MEDS: PANTOPRAZOLE 40 MG/10 ML VIAL IVP SCH ×2 (12:01→21:30)
[2018-04-17] MEDS: BUDESONIDE 0.5 MG/2 ML NEBU INHALATION SCH ×2 (12:01→19:28)
[2018-04-17] MEDS: methylPREDNISolone SOD SUCCI 40 MG/ML 1 ML VIAL IV SCH ×3 (12:01→23:45)
[2018-04-17] MEDS: LEVOFLOXACIN 500MG-D5W PMX 500 MG in DEXTROSE/WATER 1 100ML.BAG IVPB SCH (12:15)
[2018-04-17 12:18] LABS: Magnesium 1.4 mg/dL (1.6-2.3)
--- NOTE | 2018-04-17 12:39 | P.PN ---
Subjective Progress Note Date: 04/17/18 This is a 62-year-old female one of Dr. Benitez with a previous medical history significant for chronic hypoxemic respiratory failure oxygen dependent, severe COPD, chronic diastolic heart failure, asthma, sleep apnea on a CPAP, chronic low back pain, GERD, prior history of tobacco use and dependence, overactive bladder, migraine headaches and osteoporosis, patient came to the emergency department at [facility] via EMS because of left-sided chest tightness associated with mental status changes with increased confusion she had a blood gases in the ER that showed a pH of 7.34 pCO2 of 92 pO2 of 68 on FiO2 of 36% her bicarb was 45 and chloride was. Low patient was started on IV fluid and she was placed on a BiPAP she had improved however because of her presentation she was admitted to the hospital for evaluation pulmonary consultation was obtained from Dr. MELVIN Green. Patient was started on nebulized treatment as well as steroid and oxygen support as well. 04/16: Patient is seen and is followed by Dr. Owens. She is currently on BiPAP at 35% with pulse ox 92%. She is sleeping but awakens easily to verbal stimuli. She states she slept okay last night. She is passing gas and did have a bowel movement today. She's been afebrile, heart rate in the 80s and 90s, blood pressure 118/68. White count is normal, hemoglobin 10.1. Chloride 89, CO2 41, BUN 24 and creatinine 0.39. Capillary blood glucose running between 137 and 229. Xanax was added last night for anxiety. Dr. Owens is transitioning her Solu-Medrol down to 40 mg every 8 hours. 04/17: Patient has been afebrile, heart rate running in the 60s to 80s, blood pressure 133/84, pulse ox 95% on BiPAP. Blood sugars have been elevated secondary to steroids. Abdominal x-ray done this morning for abdominal pain shows moderate degree pneumoperitoneum consistent with hollow viscus rupture. Consult with Dr. Joe ordered and notified of x-ray results. Patient complains of generalized abdominal pain. No vomiting. Her breathing status is stable. She denies any chest pain. Her last bowel movement was yesterday but was liquid. Morning labs, EKG done and reviewed. Patient requires emergent surgery which is a high risk surgery but is cleared medically. Patient may require ICU for short-term if pulmonary status deteriorates. Dr. Owens is following the patient. IV Levaquin and Zosyn added for peritonitis. Review of Systems Constitutional: Reports lethargy, Reports weakness, Denies anorexia, Denies chronic headaches, Denies chronic pain, Denies weight gain Ears, nose, mouth and throat: Denies dysphagia, Denies neck lump, Denies swell ing in mouth, Denies swelling in throat Cardiovascular: Reports chest pain, Reports decreased exercise tolerance, Reports dyspnea on exertion, Reports shortness of breath, Denies lightheadedness, Denies orthopnea, Denies rapid heart beat, Denies syncope Respiratory: Reports cough, Reports cough with sputum, Reports continued dyspnea, Reports home oxygen, Reports sleep apnea, Reports wheezing, Denies congestion, Denies snoring Gastrointestinal: Reports abdominal pain, Denies BRBPR, Denies excessive gas, Denies melena, Denies nausea, Denies vomiting Genitourinary: Denies dysuria, Denies hematuria Menstruation: Reports postmenopausal Musculoskeletal: Reports gait dysfunction, Denies myalgias Musculoskeletal: Integumentary: Denies pruritus, Denies rash Neurological: Reports confusion, Denies numbness, Denies weakness Psychiatric: Reports anxiety, Reports depression, Denies sadness/tearfulness, Denies sleep disturbances, Denies suicidal ideation Endocrine: Denies fatigue, Denies weight change Objective - Vital Signs Vital signs: Vital Signs Temp 97.4 F L 04/17/18 04:00 Pulse 68 04/17/18 04:00 Resp 18 04/17/18 04:00 BP 133/84 04/17/18 04:00 Pulse Ox 95 04/17/18 04:00 Intake & Output 04/16/18 04/17/18 04/17/18 18:59 06:59 18:59 Intake Total 462 270 0 Output Total 200 150 Balance 262 270 -150 Weight 65 kg Intake: Oral 462 270 0 Output: Urine 200 150 Other: Voiding Method Bedside Commode Bedside Commode # Voids 1 1 1 # Bowel Movements 1 - Exam General appearance: mild distress at rest, thin - EENT Eyes: anicteric sclerae, EOMI, PERRLA, no ptosis, no scleral icterus, normal appearance ENT: hearing grossly normal, NA/AT, normal oropharynx, no thrush Ears: - Neck Neck: no lymphadenopathy, normal ROM, no rigidity, no stridor, no thyromegaly Carotids: - Respiratory Respiratory: - Cardiovascular Heart sounds: - Gastrointestinal General gastrointestinal: Abdomen is distended, tympanic, generalized tenderness, positive rebound tenderness - Integumentary Integumentary: normal, normal turgor - Neurologic Neurologic: CNII-XII intact - Musculoskeletal Musculoskeletal: gait normal, generalized weakness, strength equal bilaterally - Psychiatric Psychiatric: A&O x's 3, appropriate affect, intact judgment & insight - Labs CBC & Chem 7: 04/17/18 10:26 04/17/18 10:26 Labs: Abnormal Lab Results - Last 24 Hours (Table) 04/16/18 04/16/18 04/16/18 Range/Units 11:15 16:14 16:16 POC Glucose (mg/dL) 137 H 319 H 273 H (75-99) mg/dL 04/16/18 04/17/18 Range/Units 20:50 06:07 POC Glucose (mg/dL) 146 H 204 H (75-99) mg/dL Assessment and Plan Plan: 1. Acute on Chronic hypoxemic and hypercarbic respiratory failure due to acute exacerbation of COPD with obstructive sleep apnea. Continue BiPAP, continue patient on oxygen, DuoNeb 3 mL nebulization 4 times every day, Pulmicort 0.5 mg nebulization twice every day, Solu-Medrol decreased to 40 mg every 8 hours, discontinue Lasix, discontinue potassium supplement, IV fluid discontinued, pulmonary consultation with Dr. Abbasi is appreciated 2. Metabolic encephalopathy due to acute hypercarbic respiratory failure with elevated CO2. Continue BiPAP continue IV fluid resuscitation. 3. Contraction alkalosis. Discontinue Lasix continue IV fluid for the next 24 hours. 4. Acute COPD exacerbation. Continue treatment as in paragraph #1 continue with Solu-Medrol 40 mg IV push every 8 hours, DuoNeb 3 mL nebulization 4 times every day, Pulmicort 0.5mg nebulization twice every day. 5. Acute pneumoperitoneum with viscous rupture and acute peritonitis. Dr. Joe consult added. Patient will be nothing by mouth and going for surgery today with Dr. Joe. Levaquin and Zosyn and for peritonitis.. 6. Chronic diastolic heart failure. Continue metoprolol 25 mg orally twice every day, verapamil 40 mg orally 3 times every day, discontinue Lasix and potassium supplement. 7. Hypertension and hypertensive cardiovascular disease. Continue metoprolol 25 mg orally twice every day and verapamil 40 mg orally 3 times every day. 8. History of asthma. Continue treatment as in paragraph #1 9. GERD. Continue PPI. 10. Depression. Continue Cymbalta 20 mg orally once every day. 11. Anxiety. Continue Xanax as needed. 12. Chronic low back pain. Continue pain medicine with caution. 13. Obstructive sleep apnea. Continue with current BiPAP. 14. Diabetes mellitus type 2. Continue metformin 1000 mg orally twice every day. Along with a sliding scale insulin. 15. DVT prophylaxis. Continue patient on Lovenox 40 mg subcutaneously every 24 hours. 16. GI prophylaxis. Continue PPI. 17. Patient is full code. Discharge plan: Home with [facility] Impression and plan of care have been directed as dictated by the signing physician. Belinda Marte nurse practitioner acting as scribe for signing physician.
[2018-04-17] MEDS ORDERED: LACTATED RINGERS 1,000 ML IV ONE (12:41)
--- NOTE | 2018-04-17 13:17 | PN ---
PROGRESS NOTE She was seen again on 04/17/2018. She had worsening abdominal pain through the night. Subsequently, she had an x-ray of her abdomen. This showed evidence of free air under the diaphragm. She subsequently is being immediately taken to the OR for an exploratory laparotomy. She is at her baseline as far as shortness of breath is concerned at this time. PHYSICAL EXAMINATION: On physical examination, she was lying in bed. She was in mild distress. Her respiratory rate is 22, pulse rate of 89, temperature 98 degrees Fahrenheit, blood pressure 151/91, O2 saturation on 2 L by nasal cannula is 92%. HEENT reveals pupils are equal. Chest reveals decreased breath sounds with prolonged expiration. Cardiovascular system reveals an S1, S2. Abdomen is distended, mildly tender. Bowel sounds are not heard. She has trace edema. White count is 22.4 thousand, hemoglobin of 11. Sodium 137, potassium 4.1, chloride 93, bicarb 39, BUN 30, creatinine 0.42. IMPRESSION AT THIS TIME: 1. Perforated bowel with free air under the diaphragm is likely for which she is undergoing exploratory laparotomy. 2. Severe chronic obstructive pulmonary disease with asthma. 3. History of CO2 retention in part due to obstructive sleep apnea and chronic respiratory failure for which she is on BiPAP. 4. Medical debility and protein calorie malnutrition. At this point in time from a pulmonary perspective, her prognosis is guarded. We will follow her closely in the perioperative state. Would keep her on Zosyn and Levaquin to cover for anaerobes as well as gram negatives. Continue bronchodilators, aerosolized steroids. In the perioperative period once she is stable, we will try to wean her steroids. Depending on how she does, we should make further changes to her care. She was counseled regarding her condition and this approach. MMODL / IJN: [id number] /
--- NOTE | 2018-04-17 13:47 | P.OP ---
Date of Procedure: 04/17/18 Preoperative Diagnosis: Pneumoperitoneum Peritonitis Postoperative Diagnosis: Pneumoperitoneum Perforated small bowel Procedure(s) Performed: Exploratory laparotomy Small bowel resection with anastomosis Anesthesia: LESLY Surgeon: Hazel Joe Pathology: other (Small bowel, cultures from intra-abdominal abscess) Condition: stable Disposition: floor Indications for Procedure: 63-year-old female was initially admitted to the hospital secondary to COPD exacerbation on 04/14/2018. Yesterday, she began to develop an increasing amount of abdominal pain. Abdominal x-ray was ordered today and pneumoperitoneum was noted. On exam, the patient was noted to have peritonitis. Secondary to these findings, plan was for exploratory laparotomy. The patient was excellent the risks, benefits and alternatives to the procedure and did provide consent prior to attending the operating suite. Operative Findings: Intra-abdominal loculated abscess with small bowel perforation Dilated small bowel and colon Description of Procedure: The patient was brought to the operating suite and placed in supine position on the operating table. Sedation was provided by anesthesia and the patient underwent endotracheal intubation. The patient was then prepped and draped in regular sterile fashion. A midline incision was made and dissection was carried to the fascia. The fascia was incised and the abdomen was entered. Immediate turbid fluid and foul-smelling was noted. The bowel was noted to be severely distended. Examination of the stomach revealed no significant perforation or induration. The small bowel was then eviscerated from the abdomen and the l igament of Treitz was found. The bowel was then run from the ligament of Treitz distally towards the ileocecal valve. The small bowel was noted to be densely adhered to additional small bowel and was bluntly dissected. On blunt dissection, intra-abdominal abscess was noted to open and purulent material began to drain. Intra-abdominal abscess cultures were taken. Abscess material was suctioned. The bowel was continued to be followed down towards the ileocecal valve and a bowel perforation of the small bowel was noted. Distal to this perforation there was no additional acute findings. The entire colon was also examined. Colon was noted to be distended proximally. There was no evidence of perforation of the right, transverse, left and sigmoid colon. There was no palpable induration of the colon. At this point, due to small bowel perforation, plan was made to perform a small bowel resection. A distal and proximal site of transection were decided upon. Windows were created in the mesentery and the small bowel was ligated using a 75 mm blue load CHANEL stapler. The bowel was dissected free from the mesentery using a LigaSure device. Hemostasis was noted to be maintained. The bowel was anastomosed using a [id number], functional end-to-end anastomosis. 2 enterotomies were created and a 75 mm blue load stapler was fired to create a anastomosis. The resulting enterotomy was closed with a TX stapler about 60 mm. Hemostasis was noted to be maintained. The resulting rent in the small bowel was closed using a running 3- 0 Vicryl suture. There was no evidence of leak at the anastomosis site after pushing some air through the anastomosis. Copious muss irrigation was used within the abdomen to clear out the purulent fluid. A DILLAN drain was left in the pelvis and secured with a 2-0 nylon suture. The bowel was then reduced back into the abdomen and nasogastric tube was placed by anesthesia. Appropriate placement was noted with palpating the NG tube within the stomach. The midline incision was then closed using a running looped PDS suture. Skin was then closed using skin jennyfer. Sterile dressing was applied. The patient was awakened in the operating suite and taken to postanesthesia care unit in stable condition.
[2018-04-17] MEDS: ROPIVACAINE 250 MG, fentaNYL (PF) 625 MCG in SODIUM CHLORIDE 0.9% 188 ML EPIDURAL PRN (14:16)
[2018-04-17 14:24] LABS: Glucose,Whole Blood 117 mg/dL (75-99)
[2018-04-17] MEDS: PIPERACILLIN-TAZOBACTAM 3.375 GM in SODIUM CHLORIDE 0.9% 100 ML IVPB SCH ×2 (15:16→20:26)
[2018-04-17 16:46] LABS: Glucose,Whole Blood 157 mg/dL (75-99)
[2018-04-17 20:53] LABS: Glucose,Whole Blood 121 mg/dL (75-99)
[2018-04-17] MEDS: MELATONIN 5 MG TABLET PO SCH (21:29)
[2018-04-17] MEDS: MONTELUKAST 10 MG TAB PO SCH (21:30)
--- NOTE | 2018-04-18 00:41 | CONS ---
CONSULTATION DATE OF SERVICE: 04/17/2018. REASON FOR CONSULTATION: Abdominal abscess. HISTORY OF PRESENT ILLNESS: The patient is a 62 -year-old female, who presented to the ER at [facility] on 04/24/2018 with chief complaints of left-sided chest pain with mental status changes and increased confusion. The patient is subsequently has been evaluated by the ER physician and has been treated with BiPAP and steroids and therapy. The patient seemed to have shown clinical improvement however still having more abdominal pain. The patient did have a chest x-ray completed this morning which shows moderate degree of pneumoperitoneum consistent with . General surgery was consulted and the patient was taken to the OR. The patient did have a laparotomy. She was noticed to have a perforated small bowel status post small bowel resection and anastomosis with drainage of the abscess. Culture has been obtained, currently pending. The patient has been started on Zosyn. Infectious Disease was consulted for further recommendations regarding antibiotic therapy. Most of the information has been obtained from thorough review of the chart as the patient herself is not a very good historian. REVIEW OF SYSTEMS: Could not be reliably obtained. The positive points have been mentioned in HPI. PAST MEDICAL HISTORY: Asthma, heart failure, COPD, gastroesophageal reflux disease, osteoarthritis, pneumonia, sleep apnea, chronic back pain, peptic ulcer disease, osteoporosis. PAST SURGICAL HISTORY: Bilateral inguinal hernia repair, colonoscopy with polypectomy, hysterectomy, fracture repair. SOCIAL HISTORY: Remote history of smoking. Patient quit smoking back in 2017. No drinking or drug use. FAMILY HISTORY: Father history of coronary artery disease. Mother history of dementia. ALLERGIES: No known drug allergies. MEDICATION: Medications include the patient is currently on Zosyn 3.375 g q.8 hours, she is on Protonix, Zofran, Narcan, Singulair, Lopressor, Solu-Medrol, Glucophage, Levaquin, NovoLog, Lovenox, Cymbalta, Benadryl, Pulmicort, Lipitor, Xanax. PHYSICAL EXAMINATION: Blood pressure is 111/73 with a pulse of 95, temperature 98. She is 98% on 2 L nasal cannula. General description is a middle aged female lying in bed in no distress. No tachypnea or accessory muscles of respiration use. HEENT: Shows pallor. No scleral icterus. Oral mucosal membranes are dry. Neck trachea central. No thyromegaly. Lungs unlabored breathing. Clear to auscultation anteriorly. Heart S1, S2. Regular rate and rhythm. ABDOMEN: Soft, mildly distended. No guarding or rigidity. EXTREMITIES: No edema of feet. SKIN EXAMINATION: No rash or mass palpable. Neurologic: The patient is awake, alert, oriented x3. Mood and affect normal. LABS: Hemoglobin 9, white count 2.4. Lactic acid 2.3 with a BUN of 30. Creatinine 0.4. Electrolytes have been normal. Liver enzymes are normal. The wound culture currently pending. DIAGNOSTIC IMPRESSION AND PLAN: Patient with abdominal abscess from a perforated small bowel, status post laparotomy and resection of bowel and primary anastomosis that will need to cover for the enteric gram-negative both aerobes and anaerobes. PLAN: 1. Zosyn 3.375 q.8 hours to continue. 2. Gentle IV fluid. 3. We will follow up on her clinical condition as well as cultures to further adjust medication if needed. Thank you for this consultation. We will follow this patient along with you. MMODL / IJN: [id number] /
[2018-04-18] MEDS: SODIUM CHLORIDE 0.9% 1,000 ML IV SCH ×3 (03:23→20:32)
[2018-04-18] MEDS: PIPERACILLIN-TAZOBACTAM 3.375 GM in SODIUM CHLORIDE 0.9% 100 ML IVPB SCH ×3 (03:55→20:32)
[2018-04-18] MEDS: metFORMIN 500 MG TAB PO SCH ×2 (05:55→16:27)
[2018-04-18 05:57] LABS: Glucose,Whole Blood 166 mg/dL (75-99)
[2018-04-18] MEDS: INSULIN ASPART (NovoLOG) 100 UNIT/ML VIAL SQ SCH ×4 (06:35→20:29)
[2018-04-18 06:55] LABS: Anisocytosis Slight; HCT 32.8 % (34.0-46.0); Hypochromasia Marked; MCH 23.9 pg (25.0-35.0); MCV 82.3 fL (80.0-100.0); Mean Platelet Volume 6.5; Microcytosis Slight; Platelet Count 286 k/uL (150-450); RBC 3.98 m/uL (3.80-5.40); WBC 18.5 k/uL (3.8-10.6)
[2018-04-18 06:56] LABS: HGB 9.5 gm/dL (11.4-16.0)
[2018-04-18 07:03] LABS: ALT 21 U/L (9-52); AST 11 U/L (14-36); Albumin 2.5 g/dL (3.5-5.0); Alkaline Phosphatase 58 U/L (38-126); Anion Gap 1 mmol/L; Blood Urea Nitrogen 20 mg/dL (7-17); Calcium 8.5 mg/dL (8.4-10.2); Carbon Dioxide 37 mmol/L (22-30); Chloride 98 mmol/L (98-107); Glucose 158 mg/dL (74-99); Potassium 4.4 mmol/L (3.5-5.1); Sodium 136 mmol/L (137-145); Total Bilirubin 0.4 mg/dL (0.2-1.3); Total Protein 4.4 g/dL (6.3-8.2)
[2018-04-18] MEDS: BUDESONIDE 0.5 MG/2 ML NEBU INHALATION SCH (07:55)
[2018-04-18] MEDS: IPRATROPIUM-ALBUTEROL 3 ML NEB INHALATION SCH ×4 (07:55→19:08)
[2018-04-18] MEDS: VERAPAMIL 40 MG TAB PO SCH ×3 (08:01→20:33)
[2018-04-18] MEDS: CYANOCOBALAMIN 500 MCG TAB PO SCH (08:01)
[2018-04-18] MEDS: PANTOPRAZOLE 40 MG/10 ML VIAL IVP SCH ×2 (08:01→20:33)
[2018-04-18] MEDS: METOPROLOL TARTRATE 25 MG TAB PO SCH ×2 (08:01→20:33)
[2018-04-18] MEDS: DULoxetine HCL 20 MG CAPSULE.DR PO SCH (08:01)
[2018-04-18] MEDS: ATORVASTATIN 10 MG TAB PO SCH (08:01)
[2018-04-18] MEDS: methylPREDNISolone SOD SUCCI 40 MG/ML 1 ML VIAL IV SCH ×2 (08:02→20:33)
[2018-04-18] MEDS: ENOXAPARIN 40 MG/0.4 ML SYRINGE SQ SCH (08:02)
[2018-04-18] MEDS ORDERED: BENZOCAINE SPRAY 1 CAN MUCOUS MEM PRN (10:13)
--- NOTE | 2018-04-18 10:17 | P.PN ---
Subjective Progress Note Date: 04/18/18 Patient seen and examined at bedside. States she is not comfortable with nasogastric tube in place. Abdominal distention has decreased. She states abdominal pain is well-controlled. Denies any flatus or bowel movement. Objective - Vital Signs Vital signs: Vital Signs Temp 98.2 F 04/18/18 07:40 Pulse 74 04/18/18 07:40 Resp 20 04/18/18 07:40 BP 98/65 04/18/18 07:40 Pulse Ox 92 L 04/18/18 07:53 Intake & Output 04/17/18 04/18/18 04/18/18 17:59 06:59 18:59 Intake Total Output Total 700 Balance -700 Weight Intake: IV Intake, IV Titration Amount Ropivacaine 250 mg fentaNYL (PF) 625 mcg In Sodium Chloride 0.9% 188 ml @ Per Protocol EPIDURAL .Q0M PRN Rx#: [id number] Oral Output: Drainage 50 Right Lower Abdomen 50 Urine 650 Estimated Blood Loss Other: Voiding Method # Voids - Constitutional General appearance: Present: cooperative, no acute distress - EENT Eyes: Present: PERRLA - Respiratory Details: No difficulty with respiration - Gastrointestinal Gastrointestinal Comment(s): Soft, appropriate tenderness, improving distention, no rebound, no guarding - Musculoskeletal Musculoskeletal: Present: generalized weakness - Psychiatric Psychiatric: Present: A&O x's 3 - Labs CBC & Chem 7: 04/18/18 06:12 04/18/18 06:12 Labs: Abnormal Lab Results - Last 24 Hours (Table) 04/17/18 04/17/18 04/17/18 Range/Units 10:26 10:26 10:26 WBC 22.4 H (3.8-10.6) k/uL Hgb 11.0 L (11.4-16.0) gm/dL Hct (34.0-46.0) % MCH 23.1 L (25.0-35.0) pg MCHC 28.7 L (31.0-37.0) g/dL RDW 17.9 H (11.5-15.5) % Neutrophils # 20.8 H (1.3-7.7) k/uL Lymphocytes # 0.3 L (1.0-4.8) k/uL Monocytes # 1.1 H (0-1.0) k/uL Sodium (137-145) mmol/L Chloride 93 L (98-107) mmol/L Carbon Dioxide 39 H (22-30) mmol/L BUN 30 H (7-17) mg/dL Creatinine 0.42 L (0.52-1.04) mg/dL Glucose (74-99) mg/dL POC Glucose (mg/dL) (75-99) mg/dL Plasma Lactic Acid Jatin 2.2 H* (0.7-2.0) mmol/L Magnesium 1.4 L (1.6-2.3) mg/dL AST 11 L (14-36) U/L Total Protein 5.8 L (6.3-8.2) g/dL Albumin (3.5-5.0) g/dL 04/17/18 04/17/18 04/17/18 Range/Units 14:11 14:41 16:45 WBC (3.8-10.6) k/uL Hgb (11.4-16.0) gm/dL Hct (34.0-46.0) % MCH (25.0-35.0) pg MCHC (31.0-37.0) g/dL RDW (11.5-15.5) % Neutrophils # (1.3-7.7) k/uL Lymphocytes # (1.0-4.8) k/uL Monocytes # (0-1.0) k/uL Sodium (137-145) mmol/L Chloride (98-107) mmol/L Carbon Dioxide (22-30) mmol/L BUN (7-17) mg/dL Creatinine (0.52-1.04) mg/dL Glucose (74-99) mg/dL POC Glucose (mg/dL) 117 H 157 H (75-99) mg/dL Plasma Lactic Acid Jatin 2.3 H* (0.7-2.0) mmol/L Magnesium (1.6-2.3) mg/dL AST (14-36) U/L Total Protein (6.3-8.2) g/dL Albumin (3.5-5.0) g/dL 04/17/18 04/18/18 04/18/18 Range/Units 20:46 05:56 06:12 WBC 18.5 H (3.8-10.6) k/uL Hgb 9.5 L D (11.4-16.0) gm/dL Hct 32.8 L (34.0-46.0) % MCH 23.9 L (25.0-35.0) pg MCHC 29.0 L (31.0-37.0) g/dL RDW 18.0 H (11.5-15.5) % Neutrophils # (1.3-7.7) k/uL Lymphocytes # (1.0-4.8) k/uL Monocytes # (0-1.0) k/uL Sodium (137-145) mmol/L Chloride (98-107) mmol/L Carbon Dioxide (22-30) mmol/L BUN (7-17) mg/dL Creatinine (0.52-1.04) mg/dL Glucose (74-99) mg/dL POC Glucose (mg/dL) 121 H 166 H (75-99) mg/dL Plasma Lactic Acid Jatin (0.7-2.0) mmol/L Magnesium (1.6-2.3) mg/dL AST (14-36) U/L Total Protein (6.3-8.2) g/dL Albumin (3.5-5.0) g/dL 04/18/18 Range/Units 06:12 WBC (3.8-10.6) k/uL Hgb (11.4-16.0) gm/dL Hct (34.0-46.0) % MCH (25.0-35.0) pg MCHC (31.0-37.0) g/dL RDW (11.5-15.5) % Neutrophils # (1.3-7.7) k/uL Lymphocytes # (1.0-4.8) k/uL Monocytes # (0-1.0) k/uL Sodium 136 L (137-145) mmol/L Chloride (98-107) mmol/L Carbon Dioxide 37 H (22-30) mmol/L BUN 20 H (7-17) mg/dL Creatinine 0.37 L (0.52-1.04) mg/dL Glucose 158 H (74-99) mg/dL POC Glucose (mg/dL) (75-99) mg/dL Plasma Lactic Acid Jatin (0.7-2.0) mmol/L Magnesium (1.6-2.3) mg/dL AST 11 L (14-36) U/L Total Protein 4.4 L (6.3-8.2) g/dL Albumin 2.5 L (3.5-5.0) g/dL Microbiology - Last 24 Hours (Table) 04/17/18 13:30 Gram Stain - Preliminary Abdomen Wound Culture - Preliminary Gram Neg Bacilli Beta Hemolytic Strep Group C 04/17/18 13:30 Anaerobic Culture - Preliminary Abdomen Assessment and Plan Plan: 62yo female postoperative day #1 from expiratory laparotomy and small bowel resection - Continue IV fluids - Continue antibiotics - Continue nothing by mouth with nasogastric tube until bowel function returns. Did begin indicating spray due to the patient feeling uncomfortable with nasogastric tube. - Epidural in place, continue Lopez catheter while epidural is in place - Okay for ice chips - I did discuss the case with medicine. Plan is for weaning from steroids to improve with wound healing
[2018-04-18 11:06] LABS: Glucose,Whole Blood 119 mg/dL (75-99)
[2018-04-18] MEDS: LEVOFLOXACIN 500MG-D5W PMX 500 MG in DEXTROSE/WATER 1 100ML.BAG IVPB SCH (11:32)
--- NOTE | 2018-04-18 12:17 | PN ---
PROGRESS NOTE DATE OF SERVICE: April 18, 2018 Olena Roman was seen on April 18, 2018. She has been hemodynamically stable. She is sleepy but arousable. She has NG tube in place. She complains of mild pain in her throat. PHYSICAL EXAMINATION: Respiratory rate is 20, pulse is 74, temperature 98.2, blood pressure 98/65, O2 saturation on 3 L by nasal cannula is 92%. HEENT reveals NG tube in place. Chest reveals decreased breath sounds. Prolonged expiration. Cardiovascular system reveals an S1, S2. Abdomen is soft. There is a surgical dressing in place. There is no pedal edema. LABS: Reveal a white count 18.5, hemoglobin of 9.5, sodium 136, potassium 4.4, chloride 98, bicarb 37, BUN 20, creatinine 0.37, total bilirubin is 0.4, albumin is 2.5. IMPRESSION: At this time: 1. Abdominal cavity abscess with small bowel perforation, status post drainage of abscess, exploratory laparotomy with small-bowel resection and end-to-end anastomoses. 2. Chronic obstructive pulmonary disease with asthma with a history of CO2 narcosis with acute exacerbation. 3. Metabolic encephalopathy. 4. Severe protein calorie malnutrition. At this point in time, encourage incentive spirometry. Keep her on bronchodilators, decrease the IV steroids, increase her activity level if able to. Continue on bronchodilators and antibiotics per ID. Her prognosis is guarded. MMODL / IJN: [id number] /
--- NOTE | 2018-04-18 12:23 | P.PN ---
Progress Note - Text Progress Note Date: 04/18/18 Postoperative day # 1 status post , Explaratory laparotomy/epidural catheter placed for postoperative analgesia, patient doing well epidural site okay, patient currently on combination of epidural infusion solution of Ropivacaine 0.0625% and Fentany 2,5 g per mL the infusion rate at 7 ml per hour , patient had no motor deficit epidural site okay , vital signs stable ,VAS 2-3 /10 , complaining about the nasogastric tube Assessment and plan= post operative day #1 patient doing well ,pain well controlled , there is no anesthesia related complications
--- NOTE | 2018-04-18 14:43 | P.PN ---
Subjective This is a 62-year-old female one of Dr. Benitez with a previous medical history significant for chronic hypoxemic respiratory failure oxygen dependent, severe COPD, chronic diastolic heart failure, asthma, sleep apnea on a CPAP, chronic low back pain, GERD, prior history of tobacco use and dependence, overactive bladder, migraine headaches and osteoporosis, patient came to the emergency department at [facility] via EMS because of left-sided chest tightness associated with mental status changes with increased confusion she had a blood gases in the ER that showed a pH of 7.34 pCO2 of 92 pO2 of 68 on FiO2 of 36% her bicarb was 45 and chloride was. Low patient was started on IV fluid and she was placed on a BiPAP she had improved however because of her presentation she was admitted to the hospital for evaluation pulmonary consultation was obtained from Dr. MELVIN Green. Patient was started on nebulized treatment as well as steroid and oxygen support as well. 04/16: Patient is seen and is followed by Dr. Owens. She is currently on BiPAP at 35% with pulse ox 92%. She is sleeping but awakens easily to verbal stimuli. She states she slept okay last night. She is passing gas and did have a bowel movement today. She's been afebrile, heart rate in the 80s and 90s, blood pressure 118/68. White count is normal, hemoglobin 10.1. Chloride 89, CO2 41, BUN 24 and creatinine 0.39. Capillary blood glucose running between 137 and 229. Xanax was added last night for anxiety. Dr. Owens is transitioning her Solu-Medrol down to 40 mg every 8 hours. 04/17: Patient has been afebrile, heart rate running in the 60s to 80s, blood pressure 133/84, pulse ox 95% on BiPAP. Blood sugars have been elevated secondary to steroids. Abdominal x-ray done this morning for abdominal pain shows moderate degree pneumoperitoneum consistent with hollow viscus rupture. Consult with Dr. Joe ordered and notified of x-ray results. Patient complains of generalized abdominal pain. No vomiting. Her breathing status is stable. She denies any chest pain. Her last bowel movement was yesterday but was liquid. Morning labs, EKG done and reviewed. Patient requires emergent surgery which is a high risk surgery but is cleared medically. Patient may require ICU for short-term if pulmonary status deteriorates. Dr. Owens is following the patient. IV Levaquin and Zosyn added for peritonitis. 04/18: Patient remains afebrile, heart rate running in the 60s - 70s, blood pressure 98/63, pulse ox 97% on 3 L. She is status post exploratory laparotomy and small bowel resection by Dr. Joe yesterday for perforated small bowel with abscess. She continues to be nothing by mouth with NG tube, she denies passing gas or having a bowel movement. Infectious disease is on consult, she'll continue Zosyn and levofloxacin. Budesonide was increased to 1 mg inhalation twice a day, methylprednisone was decreased to 20 mg every 12 hours. She continues to be followed by pulmonology as well. Hemoglobin 9.5, and WBC 18.5, BUN 20, creatinine 0.37. Objective - Vital Signs Vital signs: Vital Signs Temp 97.7 F 04/18/18 12:00 Pulse 69 04/18/18 12:00 Resp 20 04/18/18 12:00 BP 98/63 04/18/18 12:00 Pulse Ox 97 04/18/18 12:00 Intake & Output 04/17/18 04/18/18 04/18/18 17:59 06:59 18:59 Intake Total Output Total 730 Balance -730 Weight Intake: IV Intake, IV Titration Amount Ropivacaine 250 mg fentaNYL (PF) 625 mcg In Sodium Chloride 0.9% 188 ml @ Per Protocol EPIDURAL .Q0M PRN Rx#: [id number] Oral Output: Drainage 80 Right Lower Abdomen 80 Urine 650 Estimated Blood Loss Other: Voiding Method Indwelling Catheter # Voids - Constitutional General appearance: Present: average body habitus - EENT Eyes: Present: EOMI, PERRLA - Respiratory Respiratory: bilateral: diminished, negative: rales, rhonchi, wheezing - Cardiovascular Rhythm: regular Heart sounds: normal: S1, S2 - Gastrointestinal General gastrointestinal: Present: soft, tenderness. Absent: distended - Neurologic Neurologic: Present: CNII-XII intact. Absent: focal deficits - Musculoskeletal Musculoskeletal: Present: generalized weakness, strength equal bilaterally - Psychiatric Psychiatric: Present: A&O x's 3, appropriate affect - Labs CBC & Chem 7: 04/18/18 06:12 04/18/18 06:12 Labs: Abnormal Lab Results - Last 24 Hours (Table) 04/17/18 04/17/18 04/17/18 Range/Units 14:11 14:41 16:45 WBC (3.8-10.6) k/uL Hgb (11.4-16.0) gm/dL Hct (34.0-46.0) % MCH (25.0-35.0) pg MCHC (31.0-37.0) g/dL RDW (11.5-15.5) % Sodium (137-145) mmol/L Carbon Dioxide (22-30) mmol/L BUN (7-17) mg/dL Creatinine (0.52-1.04) mg/dL Glucose (74-99) mg/dL POC Glucose (mg/dL) 117 H 157 H (75-99) mg/dL Plasma Lactic Acid Jatin 2.3 H* (0.7-2.0) mmol/L AST (14-36) U/L Total Protein (6.3-8.2) g/dL Albumin (3.5-5.0) g/dL 04/17/18 04/18/18 04/18/18 Range/Units 20:46 05:56 06:12 WBC 18.5 H (3.8-10.6) k/uL Hgb 9.5 L D (11.4-16.0) gm/dL Hct 32.8 L (34.0-46.0) % MCH 23.9 L (25.0-35.0) pg MCHC 29.0 L (31.0-37.0) g/dL RDW 18.0 H (11.5-15.5) % Sodium (137-145) mmol/L Carbon Dioxide (22-30) mmol/L BUN (7-17) mg/dL Creatinine (0.52-1.04) mg/dL Glucose (74-99) mg/dL POC Glucose (mg/dL) 121 H 166 H (75-99) mg/dL Plasma Lactic Acid Jatin (0.7-2.0) mmol/L AST (14-36) U/L Total Protein (6.3-8.2) g/dL Albumin (3.5-5.0) g/dL 04/18/18 04/18/18 Range/Units 06:12 11:05 WBC (3.8-10.6) k/uL Hgb (11.4-16.0) gm/dL Hct (34.0-46.0) % MCH (25.0-35.0) pg MCHC (31.0-37.0) g/dL RDW (11.5-15.5) % Sodium 136 L (137-145) mmol/L Carbon Dioxide 37 H (22-30) mmol/L BUN 20 H (7-17) mg/dL Creatinine 0.37 L (0.52-1.04) mg/dL Glucose 158 H (74-99) mg/dL POC Glucose (mg/dL) 119 H (75-99) mg/dL Plasma Lactic Acid Jatin (0.7-2.0) mmol/L AST 11 L (14-36) U/L Total Protein 4.4 L (6.3-8.2) g/dL Albumin 2.5 L (3.5-5.0) g/dL Microbiology - Last 24 Hours (Table) 04/17/18 13:30 Gram Stain - Preliminary Abdomen Wound Culture - Preliminary Gram Neg Bacilli Beta Hemolytic Strep Group C 04/17/18 13:30 Anaerobic Culture - Preliminary Abdomen Assessment and Plan Plan: 1. Acute on Chronic hypoxemic and hypercarbic respiratory failure due to acute exacerbation of COPD with obstructive sleep apnea. Off BiPAP, continue patient on oxygen, DuoNeb 3 mL nebulization 4 times every day, Pulmicort 1 mg nebulization twice every day, Solu-Medrol decreased to 20 mg every 12 hours, discontinue Lasix, discontinue potassium supplement, pulmonary consultation with Dr. Bautista is appreciated 2. Metabolic encephalopathy due to acute hypercarbic respiratory failure with elevated CO2. Off BiPAP continue IV fluid resuscitation. 3. Contraction alkalosis. Discontinue Lasix continue IV fluid 4. Acute COPD exacerbation. Continue treatment as in paragraph #1 continue with Solu-Medrol 20 mg IV push every 12 hours, DuoNeb 3 mL nebulization 4 times every day, Pulmicort 1 mg nebulization twice every day. 5. Acute pneumoperitoneum with viscous rupture and acute peritonitis. Status post drainage of abscess exploratory laparotomy with small bowel resection and end-to-end anastomoses. Surgery on consult, continue with levofloxacin and Zosyn, infectious disease consult appreciated. Continue with NG and IV fluids. 6. Chronic diastolic heart failure. Continue metoprolol 25 mg orally twice every day, verapamil 40 mg orally 3 times every day, discontinue Lasix and potassium supplement. 7. Hypertension and hypertensive cardiovascular disease. Continue metoprolol 25 mg orally twice every day and verapamil 40 mg orally 3 times every day. 8. History of asthma. Continue treatment as in paragraph #1 9. GERD. Continue PPI. 10. Depression. Continue Cymbalta 20 mg orally once every day. 11. Anxiety. Continue Xanax as needed. 12. Chronic low back pain. Continue pain medicine with caution. 13. Obstructive sleep apnea. Continue with current BiPAP. 14. Diabetes mellitus type 2. Continue metformin 1000 mg orally twice every day. Along with a sliding scale insulin. 15. DVT prophylaxis. Continue patient on Lovenox 40 mg subcutaneously every 24 hours. 16. GI prophylaxis. Continue PPI. 17. Patient is full code. Discharge plan: Home with [facility] The above impression and plan of care have been discussed and directed by signing physician. Sonja Spears nurse practitioner acting as scribe for signing physician.
[2018-04-18 16:16] LABS: Glucose,Whole Blood 112 mg/dL (75-99)
[2018-04-18] MEDS: BUDESONIDE 1 MG/2 ML NEBU INHALATION SCH (19:10)
[2018-04-18 20:20] LABS: Glucose,Whole Blood 92 mg/dL (75-99)
[2018-04-18] MEDS: HYDROcodone/APAP 5-325MG 1 EACH TAB PO PRN (20:33)
[2018-04-18] MEDS: MONTELUKAST 10 MG TAB PO SCH (20:33)
[2018-04-18] MEDS ORDERED: methylPREDNISolone SOD SUCCI 40 MG/ML 1 ML VIAL IV SCH (21:00)
[2018-04-18] MEDS: MELATONIN 5 MG TABLET PO SCH (22:49)
--- NOTE | 2018-04-18 23:55 | PN ---
PROGRESS NOTE DATE OF SERVICE: 04/18/2018. REASON FOR FOLLOWUP: Abdominal abscess with perforation. INTERVAL HISTORY: The patient is currently afebrile. The patient is breathing comfortably. Denies having any chest pain or any cough. No abdominal pain. No nausea, no vomiting. Currently with NG suction. EXAMINATION: VITAL SIGNS: Blood pressure is 125/61 with a pulse of 80, temperature is 97.4, is 96% on 3 L nasal cannula. GENERAL DESCRIPTION: The patient is a middle aged female lying in bed in no distress. HEENT: Shows slight pallor. No scleral icterus. Oral mucosa dry. LUNGS: Clear to auscultation anteriorly. HEART: S1, S2. Regular rate and rhythm. LABS: Hemoglobin 9.5, white count of 18.5 with of 20. Creatinine 0.37. Abdominal culture with gram negative bacilli and group B strep. DIAGNOSTIC IMPRESSION AND PLAN: Patient with abdominal abscess with possible small-bowel , status post drainage and . The patient is currently covered with Zosyn, should cover both gram-negative as well as strep. Monitor closely. Continue supportive care. MMODL / IJN: [id number] /
[2018-04-19] MEDS: ROPIVACAINE 250 MG, fentaNYL (PF) 625 MCG in SODIUM CHLORIDE 0.9% 188 ML EPIDURAL PRN (03:13)
[2018-04-19] MEDS: PIPERACILLIN-TAZOBACTAM 3.375 GM in SODIUM CHLORIDE 0.9% 100 ML IVPB SCH ×3 (03:16→20:21)
[2018-04-19] MEDS: SODIUM CHLORIDE 0.9% 1,000 ML IV SCH ×3 (03:16→20:17)
[2018-04-19] MEDS: metFORMIN 500 MG TAB PO SCH ×2 (04:15→17:06)
[2018-04-19 05:50] LABS: Glucose,Whole Blood 117 mg/dL (75-99)
[2018-04-19] MEDS: INSULIN ASPART (NovoLOG) 100 UNIT/ML VIAL SQ SCH ×4 (05:57→20:17)
[2018-04-19 06:41] LABS: Anisocytosis Slight; Basophils % (A) 0 %; Eosinophils % (A) 0 %; HCT 34.3 % (34.0-46.0); HGB 9.5 gm/dL (11.4-16.0); Hypochromasia Marked; Lymphocytes # (A) 0.4 k/uL (1.0-4.8); Lymphocytes % (A) 2 %; MCH 23.3 pg (25.0-35.0); MCHC 27.7 g/dL (31.0-37.0); Mean Platelet Volume 6.6; Monocytes # (A) 0.8 k/uL (0-1.0); Monocytes % (A) 5 %; Neutrophils # (A) 16.8 k/uL (1.3-7.7); Neutrophils % (A) 92 %; Platelet Count 311 k/uL (150-450); RBC 4.08 m/uL (3.80-5.40); RDW 17.7 % (11.5-15.5); WBC 18.1 k/uL (3.8-10.6)
[2018-04-19 06:52] LABS: Anion Gap 3 mmol/L; Blood Urea Nitrogen 19 mg/dL (7-17); Calcium 8.7 mg/dL (8.4-10.2); Carbon Dioxide 35 mmol/L (22-30); Chloride 101 mmol/L (98-107); Glucose 113 mg/dL (74-99); Potassium 3.9 mmol/L (3.5-5.1); Sodium 139 mmol/L (137-145)
[2018-04-19] MEDS: BUDESONIDE 1 MG/2 ML NEBU INHALATION SCH ×2 (07:32→19:13)
[2018-04-19] MEDS: IPRATROPIUM-ALBUTEROL 3 ML NEB INHALATION SCH ×4 (07:32→19:13)
--- NOTE | 2018-04-19 08:51 | P.PN ---
Subjective Progress Note Date: 04/19/18 Patient seen and examined at bedside. States that she is having some abdominal cramping. She admits to having flatus. She has no additional complaints at this time. Lopez catheter in place. Epidural in place. Objective - Vital Signs Vital signs: Vital Signs Temp 97.7 F 04/19/18 04:00 Pulse 83 04/19/18 04:00 Resp 18 04/19/18 04:00 BP 103/65 04/19/18 04:00 Pulse Ox 95 04/19/18 04:00 Intake & Output 04/18/18 04/19/18 04/19/18 18:59 06:59 18:59 Intake Total 879.4 Output Total 1540 Balance -1540 879.4 Weight 66.9 kg Intake: Intake, IV Titration 879.4 Amount Piperacillin-Tazobactam 3 100 .375 gm In Sodium Chloride 0.9% 100 ml @ 25 mls/hr IVPB Q8H [facility] Rx#: [id number] Ropivacaine 250 mg 179.4 fentaNYL (PF) 625 mcg In Sodium Chloride 0.9% 188 ml @ Per Protocol EPIDURAL .Q0M PRN Rx#: [id number] Sodium Chloride 0.9% 1, 600 000 ml @ 125 mls/hr IV . Q8H [facility] Rx#:[id number] Output: Gastric Drainage 500 Drainage 120 Right Lower Abdomen 120 Urine 920 Other: Voiding Method Indwelling Catheter Indwelling Catheter - Constitutional General appearance: Present: cooperative, no acute distress - EENT Eyes: Present: PERRLA - Respiratory Details: No difficulty with respiration - Gastrointestinal Gastrointestinal Comment(s): Soft, appropriate tenderness, nondistended, no rebound, no guarding - Psychiatric Psychiatric: Present: A&O x's 3 - Labs CBC & Chem 7: 04/19/18 06:14 04/19/18 06:14 Labs: Abnormal Lab Results - Last 24 Hours (Table) 04/18/18 04/18/18 04/19/18 Range/Units 11:05 16:15 05:49 WBC (3.8-10.6) k/uL Hgb (11.4-16.0) gm/dL MCH (25.0-35.0) pg MCHC (31.0-37.0) g/dL RDW (11.5-15.5) % Neutrophils # (1.3-7.7) k/uL Lymphocytes # (1.0-4.8) k/uL Carbon Dioxide (22-30) mmol/L BUN (7-17) mg/dL Creatinine (0.52-1.04) mg/dL Glucose (74-99) mg/dL POC Glucose (mg/dL) 119 H 112 H 117 H (75-99) mg/dL 04/19/18 04/19/18 Range/Units 06:14 06:14 WBC 18.1 H (3.8-10.6) k/uL Hgb 9.5 L (11.4-16.0) gm/dL MCH 23.3 L (25.0-35.0) pg MCHC 27.7 L (31.0-37.0) g/dL RDW 17.7 H (11.5-15.5) % Neutrophils # 16.8 H (1.3-7.7) k/uL Lymphocytes # 0.4 L (1.0-4.8) k/uL Carbon Dioxide 35 H (22-30) mmol/L BUN 19 H (7-17) mg/dL Creatinine 0.32 L (0.52-1.04) mg/dL Glucose 113 H (74-99) mg/dL POC Glucose (mg/dL) (75-99) mg/dL Microbiology - Last 24 Hours (Table) 04/17/18 13:30 Gram Stain - Preliminary Abdomen Wound Culture - Preliminary Gram Neg Bacilli Beta Hemolytic Strep Group C Assessment and Plan Plan: 62yo female postoperative day #2 from expiratory laparotomy and small bowel resection - Continue IV fluids - Continue antibiotics - Patient admits to flatus. We will clamp NG tube and started trial of clear liquid diet today - Epidural in place, continue Lopez catheter while epidural is in place - I did discuss the case with medicine. Plan is for weaning from steroids to improve with wound healing
--- NOTE | 2018-04-19 09:10 | P.PN ---
Progress Note - Text Progress Note Date: 04/19/18 Postoperative day # 2 status post , Explaratory laparotomy/epidural catheter placed for postoperative analgesia, patient doing well epidural site okay, patient currently on combination of epidural infusion solution of Ropivacaine 0.0625% and Fentany 2,5 g per mL the infusion rate at 7 ml per hour , patient had no motor deficit epidural site okay , vital signs stable ,VAS 2-3 /10 , complaining about the nasogastric tube Assessment and plan= post operative day #2 patient doing well ,pain well controlled , there is no anesthesia related complications, we'll discontinue the epidural catheter tomorrow morning
[2018-04-19] MEDS: CYANOCOBALAMIN 500 MCG TAB PO SCH (09:15)
[2018-04-19] MEDS: VERAPAMIL 40 MG TAB PO SCH ×3 (09:16→20:21)
[2018-04-19] MEDS: METOPROLOL TARTRATE 25 MG TAB PO SCH ×2 (09:16→20:21)
[2018-04-19] MEDS: ATORVASTATIN 10 MG TAB PO SCH (09:16)
[2018-04-19] MEDS: methylPREDNISolone SOD SUCCI 40 MG/ML 1 ML VIAL IV SCH (09:17)
[2018-04-19] MEDS: PANTOPRAZOLE 40 MG/10 ML VIAL IVP SCH ×2 (09:17→20:21)
[2018-04-19] MEDS: ENOXAPARIN 40 MG/0.4 ML SYRINGE SQ SCH (09:18)
[2018-04-19] MEDS: DULoxetine HCL 20 MG CAPSULE.DR PO SCH (09:21)
--- NOTE | 2018-04-19 10:17 | P.PN ---
Subjective Progress Note Date: 04/19/18 04/19/2018: Patient seen and examined. Patient has NG tube to low intermittent suction. She is asking for ice tea. She is currently tolerating ice chips. The patient states that she does have some mild abdominal pain but states it is much better than it was. She states her breathing is at baseline. She is currently on 3 L nasal cannula. She denies any cough, chest pains, fever, chills. Objective - Vital Signs Vital signs: Vital Signs Temp 98 F 04/19/18 08:30 Pulse 87 04/19/18 08:30 Resp 16 04/19/18 08:30 BP 126/64 04/19/18 08:30 Pulse Ox 98 04/19/18 08:30 Intake & Output 04/18/18 04/19/18 04/19/18 18:59 06:59 18:59 Intake Total 879.4 Output Total 1540 Balance -1540 879.4 Weight 66.9 kg Intake: Intake, IV Titration 879.4 Amount Piperacillin-Tazobactam 3 100 .375 gm In Sodium Chloride 0.9% 100 ml @ 25 mls/hr IVPB Q8H [facility] Rx#: [id number] Ropivacaine 250 mg 179.4 fentaNYL (PF) 625 mcg In Sodium Chloride 0.9% 188 ml @ Per Protocol EPIDURAL .Q0M PRN Rx#: [id number] Sodium Chloride 0.9% 1, 600 000 ml @ 125 mls/hr IV . Q8H [facility] Rx#:[id number] Output: Gastric Drainage 500 Drainage 120 Right Lower Abdomen 120 Urine 920 Other: Voiding Method Indwelling Catheter Indwelling Catheter - Exam Gen.: Patient is alert and oriented 3, no acute distress Cardiovascular: Regular rate and rhythm, S1/S2 Lungs: Diminished breath sounds bilaterally Abdomen: Mildly diffusely tender to palpation, NGT in place, DILLAN drain in place Extremities: No edema - Labs CBC & Chem 7: 04/19/18 06:14 04/19/18 06:14 Labs: Abnormal Lab Results - Last 24 Hours (Table) 04/18/18 04/18/18 04/19/18 Range/Units 11:05 16:15 05:49 WBC (3.8-10.6) k/uL Hgb (11.4-16.0) gm/dL MCH (25.0-35.0) pg MCHC (31.0-37.0) g/dL RDW (11.5-15.5) % Neutrophils # (1.3-7.7) k/uL Lymphocytes # (1.0-4.8) k/uL Carbon Dioxide (22-30) mmol/L BUN (7-17) mg/dL Creatinine (0.52-1.04) mg/dL Glucose (74-99) mg/dL POC Glucose (mg/dL) 119 H 112 H 117 H (75-99) mg/dL 04/19/18 04/19/18 Range/Units 06:14 06:14 WBC 18.1 H (3.8-10.6) k/uL Hgb 9.5 L (11.4-16.0) gm/dL MCH 23.3 L (25.0-35.0) pg MCHC 27.7 L (31.0-37.0) g/dL RDW 17.7 H (11.5-15.5) % Neutrophils # 16.8 H (1.3-7.7) k/uL Lymphocytes # 0.4 L (1.0-4.8) k/uL Carbon Dioxide 35 H (22-30) mmol/L BUN 19 H (7-17) mg/dL Creatinine 0.32 L (0.52-1.04) mg/dL Glucose 113 H (74-99) mg/dL POC Glucose (mg/dL) (75-99) mg/dL Microbiology - Last 24 Hours (Table) 04/17/18 13:30 Gram Stain - Preliminary Abdomen Wound Culture - Preliminary Gram Neg Bacilli Beta Hemolytic Strep Group C Assessment and Plan Assessment: Acute on chronic hypoxic and hypercapnic respiratory failure Acute exacerbation of COPD and severe persistent asthma Acute tracheobronchitis s/p ex lap with small bowel resection due to perforation Encephalopathy, metabolic Respiratory acidosis compensated with metabolic alkalosis History of tobacco abuse Depression and anxiety Chronic back pain History migraines Osteoarthritis Chronic diastolic congestive heart failure Hypertension GERD DM2 Continue BiPAP nightly and as needed O2 to maintain saturation greater than or equal to 88% Solumedrol - discontinue Singulair Duo nebs Pulmicort Perforomist Tobacco cessation is to be continued Incentive spirometry and pulmonary hygiene GI and DVT prophylaxis: Lovenox and Protonix PT and OT, encourage ambulation Patient would benefit from rehab. She would also benefit from outpatient pulmonary rehab once able. Social work and case management for family/placement issues NGT and diet per surgery
[2018-04-19] MEDS: LEVOFLOXACIN 500MG-D5W PMX 500 MG in DEXTROSE/WATER 1 100ML.BAG IVPB SCH (11:26)
--- NOTE | 2018-04-19 11:46 | P.PN ---
Subjective Progress Note Date: 04/19/18 This is a 62-year-old female one of Dr. Benitez with a previous medical history significant for chronic hypoxemic respiratory failure oxygen dependent, severe COPD, chronic diastolic heart failure, asthma, sleep apnea on a CPAP, chronic low back pain, GERD, prior history of tobacco use and dependence, overactive bladder, migraine headaches and osteoporosis, patient came to the emergency department at [facility] via EMS because of left-sided chest tightness associated with mental status changes with increased confusion she had a blood gases in the ER that showed a pH of 7.34 pCO2 of 92 pO2 of 68 on FiO2 of 36% her bicarb was 45 and chloride was. Low patient was started on IV fluid and she was placed on a BiPAP she had improved however because of her presentation she was admitted to the hospital for evaluation pulmonary consultation was obtained from Dr. MELVIN Green. Patient was started on nebulized treatment as well as steroid and oxygen support as well. 04/16: Patient is seen and is followed by Dr. Owens. She is currently on BiPAP at 35% with pulse ox 92%. She is sleeping but awakens easily to verbal stimuli. She states she slept okay last night. She is passing gas and did have a bowel movement today. She's been afebrile, heart rate in the 80s and 90s, blood pressure 118/68. White count is normal, hemoglobin 10.1. Chloride 89, CO2 41, BUN 24 and creatinine 0.39. Capillary blood glucose running between 137 and 229. Xanax was added last night for anxiety. Dr. Owens is transitioning her Solu-Medrol down to 40 mg every 8 hours. 04/17: Patient has been afebrile, heart rate running in the 60s to 80s, blood pressure 133/84, pulse ox 95% on BiPAP. Blood sugars have been elevated secondary to steroids. Abdominal x-ray done this morning for abdominal pain shows moderate degree pneumoperitoneum consistent with hollow viscus rupture. Consult with Dr. Joe ordered and notified of x-ray results. Patient complains of generalized abdominal pain. No vomiting. Her breathing status is stable. She denies any chest pain. Her last bowel movement was yesterday but was liquid. Morning labs, EKG done and reviewed. Patient requires emergent surgery which is a high risk surgery but is cleared medically. Patient may require ICU for short-term if pulmonary status deteriorates. Dr. Owens is following the patient. IV Levaquin and Zosyn added for peritonitis. 04/18: Patient remains afebrile, heart rate running in the 60s - 70s, blood pressure 98/63, pulse ox 97% on 3 L. She is status post exploratory laparotomy and small bowel resection by Dr. Joe yesterday for perforated small bowel with abscess. She continues to be nothing by mouth with NG tube, she denies passing gas or having a bowel movement. Infectious disease is on consult, she'll contin ue Zosyn and levofloxacin. Budesonide was increased to 1 mg inhalation twice a day, methylprednisone was decreased to 20 mg every 12 hours. She continues to be followed by pulmonology as well. Hemoglobin 9.5, and WBC 18.5, BUN 20, creatinine 0.37. 04/19: Patient is passing some gas and has some abdominal pain. Patient remains on epidural for pain control as well as Lopez catheter. NG tube is to be clamped today and try trial of clear liquid diet. Solu-Medrol has been weaned down to 20 mg IV every 12 hours. She has been afebrile, heart rate in the 70s and 80s, blood pressure 126/64, pulse ox 90% on 3 L nasal cannula. White count 18, hemoglobin 9.5. BUN 19 and creatinine 0.3 to, CO2 35. Capillary blood glucose running between 92 and 117. Wound cultures positive for gram-negative b acilli and beta hemolytic strep group C. Patient is currently on Levaquin and Zosyn. Review of Systems Constitutional: Reports lethargy, Reports weakness, Denies anorexia, Denies chronic headaches, Denies chronic pain, Denies weight gain Ears, nose, mouth and throat: Denies dysphagia, Denies neck lump, Denies swelling in mouth, Denies swelling in throat Cardiovascular: Reports chest pain, Reports decreased exercise tolerance, Reports dyspnea on exertion, Reports shortness of breath, Denies lightheadedne ss, Denies orthopnea, Denies rapid heart beat, Denies syncope Respiratory: Reports cough, Reports cough with sputum, Reports continued dyspnea, Reports home oxygen, Reports sleep apnea, Reports wheezing, Denies congestion, Denies snoring Gastrointestinal: Reports abdominal pain, Denies BRBPR, Denies excessive gas, Denies melena, Denies nausea, Denies vomiting, reports flatulence Genitourinary: Denies dysuria, Denies hematuria Menstruation: Reports postmenopausal Musculoskeletal: Reports gait dysfunction, Denies myalgias Musculoskeletal: Integumentary: Denies pruritus, Denies rash Neurological: Reports confusion, Denies numbness, Denies weakness Psychiatric: Reports anxiety, Reports depression, Denies sadness/tearfulness, Denies sleep disturbances, Denies suicidal ideation Endocrine: Denies fatigue, Denies weight change Objective - Vital Signs Vital signs: Vital Signs Temp 98 F 04/19/18 08:30 Pulse 87 04/19/18 08:30 Resp 16 04/19/18 08:30 BP 126/64 04/19/18 08:30 Pulse Ox 98 04/19/18 08:30 Intake & Output 04/18/18 04/19/18 04/19/18 18:59 06:59 18:59 Intake Total 879.4 Output Total 1540 Balance -1540 879.4 Weight 66.9 kg Intake: Intake, IV Titration 879.4 Amount Piperacillin-Tazobactam 3 100 .375 gm In Sodium Chloride 0.9% 100 ml @ 25 mls/hr IVPB Q8H [facility] Rx#: [id number] Ropivacaine 250 mg 179.4 fentaNYL (PF) 625 mcg In Sodium Chloride 0.9% 188 ml @ Per Protocol EPIDURAL .Q0M PRN Rx#: [id number] Sodium Chloride 0.9% 1, 600 000 ml @ 125 mls/hr IV . Q8H [facility] Rx#:[id number] Output: Gastric Drainage 500 Drainage 120 Right Lower Abdomen 120 Urine 920 Other: Voiding Method Indwelling Catheter Indwelling Catheter - Exam General appearance: no distress at rest, thin - EENT Eyes: anicteric sclerae, EOMI, PERRLA, no ptosis, no scleral icterus, normal appearance ENT: hearing grossly normal, NA/AT, normal oropharynx, no thrush Ears: - Neck Neck: no lymphadenopathy, normal ROM, no rigidity, no stridor, no thyromegaly Carotids: - Respiratory Respiratory: bilateral: diminished, negative: rales, rhonchi, wheezing - Cardiovascular Heart sounds: normal: S1, S2 - Gastrointestinal General gastrointestinal: Abdomen is soft, nondistended, mild generalized tenderness, no rebound tenderness - Integumentary Integumentary: normal, normal turgor - Neurologic Neurologic: CNII-XII intact - Musculoskeletal Musculoskeletal: gait normal, generalized weakness, strength equal bilaterally - Psychiatric Psychiatric: A&O x's 3, appropriate affect, intact judgment & insight - Labs CBC & Chem 7: 04/19/18 06:14 04/19/18 06:14 Labs: Abnormal Lab Results - Last 24 Hours (Table) 04/18/18 04/18/18 04/19/18 Range/Units 11:05 16:15 05:49 WBC (3.8-10.6) k/uL Hgb (11.4-16.0) gm/dL MCH (25.0-35.0) pg MCHC (31.0-37.0) g/dL RDW (11.5-15.5) % Neutrophils # (1.3-7.7) k/uL Lymphocytes # (1.0-4.8) k/uL Carbon Dioxide (22-30) mmol/L BUN (7-17) mg/dL Creatinine (0.52-1.04) mg/dL Glucose (74-99) mg/dL POC Glucose (mg/dL) 119 H 112 H 117 H (75-99) mg/dL 04/19/18 04/19/18 Range/Units 06:14 06:14 WBC 18.1 H (3.8-10.6) k/uL Hgb 9.5 L (11.4-16.0) gm/dL MCH 23.3 L (25.0-35.0) pg MCHC 27.7 L (31.0-37.0) g/dL RDW 17.7 H (11.5-15.5) % Neutrophils # 16.8 H (1.3-7.7) k/uL Lymphocytes # 0.4 L (1.0-4.8) k/uL Carbon Dioxide 35 H (22-30) mmol/L BUN 19 H (7-17) mg/dL Creatinine 0.32 L (0.52-1.04) mg/dL Glucose 113 H (74-99) mg/dL POC Glucose (mg/dL) (75-99) mg/dL Microbiology - Last 24 Hours (Table) 04/17/18 13:30 Gram Stain - Preliminary Abdomen Wound Culture - Preliminary Gram Neg Bacilli Beta Hemolytic Strep Group C Assessment and Plan Plan: 1. Acute on chronic hypoxemic and hypercarbic respiratory failure due to acute exacerbation of COPD with obstructive sleep apnea. Continue BiPAP, continue patient on oxygen, DuoNeb 3 mL nebulization 4 times every day, Pulmicort 0.5 mg nebulization twice every day, Solu-Medrol decreased to 20 mg every 12 hours, discontinue Lasix, discontinue potassium supplement, IV fluid discontinued, pulmonary consultation with Dr. Abbasi is appreciated 2. Metabolic encephalopathy due to acute hypercarbic respiratory failure with elevated CO2. Continue BiPAP continue IV fluid resuscitation. 3. Contraction alkalosis. Discontinue Lasix continue IV fluid for the next 24 hours. 4. Acute COPD exacerbation. Continue treatment as in paragraph #1 continue with Solu-Medrol, DuoNeb 3 mL nebulization 4 times every day, Pulmicort 0.5mg nebulization twice every day. 5. Acute pneumoperitoneum with viscous rupture and acute peritonitis. Status post drainage of abscess exploratory laparotomy with small bowel resection and end-to-end anastomoses with Dr. Joe. NG tube to be clamped, nothing by mouth status to start clear liquids, continue Levaquin and Zosyn and for peritonitis. 6. Chronic diastolic heart failure. Continue metoprolol 25 mg orally twice every day, verapamil 40 mg orally 3 times every day, discontinue Lasix and pota ssium supplement. 7. Hypertension and hypertensive cardiovascular disease. Continue metoprolol 25 mg orally twice every day and verapamil 40 mg orally 3 times every day. 8. History of asthma, severe persistent with acute exacerbation. Continue treatment as in paragraph #1 9. GERD. Continue PPI. 10. Recurrent depression. Continue Cymbalta 20 mg orally once every day. 11. Generalized anxiety disorder. Continue Xanax as needed. 12. Chronic low back pain. Continue pain medicine with caution. 13. Obstructive sleep apnea. Continue with current BiPAP. 14. Diabetes mellitus type 2. Continue metformin 1000 mg orally twice every day. Along with a sliding scale insulin. 15. DVT prophylaxis. Continue patient on Lovenox 40 mg subcutaneously every 24 hours. 16. GI prophylaxis. Continue PPI. 17. Patient is full code. Discharge plan: Home with [facility]. PT and OT following Impression and plan of care have been directed as dictated by the signing physician. Belinda Convery nurse practitioner acting as scribe for signing physician.
--- NOTE | 2018-04-19 11:52 | P.CONS ---
History of Present Illness - Chief Complaint medical debility - History of Present Illness I had the opportunity to see patient for inpatient consultation with regard to medical debility. She was admitted to [facility] April 14 acute on chronic hypercapnic and hypoxic respiratory failure for which is seen by Dr. Owens. Patient abdominal x-ray consistent with small bowel viscous rupture. Seen by Dr. Joe one April 17 to perform resection of small bowel with reanastomosis. Abdominal x-ray consistent with pneumoperitoneum. Chest x-ray demonstrated small right pleural effusion. PT and OT prescribed. In fact patient being seen by PT now. Previous functional history as elicited patient: 62-year-old right-handed white female who is single lives in a first-floor apartment with daughter. Patient is retired/disabled. Daughter does the cooking and laundry and they don't own a car. Patient describes receives assistance for sitdown shower as well as with dressing. Uses 4 wheeled walker for gait. Denies tobacco or alcohol. Dr. Benitez is regular doctor is well sees Dr. MELVIN Green regularly. Family history of cardiac disease in father. Review of Systems Review of systems: ENT: Denies sneezes or discharge. Eyes: Denies discharge or photophobia. Cardiac: Denies chest pain or palpitation. Pulmonary: Denies cough or shortness of breath. Breast: Denies discharge or lumps. Gastrointestinal: Zach least mild abdominal discomfort or nausea. Genitourinary: Denies discharge or frequency. Musculoskeletal: Denies muscle or bone aches. Neurologic: generalized weaknessge. Endocrine: Denies shakes or sweats. Oncology: Denies cancers. Dermatologic: Denies rash, itching, pruritus. ALLERGY/immunology: Denies sneezes, rashes. Past Medical History Past Medical History: Asthma, Heart Failure, COPD, GERD/Reflux, Musculoskeletal Disorder, Osteoarthritis (OA), Pneumonia, Sleep Apnea/CPAP/BIPAP Additional Past Medical History / Comment(s): Bronhitis, chronic low back pain, TIMOTHY with CPAP, home O2 , past L kneecap fx, occasional dependent pedal edema, depression, gallbladder disease, chronic tobacco use and dependence, urinary incontinence, migraine headaches, osteoporosis, sciatica, peptic ulcer disease, urethritis,. History of Any Multi-Drug Resistant Organisms: None Reported Past Surgical History: Hernia Repair, Tubal Ligation Additional Past Surgical History / Comment(s): Bilateral inguinal hernia repairs, colonoscopy with benign polyypectomy, surgery for "pinched nerve in my R hip." Discectomy, right femur open reduction internal fixation. Past Anesthesia/Blood Transfusion Reactions: No Reported Reaction Past Psychological History: Depression Additional Psychological History / Comment(s): Pt resides with her krista in an apartment that has 4-5 steps. She uses a walker on occasion. She has a CPAP, nebulizer and home oxygen. She no longer drives, she uses senior transportation. Her daughter does most of the cooking and helps organize pt medication. Smoking Status: Former smoker Past Alcohol Use History: None Reported Additional Past Alcohol Use History / Comment(s): started smoking at age 20(1975) and quit 2017 was smoking 1.5 ppd Past Drug Use History: None Reported - Past Family History Father Family Medical History: Coronary Artery Disease (CAD) Additional Family Medical History / Comment(s): Father is 83 yrs old. He has had 2 vessel CABG and a pacer. Mother Family Medical History: Dementia Additional Family Medical History / Comment(s): Mother of dementia at the age of 78yrs. Brother(s) Family Medical History: No Reported History Sister(s) Family Medical History: No Reported History Additional Family Medical History / Comment(s): Patient has 2 children no major medical problems. Patient lives with her daughter Medications and Allergies Home Medications Medication Instructions Recorded Confirmed Type Cholecalciferol (Vitamin D3) 2,000 unit PO DAILY 10/31/16 04/15/18 History [Vitamin D3] DULoxetine HCL [Cymbalta] 20 mg PO DAILY 10/31/16 04/15/18 History Furosemide [Lasix] 20 mg PO DAILY 10/31/16 04/15/18 History Budesonide [Pulmicort] 0.5 mg INHALATION RT-BID #60 neb 11/04/16 04/15/18 Rx Montelukast [Singulair] 10 mg PO HS #30 tab 11/04/16 04/15/18 Rx Omeprazole Magnesium [PriLOSEC OTC] 20 mg PO DAILY #30 tablet. 11/04/16 04/15/18 Rx Ipratropium-Albuterol Nebulize 3 ml INHALATION RT-QID ampul.neb 02/23/1708/27 Rx [Duoneb 0.5 mg-3 mg/3 ml Soln] ALPRAZolam [Xanax] 0.25 mg PO TID 04/15/18 04/15/18 History Albuterol Inhaler [Ventolin Hfa 2 puff INHALATION RT-Q6H PRN 04/15/18 04/15/18 History Inhaler] Albuterol Nebulized (Conc) 2.5 mg INHALATION RT-QID 04/15/18 04/15/18 History [Ventolin Nebulized (Conc)] Atorvastatin [Lipitor] 10 mg PO DAILY 04/15/18 04/15/18 History Calcitonin Nasal [Fortical 1 spray NASAL DAILY 04/15/18 04/15/18 History (Miacalcin)] Cyanocobalamin (Vitamin B-12) 1,000 mcg PO DAILY 04/15/18 04/15/18 History [Vitamin B-12] HYDROcodone/APAP 5-325MG [[place] 1 tab PO TID PRN 04/15/18 04/15/18 History 5-325] Ipratropium [place] [Atrovent Hfa] 2 puff INHALATION RT-QID 04/15/18 04/15/18 History Metoprolol Tartrate [Lopressor] 25 mg PO BID 04/15/18 04/15/18 History Potassium Chloride ER [K-Dur 10] 10 meq PO DAILY 04/15/18 04/15/18 History Sucralfate [Carafate] 1 gm PO QID 04/15/18 04/15/18 History Verapamil HCl 40 mg PO TID 04/15/18 04/15/18 History metFORMIN HCL [Glucophage] 1,000 mg PO BID 04/15/18 04/15/18 History Allergies Allergy/AdvReac Type Severity Reaction Status Date / Time No Known Allergies Allergy Verified 04/14/18 18:50 Physical Exam Vitals: Vital Signs Temp Pulse Pulse Resp BP Pulse Ox 04/19/18 08:30 98 F 87 16 126/64 98 04/19/18 04:00 97.7 F 83 18 103/65 95 04/18/18 23:35 73 18 04/18/18 23:30 98.5 F 73 18 100/64 95 04/18/18 20:00 97.4 F L 80 18 125/61 96 04/18/18 16:00 97.9 F 67 20 109/68 94 L 04/18/18 12:00 97.7 F 69 20 98/63 97 Intake and Output 04/18/18 04/19/18 04/19/18 22:59 06:59 14:59 Intake Total 879.4 1000 Output Total 810 30 Balance -810 879.4 970 Intake: IV 1000 Sodium Chloride 0.9% 1, 1000 000 ml @ 125 mls/hr IV . Q8H [facility] Rx#:[id number] Intake, IV Titration 879.4 Amount Piperacillin-Tazobactam 3 100 .375 gm In Sodium Chloride 0.9% 100 ml @ 25 mls/hr IVPB Q8H [facility] Rx#: [id number] Ropivacaine 250 mg 179.4 fentaNYL (PF) 625 mcg In Sodium Chloride 0.9% 188 ml @ Per Protocol EPIDURAL .Q0M [facility] Rx#: [id number] Sodium Chloride 0.9% 1, 600 000 ml @ 125 mls/hr IV . Q8H [facility] Rx#:[id number] Output: Gastric Drainage 500 Drainage 40 30 Right Lower Abdomen 40 30 Urine 270 Other: Voiding Method Indwelling Catheter Indwelling Catheter Indwelling Catheter Weight 66.9 kg Skin: Good color, texture, turgor. General: Medium build and comfortable appearance.multiple lines including an NG tube. Head: Normocephalic, atraumatic. Eyes: Symmetric. Pupils equal round. Ears: Symmetric. Hearing within normal limits. Mouth: Clear. Neck: Supple. Carotid without bruit. Cardiac: Regular rate and rhythm. Lungs: Clear anteriorly and posteriorly. Abdomen: Soft active nontender. Extremities: Normal tone. Neurological: Mental status: Alert, cooperative, pleasant. Cranial nerves: Symmetric facial tone and trapezius. Motor: Normal strength and isolation all 4 limbs. Sensation: Intact throughout. DTRs: Symmetric and equal throughout. Mobility: Sits and stands with standby assistance. Results CBC & Chem 7: 04/19/18 06:14 04/19/18 06:14 Labs: Abnormal Lab Results - Last 24 Hours (Table) 04/18/18 04/19/18 04/19/18 Range/Units 16:15 05:49 06:14 WBC 18.1 H (3.8-10.6) k/uL Hgb 9.5 L (11.4-16.0) gm/dL MCH 23.3 L (25.0-35.0) pg MCHC 27.7 L (31.0-37.0) g/dL RDW 17.7 H (11.5-15.5) % Neutrophils # 16.8 H (1.3-7.7) k/uL Lymphocytes # 0.4 L (1.0-4.8) k/uL Carbon Dioxide (22-30) mmol/L BUN (7-17) mg/dL Creatinine (0.52-1.04) mg/dL Glucose (74-99) mg/dL POC Glucose (mg/dL) 112 H 117 H (75-99) mg/dL 04/19/18 Range/Units 06:14 WBC (3.8-10.6) k/uL Hgb (11.4-16.0) gm/dL MCH (25.0-35.0) pg MCHC (31.0-37.0) g/dL RDW (11.5-15.5) % Neutrophils # (1.3-7.7) k/uL Lymphocytes # (1.0-4.8) k/uL Carbon Dioxide 35 H (22-30) mmol/L BUN 19 H (7-17) mg/dL Creatinine 0.32 L (0.52-1.04) mg/dL Glucose 113 H (74-99) mg/dL POC Glucose (mg/dL) (75-99) mg/dL Microbiology - Last 24 Hours (Table) 04/17/18 13:30 Gram Stain - Final Abdomen Wound Culture - Final Escherichia coli Beta Hemolytic Strep Group C Assessment and Plan (1) Acute exacerbation of chronic obstructive airways disease Current Visit: Yes Status: Acute Code(s): J44.1 - CHRONIC OBSTRUCTIVE PULMONARY DISEASE W (ACUTE) EXACERBATION SNOMED Code(s): 710972989 Plan: impression: 1. Medical debility. 2. Acute on chronic hypoxic and hypercapnic respiratory failure. 3. Small bowel viscous rupture status post repair. 4. COPD/asthma. 5. Sleep apnea with CPAP. 6. Osteoarthritis. 7. History of CHF. 8. GERD. Comments and plan: PT and OT prescribed PT and faxing patient currently. We'll follow for safety concerns and possible need and benefit of inpatient rehab. Must determine if daughter has any specific goals for patient to return home.
[2018-04-19 12:01] LABS: Glucose,Whole Blood 115 mg/dL (75-99)
[2018-04-19] MEDS: ALPRAZolam 0.25 MG TAB PO PRN (12:40)
[2018-04-19 16:29] LABS: Glucose,Whole Blood 99 mg/dL (75-99)
[2018-04-19 20:14] LABS: Glucose,Whole Blood 102 mg/dL (75-99)
[2018-04-19] MEDS: MONTELUKAST 10 MG TAB PO SCH (20:21)
[2018-04-19] MEDS: MELATONIN 5 MG TABLET PO SCH (23:01)
[2018-04-19] MEDS: AMPICILLIN-SULBACTAM 3 GM in SODIUM CHLORIDE 0.9% 100 ML IVPB SCH (23:02)
--- NOTE | 2018-04-20 00:12 | PN ---
PROGRESS NOTE DATE OF SERVICE: 04/19/2018. REASON FOR FOLLOWUP: Abdominal abscess. INTERVAL HISTORY: The patient is currently afebrile. The patient is breathing comfortably. Denies having any chest pain or cough. Abdominal pain is currently controlled. No nausea, vomiting, or any diarrhea. PHYSICAL EXAMINATION: Blood pressure is 119/70 with a BUN of 82, temperature 98.1, she is 98% on 2 L nasal cannula. GENERAL DESCRIPTION: A middle aged female lying in bed in no distress. RESPIRATORY SYSTEM: Unlabored breathing. Clear to auscultation anteriorly. HEART: S1, S2. Regular rate and rhythm. ABDOMEN: Soft, minimal tenderness. No guarding or rigidity. EXTREMITIES: No edema of the feet. LABS: Hemoglobin 9.5, white count 18.9, BUN of 28, creatinine 0.32. Abdominal culture finalized with E coli. This is sensitive pathogen. DIAGNOSTIC IMPRESSION AND PLAN: Patient with abdominal abscess from small-bowel perforation, status post laparotomy and drainage of the abscess. Antibiotic will be adjusted to Unasyn 3 g every 6 hours. We will monitor her clinical course closely. Continue supportive care. MMODL / IJN: [id number] /
[2018-04-20] MEDS: SODIUM CHLORIDE 0.9% 1,000 ML IV SCH ×3 (03:31→17:31)
[2018-04-20 05:39] LABS: Glucose,Whole Blood 77 mg/dL (75-99)
[2018-04-20] MEDS: INSULIN ASPART (NovoLOG) 100 UNIT/ML VIAL SQ SCH ×4 (06:01→20:27)
[2018-04-20] MEDS: metFORMIN 500 MG TAB PO SCH ×2 (06:02→17:30)
[2018-04-20] MEDS: AMPICILLIN-SULBACTAM 3 GM in SODIUM CHLORIDE 0.9% 100 ML IVPB SCH ×4 (06:16→23:33)
[2018-04-20 07:06] LABS: Anisocytosis Slight; Basophils % (A) 0 %; Eosinophils # (A) 0.1 k/uL (0-0.7); Eosinophils % (A) 0 %; HCT 32.8 % (34.0-46.0); HGB 9.1 gm/dL (11.4-16.0); Hypochromasia Marked; Lymphocytes # (A) 0.8 k/uL (1.0-4.8); Lymphocytes % (A) 5 %; MCH 23.7 pg (25.0-35.0); MCHC 27.7 g/dL (31.0-37.0); MCV 85.4 fL (80.0-100.0); Mean Platelet Volume 6.3; Monocytes % (A) 6 %; Neutrophils # (A) 13.7 k/uL (1.3-7.7); Neutrophils % (A) 87 %; Platelet Count 280 k/uL (150-450); RBC 3.84 m/uL (3.80-5.40); RDW 17.5 % (11.5-15.5); WBC 15.8 k/uL (3.8-10.6)
[2018-04-20 07:16] LABS: Anion Gap 4 mmol/L; Blood Urea Nitrogen 12 mg/dL (7-17); Calcium 8.4 mg/dL (8.4-10.2); Carbon Dioxide 33 mmol/L (22-30); Chloride 101 mmol/L (98-107); Glucose 63 mg/dL (74-99); Potassium 3.3 mmol/L (3.5-5.1); Sodium 138 mmol/L (137-145)
--- NOTE | 2018-04-20 07:21 | P.PN ---
Progress Note - Text Progress Note Date: 04/20/18 Anesthesia epidural rounds Postoperative day # 3 status post , Explaratory laparotomy Patient denies any pain or deficits epidural infusion solution of Ropivacaine 0.0625% and Fentany 2,5 g per mL the infusion rate at 7 ml per hour epidural site looks clean dry and intact vital signs stable We will discontinue catheter tomorrow hold Lovenox dose prior to discontinuation of catheter
[2018-04-20] MEDS: BUDESONIDE 1 MG/2 ML NEBU INHALATION SCH ×2 (07:53→20:16)
[2018-04-20] MEDS: IPRATROPIUM-ALBUTEROL 3 ML NEB INHALATION SCH ×4 (07:53→20:16)
[2018-04-20 07:58] LABS: ABG HCO3 50 mmol/L (21-25); ABG PCO2 92 mmHg (35-45)
[2018-04-20] MEDS ORDERED: POTASSIUM CHLORIDE ER 20 MEQ TAB.ER PO STA (09:05)
[2018-04-20] MEDS: VERAPAMIL 40 MG TAB PO SCH ×3 (09:39→23:32)
[2018-04-20] MEDS: DULoxetine HCL 20 MG CAPSULE.DR PO SCH (09:45)
[2018-04-20] MEDS: ATORVASTATIN 10 MG TAB PO SCH (09:45)
[2018-04-20] MEDS: CYANOCOBALAMIN 500 MCG TAB PO SCH (09:46)
[2018-04-20] MEDS: PANTOPRAZOLE 40 MG/10 ML VIAL IVP SCH ×2 (09:46→20:25)
--- NOTE | 2018-04-20 09:52 | PN ---
PROGRESS NOTE The patient was seen on 04/20/2018. Patient has been hemodynamically stable. She is less short of breath. She seems somewhat pale today. She has been having some gas. No clear bowel movement. She is starting to take clear liquids. PHYSICAL EXAMINATION: On physical examination, blood pressure is 94/57, respiratory rate of 20, pulse rate of 89, temperature 98.6, O2 saturation on 3 L by nasal cannula is 97%. HEENT reveals pupils are equal. No jugular venous distention. Chest is clear. Cardiovascular system reveals an S1, S2. Abdomen is soft. There is no edema. White count of 15.8, hemoglobin of 9.1. Sodium 138, potassium 3.3, chloride 101, bicarb 33, BUN 12, creatinine 0.29. IMPRESSION AT THIS TIME: 1. Chronic obstructive pulmonary disease with acute exacerbation. 2. Asthma. 3. Abdominal pain secondary to small bowel perforation, status post drainage of abscess as well as small bowel resection with anastomoses. Continue antibiotics per ID. Continue IV steroids, but at a low dose. Continue bronchodilators. See is she is a candidate for inpatient rehab. Depending on how she does, we should make further changes to her care. MMODL / IJN: [id number] /
[2018-04-20 11:18] LABS: Glucose,Whole Blood 116 mg/dL (75-99)
--- NOTE | 2018-04-20 12:43 | P.PN ---
Subjective Progress Note Date: 04/20/18 This is a 62-year-old female one of Dr. Benitez with a previous medical history significant for chronic hypoxemic respiratory failure oxygen dependent, severe COPD, chronic diastolic heart failure, asthma, sleep apnea on a CPAP, chronic low back pain, GERD, prior history of tobacco use and dependence, overactive bladder, migraine headaches and osteoporosis, patient came to the emergency department at [facility] via EMS because of left-sided chest tightness associated with mental status changes with increased confusion she had a blood gases in the ER that showed a pH of 7.34 pCO2 of 92 pO2 of 68 on FiO2 of 36% her bicarb was 45 and chloride was. Low patient was started on IV fluid and she was placed on a BiPAP she had improved however because of her presentation she was admitted to the hospital for evaluation pulmonary consultation was obtained from Dr. MELVIN Green. Patient was started on nebulized treatment as well as steroid and oxygen support as well. 04/16: Patient is seen and is followed by Dr. Owens. She is currently on BiPAP at 35% with pulse ox 92%. She is sleeping but awakens easily to verbal stimuli. She states she slept okay last night. She is passing gas and did have a bowel movement today. She's been afebrile, heart rate in the 80s and 90s, blood pressure 118/68. White count is normal, hemoglobin 10.1. Chloride 89, CO2 41, BUN 24 and creatinine 0.39. Capillary blood glucose running between 137 and 229. Xanax was added last night for anxiety. Dr. Owens is transitioning her Solu-Medrol down to 40 mg every 8 hours. 04/17: Patient has been afebrile, heart rate running in the 60s to 80s, blood pressure 133/84, pulse ox 95% on BiPAP. Blood sugars have been elevated secondary to steroids. Abdominal x-ray done this morning for abdominal pain shows moderate degree pneumoperitoneum consistent with hollow viscus rupture. Consult with Dr. Joe ordered and notified of x-ray results. Patient complains of generalized abdominal pain. No vomiting. Her breathing status is stable. She denies any chest pain. Her last bowel movement was yesterday but was liquid. Morning labs, EKG done and reviewed. Patient requires emergent surgery which is a high risk surgery but is cleared medically. Patient may require ICU for short-term if pulmonary status deteriorates. Dr. Owens is following the patient. IV Levaquin and Zosyn added for peritonitis. 04/18: Patient remains afebrile, heart rate running in the 60s - 70s, blood pressure 98/63, pulse ox 97% on 3 L. She is status post exploratory laparotomy and small bowel resection by Dr. Joe yesterday for perforated small bowel with abscess. She continues to be nothing by mouth with NG tube, she denies passing gas or having a bowel movement. Infectious disease is on consult, she'll contin ue Zosyn and levofloxacin. Budesonide was increased to 1 mg inhalation twice a day, methylprednisone was decreased to 20 mg every 12 hours. She continues to be followed by pulmonology as well. Hemoglobin 9.5, and WBC 18.5, BUN 20, creatinine 0.37. 04/19: Patient is passing some gas and has some abdominal pain. Patient remains on epidural for pain control as well as Lopez catheter. NG tube is to be clamped today and try trial of clear liquid diet. Solu-Medrol has been weaned down to 20 mg IV every 12 hours. She has been afebrile, heart rate in the 70s and 80s, blood pressure 126/64, pulse ox 90% on 3 L nasal cannula. White count 18, hemoglobin 9.5. BUN 19 and creatinine 0.3 to, CO2 35. Capillary blood glucose running between 92 and 117. Wound cultures positive for gram-negative b acilli and beta hemolytic strep group C. Patient is currently on Levaquin and Zosyn. 04/20: The patient's NG tube was removed yesterday and she is on clear liquid diet. She states she is passing all but gas. She does have good bowel sounds. Potassium is 3.3 will be replaced this morning. Blood pressures on the low side for which metoprolol decreased and verapamil with parameters is in place. Heart rate is running 60s to 80s, patient has been afebrile. Anesthesia is planning to discontinue epidural catheter tomorrow and Lovenox dose to be held prior to the catheter removal. We have asked nursing to call anesthesia to see if epidural catheter can be removed today. WBC 15.8, hemoglobin 9.1. Creatinine 0.29. Blood sugars running anywhere between [address] Burt has changed ant ibiotics to Unasyn. Pulmonary has discontinued Solu-Medrol. Patient has been seen by Dr. Roach and patient is too good for inpatient rehab. Discharge plan to be determined Review of Systems Constitutional: Reports lethargy, Reports weakness, Denies anorexia, Denies chronic headaches, Denies chronic pain, Denies weight gain Ears, nose, mouth and throat: Denies dysphagia, Denies neck lump, Denies swelling in mouth, Denies swelling in throat Cardiovascular: Reports chest pain, Reports decreased exercise tolerance, Reports dyspnea on exertion, Reports shortness of breath, Denies lightheadedness, Denies orthopnea, Denies rapid heart beat, Denies syncope Respiratory: Reports cough, Reports cough with sputum, Reports continued dyspnea, Reports home oxygen, Reports sleep apnea, Reports wheezing, Denies congestion, Denies snoring Gastrointestinal: Reports abdominal pain, Denies excessive gas, Denies melena, Denies nausea, Denies vomiting, reports flatulence Genitourinary: Denies dysuria, Denies hematuria Menstruation: Reports postmenopausal Musculoskeletal: Reports gait dysfunction, Denies myalgias Musculoskeletal: Integumentary: Denies pruritus, Denies rash Neurological: Reports confusion, Denies numbness, Denies weakness Psychiatric: Reports anxiety, Reports depression, Denies sadness/tearfulness, Denies sleep disturbances, Denies suicidal ideation Endocrine: Denies fatigue, Denies weight change Objective - Vital Signs Vital signs: Vital Signs Temp 98.6 F 04/20/18 08:00 Pulse 76 04/20/18 08:10 Resp 20 04/20/18 08:00 BP 94/57 04/20/18 08:00 Pulse Ox 97 04/20/18 08:00 Intake & Output 04/19/18 04/20/18 04/20/18 18:59 06:59 18:59 Intake Total 2580 600 480 Output Total 40 1575 Balance 2540 -975 480 Weight 70 kg Intake: IV 2000 600 Sodium Chloride 0.9% 1, 1999 600 000 ml @ 125 mls/hr IV . Q8H [facility] Rx#:[id number] Intake, IV Titration 100 Amount Piperacillin-Tazobactam 3 100 .375 gm In Sodium Chloride 0.9% 100 ml @ 25 mls/hr IVPB Q8H [facility] Rx#: [id number] Oral 480 480 Output: Drainage 40 Right Lower Abdomen 40 Urine 1575 Other: Voiding Method Indwelling Catheter Indwelling Catheter # Voids 1 - Exam General appearance: no distress at rest, thin - EENT Eyes: anicteric sclerae, EOMI, PERRLA, no ptosis, no scleral icterus, normal appearance ENT: hearing grossly normal, NA/AT, normal oropharynx, no thrush Ears: - Neck Neck: no lymphadenopathy, normal ROM, no rigidity, no stridor, no thyromegaly Carotids: - Respiratory Respiratory: bilateral: diminished, negative: rales, rhonchi, wheezing - Cardiovascular Heart sounds: normal: S1, S2 - Gastrointestinal General gastrointestinal: Abdomen is soft, nondistended, mild generalized tenderness, no rebound tenderness, normal bowel sounds - Integumentary Integumentary: normal, normal turgor - Neurologic Neurologic: CNII-XII intact - Musculoskeletal Musculoskeletal: gait normal, generalized weakness, strength equal bilaterally - Psychiatric Psychiatric: A&O x's 3, appropriate affect, intact judgment & insight - Labs CBC & Chem 7: 04/20/18 06:35 04/20/18 06:35 Labs: Abnormal Lab Results - Last 24 Hours (Table) 04/14/18 04/19/18 04/19/18 Range/Units 17:29 11:59 20:13 WBC (3.8-10.6) k/uL Hgb (11.4-16.0) gm/dL Hct (34.0-46.0) % MCH (25.0-35.0) pg MCHC (31.0-37.0) g/dL RDW (11.5-15.5) % Neutrophils # (1.3-7.7) k/uL Lymphocytes # (1.0-4.8) k/uL ABG pCO2 92 H* (35-45) mmHg ABG HCO3 50 H* (21-25) mmol/L Potassium (3.5-5.1) mmol/L Carbon Dioxide (22-30) mmol/L Creatinine (0.52-1.04) mg/dL Glucose (74-99) mg/dL POC Glucose (mg/dL) 115 H 102 H (75-99) mg/dL 04/20/18 04/20/18 Range/Units 06:35 06:35 WBC 15.8 H (3.8-10.6) k/uL Hgb 9.1 L (11.4-16.0) gm/dL Hct 32.8 L (34.0-46.0) % MCH 23.7 L (25.0-35.0) pg MCHC 27.7 L (31.0-37.0) g/dL RDW 17.5 H (11.5-15.5) % Neutrophils # 13.7 H (1.3-7.7) k/uL Lymphocytes # 0.8 L (1.0-4.8) k/uL ABG pCO2 (35-45) mmHg ABG HCO3 (21-25) mmol/L Potassium 3.3 L (3.5-5.1) mmol/L Carbon Dioxide 33 H (22-30) mmol/L Creatinine 0.29 L (0.52-1.04) mg/dL Glucose 63 L (74-99) mg/dL POC Glucose (mg/dL) (75-99) mg/dL Microbiology - Last 24 Hours (Table) 04/17/18 13:30 Gram Stain - Final Abdomen Wound Culture - Final Escherichia coli Beta Hemolytic Strep Group C Assessment and Plan Plan: 1. Acute on chronic hypoxemic and hypercarbic respiratory failure due to acute exacerbation of COPD with obstructive sleep apnea. Continue BiPAP, continue patient on oxygen, DuoNeb 3 mL nebulization 4 times every day, Pulmicort 0.5 mg nebulization twice every day, Solu-Medrol discontinued, pulmonary consultation with Dr. Abbasi is appreciated 2. Metabolic encephalopathy due to acute hypercarbic respiratory failure with elevated CO2. Continue BiPAP continue IV fluid resuscitation. 3. Contraction alkalosis. Discontinue Lasix continue IV fluid for the next 24 hours. 4. Acute COPD exacerbation. Continue treatment as in paragraph #1 continue with Solu-Medrol, DuoNeb 3 mL nebulization 4 times every day, Pulmicort 0.5mg nebulization twice every day. 5. Acute pneumoperitoneum with viscous rupture and acute peritonitis. Status post drainage of abscess exploratory laparotomy with small bowel resection and end-to-end anastomoses with Dr. Joe. NG tube to be clamped, nothing by mouth status to start clear liquids, continue Unasyn and for peritonitis. 6. Chronic diastolic heart failure. Continue metoprolol 25 mg orally twice every day, verapamil 40 mg orally 3 times every day, discontinue Lasix and potassium supplement. 7. Hypertension and hypertensive cardiovascular disease. Continue metoprolol 12.5 mg orally twice every day and verapamil 40 mg orally 3 times every day. 8. History of asthma, severe persistent with acute exacerbation. Continue treatment as in paragraph #1 9. GERD. Continue PPI. 10. Recurrent depression. Continue Cymbalta 20 mg orally once every day. 11. Generalized anxiety disorder. Continue Xanax as needed. 12. Chronic low back pain. Continue pain medicine with caution. 13. Obstructive sleep apnea. Continue with current BiPAP. 14. Diabetes mellitus type 2. Continue metformin 1000 mg orally twice every day. Along with a sliding scale insulin. 15. DVT prophylaxis. Continue patient on Lovenox 40 mg subcutaneously every 24 hours. 16. GI prophylaxis. Continue PPI. 17. Patient is full code. Discharge plan: Home with [facility]. PT and OT following Impression and plan of care have been directed as dictated by the signing physician. Belinda Marte nurse practitioner acting as scribe for signing az [email or web address].
[2018-04-20] MEDS: HYDROcodone/APAP 5-325MG 1 EACH TAB PO PRN ×2 (13:48→20:24)
[2018-04-20] MEDS: METOPROLOL TARTRATE 12.5 MG TAB PO SCH ×2 (13:49→20:27)
[2018-04-20] MEDS: ENOXAPARIN 40 MG/0.4 ML SYRINGE SQ SCH (16:02)
[2018-04-20 16:06] LABS: Glucose,Whole Blood 136 mg/dL (75-99)
--- NOTE | 2018-04-20 17:05 | P.PN ---
Subjective Progress Note Date: 04/20/18 Patient seen and examined at bedside. States she continues to have flatus. Tolerating diet. Complains of some abdominal pain mainly in the right side of her abdomen. Denies any nausea vomiting. Denies bowel movement. Objective - Vital Signs Vital signs: Vital Signs Temp 99 F 04/20/18 15:27 Pulse 86 04/20/18 15:27 Resp 16 04/20/18 15:27 BP 96/61 04/20/18 15:27 Pulse Ox 99 04/20/18 15:27 Intake & Output 04/19/18 04/20/18 04/20/18 18:59 06:59 18:59 Intake Total 2580 600 1302 Output Total 40 1575 80 Balance 2540 -975 1222 Weight 70 kg Intake: IV 2000 600 Sodium Chloride 0.9% 1, 2000 600 000 ml @ 125 mls/hr IV . Q8H [facility] Rx#:[id number] Intake, IV Titration 100 Amount Piperacillin-Tazobactam 3 100 .375 gm In Sodium Chloride 0.9% 100 ml @ 25 mls/hr IVPB Q8H [facility] Rx#: [id number] Oral 480 1302 Output: Drainage 40 80 Right Lower Abdomen 40 80 Urine 1575 Other: Voiding Method Indwelling Catheter Indwelling Catheter Indwelling Catheter # Voids 1 - Constitutional General appearance: Present: cooperative, no acute distress - EENT Eyes: Present: PERRLA - Respiratory Details: No difficulty with respiration - Gastrointestinal Gastrointestinal Comment(s): Soft, appropriate tenderness, nondistended, no rebound, no guarding, DILLAN drain in place with serosanguinous output - Psychiatric Psychiatric: Present: A&O x's 3 - Labs CBC & Chem 7: 04/20/18 06:35 04/20/18 06:35 Labs: Abnormal Lab Results - Last 24 Hours (Table) 04/14/18 04/19/18 04/20/18 Range/Units 17:29 20:13 06:35 WBC 15.8 H (3.8-10.6) k/uL Hgb 9.1 L (11.4-16.0) gm/dL Hct 32.8 L (34.0-46.0) % MCH 23.7 L (25.0-35.0) pg MCHC 27.7 L (31.0-37.0) g/dL RDW 17.5 H (11.5-15.5) % Neutrophils # 13.7 H (1.3-7.7) k/uL Lymphocytes # 0.8 L (1.0-4.8) k/uL ABG pCO2 92 H* (35-45) mmHg ABG HCO3 50 H* (21-25) mmol/L Potassium (3.5-5.1) mmol/L Carbon Dioxide (22-30) mmol/L Creatinine (0.52-1.04) mg/dL Glucose (74-99) mg/dL POC Glucose (mg/dL) 102 H (75-99) mg/dL 04/20/18 04/20/18 04/20/18 Range/Units 06:35 11:17 16:03 WBC (3.8-10.6) k/uL Hgb (11.4-16.0) gm/dL Hct (34.0-46.0) % MCH (25.0-35.0) pg MCHC (31.0-37.0) g/dL RDW (11.5-15.5) % Neutrophils # (1.3-7.7) k/uL Lymphocytes # (1.0-4.8) k/uL ABG pCO2 (35-45) mmHg ABG HCO3 (21-25) mmol/L Potassium 3.3 L (3.5-5.1) mmol/L Carbon Dioxide 33 H (22-30) mmol/L Creatinine 0.29 L (0.52-1.04) mg/dL Glucose 63 L (74-99) mg/dL POC Glucose (mg/dL) 116 H 136 H (75-99) mg/dL Microbiology - Last 24 Hours (Table) 04/17/18 13:30 Anaerobic Culture - Final Abdomen Anaerobic Gm Negative Bacilli Anaerobic Gm Negative Bacilli#2 Assessment and Plan Plan: 62yo female postoperative day #3 from expiratory laparotomy and small bowel resection - Decreased rate of IV fluids - Continue antibiotics - Continue clear liquid diet - Epidural in place, continue Lopez catheter while epidural is in place - Continue medical management
[2018-04-20 20:21] LABS: Glucose,Whole Blood 141 mg/dL (75-99)
[2018-04-20] MEDS: MELATONIN 5 MG TABLET PO SCH (20:24)
[2018-04-20] MEDS: MONTELUKAST 10 MG TAB PO SCH (20:25)
[2018-04-20] MEDS: ALPRAZolam 0.25 MG TAB PO PRN (20:42)
[2018-04-20] MEDS: METOPROLOL TARTRATE 25 MG TAB PO SCH (22:51)
--- NOTE | 2018-04-20 23:04 | PN ---
PROGRESS NOTE DATE OF SERVICE: 04/20/2018. REASON FOR FOLLOWUP: Abdominal abscess. INTERVAL HISTORY: The patient is currently afebrile. The patient is breathing more comfortably. Denies any chest pain, abdominal pain, no nausea, no vomiting. No diarrhea. PHYSICAL EXAMINATION: Blood pressure 115/63 with a pulse of 91, temperature 98.5, she is 97% on 2 L nasal cannula. General description is a middle-aged female lying in bed in no distress. Respiratory system: Unlabored breathing with decreased breath sounds. No wheeze. Heart S1-S2 regular rate and rhythm. Abdomen: Soft, mildly distended. No guarding or rigidity. Extremities: No edema of the feet. LABS: Hemoglobin is 9.1, white count 15.8, BUN of 12, creatinine 0.29. Abdomen culture with an E coli and also anaerobic gram-negative bacilli. DIAGNOSTIC IMPRESSION AND PLAN: The patient with abdominal abscess and small post laparotomy had resection of the bowel and drainage of the abscess. Culture with Strep E coli anaerobic gram negative bacilli with white count coming down slowly. We will add Flagyl. Unasyn was advised on discharge. If that is not an option and the patient white count improved, the plan will be for oral Cipro and Flagyl for 10 days with close outpatient followup. Continue supportive care. MMODL / IJN: [id number] /
[2018-04-20] MEDS: metroNIDAZOLE 500 MG TAB PO SCH (23:33)
[2018-04-20] MEDS: ACETAMINOPHEN TAB 325 MG TAB PO PRN (23:38)
[2018-04-21] MEDS: HYDROcodone/APAP 5-325MG 1 EACH TAB PO PRN ×3 (02:40→20:51)
[2018-04-21 05:42] LABS: Glucose,Whole Blood 89 mg/dL (75-99)
[2018-04-21] MEDS: SODIUM CHLORIDE 0.9% 1,000 ML IV SCH ×2 (06:28→15:29)
[2018-04-21 06:37] LABS: Anisocytosis Slight; Basophils % (A) 0 %; Eosinophils # (A) 0.1 k/uL (0-0.7); Eosinophils % (A) 1 %; HCT 30.8 % (34.0-46.0); HGB 8.4 gm/dL (11.4-16.0); Hypochromasia Marked; Lymphocytes # (A) 0.8 k/uL (1.0-4.8); Lymphocytes % (A) 7 %; MCH 22.8 pg (25.0-35.0); MCHC 27.4 g/dL (31.0-37.0); MCV 83.5 fL (80.0-100.0); Mean Platelet Volume 6.3; Monocytes # (A) 0.9 k/uL (0-1.0); Monocytes % (A) 8 %; Neutrophils # (A) 9.5 k/uL (1.3-7.7); Neutrophils % (A) 82 %; Platelet Count 298 k/uL (150-450); RBC 3.69 m/uL (3.80-5.40); RDW 17.7 % (11.5-15.5); WBC 11.6 k/uL (3.8-10.6)
[2018-04-21 06:42] LABS: Anion Gap 1 mmol/L; Blood Urea Nitrogen 3 mg/dL (7-17); Chloride 98 mmol/L (98-107); Glucose 79 mg/dL (74-99); Potassium 3.1 mmol/L (3.5-5.1); Sodium 139 mmol/L (137-145)
[2018-04-21] MEDS: AMPICILLIN-SULBACTAM 3 GM in SODIUM CHLORIDE 0.9% 100 ML IVPB SCH ×3 (06:43→18:40)
[2018-04-21] MEDS: INSULIN ASPART (NovoLOG) 100 UNIT/ML VIAL SQ SCH ×4 (06:52→22:20)
[2018-04-21] MEDS: metFORMIN 500 MG TAB PO SCH ×2 (06:53→18:41)
[2018-04-21 06:55] LABS: Carbon Dioxide 40 mmol/L (22-30)
[2018-04-21] MEDS: BUDESONIDE 1 MG/2 ML NEBU INHALATION SCH ×2 (07:24→20:40)
[2018-04-21] MEDS: IPRATROPIUM-ALBUTEROL 3 ML NEB INHALATION SCH ×4 (07:24→20:40)
[2018-04-21] MEDS: PANTOPRAZOLE 40 MG/10 ML VIAL IVP SCH ×2 (09:07→20:52)
[2018-04-21] MEDS: ATORVASTATIN 10 MG TAB PO SCH (09:07)
[2018-04-21] MEDS: DULoxetine HCL 20 MG CAPSULE.DR PO SCH (09:07)
[2018-04-21] MEDS: metroNIDAZOLE 500 MG TAB PO SCH ×3 (09:07→22:00)
[2018-04-21] MEDS: METOPROLOL TARTRATE 12.5 MG TAB PO SCH (09:07)
[2018-04-21] MEDS: CYANOCOBALAMIN 500 MCG TAB PO SCH (09:07)
[2018-04-21] MEDS: VERAPAMIL 40 MG TAB PO SCH ×3 (09:07→22:56)
[2018-04-21] MEDS: ENOXAPARIN 40 MG/0.4 ML SYRINGE SQ SCH (09:08)
--- NOTE | 2018-04-21 09:32 | PN ---
PROGRESS NOTE DATE OF SERVICE: 04/21/2018 She has some increase in her shortness of breath. She has been having gas, but no discrete bowel movements. On physical examination, blood pressure is 114/64, respiratory rate of 16, pulse rate of 74, temperature 97.7, O2 saturation on 2 L by nasal cannula is 98%. HEENT reveals pupils that are equal. Chest reveals decreased breath sounds with expiratory wheeze. Cardiovascular system is S1, S2. Abdomen is soft. Bowel sounds are heard. There is no edema. White count is 11.6, hemoglobin of 8.4, sodium 139, potassium 3.1, chloride 98, bicarb 40, BUN 3, creatinine 0.26. IMPRESSION: 1. Chronic obstructive pulmonary disease with acute exacerbation. 2. Asthma. 3. Abdominal abscess with perforated small bowel, status post partial resection of the small bowel with primary anastomosis. Continue bronchodilators, aerosolized steroids, Unasyn. May need to reinstitute systemic steroids if respiratory status start to worsen. For now, will keep her on the inhaled steroids. MMODL / IJN: [id number] /
[2018-04-21 11:33] LABS: Glucose,Whole Blood 130 mg/dL (75-99)
[2018-04-21] MEDS ORDERED: PHENYLEPHRINE 0.25% NASAL SPRA 1 SPRAY/ML NASAL PRN (11:49)
[2018-04-21] MEDS: POTASSIUM CHLORIDE ER 20 MEQ TAB.ER PO SCH ×2 (12:44→14:35)
--- NOTE | 2018-04-21 14:37 | P.PN ---
Subjective Progress Note Date: 04/21/18 This is a 62-year-old female one of Dr. Benitez with a previous medical history significant for chronic hypoxemic respiratory failure oxygen dependent, severe COPD, chronic diastolic heart failure, asthma, sleep apnea on a CPAP, chronic low back pain, GERD, prior history of tobacco use and dependence, overactive bladder, migraine headaches and osteoporosis, patient came to the emergency department at [facility] via EMS because of left-sided chest tightness associated with mental status changes with increased confusion she had a blood gases in the ER that showed a pH of 7.34 pCO2 of 92 pO2 of 68 on FiO2 of 36% her bicarb was 45 and chloride was. Low patient was started on IV fluid and she was placed on a BiPAP she had improved however because of her presentation she was admitted to the hospital for evaluation pulmonary consultation was obtained from Dr. MELVIN Green. Patient was started on nebulized treatment as well as steroid and oxygen support as well. 04/16: Patient is seen and is followed by Dr. Owens. She is currently on BiPAP at 35% with pulse ox 92%. She is sleeping but awakens easily to verbal stimuli. She states she slept okay last night. She is passing gas and did have a bowel movement today. She's been afebrile, heart rate in the 80s and 90s, blood pressure 118/68. White count is normal, hemoglobin 10.1. Chloride 89, CO2 41, BUN 24 and creatinine 0.39. Capillary blood glucose running between 137 and 229. Xanax was added last night for anxiety. Dr. Owens is transitioning her Solu-Medrol down to 40 mg every 8 hours. 04/17: Patient has been afebrile, heart rate running in the 60s to 80s, blood pressure 133/84, pulse ox 95% on BiPAP. Blood sugars have been elevated secondary to steroids. Abdominal x-ray done this morning for abdominal pain shows moderate degree pneumoperitoneum consistent with hollow viscus rupture. Consult with Dr. Joe ordered and notified of x-ray results. Patient complains of generalized abdominal pain. No vomiting. Her breathing status is stable. She denies any chest pain. Her last bowel movement was yesterday but was liquid. Morning labs, EKG done and reviewed. Patient requires emergent surgery which is a high risk surgery but is cleared medically. Patient may require ICU for short-term if pulmonary status deteriorates. Dr. Owens is following the patient. IV Levaquin and Zosyn added for peritonitis. 04/18: Patient remains afebrile, heart rate running in the 60s - 70s, blood pressure 98/63, pulse ox 97% on 3 L. She is status post exploratory laparotomy and small bowel resection by Dr. Joe yesterday for perforated small bowel with abscess. She continues to be nothing by mouth with NG tube, she denies passing gas or having a bowel movement. Infectious disease is on consult, she'll contin ue Zosyn and levofloxacin. Budesonide was increased to 1 mg inhalation twice a day, methylprednisone was decreased to 20 mg every 12 hours. She continues to be followed by pulmonology as well. Hemoglobin 9.5, and WBC 18.5, BUN 20, creatinine 0.37. 04/19: Patient is passing some gas and has some abdominal pain. Patient remains on epidural for pain control as well as Lopez catheter. NG tube is to be clamped today and try trial of clear liquid diet. Solu-Medrol has been weaned down to 20 mg IV every 12 hours. She has been afebrile, heart rate in the 70s and 80s, blood pressure 126/64, pulse ox 90% on 3 L nasal cannula. White count 18, hemoglobin 9.5. BUN 19 and creatinine 0.3 to, CO2 35. Capillary blood glucose running between 92 and 117. Wound cultures positive for gram-negative b acilli and beta hemolytic strep group C. Patient is currently on Levaquin and Zosyn. 04/20: The patient's NG tube was removed yesterday and she is on clear liquid diet. She states she is passing all but gas. She does have good bowel sounds. Potassium is 3.3 will be replaced this morning. Blood pressures on the low side for which metoprolol decreased and verapamil with parameters is in place. Heart rate is running 60s to 80s, patient has been afebrile. Anesthesia is planning to discontinue epidural catheter tomorrow and Lovenox dose to be held prior to the catheter removal. We have asked nursing to call anesthesia to see if epidural catheter can be removed today. WBC 15.8, hemoglobin 9.1. Creatinine 0.29. Blood sugars running anywhere between [address] Burt has changed ant ibiotics to Unasyn. Pulmonary has discontinued Solu-Medrol. Patient has been seen by Dr. Roach and patient is too good for inpatient rehab. Discharge plan to be determined 04/21: Patient is having epistaxis bilaterally. Pressure is being applied and Kit-Synephrine spray added. Lovenox will be discontinued. The patient will need to be on PAO hose and SCDs for DVT prophylaxis. Patient is currently tolerating her clear liquid diet and will be advanced to full liquid. Respiratory status is currently stable. Patient has been off of steroids. Repeat lab work shows a white count of 11.6, hemoglobin 8.4 platelet count 298. Sodium 139, potassium 3.1, chloride 98, CO2 40, creatinine 0.26. Potassium will be replaced. IV fluids will be decreased to 50 mL per hour. Anticipate patient will be ready for discharge by tomorrow. Midline has been ordered for IV antibiotics which Dr. Burt is managing with Harrietsystephany for 10 day. patient registration manager is making arrangements for home IV antibiotics. Review of Systems Constitutional: Reports lethargy, Reports weakness, Denies anorexia, Denies chronic headaches, Denies chronic pain, Denies weight gain Ears, nose, mouth and throat: Denies dysphagia, Denies neck lump, Denies swelling in mouth, Denies swelling in throat, reports epistaxis Cardiovascular: Reports chest pain, Reports decreased exercise tolerance, Reports dyspnea on exertion, Reports shortness of breath, Denies lightheadedness, Denies orthopnea, Denies rapid heart beat, Denies syncope Respiratory: Reports cough, Reports cough with sputum, Reports continued dyspnea, Reports home oxygen, Reports sleep apnea, Reports wheezing, Denies congestion, Denies snoring Gastrointestinal: Reports abdominal pain, Denies excessive gas, Denies melena, Denies nausea, Denies vomiting, reports flatulence Genitourinary: Denies dysuria, Denies hematuria Menstruation: Reports postmenopausal Musculoskeletal: Reports gait dysfunction, Denies myalgias Musculoskeletal: Integumentary: Denies pruritus, Denies rash Neurological: Reports confusion, Denies numbness, Denies weakness Psychiatric: Reports anxiety, Reports depression, Denies sadness/tearfulness, Denies sleep disturbances, Denies suicidal ideation Endocrine: Denies fatigue, Denies weight change Objective - Vital Signs Vital signs: Vital Signs Temp 97.7 F 04/21/18 05:36 Pulse 104 H 04/21/18 07:35 Resp 16 04/21/18 07:35 BP 114/64 04/21/18 05:36 Pulse Ox 95 04/21/18 07:24 Intake & Output 04/20/18 04/21/18 04/21/18 18:59 06:59 18:59 Intake Total 1302 1410 600 Output Total 1170 550 Balance 132 860 600 Weight 70 kg Intake: IV 830 Invasive Line 3 20 Invasive Line 5 10 Sodium Chloride 0.9% 1, 800 000 ml @ 100 mls/hr IV . Q10H [facility] Rx#:[id number] Intake, IV Titration 100 Amount Ampicillin-Sulbactam 3 gm 100 In Sodium Chloride 0.9% 100 ml @ 200 mls/hr IVPB Q6HR [facility] Rx#:[id number] Oral 1302 480 600 Output: Drainage 170 50 Right Lower Abdomen 170 50 Urine 1000 500 Uretheral (Lopez) 1000 Other: Voiding Method Indwelling Catheter Bedside Commode # Voids 2 - Exam General appearance: no distress at rest, thin - EENT Eyes: anicteric sclerae, EOMI, PERRLA, no ptosis, no scleral icterus, normal appearance ENT: hearing grossly normal, NA/AT, normal oropharynx, no thrush, bilateral epistaxis - Neck Neck: no lymphadenopathy, normal ROM, no rigidity, no stridor, no thyromegaly Carotids: - Respiratory Respiratory: bilateral: diminished, negative: rales, rhonchi, wheezing - Cardiovascular Heart sounds: normal: S1, S2 - Gastrointestinal General gastrointestinal: Abdomen is soft, nondistended, mild generalized tenderness, no rebound tenderness, normal bowel sounds - Integumentary Integumentary: normal, normal turgor - Neurologic Neurologic: CNII-XII intact - Musculoskeletal Musculoskeletal: gait normal, generalized weakness, strength equal bilaterally - Psychiatric Psychiatric: A&O x's 3, appropriate affect, intact judgment & insight - Labs CBC & Chem 7: 04/21/18 05:54 04/21/18 05:54 Labs: Abnormal Lab Results - Last 24 Hours (Table) 04/20/18 04/20/18 04/20/18 Range/Units 11:17 16:03 20:19 WBC (3.8-10.6) k/uL RBC (3.80-5.40) m/uL Hgb (11.4-16.0) gm/dL Hct (34.0-46.0) % MCH (25.0-35.0) pg MCHC (31.0-37.0) g/dL RDW (11.5-15.5) % Neutrophils # (1.3-7.7) k/uL Lymphocytes # (1.0-4.8) k/uL Potassium (3.5-5.1) mmol/L Carbon Dioxide (22-30) mmol/L BUN (7-17) mg/dL Creatinine (0.52-1.04) mg/dL POC Glucose (mg/dL) 116 H 136 H 141 H (75-99) mg/dL Calcium (8.4-10.2) mg/dL 04/21/18 04/21/18 Range/Units 05:54 05:54 WBC 11.6 H (3.8-10.6) k/uL RBC 3.69 L (3.80-5.40) m/uL Hgb 8.4 L (11.4-16.0) gm/dL Hct 30.8 L (34.0-46.0) % MCH 22.8 L (25.0-35.0) pg MCHC 27.4 L (31.0-37.0) g/dL RDW 17.7 H (11.5-15.5) % Neutrophils # 9.5 H (1.3-7.7) k/uL Lymphocytes # 0.8 L (1.0-4.8) k/uL Potassium 3.1 L (3.5-5.1) mmol/L Carbon Dioxide 40 H (22-30) mmol/L BUN 3 L (7-17) mg/dL Creatinine 0.26 L (0.52-1.04) mg/dL POC Glucose (mg/dL) (75-99) mg/dL Calcium 8.0 L (8.4-10.2) mg/dL Microbiology - Last 24 Hours (Table) 04/17/18 13:30 Anaerobic Culture - Final Abdomen Anaerobic Gm Negative Bacilli Anaerobic Gm Negative Bacilli#2 Assessment and Plan Plan: 1. Acute on chronic hypoxemic and hypercarbic respiratory failure due to acute exacerbation of COPD with obstructive sleep apnea. Continue BiPAP, continue patient on oxygen, DuoNeb 3 mL nebulization 4 times every day, Pulmicort 0.5 mg nebulization twice every day, Solu-Medrol discontinued, pulmonary consultation with Dr. Abbasi is appreciated 2. Metabolic encephalopathy due to acute hypercarbic respiratory failure with elevated CO2. Continue BiPAP continue IV fluid resuscitation. 3. Contraction alkalosis. Discontinue Lasix continue IV fluid for the next 24 hours. 4. Acute COPD exacerbation. Continue treatment as in paragraph #1 continue with Solu-Medrol, DuoNeb 3 mL nebulization 4 times every day, Pulmicort 0.5mg nebulization twice every day. 5. Acute pneumoperitoneum with viscous rupture and acute peritonitis. Status post drainage of abscess exploratory laparotomy with small bowel resection and end-to-end anastomoses with Dr. Joe. NG tube to be clamped, nothing by mouth status to start clear liquids, continue Unasyn and for peritonitis. 6. Chronic diastolic heart failure. Continue metoprolol 25 mg orally twice every day, verapamil 40 mg orally 3 times every day, discontinue Lasix and potassium supplement. 7. Hypertension and hypertensive cardiovascular disease. Continue metoprolol 12.5 mg orally twice every day and verapamil 40 mg orally 3 times every day. 8. History of asthma, severe persistent with acute exacerbation. Continue treatment as in paragraph #1 9. GERD. Continue PPI. 10. Recurrent depression. Continue Cymbalta 20 mg orally once every day. 11. Generalized anxiety disorder. Continue Xanax as needed. 12. Chronic low back pain. Continue pain medicine with caution. 13. Obstructive sleep apnea. Continue with current BiPAP. 14. Diabetes mellitus type 2. Continue metformin 1000 mg orally twice every day. Along with a sliding scale insulin. 15. DVT prophylaxis. Lovenox discontinued due to epistaxis. SCDs and PAO hose. 16. GI prophylaxis. Continue PPI. 17. Epistaxis bilaterally. Kit-Synephrine spray ordered, Lovenox discontinued. Patient is full code. Discharge plan: Home with [facility] on . PT and OT following Impression and plan of care have been directed as dictated by the signing physician. Belinda Marte nurse practitioner acting as scribe for signing physician.
[2018-04-21 14:47] VITALS: BMI 24.9
--- NOTE | 2018-04-21 15:53 | PN ---
PROGRESS NOTE DATE OF SERVICE: 04/21/2018 REASON FOR FOLLOWUP: Abdominal abscess. INTERVAL HISTORY: The patient is currently afebrile. The patient is breathing comfortably. Denies having any chest pain or any cough. Abdominal pain has improved. Still has output in her DILLAN. Did have problem with a nosebleed this morning. PHYSICAL EXAMINATION: Blood pressure is 135/73 with a pulse of 104, temperature 97.7. She is 93% on 2 L nasal cannula. General description is a middle-aged female up in the chair in no distress. RESPIRATORY SYSTEM: Unlabored breathing. Clear to auscultation. HEART: S1, S2. Regular rate and rhythm. ABDOMEN: Soft. No tenderness. LABS: Hemoglobin 8.4, white count 11.6, BUN of 3, creatinine 0.26. Abdominal culture with E coli and beta-hemolytic Streptococcus and anaerobic gram-negative bacilli. DIAGNOSTIC IMPRESSION AND PLAN: Patient with abdominal abscess from a perforated small bowel, currently on Unasyn. At discharge antibiotic could be either Rocephin 2 grams daily with oral Flagyl or Unasyn. Plan of care was discussed with the admitting team, which is currently working on discharge and discharge antibiotics. Continue with supportive care. MMODL / IJN: [id number] /
--- NOTE | 2018-04-21 16:03 | P.PN ---
Subjective Progress Note Date: 04/21/18 Patient seen and examined at bedside. States she is having some abdominal pain on the incision. Epidural was removed. Lopez catheter was removed. Tolerating clear liquid diet. Denies nausea vomiting. Objective - Vital Signs Vital signs: Vital Signs Temp 97.7 F 04/21/18 12:00 Pulse 96 04/21/18 15:43 Resp 18 04/21/18 12:00 BP 135/73 04/21/18 12:00 Pulse Ox 93 L 04/21/18 12:00 Intake & Output 04/20/18 04/21/18 04/21/18 18:59 06:59 18:59 Intake Total 1302 1410 1200 Output Total 1170 550 640 Balance 132 860 560 Weight 70 kg 70 kg Intake: IV 830 600 Invasive Line 3 20 Invasive Line 5 10 Sodium Chloride 0.9% 1, 800 600 000 ml @ 50 mls/hr IV . Q20H [facility] Rx#:[id number] Intake, IV Titration 100 Amount Ampicillin-Sulbactam 3 gm 100 In Sodium Chloride 0.9% 100 ml @ 200 mls/hr IVPB Q6HR [facility] Rx#:[id number] Oral 1302 480 600 Output: Drainage 170 50 140 Right Lower Abdomen 170 50 140 Urine 1000 500 500 Uretheral (Lopez) 1000 Other: Voiding Method Indwelling Catheter Bedside Commode Bedside Commode # Voids 2 1 - Constitutional General appearance: Present: cooperative, no acute distress - Respiratory Details: No difficulty with respiration - Gastrointestinal Gastrointestinal Comment(s): Soft, appropriate tenderness, nondistended, no rebound, no guarding - Musculoskeletal Musculoskeletal: Present: generalized weakness - Psychiatric Psychiatric: Present: A&O x's 3 - Labs CBC & Chem 7: 04/21/18 05:54 04/21/18 05:54 Labs: Abnormal Lab Results - Last 24 Hours (Table) 04/20/18 04/20/18 04/21/18 Range/Units 16:03 20:19 05:54 WBC 11.6 H (3.8-10.6) k/uL RBC 3.69 L (3.80-5.40) m/uL Hgb 8.4 L (11.4-16.0) gm/dL Hct 30.8 L (34.0-46.0) % MCH 22.8 L (25.0-35.0) pg MCHC 27.4 L (31.0-37.0) g/dL RDW 17.7 H (11.5-15.5) % Neutrophils # 9.5 H (1.3-7.7) k/uL Lymphocytes # 0.8 L (1.0-4.8) k/uL Potassium (3.5-5.1) mmol/L Carbon Dioxide (22-30) mmol/L BUN (7-17) mg/dL Creatinine (0.52-1.04) mg/dL POC Glucose (mg/dL) 136 H 141 H (75-99) mg/dL Calcium (8.4-10.2) mg/dL 04/21/18 04/21/18 Range/Units 05:54 11:24 WBC (3.8-10.6) k/uL RBC (3.80-5.40) m/uL Hgb (11.4-16.0) gm/dL Hct (34.0-46.0) % MCH (25.0-35.0) pg MCHC (31.0-37.0) g/dL RDW (11.5-15.5) % Neutrophils # (1.3-7.7) k/uL Lymphocytes # (1.0-4.8) k/uL Potassium 3.1 L (3.5-5.1) mmol/L Carbon Dioxide 40 H (22-30) mmol/L BUN 3 L (7-17) mg/dL Creatinine 0.26 L (0.52-1.04) mg/dL POC Glucose (mg/dL) 130 H (75-99) mg/dL Calcium 8.0 L (8.4-10.2) mg/dL Assessment and Plan Plan: 62yo female postoperative day #4 from expiratory laparotomy and small bowel resection - Decrease rate of IV fluids - Continue antibiotics - Advance to full liquid diet - Epidural removed, Lopez catheter removed - Continue medical management
[2018-04-21 17:01] LABS: Glucose,Whole Blood 196 mg/dL (75-99)
[2018-04-21] MEDS: METOPROLOL TARTRATE 25 MG TAB PO SCH (18:41)
[2018-04-21] MEDS: MELATONIN 5 MG TABLET PO SCH (20:50)
[2018-04-21] MEDS: MONTELUKAST 10 MG TAB PO SCH (20:52)
[2018-04-21 21:08] LABS: Glucose,Whole Blood 135 mg/dL (75-99)
[2018-04-21] MEDS: ACETAMINOPHEN TAB 325 MG TAB PO PRN (23:05)
[2018-04-21] MEDS: ALPRAZolam 0.25 MG TAB PO PRN (23:09)
[2018-04-22] MEDS: AMPICILLIN-SULBACTAM 3 GM in SODIUM CHLORIDE 0.9% 100 ML IVPB SCH ×5 (00:09→23:25)
[2018-04-22] MEDS: HYDROcodone/APAP 5-325MG 1 EACH TAB PO PRN ×4 (03:15→23:21)
[2018-04-22 06:05] LABS: Glucose,Whole Blood 101 mg/dL (75-99)
[2018-04-22] MEDS: INSULIN ASPART (NovoLOG) 100 UNIT/ML VIAL SQ SCH ×4 (06:07→21:34)
[2018-04-22] MEDS: METOPROLOL TARTRATE 25 MG TAB PO SCH ×2 (06:21→17:34)
[2018-04-22] MEDS: metFORMIN 500 MG TAB PO SCH ×2 (06:21→17:34)
[2018-04-22] MEDS: SODIUM CHLORIDE 0.9% 1,000 ML IV SCH (06:21)
[2018-04-22 06:38] LABS: Anisocytosis Slight; Basophils % (A) 0 %; Eosinophils # (A) 0.1 k/uL (0-0.7); Eosinophils % (A) 1 %; Hypochromasia Marked; Lymphocytes # (A) 0.9 k/uL (1.0-4.8); Lymphocytes % (A) 7 %; MCH 22.6 pg (25.0-35.0); MCHC 27.7 g/dL (31.0-37.0); MCV 81.7 fL (80.0-100.0); Mean Platelet Volume 6.5; Microcytosis Slight; Monocytes % (A) 8 %; Neutrophils % (A) 82 %; Platelet Count 288 k/uL (150-450); RBC 3.54 m/uL (3.80-5.40); RDW 17.7 % (11.5-15.5); WBC 12.1 k/uL (3.8-10.6)
[2018-04-22 06:47] LABS: Anion Gap 1 mmol/L; Blood Urea Nitrogen 4 mg/dL (7-17); Calcium 8.3 mg/dL (8.4-10.2); Carbon Dioxide 40 mmol/L (22-30); Chloride 98 mmol/L (98-107); Glucose 89 mg/dL (74-99); Potassium 3.3 mmol/L (3.5-5.1); Sodium 139 mmol/L (137-145)
[2018-04-22] MEDS: BUDESONIDE 1 MG/2 ML NEBU INHALATION SCH ×2 (07:10→20:02)
[2018-04-22] MEDS: IPRATROPIUM-ALBUTEROL 3 ML NEB INHALATION SCH ×4 (07:10→20:03)
[2018-04-22] MEDS: VERAPAMIL 40 MG TAB PO SCH (09:12)
[2018-04-22] MEDS: DULoxetine HCL 20 MG CAPSULE.DR PO SCH (09:17)
[2018-04-22] MEDS: ATORVASTATIN 10 MG TAB PO SCH (09:18)
[2018-04-22] MEDS: PANTOPRAZOLE 40 MG/10 ML VIAL IVP SCH ×2 (09:18→21:34)
[2018-04-22] MEDS: metroNIDAZOLE 500 MG TAB PO SCH ×3 (09:18→21:34)
[2018-04-22] MEDS: CYANOCOBALAMIN 500 MCG TAB PO SCH (09:18)
[2018-04-22] MEDS ORDERED: POTASSIUM CHLORIDE ER 20 MEQ TAB.ER PO STA (10:02)
--- NOTE | 2018-04-22 11:09 | PN ---
PROGRESS NOTE Olena Roman was seen again on 04/22/2018. She has been hemodynamically stable. She is continuing to have some shortness of breath. She has bowel sounds, but has not had a bowel movement. Her appetite has been fair. PHYSICAL EXAMINATION: On physical examination, her blood pressure is 104/64, respiratory rate of 14, temperature of 96, pulse rate of 72, O2 saturation on 2 L by nasal cannula is 97%. HEENT reveals no new changes. Chest reveals decreased breath sounds with mild prolonged exhalation, but no wheezing. Cardiovascular reveals an S1, S2. Abdomen is soft. Bowel sounds are heard. There is trace pedal edema. LABS: Labs reveal a white count of 12.1, hemoglobin of 8. Sodium 139, potassium 3.3, chloride 98, bicarb 40, BUN 4, creatinine 0.25. IMPRESSION AT THIS TIME: 1. Severe chronic obstructive pulmonary disease with asthma with acute exacerbation. 2. Obstructive sleep apnea with CO2 narcosis. 3. Abdominal abscess with perforated small bowel, status post partial resection of the small bowel with primary anastomosis. 4. Medical debility. Continue to increase her activity level, advance her diet. Keep her on bronchodilators aerosolized steroids. Try to avoid systemic steroids. In view of her recent surgery, use incentive spirometry. Inpatient rehab may help with her recovery. Depending on how she does, we should make further changes to her care. MMODL / IJN: [id number] /
[2018-04-22 11:42] LABS: Glucose,Whole Blood 104 mg/dL (75-99)
--- NOTE | 2018-04-22 13:37 | P.PN ---
Subjective Progress Note Date: 04/22/18 Patient seen and examined at bedside. States she is having a lot of flatus. Denies bowel movement. Tolerating diet. Denies nausea vomiting. Objective - Vital Signs Vital signs: Vital Signs Temp 97.8 F 04/22/18 08:00 Pulse 87 04/22/18 11:10 Resp 18 04/22/18 08:00 BP 95/53 04/22/18 08:00 Pulse Ox 96 04/22/18 08:00 Intake & Output 04/21/18 04/22/18 04/22/18 18:59 06:59 18:59 Intake Total 1560 840 Output Total 665 30 40 Balance 895 -30 800 Weight 70 kg 76.1 kg Intake: IV 600 Sodium Chloride 0.9% 1, 600 000 ml @ 50 mls/hr IV . Q20H [facility] Rx#:[id number] Oral 960 840 Output: Drainage 165 30 40 Right Lower Abdomen 165 30 40 Urine 500 Other: Voiding Method Bedside Commode Bedside Commode # Voids 1 2 1 - Constitutional General appearance: Present: cooperative, no acute distress - EENT Eyes: Present: PERRLA - Respiratory Details: No difficulty with respiration - Gastrointestinal Gastrointestinal Comment(s): Soft, appropriate tenderness, nondistended, no rebound, midline incision with jennyfer intact, DILLAN drain in place with serosanguineous output - Psychiatric Psychiatric: Present: A&O x's 3 - Labs CBC & Chem 7: 04/22/18 05:55 04/22/18 05:55 Labs: Abnormal Lab Results - Last 24 Hours (Table) 04/21/18 04/21/18 04/22/18 Range/Units 16:41 21:06 05:55 WBC 12.1 H (3.8-10.6) k/uL RBC 3.54 L (3.80-5.40) m/uL Hgb 8.0 L (11.4-16.0) gm/dL Hct 29.0 L (34.0-46.0) % MCH 22.6 L (25.0-35.0) pg MCHC 27.7 L (31.0-37.0) g/dL RDW 17.7 H (11.5-15.5) % Neutrophils # 10.0 H (1.3-7.7) k/uL Lymphocytes # 0.9 L (1.0-4.8) k/uL Potassium (3.5-5.1) mmol/L Carbon Dioxide (22-30) mmol/L BUN (7-17) mg/dL Creatinine (0.52-1.04) mg/dL POC Glucose (mg/dL) 196 H 135 H (75-99) mg/dL Calcium (8.4-10.2) mg/dL 04/22/18 04/22/18 04/22/18 Range/Units 05:55 06:04 11:39 WBC (3.8-10.6) k/uL RBC (3.80-5.40) m/uL Hgb (11.4-16.0) gm/dL Hct (34.0-46.0) % MCH (25.0-35.0) pg MCHC (31.0-37.0) g/dL RDW (11.5-15.5) % Neutrophils # (1.3-7.7) k/uL Lymphocytes # (1.0-4.8) k/uL Potassium 3.3 L (3.5-5.1) mmol/L Carbon Dioxide 40 H (22-30) mmol/L BUN 4 L (7-17) mg/dL Creatinine 0.25 L (0.52-1.04) mg/dL POC Glucose (mg/dL) 101 H 104 H (75-99) mg/dL Calcium 8.3 L (8.4-10.2) mg/dL Assessment and Plan Plan: 62yo female postoperative day #5 from expiratory laparotomy and small bowel resection - Decrease rate of IV fluids - Continue antibiotics - Advance to soft diet - Epidural removed, Lopez catheter removed - Continue medical management
--- NOTE | 2018-04-22 14:23 | P.PN ---
Subjective Progress Note Date: 04/22/18 This is a 62-year-old female one of Dr. Benitez with a previous medical history significant for chronic hypoxemic respiratory failure oxygen dependent, severe COPD, chronic diastolic heart failure, asthma, sleep apnea on a CPAP, chronic low back pain, GERD, prior history of tobacco use and dependence, overactive bladder, migraine headaches and osteoporosis, patient came to the emergency department at [facility] via EMS because of left-sided chest tightness associated with mental status changes with increased confusion she had a blood gases in the ER that showed a pH of 7.34 pCO2 of 92 pO2 of 68 on FiO2 of 36% her bicarb was 45 and chloride was. Low patient was started on IV fluid and she was placed on a BiPAP she had improved however because of her presentation she was admitted to the hospital for evaluation pulmonary consultation was obtained from Dr. MELVIN Green. Patient was started on nebulized treatment as well as steroid and oxygen support as well. 04/16: Patient is seen and is followed by Dr. Owens. She is currently on BiPAP at 35% with pulse ox 92%. She is sleeping but awakens easily to verbal stimuli. She states she slept okay last night. She is passing gas and did have a bowel movement today. She's been afebrile, heart rate in the 80s and 90s, blood pressure 118/68. White count is normal, hemoglobin 10.1. Chloride 89, CO2 41, BUN 24 and creatinine 0.39. Capillary blood glucose running between 137 and 229. Xanax was added last night for anxiety. Dr. Owens is transitioning her Solu-Medrol down to 40 mg every 8 hours. 04/17: Patient has been afebrile, heart rate running in the 60s to 80s, blood pressure 133/84, pulse ox 95% on BiPAP. Blood sugars have been elevated secondary to steroids. Abdominal x-ray done this morning for abdominal pain shows moderate degree pneumoperitoneum consistent with hollow viscus rupture. Consult with Dr. Joe ordered and notified of x-ray results. Patient complains of generalized abdominal pain. No vomiting. Her breathing status is stable. She denies any chest pain. Her last bowel movement was yesterday but was liquid. Morning labs, EKG done and reviewed. Patient requires emergent surgery which is a high risk surgery but is cleared medically. Patient may require ICU for short-term if pulmonary status deteriorates. Dr. Owens is following the patient. IV Levaquin and Zosyn added for peritonitis. 04/18: Patient remains afebrile, heart rate running in the 60s - 70s, blood pressure 98/63, pulse ox 97% on 3 L. She is status post exploratory laparotomy and small bowel resection by Dr. Joe yesterday for perforated small bowel with abscess. She continues to be nothing by mouth with NG tube, she denies passing gas or having a bowel movement. Infectious disease is on consult, she'll contin ue Zosyn and levofloxacin. Budesonide was increased to 1 mg inhalation twice a day, methylprednisone was decreased to 20 mg every 12 hours. She continues to be followed by pulmonology as well. Hemoglobin 9.5, and WBC 18.5, BUN 20, creatinine 0.37. 04/19: Patient is passing some gas and has some abdominal pain. Patient remains on epidural for pain control as well as Lopez catheter. NG tube is to be clamped today and try trial of clear liquid diet. Solu-Medrol has been weaned down to 20 mg IV every 12 hours. She has been afebrile, heart rate in the 70s and 80s, blood pressure 126/64, pulse ox 90% on 3 L nasal cannula. White count 18, hemoglobin 9.5. BUN 19 and creatinine 0.3 to, CO2 35. Capillary blood glucose running between 92 and 117. Wound cultures positive for gram-negative b acilli and beta hemolytic strep group C. Patient is currently on Levaquin and Zosyn. 04/20: The patient's NG tube was removed yesterday and she is on clear liquid diet. She states she is passing all but gas. She does have good bowel sounds. Potassium is 3.3 will be replaced this morning. Blood pressures on the low side for which metoprolol decreased and verapamil with parameters is in place. Heart rate is running 60s to 80s, patient has been afebrile. Anesthesia is planning to discontinue epidural catheter tomorrow and Lovenox dose to be held prior to the catheter removal. We have asked nursing to call anesthesia to see if epidural catheter can be removed today. WBC 15.8, hemoglobin 9.1. Creatinine 0.29. Blood sugars running anywhere between [address] Burt has changed ant ibiotics to Unasyn. Pulmonary has discontinued Solu-Medrol. Patient has been seen by Dr. Roach and patient is too good for inpatient rehab. Discharge plan to be determined 04/21: Patient is having epistaxis bilaterally. Pressure is being applied and Kit-Synephrine spray added. Lovenox will be discontinued. The patient will need to be on PAO hose and SCDs for DVT prophylaxis. Patient is currently tolerating her clear liquid diet and will be advanced to full liquid. Respiratory status is currently stable. Patient has been off of steroids. Repeat lab work shows a white count of 11.6, hemoglobin 8.4 platelet count 298. Sodium 139, potassium 3.1, chloride 98, CO2 40, creatinine 0.26. Potassium will be replaced. IV fluids will be decreased to 50 mL per hour. Anticipate patient will be ready for discharge by tomorrow. Midline has been ordered for IV antibiotics which Dr. Burt is managing with Unasyn for 10 day. quality system manager is making arrangements for home IV antibiotics. 04/22: Patient states she is passing gas today but did not have bowel movement. Patient did have tachycardia for which Lopressor was increased back to the 25 mg twice daily. We will discontinue verapamil as patient has not been receiving this due to hypotension. She has been afebrile, heart rate running in the 80s, blood pressure 99/64, pulse ox 95% on 2 L nasal cannula. White count is 12.1, hemoglobin 8, platelet count 288, potassium 3.3 and will be replaced. BUN 4 and creatinine 0.25. Blood sugars running between [address] Joe had advanced her diet to soft today. Anticipate probable discharge tomorrow. Review of Systems Constitutional: Reports weakness, Denies anorexia, Denies chronic headaches, Denies chronic pain, Denies weight gain Ears, nose, mouth and throat: Denies dysphagia, Denies neck lump, Denies swe lling in mouth, Denies swelling in throat, reports epistaxis Cardiovascular: Reports chest pain, Reports decreased exercise tolerance, Reports dyspnea on exertion, Reports shortness of breath, Denies lightheadedness, Denies orthopnea, Denies rapid heart beat, Denies syncope Respiratory: Reports cough, Reports cough with sputum, Reports continued dy spnea, Reports home oxygen, Reports sleep apnea, Reports wheezing, Denies congestion, Denies snoring Gastrointestinal: Reports abdominal pain, Denies excessive gas, Denies melena, Denies nausea, Denies vomiting, reports flatulence Genitourinary: Denies dysuria, Denies hematuria Menstruation: Reports postmenopausal Musculoskeletal: Reports gait dysfunction, Denies myalgias Musculoskeletal: Integumentary: Denies pruritus, Denies rash Neurological: Reports confusion, Denies numbness, Denies weakness Psychiatric: Reports anxiety, Reports depression, Denies sadness/tearfulness, Denies sleep disturbances, Denies suicidal ideation Endocrine: Denies fatigue, Denies weight change Objective - Vital Signs Vital signs: Vital Signs Temp 97.8 F 04/22/18 08:00 Pulse 87 04/22/18 11:10 Resp 18 04/22/18 08:00 BP 95/53 04/22/18 08:00 Pulse Ox 96 04/22/18 08:00 Intake & Output 04/21/18 04/22/18 04/22/18 18:59 06:59 18:59 Intake Total 1560 480 Output Total 665 30 Balance 895 -30 480 Weight 70 kg 76.1 kg Intake: IV 600 Sodium Chloride 0.9% 1, 600 000 ml @ 50 mls/hr IV . [facility] Rx#:[id number] Oral 960 480 Output: Drainage 165 30 Right Lower Abdomen 165 30 Urine 500 Other: Voiding Method Bedside Commode Bedside Commode # Voids 1 2 1 - Exam General appearance: no distress at rest, patient is sitting up in bed. - EENT Eyes: anicteric sclerae, EOMI, PERRLA, no ptosis, no scleral icterus, normal appearance ENT: hearing grossly normal, NA/AT, normal oropharynx, no thrush, bilateral epistaxis - Neck Neck: no lymphadenopathy, normal ROM, no rigidity, no stridor, no thyromegaly Carotids: - Respiratory Respiratory: bilateral: diminished, negative: rales, rhonchi, wheezing - Cardiovascular Heart sounds: normal: S1, S2 - Gastrointestinal General gastrointestinal: Abdomen is soft, nondistended, mild generalized tenderness, no rebound tenderness, normal bowel sounds - Integumentary Integumentary: normal, normal turgor - Neurologic Neurologic: CNII-XII intact - Musculoskeletal Musculoskeletal: gait normal, generalized weakness, strength equal bilaterally - Psychiatric Psychiatric: A&O x's 3, appropriate affect, intact judgment & insight - Labs CBC & Chem 7: 04/22/18 05:55 04/22/18 05:55 Labs: Abnormal Lab Results - Last 24 Hours (Table) 04/21/18 04/21/18 04/22/18 Range/Units 16:41 21:06 05:55 WBC 12.1 H (3.8-10.6) k/uL RBC 3.54 L (3.80-5.40) m/uL Hgb 8.0 L (11.4-16.0) gm/dL Hct 29.0 L (34.0-46.0) % MCH 22.6 L (25.0-35.0) pg MCHC 27.7 L (31.0-37.0) g/dL RDW 17.7 H (11.5-15.5) % Neutrophils # 10.0 H (1.3-7.7) k/uL Lymphocytes # 0.9 L (1.0-4.8) k/uL Potassium (3.5-5.1) mmol/L Carbon Dioxide (22-30) mmol/L BUN (7-17) mg/dL Creatinine (0.52-1.04) mg/dL POC Glucose (mg/dL) 196 H 135 H (75-99) mg/dL Calcium (8.4-10.2) mg/dL 04/22/18 04/22/18 04/22/18 Range/Units 05:55 06:04 11:39 WBC (3.8-10.6) k/uL RBC (3.80-5.40) m/uL Hgb (11.4-16.0) gm/dL Hct (34.0-46.0) % MCH (25.0-35.0) pg MCHC (31.0-37.0) g/dL RDW (11.5-15.5) % Neutrophils # (1.3-7.7) k/uL Lymphocytes # (1.0-4.8) k/uL Potassium 3.3 L (3.5-5.1) mmol/L Carbon Dioxide 40 H (22-30) mmol/L BUN 4 L (7-17) mg/dL Creatinine 0.25 L (0.52-1.04) mg/dL POC Glucose (mg/dL) 101 H 104 H (75-99) mg/dL Calcium 8.3 L (8.4-10.2) mg/dL Assessment and Plan Plan: 1. Acute on chronic hypoxemic and hypercarbic respiratory failure due to acute exacerbation of COPD with obstructive sleep apnea. Continue BiPAP, continue patient on oxygen, DuoNeb 3 mL nebulization 4 times every day, Pulmicort 0.5 mg nebulization twice every day, Solu-Medrol discontinued, pulmonary consultation with Dr. Owens is appreciated 2. Metabolic encephalopathy due to acute hypercarbic respiratory failure with elevated CO2. Continue BiPAP continue IV fluid resuscitation. 3. Contraction alkalosis. Discontinue Lasix continue IV fluid for the next 24 hours. 4. Acute COPD exacerbation. Continue treatment as in paragraph #1 continue with Solu-Medrol, DuoNeb 3 mL nebulization 4 times every day, Pulmicort 0.5mg nebulization twice every day. 5. Acute pneumoperitoneum with viscous rupture and acute peritonitis. Status post drainage of abscess exploratory laparotomy with small bowel resection and end-to-end anastomoses with Dr. Joe. NG tube to be clamped, soft diet, continue Unasyn and for peritonitis. 6. Chronic diastolic heart failure. Continue metoprolol 25 mg orally twice every day, verapamil discontinued, discontinue Lasix and potassium supplement. 7. Hypertension and hypertensive cardiovascular disease. Continue metoprolol 25 mg orally twice every day and verapamil discontinued. 8. History of asthma, severe persistent with acute exacerbation. Continue treatment as in paragraph #1 9. GERD. Continue PPI. 10. Recurrent depression. Continue Cymbalta 20 mg orally once every day. 11. Generalized anxiety disorder. Continue Xanax as needed. 12. Chronic low back pain. Continue pain medicine with caution. 13. Obstructive sleep apnea. Continue with current BiPAP. 14. Diabetes mellitus type 2. Continue metformin 1000 mg orally twice every day. Along with a sliding scale insulin. 15. DVT prophylaxis. Lovenox discontinued due to epistaxis. SCDs and PAO hose. 16. GI prophylaxis. Continue PPI. 17. Epistaxis bilaterally. Kit-Synephrine spray ordered, Lovenox discontinued. Patient is full code. Discharge plan: Home with [facility] on Thursday. PT and OT following Impression and plan of care have been directed as dictated by the signing physician. Belinda Marte nurse practitioner acting as scribe for signing physician.
--- NOTE | 2018-04-22 14:57 | PN ---
PROGRESS NOTE DATE OF SERVICE: 04/22/2018 REASON FOR FOLLOWUP: Abdominal abscess. INTERVAL HISTORY: The patient is currently afebrile. Patient is breathing comfortably. Denies having any chest pain or shortness of breath. No cough, no abdominal pain. No nausea, no vomiting. PHYSICAL EXAMINATION: Blood pressure 99/64 with a pulse of 87, temperature 98, she is 95% on 2 L nasal cannula. General description is a middle-aged female, up in the bed in no distress. RESPIRATORY SYSTEM: Unlabored breathing, clear to auscultation anteriorly. HEART S1, S2. Regular rate and rhythm. ABDOMEN: Soft, no tenderness. LABS: Hemoglobin is 8 with white count of 12.1, BUN of 4, creatinine 0.25. DIAGNOSTIC IMPRESSION AND PLAN: Patient abdominal abscess from a perforated small bowel, status post drainage of this abscess. Culture with Escherichia coli, beta-hemolytic strep and anaerobic gram- negative bacilli. The patient is currently on Unasyn and Flagyl. Discharge antibiotic can be provided Rocephin 2 g daily in addition to the oral Flagyl with close outpatient followup. Continue supportive care. MMODL / IJN: [id number] /
[2018-04-22 16:26] LABS: Glucose,Whole Blood 124 mg/dL (75-99)
[2018-04-22 20:50] LABS: Glucose,Whole Blood 134 mg/dL (75-99)
[2018-04-22] MEDS: ACETAMINOPHEN TAB 325 MG TAB PO PRN (21:33)
[2018-04-22] MEDS: MONTELUKAST 10 MG TAB PO SCH (21:34)
[2018-04-22] MEDS: MELATONIN 5 MG TABLET PO SCH (21:34)
[2018-04-22] MEDS: ALPRAZolam 0.25 MG TAB PO PRN (23:23)
[2018-04-23 05:51] LABS: Glucose,Whole Blood 79 mg/dL (75-99)
[2018-04-23] MEDS: INSULIN ASPART (NovoLOG) 100 UNIT/ML VIAL SQ SCH ×4 (06:19→21:32)
[2018-04-23] MEDS: AMPICILLIN-SULBACTAM 3 GM in SODIUM CHLORIDE 0.9% 100 ML IVPB SCH ×3 (06:49→16:08)
[2018-04-23] MEDS: METOPROLOL TARTRATE 25 MG TAB PO SCH ×2 (06:50→16:09)
[2018-04-23] MEDS: metFORMIN 500 MG TAB PO SCH ×2 (06:50→16:08)
[2018-04-23 06:56] LABS: Anisocytosis Slight; Basophils % (A) 0 %; Eosinophils # (A) 0.1 k/uL (0-0.7); Eosinophils % (A) 1 %; HCT 29.3 % (34.0-46.0); HGB 8.4 gm/dL (11.4-16.0); Hypochromasia Marked; Lymphocytes % (A) 8 %; MCH 23.5 pg (25.0-35.0); MCHC 28.7 g/dL (31.0-37.0); MCV 82.1 fL (80.0-100.0); Mean Platelet Volume 6.2; Monocytes % (A) 8 %; Neutrophils # (A) 10.3 k/uL (1.3-7.7); Neutrophils % (A) 82 %; Platelet Count 350 k/uL (150-450); RBC 3.56 m/uL (3.80-5.40); RDW 17.6 % (11.5-15.5); WBC 12.6 k/uL (3.8-10.6)
[2018-04-23 07:07] LABS: Anion Gap 1 mmol/L; Blood Urea Nitrogen 4 mg/dL (7-17); Calcium 8.4 mg/dL (8.4-10.2); Carbon Dioxide 39 mmol/L (22-30); Chloride 97 mmol/L (98-107); Glucose 70 mg/dL (74-99); Potassium 3.9 mmol/L (3.5-5.1); Sodium 137 mmol/L (137-145)
[2018-04-23] MEDS: ATORVASTATIN 10 MG TAB PO SCH (08:00)
[2018-04-23] MEDS: metroNIDAZOLE 500 MG TAB PO SCH ×3 (08:00→21:30)
[2018-04-23] MEDS: PANTOPRAZOLE 40 MG/10 ML VIAL IVP SCH ×2 (08:00→21:30)
[2018-04-23] MEDS: CYANOCOBALAMIN 500 MCG TAB PO SCH (08:00)
[2018-04-23] MEDS: DULoxetine HCL 20 MG CAPSULE.DR PO SCH (08:00)
[2018-04-23] MEDS: HYDROcodone/APAP 5-325MG 1 EACH TAB PO PRN ×3 (08:03→19:46)
[2018-04-23] MEDS: IPRATROPIUM-ALBUTEROL 3 ML NEB INHALATION SCH ×4 (08:24→20:26)
[2018-04-23] MEDS: BUDESONIDE 1 MG/2 ML NEBU INHALATION SCH ×2 (08:24→20:26)
[2018-04-23 09:15] VITALS: RESP 18
[2018-04-23 12:02] LABS: Glucose,Whole Blood 100 mg/dL (75-99)
--- NOTE | 2018-04-23 12:46 | P.PN ---
Subjective Progress Note Date: 04/23/18 Patient seen and examined at bedside. She states abdominal pain is well- controlled. DILLAN drain with minimal output, serosanguineous. Tolerating diet. States she is having flatus and did have a small bowel movement yesterday. Objective - Vital Signs Vital signs: Vital Signs Temp 97.5 F L 04/23/18 11:49 Pulse 86 04/23/18 12:01 Resp 18 04/23/18 11:49 BP 115/67 04/23/18 11:49 Pulse Ox 98 04/23/18 11:49 Intake & Output 04/22/18 04/23/18 04/23/18 18:59 06:59 18:59 Intake Total 1230 1860 200 Output Total 190 1030 350 Balance 1040 830 -150 Weight 76 kg Intake: IV 800 Sodium Chloride 0.9% 1, 800 000 ml @ 50 mls/hr IV . Q20H [facility] Rx#:[id number] Intake, IV Titration 100 Amount Ampicillin-Sulbactam 3 gm 100 In Sodium Chloride 0.9% 100 ml @ 200 mls/hr IVPB Q6HR [facility] Rx#:[id number] Oral 1230 960 200 Output: Drainage 40 30 Right Lower Abdomen 40 30 Urine 150 1000 350 Other: Voiding Method Bedside Commode Bedside Commode # Voids 1 3 # Bowel Movements 1 - Constitutional General appearance: Present: cooperative, no acute distress - EENT Eyes: Present: PERRLA - Respiratory Details: No difficulty with respiration - Gastrointestinal Gastrointestinal Comment(s): Soft, appropriate tenderness, nondistended, no rebound, no guarding - Musculoskeletal Musculoskeletal: Present: generalized weakness - Psychiatric Psychiatric: Present: A&O x's 3 - Labs CBC & Chem 7: 04/23/18 05:46 04/23/18 05:46 Labs: Abnormal Lab Results - Last 24 Hours (Table) 04/22/18 04/22/18 04/23/18 Range/Units 16:24 20:49 05:46 WBC 12.6 H (3.8-10.6) k/uL RBC 3.56 L (3.80-5.40) m/uL Hgb 8.4 L (11.4-16.0) gm/dL Hct 29.3 L (34.0-46.0) % MCH 23.5 L (25.0-35.0) pg MCHC 28.7 L (31.0-37.0) g/dL RDW 17.6 H (11.5-15.5) % Neutrophils # 10.3 H (1.3-7.7) k/uL Chloride (98-107) mmol/L Carbon Dioxide (22-30) mmol/L BUN (7-17) mg/dL Creatinine (0.52-1.04) mg/dL Glucose (74-99) mg/dL POC Glucose (mg/dL) 124 H 134 H (75-99) mg/dL 04/23/18 04/23/18 Range/Units 05:46 11:41 WBC (3.8-10.6) k/uL RBC (3.80-5.40) m/uL Hgb (11.4-16.0) gm/dL Hct (34.0-46.0) % MCH (25.0-35.0) pg MCHC (31.0-37.0) g/dL RDW (11.5-15.5) % Neutrophils # (1.3-7.7) k/uL Chloride 97 L (98-107) mmol/L Carbon Dioxide 39 H (22-30) mmol/L BUN 4 L (7-17) mg/dL Creatinine 0.28 L (0.52-1.04) mg/dL Glucose 70 L (74-99) mg/dL POC Glucose (mg/dL) 100 H (75-99) mg/dL Assessment and Plan Plan: 62yo female postoperative day #6 from expiratory laparotomy and small bowel resection - Continue antibiotics per infectious disease recommendations - Continue soft diet - Local wound care - I discussed with nursing, plan for removal of DILLAN drain - If discharge, patient to follow up in 10 days for staple removal - Continue medical management
[2018-04-23] MEDS: ALPRAZolam 0.25 MG TAB PO PRN (12:52)
--- NOTE | 2018-04-23 15:28 | P.PN ---
Subjective Progress Note Date: 04/23/18 This is a 62-year-old female one of Dr. Benitez with a previous medical history significant for chronic hypoxemic respiratory failure oxygen dependent, severe COPD, chronic diastolic heart failure, asthma, sleep apnea on a CPAP, chronic low back pain, GERD, prior history of tobacco use and dependence, overactive bladder, migraine headaches and osteoporosis, patient came to the emergency department at [facility] via EMS because of left-sided chest tightness associated with mental status changes with increased confusion she had a blood gases in the ER that showed a pH of 7.34 pCO2 of 92 pO2 of 68 on FiO2 of 36% her bicarb was 45 and chloride was. Low patient was started on IV fluid and she was placed on a BiPAP she had improved however because of her presentation she was admitted to the hospital for evaluation pulmonary consultation was obtained from Dr. MELVIN Green. Patient was started on nebulized treatment as well as steroid and oxygen support as well. 04/16: Patient is seen and is followed by Dr. Owens. She is currently on BiPAP at 35% with pulse ox 92%. She is sleeping but awakens easily to verbal stimuli. She states she slept okay last night. She is passing gas and did have a bowel movement today. She's been afebrile, heart rate in the 80s and 90s, blood pressure 118/68. White count is normal, hemoglobin 10.1. Chloride 89, CO2 41, BUN 24 and creatinine 0.39. Capillary blood glucose running between 137 and 229. Xanax was added last night for anxiety. Dr. Owens is transitioning her Solu-Medrol down to 40 mg every 8 hours. 04/17: Patient has been afebrile, heart rate running in the 60s to 80s, blood pressure 133/84, pulse ox 95% on BiPAP. Blood sugars have been elevated secondary to steroids. Abdominal x-ray done this morning for abdominal pain shows moderate degree pneumoperitoneum consistent with hollow viscus rupture. Consult with Dr. Joe ordered and notified of x-ray results. Patient complains of generalized abdominal pain. No vomiting. Her breathing status is stable. She denies any chest pain. Her last bowel movement was yesterday but was liquid. Morning labs, EKG done and reviewed. Patient requires emergent surgery which is a high risk surgery but is cleared medically. Patient may require ICU for short-term if pulmonary status deteriorates. Dr. Owens is following the patient. IV Levaquin and Zosyn added for peritonitis. 04/18: Patient remains afebrile, heart rate running in the 60s - 70s, blood pressure 98/63, pulse ox 97% on 3 L. She is status post exploratory laparotomy and small bowel resection by Dr. oJe yesterday for perforated small bowel with abscess. She continues to be nothing by mouth with NG tube, she denies passing gas or having a bowel movement. Infectious disease is on consult, she'll contin ue Zosyn and levofloxacin. Budesonide was increased to 1 mg inhalation twice a day, methylprednisone was decreased to 20 mg every 12 hours. She continues to be followed by pulmonology as well. Hemoglobin 9.5, and WBC 18.5, BUN 20, creatinine 0.37. 04/19: Patient is passing some gas and has some abdominal pain. Patient remains on epidural for pain control as well as Lopez catheter. NG tube is to be clamped today and try trial of clear liquid diet. Solu-Medrol has been weaned down to 20 mg IV every 12 hours. She has been afebrile, heart rate in the 70s and 80s, blood pressure 126/64, pulse ox 90% on 3 L nasal cannula. White count 18, hemoglobin 9.5. BUN 19 and creatinine 0.3 to, CO2 35. Capillary blood glucose running between 92 and 117. Wound cultures positive for gram-negative b acilli and beta hemolytic strep group C. Patient is currently on Levaquin and Zosyn. 04/20: The patient's NG tube was removed yesterday and she is on clear liquid diet. She states she is passing all but gas. She does have good bowel sounds. Potassium is 3.3 will be replaced this morning. Blood pressures on the low side for which metoprolol decreased and verapamil with parameters is in place. Heart rate is running 60s to 80s, patient has been afebrile. Anesthesia is planning to discontinue epidural catheter tomorrow and Lovenox dose to be held prior to the catheter removal. We have asked nursing to call anesthesia to see if epidural catheter can be removed today. WBC 15.8, hemoglobin 9.1. Creatinine 0.29. Blood sugars running anywhere between [address] Burt has changed ant ibiotics to Unasyn. Pulmonary has discontinued Solu-Medrol. Patient has been seen by Dr. Roach and patient is too good for inpatient rehab. Discharge plan to be determined 04/21: Patient is having epistaxis bilaterally. Pressure is being applied and Kit-Synephrine spray added. Lovenox will be discontinued. The patient will need to be on PAO hose and SCDs for DVT prophylaxis. Patient is currently tolerating her clear liquid diet and will be advanced to full liquid. Respiratory status is currently stable. Patient has been off of steroids. Repeat lab work shows a white count of 11.6, hemoglobin 8.4 platelet count 298. Sodium 139, potassium 3.1, chloride 98, CO2 40, creatinine 0.26. Potassium will be replaced. IV fluids will be decreased to 50 mL per hour. Anticipate patient will be ready for discharge by tomorrow. Midline has been ordered for IV antibiotics which Dr. Burt is managing with Iram for 10 day. booth manager is making arrangements for home IV antibiotics. 04/22: Patient states she is passing gas today but did not have bowel movement. Patient did have tachycardia for which Lopressor was increased back to the 25 mg twice daily. We will discontinue verapamil as patient has not been receiving this due to hypotension. She has been afebrile, heart rate running in the 80s, blood pressure 99/64, pulse ox 95% on 2 L nasal cannula. White count is 12.1, hemoglobin 8, platelet count 288, potassium 3.3 and will be replaced. BUN 4 and creatinine 0.25. Blood sugars running between [address] Joe had advanced her diet to soft today. Anticipate probable discharge tomorrow. 04/23: Patient remains afebrile, heart rate running in the 80s to 90s, blood pressure 94/56. Pulse ox 98% on 2 L. patient has been cleared by Dr. Joe for discharge home today in follow-up in 10 days. DILLAN drain to be removed prior to discharge. Confirmed with patient that she was safe to go home and that she currently has electricity. She states that she was fine. Once family was notified of the discharge, they state that they are not able to take care of her at home and now we will be either this evening and requested the patient stay another night. Patient will be kept overnight as family wishes but will be discharged first thing in the morning. Patient does not need to wait for rounding physician. Review of Systems Constitutional: Reports weakness, Denies anorexia, Denies chronic headaches, Denies chronic pain, Denies weight gain Ears, nose, mouth and throat: Denies dysphagia, Denies neck lump, Denies swelling in mouth, Denies swelling in throat, reports epistaxis Cardiovascular: Reports chest pain, Reports decreased exercise tolerance, Reports dyspnea on exertion, Reports shortness of breath, Denies lightheadedness, Denies orthopnea, Denies rapid heart beat, Denies syncope Respiratory: Reports cough, Reports cough with sputum, Reports continued dyspnea, Reports home oxygen, Reports sleep apnea, Reports wheezing, Denies congestion, Denies snoring Gastrointestinal: Denies abdominal pain, Denies excessive gas, Denies melena, Denies nausea, Denies vomiting, reports flatulence Genitourinary: Denies dysuria, Denies hematuria Menstruation: Reports postmenopausal Musculoskeletal: Reports gait dysfunction, Denies myalgias Musculoskeletal: Integumentary: Denies pruritus, Denies rash Neurological: Reports confusion, Denies numbness, Denies weakness Psychiatric: Reports anxiety, Reports depression, Denies sadness/tearfulness, Denies sleep disturbances, Denies suicidal ideation Endocrine: Denies fatigue, Denies weight change Objective - Vital Signs Vital signs: Vital Signs Temp 97.5 F L 04/23/18 11:49 Pulse 86 04/23/18 12:01 Resp 18 04/23/18 11:49 BP 115/67 04/23/18 11:49 Pulse Ox 98 04/23/18 11:49 Intake & Output 04/22/18 04/23/18 04/23/18 18:59 06:59 18:59 Intake Total 1230 1860 200 Output Total 190 1030 350 Balance 1040 830 -150 Weight 76 kg Intake: IV 800 Sodium Chloride 0.9% 1, 800 000 ml @ 50 mls/hr IV . Q20H [facility] Rx#:[id number] Intake, IV Titration 100 Amount Ampicillin-Sulbactam 3 gm 100 In Sodium Chloride 0.9% 100 ml @ 200 mls/hr IVPB Q6HR [facility] Rx#:[id number] Oral 1230 960 200 Output: Drainage 40 30 Right Lower Abdomen 40 30 Urine 150 1000 350 Other: Voiding Method Bedside Commode Bedside Commode # Voids 1 3 # Bowel Movements 1 - Exam General appearance: Patient appears comfortable, patient is sitting up in bed. - EENT Eyes: anicteric sclerae, EOMI, PERRLA, no ptosis, no scleral icterus, normal appearance ENT: hearing grossly normal, NA/AT, normal oropharynx, no thrush, bilateral epistaxis - Neck Neck: no lymphadenopathy, normal ROM, no rigidity, no stridor, no thyromegaly Carotids: - Respiratory Respiratory: bilateral: diminished, negative: rales, rhonchi, wheezing - Cardiovascular Heart sounds: normal: S1, S2 - Gastrointestinal General gastrointestinal: Abdomen is soft, nondistended, mild generalized tenderness, no rebound tenderness, normal bowel sounds - Integumentary Integumentary: normal, normal turgor - Neurologic Neurologic: CNII-XII intact - Musculoskeletal Musculoskeletal: gait normal, generalized weakness, strength equal bilaterally - Psychiatric Psychiatric: A&O x's 3, appropriate affect, intact judgment & insight - Labs CBC & Chem 7: 04/23/18 05:46 04/23/18 05:46 Labs: Abnormal Lab Results - Last 24 Hours (Table) 04/22/18 04/22/18 04/23/18 Range/Units 16:24 20:49 05:46 WBC 12.6 H (3.8-10.6) k/uL RBC 3.56 L (3.80-5.40) m/uL Hgb 8.4 L (11.4-16.0) gm/dL Hct 29.3 L (34.0-46.0) % MCH 23.5 L (25.0-35.0) pg MCHC 28.7 L (31.0-37.0) g/dL RDW 17.6 H (11.5-15.5) % Neutrophils # 10.3 H (1.3-7.7) k/uL Chloride (98-107) mmol/L Carbon Dioxide (22-30) mmol/L BUN (7-17) mg/dL Creatinine (0.52-1.04) mg/dL Glucose (74-99) mg/dL POC Glucose (mg/dL) 124 H 134 H (75-99) mg/dL 04/23/18 04/23/18 Range/Units 05:46 11:41 WBC (3.8-10.6) k/uL RBC (3.80-5.40) m/uL Hgb (11.4-16.0) gm/dL Hct (34.0-46.0) % MCH (25.0-35.0) pg MCHC (31.0-37.0) g/dL RDW (11.5-15.5) % Neutrophils # (1.3-7.7) k/uL Chloride 97 L (98-107) mmol/L Carbon Dioxide 39 H (22-30) mmol/L BUN 4 L (7-17) mg/dL Creatinine 0.28 L (0.52-1.04) mg/dL Glucose 70 L (74-99) mg/dL POC Glucose (mg/dL) 100 H (75-99) mg/dL Assessment and Plan Plan: 1. Acute on chronic hypoxemic and hypercarbic respiratory failure due to acute exacerbation of COPD with obstructive sleep apnea. Continue O2, DuoNeb 3 mL nebulization 4 times every day, Pulmicort 0.5 mg nebulization twice every day, Solu-Medrol discontinued, pulmonary consultation with Dr. Owens is appreciated 2. Metabolic encephalopathy due to acute hypercarbic respiratory failure with elevated CO2. 3. Contraction alkalosis. Discontinue Lasix, discontinue IV fluid. 4. Acute COPD exacerbation. Continue treatment as in paragraph #1. 5. Acute pneumoperitoneum with viscous rupture and acute peritonitis. Status post drainage of abscess exploratory laparotomy with small bowel resection and end-to-end anastomoses with Dr. Joe. 6. Chronic diastolic heart failure. Continue metoprolol 25 mg orally twice every day, verapamil discontinued, discontinue Lasix and potassium supplement. 7. Hypertension and hypertensive cardiovascular disease. Continue metoprolol 25 mg orally twice every day and verapamil discontinued. 8. History of asthma, severe persistent with acute exacerbation. Continue treatment as in paragraph #1 9. GERD. Continue PPI. 10. Recurrent depression. Continue Cymbalta 20 mg orally once every day. 11. Generalized anxiety disorder. Continue Xanax as needed. 12. Chronic low back pain. Continue pain medicine with caution. 13. Obstructive sleep apnea. Continue with current BiPAP. 14. Diabetes mellitus type 2. Continue metformin 1000 mg orally twice every day. Along with a sliding scale insulin. 15. DVT prophylaxis. Lovenox discontinued due to epistaxis. SCDs and PAO hose. 16. GI prophylaxis. Continue PPI. 17. Epistaxis bilaterally. Kit-Synephrine spray ordered, Lovenox discontinued. Patient is full code. Discharge plan: Home with [facility] on Thursday. Home IV therapy has been arranged. Impression and plan of care have been directed as dictated by the signing physician. Belinda Marte nurse practitioner acting as scribe for signing physician.
--- NOTE | 2018-04-23 15:30 | P.DS ---
Providers Date of admission: 04/14/18 18:10 Expected date of discharge: 04/23/18 Attending physician: Lori Vernon Consults: 04/14/18 18:09 Consult Physician Urgent Consulting Provider: Abhilash Green Consult Reason/Comments: Respiratory failure, dyspnea Do you want consulting provider notified?: Yes 04/17/18 08:22 Consult Physician Stat Consulting Provider: Hazel Joe Consult Reason/Comments: ABD pain, pos obstruction. Do you want consulting provider notified?: Yes 04/17/18 11:13 Consult Physician Stat Consulting Provider: Belinda Burt Consult Reason/Comments: Perforated bowel. Do you want consulting provider notified?: Yes 04/19/18 10:53 Consult Physician Routine Consulting Provider: Sinan Roach Consult Reason/Comments: medical debility Do you want consulting provider notified?: Yes Primary care physician: Matheus Miranda [facility] Course: This is a 62-year-old female one of Dr. Benitez with a previous medical history significant for chronic hypoxemic respiratory failure oxygen dependent, severe COPD, chronic diastolic heart failure, asthma, sleep apnea on a CPAP, chronic low back pain, GERD, prior history of tobacco use and dependence, overactive bladder, migraine headaches and osteoporosis, patient came to the emergency department at [facility] via EMS because of left-sided chest tightness associated with mental status changes with increased confusion she had a blood gases in the ER that showed a pH of 7.34 pCO2 of 92 pO2 of 68 on FiO2 of 36% her bicarb was 45 and chloride was. Low patient was started on IV fluid and she was placed on a BiPAP she had improved however because of her presentation she was admitted to the hospital for evaluation pulmonary consultation was obtained from Dr. MELVIN Green. Patient was started on nebulized treatment as well as steroid and oxygen support as well. 04/16: Patient is seen and is followed by Dr. Owens. She is currently on BiPAP at 35% with pulse ox 92%. She is sleeping but awakens easily to verbal stimuli. She states she slept okay last night. She is passing gas and did have a bowel movement today. She's been afebrile, heart rate in the 80s and 90s, blood pressure 118/68. White count is normal, hemoglobin 10.1. Chloride 89, CO2 41, BUN 24 and creatinine 0.39. Capillary blood glucose running between 137 and 229. Xanax was added last night for anxiety. Dr. Owens is transitioning her Solu-Medrol down to 40 mg every 8 hours. 04/17: Patient has been afebrile, heart rate running in the 60s to 80s, blood pressure 133/84, pulse ox 95% on BiPAP. Blood sugars have been elevated secondary to steroids. Abdominal x-ray done this morning for abdominal pain shows moderate degree pneumoperitoneum consistent with hollow viscus rupture. Consult with Dr. Joe ordered and notified of x-ray results. Patient complains of generalized abdominal pain. No vomiting. Her breathing status is stable. She denies any chest pain. Her last bowel movement was yesterday but was liquid. Morning labs, EKG done and reviewed. Patient requires emergent surgery which is a high risk surgery but is cleared medically. Patient may require ICU for short-term if pulmonary status deteriorates. Dr. Owens is following the patient. IV Levaquin and Zosyn added for peritonitis. 04/18: Patient remains afebrile, heart rate running in the 60s - 70s, blood pressure 98/63, pulse ox 97% on 3 L. She is status post exploratory laparotomy and small bowel resection by Dr. Joe yesterday for perforated small bowel with abscess. She continues to be nothing by mouth with NG tube, she denies passing gas or having a bowel movement. Infectious disease is on consult, she'll continue Zosyn and levofloxacin. Budesonide was increased to 1 mg inhalation twice a day, methylprednisone was decreased to 20 mg every 12 hours. She continues to be followed by pulmonology as well. Hemoglobin 9.5, and WBC 18.5, BUN 20, creatinine 0.37. 04/19: Patient is passing some gas and has some abdominal pain. Patient remains on epidural for pain control as well as Lopez catheter. NG tube is to be clamped today and try trial of clear liquid diet. Solu-Medrol has been weaned down to 20 mg IV every 12 hours. She has been afebrile, heart rate in the 70s and 80s, blood pressure 126/64, pulse ox 90% on 3 L nasal cannula. White count 18, hemoglobin 9.5. BUN 19 and creatinine 0.3 to, CO2 35. Capillary blood glucose running between 92 and 117. Wound cultures positive for gram-negative bacilli and beta hemolytic strep group C. Patient is currently on Levaquin and Zosyn. 04/20: The patient's NG tube was removed yesterday and she is on clear liquid diet. She states she is passing all but gas. She does have good bowel sounds. Potassium is 3.3 will be replaced this morning. Blood pressures on the low side for which metoprolol decreased and verapamil with parameters is in place. Heart rate is running 60s to 80s, patient has been afebrile. Anesthesia is planning to discontinue epidural catheter tomorrow and Lovenox dose to be held prior to the catheter removal. We have asked nursing to call anesthesia to see if epidural catheter can be removed today. WBC 15.8, hemoglobin 9.1. Creatinine 0.29. Blood sugars running anywhere between [address] Burt has changed antibiotics to Unasyn. Pulmonary has discontinued Solu-Medrol. Patient has been seen by Dr. Roach and patient is too good for inpatient rehab. Discharge plan to be determined 04/21: Patient is having epistaxis bilaterally. Pressure is being applied and Kit-Synephrine spray added. Lovenox will be discontinued. The patient will need to be on PAO hose and SCDs for DVT prophylaxis. Patient is currently tolerating her clear liquid diet and will be advanced to full liquid. Respiratory status is currently stable. Patient has been off of steroids. Repeat lab work shows a white count of 11.6, hemoglobin 8.4 platelet count 298. Sodium 139, potassium 3.1, chloride 98, CO2 40, creatinine 0.26. Potassium will be replaced. IV fluids will be decreased to 50 mL per hour. Anticipate patient will be ready for discharge by tomorrow. Midline has been ordered for IV antibiotics which Dr. Burt is managing with Unasyn for 10 day. staff services manager is making arrangements for home IV antibiotics. 04/22: Patient states she is passing gas today but did not have bowel movement. Patient did have tachycardia for which Lopressor was increased back to the 25 mg twice daily. We will discontinue verapamil as patient has not been receiving this due to hypotension. She has been afebrile, heart rate running in the 80s, blood pressure 99/64, pulse ox 95% on 2 L nasal cannula. White count is 12.1, hemoglobin 8, platelet count 288, potassium 3.3 and will be replaced. BUN 4 and creatinine 0.25. Blood sugars running between [address] Joe had advanced her diet to soft today. Anticipate probable discharge tomorrow. 04/23: Patient remains afebrile, heart rate running in the 80s to 90s, blood pressure 94/56. Pulse ox 98% on 2 L. patient has been cleared by Dr. Joe for discharge home today in follow-up in 10 days. DILLAN drain to be removed prior to discharge. Confirmed with patient that she was safe to go home and that she currently has electricity. She states that she was fine. Once family was notified of the discharge, they state that they are not able to take care of her at home and now we will be either this evening and requested the patient stay another night. Patient will be kept overnight as family wishes but will be discharged first thing in the morning. Patient does not need to wait for rounding physician. Discharge diagnoses: 1. Acute on chronic hypoxemic and hypercarbic respiratory failure due to acute exacerbation of COPD with obstructive sleep apnea. 2. Metabolic encephalopathy due to acute hypercarbic respiratory failure with elevated CO2. 3. Contraction alkalosis. 4. Acute COPD exacerbation. 5. Acute pneumoperitoneum with viscous rupture and acute peritonitis. Status post drainage of abscess exploratory laparotomy with small bowel resection and end-to-end anastomoses with Dr. Joe. 6. Chronic diastolic heart failure. 7. Hypertension and hypertensive cardiovascular disease. 8. History of asthma, severe persistent with acute exacerbation. 9. GERD. 10. Recurrent depression. 11. Generalized anxiety disorder. 12. Chronic low back pain. 13. Obstructive sleep apnea. 14. Diabetes mellitus type 2. 15. Epistaxis bilaterally. Discharge plan: Home with [facility] and plan of care have been directed as dictated by the signing physician. Belinda Marte nurse practitioner acting as scribe for signing physician. Patient Condition at Discharge: Good Plan - Discharge Summary Discharge Rx Participant: No New Discharge Prescriptions: New Melatonin 10 mg PO HS tablet Ampicillin-Sulbactam [Unasyn] 3 gm IVPB Q6HR #40 vial Multivitamin/Iron/Folic Acid [Centrum Complete Multivit Tab] 1 each PO DAILY #30 tablet Continue DULoxetine HCL [Cymbalta] 20 mg PO DAILY Cholecalciferol (Vitamin D3) [Vitamin D3] 2,000 unit PO DAILY Furosemide [Lasix] 20 mg PO DAILY Budesonide [Pulmicort] 0.5 mg INHALATION RT-BID #60 neb Montelukast [Singulair] 10 mg PO HS #30 tab Omeprazole Magnesium [PriLOSEC OTC] 20 mg PO DAILY #30 tablet. Ipratropium-Albuterol Nebulize [Duoneb 0.5 mg-3 mg/3 ml Soln] 3 ml INHALATION RT-QID ampul.neb Potassium Chloride ER [K-Dur 10] 10 meq PO DAILY Ipratropium [place] [Atrovent Hfa] 2 puff INHALATION RT-QID Albuterol Inhaler [Ventolin Hfa Inhaler] 2 puff INHALATION RT-Q6H PRN PRN Reason: Wheezing Metoprolol Tartrate [Lopressor] 25 mg PO BID Atorvastatin [Lipitor] 10 mg PO DAILY HYDROcodone/APAP 5-325MG [[place] 5-325] 1 tab PO TID PRN PRN Reason: Pain Albuterol Nebulized (Conc) [Ventolin Nebulized (Conc)] 2.5 mg INHALATION RT- QID Cyanocobalamin (Vitamin B-12) [Vitamin B-12] 1,000 mcg PO DAILY Calcitonin Nasal [Fortical (Miacalcin)] 1 spray NASAL DAILY Sucralfate [Carafate] 1 gm PO QID ALPRAZolam [Xanax] 0.25 mg PO TID metFORMIN HCL [Glucophage] 1,000 mg PO BID Discontinued Verapamil HCl 40 mg PO TID Discharge Medication List Cholecalciferol (Vitamin D3) [Vitamin D3] 2,000 unit PO DAILY 10/31/16 [History] DULoxetine HCL [Cymbalta] 20 mg PO DAILY 10/31/16 [History] Furosemide [Lasix] 20 mg PO DAILY 10/31/16 [History] Budesonide [Pulmicort] 0.5 mg INHALATION RT-BID #60 neb 11/04/16 [Rx] Montelukast [Singulair] 10 mg PO HS #30 tab 11/04/16 [Rx] Omeprazole Magnesium [PriLOSEC OTC] 20 mg PO DAILY #30 tablet. 11/04/16 [Rx] Ipratropium-Albuterol Nebulize [Duoneb 0.5 mg-3 mg/3 ml Soln] 3 ml INHALATION RT-QID ampul.neb 02/23/17 [Rx] ALPRAZolam [Xanax] 0.25 mg PO TID 04/15/18 [History] Albuterol Inhaler [Ventolin Hfa Inhaler] 2 puff INHALATION RT-Q6H PRN 04/15/18 [History] Albuterol Nebulized (Conc) [Ventolin Nebulized (Conc)] 2.5 mg INHALATION RT-QID 04/15/18 [History] Atorvastatin [Lipitor] 10 mg PO DAILY 04/15/18 [History] Calcitonin Nasal [Fortical (Miacalcin)] 1 spray NASAL DAILY 04/15/18 [History] Cyanocobalamin (Vitamin B-12) [Vitamin B-12] 1,000 mcg PO DAILY 04/15/18 [Histo ry] HYDROcodone/APAP 5-325MG [[place] 5-325] 1 tab PO TID PRN 04/15/18 [History] Ipratropium [place] [Atrovent Hfa] 2 puff INHALATION RT-QID 04/15/18 [History] Metoprolol Tartrate [Lopressor] 25 mg PO BID 04/15/18 [History] Potassium Chloride ER [K-Dur 10] 10 meq PO DAILY 04/15/18 [History] Sucralfate [Carafate] 1 gm PO QID 04/15/18 [History] metFORMIN HCL [Glucophage] 1,000 mg PO BID 04/15/18 [History] Ampicillin-Sulbactam [Unasyn] 3 gm IVPB Q6HR #40 vial 04/21/18 [Rx] Melatonin 10 mg PO HS tablet 04/21/18 [Rx] Multivitamin/Iron/Folic Acid [Centrum Complete Multivit Tab] 1 each PO DAILY #30 tablet 04/23/18 [Rx] Follow up Appointment(s)/Referral(s): Apple Owens DO [Doctor of Osteopathic Medicine] - 04/26/18 2:30 pm (At [employer] office- next to [facility]. [email or web address] [facility], [NON-STAFF] - [facility], [REFERRING] - Matheus Benitez MD [Primary Care Provider] - 04/27/18 2:45 pm ( ) Hazel Joe DO [Doctor of Osteopathic Medicine] - 05/03/18 1:15 pm ( ) Ambulatory/Diagnostic Orders: Basic Metabolic Panel [LAB.AMB] Location: None Selected Complete Blood Count w/diff [LAB.AMB] Location: None Selected Patient Instructions/Handouts: Yovani-Angel Drain Care (DC), Bowel Resection (DC), Chronic Lung Disease and Infection Prevention (DC) Discharge Disposition: HOME WITH HOME HEALTH SERVICES
--- NOTE | 2018-04-23 16:15 | P.PN ---
Subjective Progress Note Date: 04/23/18 04/23/2018: Patient seen and examined. Patient states her breathing is at baseline. She denies any cough, fever, chills, chest tightness. The patient is currently meeting with a veterans employment representative from [employer]. She states she is feeling well overall. Objective - Vital Signs Vital signs: Vital Signs Temp 97.5 F L 04/23/18 11:49 Pulse 86 04/23/18 12:01 Resp 18 04/23/18 11:49 BP 115/67 04/23/18 11:49 Pulse Ox 98 04/23/18 11:49 Intake & Output 04/22/18 04/23/18 04/23/18 18:59 06:59 18:59 Intake Total 1230 1860 200 Output Total 190 1030 350 Balance 1040 830 -150 Weight 76 kg Intake: IV 800 Sodium Chloride 0.9% 1, 800 000 ml @ 50 mls/hr IV . Q20H REGIS Rx#:[id number] Intake, IV Titration 100 Amount Ampicillin-Sulbactam 3 gm 100 In Sodium Chloride 0.9% 100 ml @ 200 mls/hr IVPB Q6HR REGIS Rx#:[id number] Oral 1230 960 200 Output: Drainage 40 30 Right Lower Abdomen 40 30 Urine 150 1000 350 Other: Voiding Method Bedside Commode Bedside Commode # Voids 1 3 # Bowel Movements 1 - Exam Gen.: Patient is alert and oriented 3, no acute distress Cardiovascular: Regular rate and rhythm, S1/S2 Lungs: Diminished breath sounds bilaterally Abdomen: Soft, mildly diffusely tender, positive bowel sounds Extremities: No edema - Labs CBC & Chem 7: 04/23/18 05:46 04/23/18 05:46 Labs: Abnormal Lab Results - Last 24 Hours (Table) 04/22/18 04/22/18 04/23/18 Range/Units 16:24 20:49 05:46 WBC 12.6 H (3.8-10.6) k/uL RBC 3.56 L (3.80-5.40) m/uL Hgb 8.4 L (11.4-16.0) gm/dL Hct 29.3 L (34.0-46.0) % MCH 23.5 L (25.0-35.0) pg MCHC 28.7 L (31.0-37.0) g/dL RDW 17.6 H (11.5-15.5) % Neutrophils # 10.3 H (1.3-7.7) k/uL Chloride (98-107) mmol/L Carbon Dioxide (22-30) mmol/L BUN (7-17) mg/dL Creatinine (0.52-1.04) mg/dL Glucose (74-99) mg/dL POC Glucose (mg/dL) 124 H 134 H (75-99) mg/dL 04/23/18 04/23/18 Range/Units 05:46 11:41 WBC (3.8-10.6) k/uL RBC (3.80-5.40) m/uL Hgb (11.4-16.0) gm/dL Hct (34.0-46.0) % MCH (25.0-35.0) pg MCHC (31.0-37.0) g/dL RDW (11.5-15.5) % Neutrophils # (1.3-7.7) k/uL Chloride 97 L (98-107) mmol/L Carbon Dioxide 39 H (22-30) mmol/L BUN 4 L (7-17) mg/dL Creatinine 0.28 L (0.52-1.04) mg/dL Glucose 70 L (74-99) mg/dL POC Glucose (mg/dL) 100 H (75-99) mg/dL Assessment and Plan Assessment: Acute on chronic hypoxic and hypercapnic respiratory failure Acute exacerbation of COPD and severe persistent asthma Acute tracheobronchitis s/p ex lap with small bowel resection due to perforation Encephalopathy, metabolic Respiratory acidosis compensated with metabolic alkalosis History of tobacco abuse Depression and anxiety Chronic back pain History migraines Osteoarthritis Chronic diastolic congestive heart failure Hypertension GERD DM2 Continue BiPAP nightly and as needed O2 to maintain saturation greater than or equal to 88% Solumedrol - discontinue Singulair Duo nebs Pulmicort Perforomist Tobacco cessation is to be continued Incentive spirometry and pulmonary hygiene GI and DVT prophylaxis: Lovenox and Protonix PT and OT, encourage ambulation Patient would benefit from rehab. She would also benefit from outpatient pulmonary rehab once able. Social work and case management for family/placement issues NGT and diet per surgery Respiratory status is at baseline. Ok to DC from pulmonary standpoint.
--- NOTE | 2018-04-23 16:25 | PN ---
PROGRESS NOTE DATE OF SERVICE: 04/23/2018. REASON FOR FOLLOWUP: Abdominal abscess. INTERVAL HISTORY: The patient is currently afebrile. Patient is breathing comfortably. Denies having any chest pain or any cough. Abdominal pain has improved. No nausea, vomiting. No diarrhea. PHYSICAL EXAMINATION: Her blood pressure is 115/67, pulse 91, temperature 97.5. She is 98% on 2 L nasal cannula. General description is a middle-aged female lying in bed in no distress. RESPIRATORY SYSTEM: Unlabored breathing. Clear to auscultation anteriorly. HEART: S1, S2. Regular rate and rhythm. ABDOMEN: Soft. No tenderness. LABS: White count is still elevated at 12,000. DIAGNOSTIC IMPRESSION AND PLAN: Patient with abdominal abscess from a perforated small bowel, status post resection and drainage of the abscess. Culture with E coli, strep and anaerobic. The patient is currently on Unasyn and Flagyl; to finish therapy with IV Unasyn for another week to 10 days with close outpatient followup. Continue supportive care. MMODL / IJN: [id number] /
[2018-04-23 16:48] LABS: Glucose,Whole Blood 218 mg/dL (75-99)
[2018-04-23 16:48] LABS: Glucose,Whole Blood 223 mg/dL (75-99)
[2018-04-23 20:46] LABS: Glucose,Whole Blood 123 mg/dL (75-99)
[2018-04-23] MEDS: MONTELUKAST 10 MG TAB PO SCH (21:30)
[2018-04-23] MEDS: MELATONIN 5 MG TABLET PO SCH (21:30)
[2018-04-24] MEDS: AMPICILLIN-SULBACTAM 3 GM in SODIUM CHLORIDE 0.9% 100 ML IVPB SCH ×3 (00:40→11:10)
[2018-04-24] MEDS: METOPROLOL TARTRATE 25 MG TAB PO SCH (06:07)
[2018-04-24] MEDS: INSULIN ASPART (NovoLOG) 100 UNIT/ML VIAL SQ SCH ×2 (06:30→12:01)
[2018-04-24 06:34] LABS: Glucose,Whole Blood 104 mg/dL (75-99)
[2018-04-24] MEDS: HYDROcodone/APAP 5-325MG 1 EACH TAB PO PRN (06:43)
[2018-04-24] MEDS: metFORMIN 500 MG TAB PO SCH (06:44)
[2018-04-24] MEDS: BUDESONIDE 1 MG/2 ML NEBU INHALATION SCH (07:59)
[2018-04-24] MEDS: IPRATROPIUM-ALBUTEROL 3 ML NEB INHALATION SCH ×2 (07:59→12:08)
[2018-04-24] MEDS: CYANOCOBALAMIN 500 MCG TAB PO SCH (08:59)
[2018-04-24] MEDS: metroNIDAZOLE 500 MG TAB PO SCH (08:59)
[2018-04-24] MEDS: PANTOPRAZOLE 40 MG/10 ML VIAL IVP SCH (08:59)
[2018-04-24] MEDS: DULoxetine HCL 20 MG CAPSULE.DR PO SCH (08:59)
[2018-04-24] MEDS: ATORVASTATIN 10 MG TAB PO SCH (08:59)
[2018-04-24 09:16] VITALS: BP 111/55; TEMP 97.5
--- NOTE | 2018-04-24 09:41 | P.PN ---
Subjective Progress Note Date: 04/24/18 04/24/2018: Patient seen and examined for follow-up. The patient states that she feels ready to go home. She denies any fevers or chills. She states her breathing is at baseline. Objective - Vital Signs Vital signs: Vital Signs Temp 97.5 F L 04/24/18 08:00 Pulse 86 04/24/18 08:16 Resp 18 04/24/18 08:00 BP 111/55 04/24/18 08:00 Pulse Ox 98 04/24/18 08:00 Intake & Output 04/23/18 04/24/18 04/24/18 18:59 06:59 18:59 Intake Total 318 118 Output Total 350 700 Balance -32 -582 Weight 75.9 kg Intake: Oral 318 118 Output: Urine 350 700 Other: Voiding Method Bedside Commode # Voids 2 - Exam Gen.: Patient is alert and oriented 3, no acute distress Cardiovascular: Regular rate and rhythm, S1/S2 Lungs: Diminished breath sounds bilaterally Abdomen: Soft, mildly diffusely tender, positive bowel sounds Extremities: No edema - Labs CBC & Chem 7: 04/23/18 05:46 04/23/18 05:46 Labs: Abnormal Lab Results - Last 24 Hours (Table) 04/23/18 04/23/18 04/23/18 Range/Units 11:41 16:39 16:40 POC Glucose (mg/dL) 100 H 223 H 218 H (75-99) mg/dL 04/23/18 04/24/18 Range/Units 20:40 06:28 POC Glucose (mg/dL) 123 H 104 H (75-99) mg/dL Assessment and Plan Assessment: Acute on chronic hypoxic and hypercapnic respiratory failure Acute exacerbation of COPD and severe persistent asthma Acute tracheobronchitis s/p ex lap with small bowel resection due to perforation Encephalopathy, metabolic Respiratory acidosis compensated with metabolic alkalosis History of tobacco abuse Depression and anxiety Chronic back pain History migraines Osteoarthritis Chronic diastolic congestive heart failure Hypertension GERD DM2 Continue BiPAP nightly and as needed O2 to maintain saturation greater than or equal to 88% Solumedrol - discontinue Singulair Duo nebs Pulmicort Perforomist Tobacco cessation is to be continued Incentive spirometry and pulmonary hygiene GI and DVT prophylaxis: Lovenox and Protonix PT and OT, encourage ambulation Patient would benefit from rehab. She would also benefit from outpatient pulmonary rehab once able. Social work and case management for family/placement issues NGT and diet per surgery Respiratory status is at baseline. Ok to DC from pulmonary standpoint.
[2018-04-24 11:50] LABS: Glucose,Whole Blood 97 mg/dL (75-99)
[2018-04-24 12:17] VITALS: PULSE 86
== END 2018-04-24 13:08 | disposition home health service (06) | DRG 981 ==
LOC: EC 16:59 → 3SCARD 18:10
PROVIDERS: ADMIT Internal Medicine; ATTEND Internal Medicine
PROC: 5A09557 Assistance with Respiratory Ventilation, Greater than 96 Consecutive Hours, Continuous Positive Airway Pressure (ICD-10-PCS; principal; 2018-04-14)
PROC: 0DB80ZZ Excision of Small Intestine, Open Approach (ICD-10-PCS; 2018-04-17)
DX: J96.21 Acute and chronic respiratory failure with hypoxia (principal); E43 Unspecified severe protein-calorie malnutrition; G93.41 Metabolic encephalopathy; K63.1 Perforation of intestine (nontraumatic); K65.0 Generalized (acute) peritonitis; K65.1 Peritoneal abscess; E87.4 Mixed disorder of acid-base balance; F33.9 Major depressive disorder, recurrent, unspecified; I50.32 Chronic diastolic (congestive) heart failure; J44.0 Chronic obstructive pulmonary disease with (acute) lower respiratory infection; J44.1 Chronic obstructive pulmonary disease with (acute) exacerbation; J45.51 Severe persistent asthma with (acute) exacerbation; J96.22 Acute and chronic respiratory failure with hypercapnia; E11.41 Type 2 diabetes mellitus with diabetic mononeuropathy; F41.1 Generalized anxiety disorder; G47.33 Obstructive sleep apnea (adult) (pediatric); G89.29 Other chronic pain; I11.0 Hypertensive heart disease with heart failure; J20.9 Acute bronchitis, unspecified; K21.9 Gastro-esophageal reflux disease without esophagitis; M19.90 Unspecified osteoarthritis, unspecified site; M81.0 Age-related osteoporosis without current pathological fracture; N32.81 Overactive bladder; R04.0 Epistaxis; T38.0X5A Adverse effect of glucocorticoids and synthetic analogues, initial encounter; Z79.82 Long term (current) use of aspirin; Z79.84 Long term (current) use of oral hypoglycemic drugs; Z79.899 Other long term (current) drug therapy; Z82.49 Family history of ischemic heart disease and other diseases of the circulatory system; Z87.11 Personal history of peptic ulcer disease; Z87.891 Personal history of nicotine dependence; Z90.710 Acquired absence of both cervix and uterus; Z99.81 Dependence on supplemental oxygen; Z99.89 Dependence on other enabling machines and devices; Z68.27 Body mass index [BMI] 27.0-27.9, adult; M54.5 Low back pain
CPT/HCPCS: 36410; 36415; 36600; 71045; 74019; 76937; 80048; 80053; 82805; 83605; 83690; 83735; 83880; 84484; 85025; 85027; 85610; 85730; 87070; 87075; 87077; 87186; 87205; 88307; 88309; 93005; 94640; 94660; 94760; 96374; 99291

== ENCOUNTER 2018-07-28 12:30 | Inpatient (IN) | payer MEDICARE, OTHER ==
[2018-07-28] MEDS ORDERED: IPRATROPIUM-ALBUTEROL 3 ML NEB INHALATION STA ×2 (13:21→15:30)
[2018-07-28 13:42] LABS: Anisocytosis Slight; Basophils % (A) 0 %; Eosinophils # (A) 0.1 k/uL (0-0.7); Eosinophils % (A) 1 %; HCT 36.6 % (34.0-46.0); HGB 9.6 gm/dL (11.4-16.0); Hypochromasia Marked; Lymphocytes # (A) 1.1 k/uL (1.0-4.8); Lymphocytes % (A) 13 %; MCH 21.6 pg (25.0-35.0); MCHC 26.2 g/dL (31.0-37.0); MCV 82.5 fL (80.0-100.0); Mean Platelet Volume 6.3; Monocytes # (A) 0.8 k/uL (0-1.0); Monocytes % (A) 9 %; Neutrophils # (A) 6.5 k/uL (1.3-7.7); Neutrophils % (A) 75 %; Platelet Count 324 k/uL (150-450); RBC 4.43 m/uL (3.80-5.40); RDW 16.7 % (11.5-15.5); WBC 8.6 k/uL (3.8-10.6)
[2018-07-28 13:50] LABS: ALT 20 U/L (9-52); AST 14 U/L (14-36); African American GFR (CKD) >90 (>60 ml/min/1.73 sqM); Albumin 3.6 g/dL (3.5-5.0); Alkaline Phosphatase 69 U/L (38-126); Blood Urea Nitrogen 20 mg/dL (7-17); Chloride 83 mmol/L (98-107); Glucose 118 mg/dL (74-99); Magnesium 1.5 mg/dL (1.6-2.3); Potassium 4.1 mmol/L (3.5-5.1); Sodium 144 mmol/L (137-145); Total Bilirubin 0.4 mg/dL (0.2-1.3); Total Protein 6.2 g/dL (6.3-8.2)
[2018-07-28 13:53] LABS: INR 0.9 (<1.2); Prothrombin Time 9.9 sec (9.0-12.0)
[2018-07-28 13:56] LABS: Anion Gap 3 mmol/L
[2018-07-28 13:58] LABS: Carbon Dioxide 58 mmol/L (22-30)
--- NOTE | 2018-07-28 14:20 | ED ---
SOB HPI - General Chief Complaint: Shortness of Breath Stated Complaint: SARAH Time Seen by Provider: 07/28/18 12:41 Source: patient, EMS, RN notes reviewed Mode of arrival: EMS Limitations: physical limitation - History of Present Illness Initial Comments: This is a 63-year-old female history of CHF COPD who states she's had shortness of breath or past several days she states she had a cough with slight yellow phlegm no fevers chills nausea vomiting sweats or other symptoms she does states she has some chest pain that sharp in nature it does seem to get worse with movement and deep breathing. MD Complaint: shortness of breath, cough - Related Data Home Medications Medication Instructions Recorded Confirmed Cholecalciferol (Vitamin D3) 2,000 unit PO DAILY 10/31/16 07/28/18 [Vitamin D3] DULoxetine HCL [Cymbalta] 20 mg PO DAILY 10/31/16 07/28/18 Furosemide [Lasix] 20 mg PO DAILY 10/31/16 07/28/18 ALPRAZolam [Xanax] 0.25 mg PO TID PRN 04/15/18 07/28/18 Albuterol Inhaler [Ventolin Hfa 2 puff INHALATION RT-Q6H PRN 04/15/18 07/28/18 Inhaler] Atorvastatin [Lipitor] 10 mg PO DAILY 04/15/18 07/28/18 Calcitonin Nasal [Fortical 1 spray NASAL DAILY 04/15/18 07/28/18 (Miacalcin)] Cyanocobalamin (Vitamin B-12) 1,000 mcg PO DAILY 04/15/18 07/28/18 [Vitamin B-12] HYDROcodone/APAP 5-325MG [[place] 1 tab PO TID PRN 04/15/18 07/28/18 5-325] Ipratropium [place] [Atrovent Hfa] 2 puff INHALATION RT-QID 04/15/18 07/28/18 Metoprolol Tartrate [Lopressor] 25 mg PO BID 04/15/18 07/28/18 Potassium Chloride ER [K-Dur 10] 10 meq PO DAILY 04/15/18 07/28/18 Sucralfate [Carafate] 1 gm PO QID 04/15/18 07/28/18 metFORMIN HCL [Glucophage] 1,000 mg PO AC-BID 04/15/18 07/28/18 Verapamil [Isoptin] 40 mg PO TID 07/28/18 07/28/18 Previous Rx's Medication Instructions Recorded Montelukast [Singulair] 10 mg PO HS #30 tab 11/04/16 Omeprazole Magnesium [PriLOSEC OTC] 20 mg PO DAILY #30 tablet. 11/04/16 Ipratropium-Albuterol Nebulize 3 ml INHALATION RT-QID ampul.neb 02/23/17 [Duoneb 0.5 mg-3 mg/3 ml Soln] Allergies Allergy/AdvReac Type Severity Reaction Status Date / Time No Known Allergies Allergy Verified 07/28/18 13:30 Review of Systems ROS Statement: Those systems with pertinent positive or pertinent negative responses have been documented in the HPI. ROS Other: All systems not noted in ROS Statement are negative. Past Medical History Past Medical History: Asthma, Heart Failure, COPD, GERD/Reflux, Musculoskeletal Disorder, Osteoarthritis (OA), Pneumonia, Sleep Apnea/CPAP/BIPAP Additional Past Medical History / Comment(s): Bronhitis, chronic low back pain, TIMOTHY with CPAP, home O2 , past L kneecap fx, occasional dependent pedal edema, depression, gallbladder disease, chronic tobacco use and dependence, urinary incontinence, migraine headaches, osteoporosis, sciatica, peptic ulcer disease, urethritis,. History of Any Multi-Drug Resistant Organisms: MRSA Date of last positivie culture/infection: 02/21/17 ([facility]) MDRO Source:: Sputum Past Surgical History: Hernia Repair, Tubal Ligation Additional Past Surgical History / Comment(s): Bilateral inguinal hernia repairs, colonoscopy with benign polyypectomy, surgery for "pinched nerve in my R hip." Discectomy, right femur open reduction internal fixation. Past Anesthesia/Blood Transfusion Reactions: No Reported Reaction Past Psychological History: Depression Smoking Status: Former smoker Past Alcohol Use History: None Reported Past Drug Use History: None Reported - Past Family History Father Family Medical History: Coronary Artery Disease (CAD) Additional Family Medical History / Comment(s): Father is 83 yrs old. He has had 2 vessel CABG and a pacer. Mother Family Medical History: Dementia Additional Family Medical History / Comment(s): Mother of dementia at the age of 78yrs. Brother(s) Family Medical History: No Reported History Sister(s) Family Medical History: No Reported History Additional Family Medical History / Comment(s): Patient has 2 children no major medical problems. Patient lives with her daughter General Exam - General Exam Comments Initial Comments: This is a well-developed well-nourished awake alert oriented 3 female Limitations: physical limitation General appearance: alert, anxious Head exam: Present: atraumatic, normocephalic, normal inspection Eye exam: Present: normal appearance, PERRL, EOMI. Absent: scleral icterus, conjunctival injection, periorbital swelling ENT exam: Present: mucous membranes dry Neck exam: Present: normal inspection. Absent: tenderness, meningismus, lymphadenopathy Respiratory exam: Present: wheezes, decreased breath sounds. Absent: respiratory distress, rales, rhonchi, stridor Cardiovascular Exam: Present: normal rhythm, tachycardia, normal heart sounds. Absent: systolic murmur, diastolic murmur, rubs, gallop, clicks GI/Abdominal exam: Present: soft, normal bowel sounds. Absent: distended, tenderness, guarding, rebound, rigid Extremities exam: Present: normal inspection, full ROM, normal capillary refill. Absent: tenderness, pedal edema, joint swelling, calf tenderness Back exam: Present: normal inspection Neurological exam: Present: alert, oriented X3, CN II-XII intact Psychiatric exam: Present: normal affect, normal mood Skin exam: Present: warm, dry, intact, normal color. Absent: rash Course Vital Signs 07/28/18 07/28/18 07/28/18 12:45 13:24 13:34 Temperature 98.6 F Pulse Rate 112 H 107 H 108 H Respiratory 24 Rate Blood Pressure 100/75 O2 Sat by Pulse 94 L Oximetry 07/28/18 07/28/18 07/28/18 13:49 15:36 15:46 Temperature Pulse Rate 107 H 101 H Respiratory 24 Rate Blood Pressure O2 Sat by Pulse Oximetry Medical Decision Making - Medical Decision Making I did discuss the findings with Dr. George and with Dr. Green. Patient be readmitted to this facility for COPD exacerbation with failed outpatient treatment - Lab Data Result diagrams: 07/28/18 13:23 07/28/18 13:23 Lab Results 07/28/18 07/28/18 07/28/18 Range/Units 13:23 13:23 13:23 WBC 8.6 (3.8-10.6) k/uL RBC 4.43 (3.80-5.40) m/uL Hgb 9.6 L (11.4-16.0) gm/dL Hct 36.6 (34.0-46.0) % MCV 82.5 (80.0-100.0) fL MCH 21.6 L (25.0-35.0) pg MCHC 26.2 L (31.0-37.0) g/dL RDW 16.7 H (11.5-15.5) % Plt Count 324 (150-450) k/uL Neutrophils % 75 % Lymphocytes % 13 % Monocytes % 9 % Eosinophils % 1 % Basophils % 0 % Neutrophils # 6.5 (1.3-7.7) k/uL Lymphocytes # 1.1 (1.0-4.8) k/uL Monocytes # 0.8 (0-1.0) k/uL Eosinophils # 0.1 (0-0.7) k/uL Basophils # 0.0 (0-0.2) k/uL Hypochromasia Marked Anisocytosis Slight PT (9.0-12.0) sec INR (<1.2) APTT (22.0-30.0) sec Sodium 144 (137-145) mmol/L Potassium 4.1 (3.5-5.1) mmol/L Chloride 83 L (98-107) mmol/L Carbon Dioxide 58 H* (22-30) mmol/L Anion Gap 3 mmol/L BUN 20 H (7-17) mg/dL Creatinine 0.45 L (0.52-1.04) mg/dL Est GFR (CKD-EPI)AfAm >90 (>60 ml/min/1.73 sqM) Est GFR (CKD-EPI)NonAf >90 (>60 ml/min/1.73 sqM) Glucose 118 H (74-99) mg/dL Calcium 9.0 (8.4-10.2) mg/dL Magnesium 1.5 L (1.6-2.3) mg/dL Total Bilirubin 0.4 (0.2-1.3) mg/dL AST 14 (14-36) U/L ALT 20 (9-52) U/L Alkaline Phosphatase 69 (38-126) U/L Troponin I (0.000-0.034) ng/mL NT-Pro-B Natriuret Pep 58 pg/mL Total Protein 6.2 L (6.3-8.2) g/dL Albumin 3.6 (3.5-5.0) g/dL 07/28/18 07/28/18 Range/Units 13:23 13:23 WBC (3.8-10.6) k/uL RBC (3.80-5.40) m/uL Hgb (11.4-16.0) gm/dL Hct (34.0-46.0) % MCV (80.0-100.0) fL MCH (25.0-35.0) pg MCHC (31.0-37.0) g/dL RDW (11.5-15.5) % Plt Count (150-450) k/uL Neutrophils % % Lymphocytes % % Monocytes % % Eosinophils % % Basophils % % Neutrophils # (1.3-7.7) k/uL Lymphocytes # (1.0-4.8) k/uL Monocytes # (0-1.0) k/uL Eosinophils # (0-0.7) k/uL Basophils # (0-0.2) k/uL Hypochromasia Anisocytosis PT 9.9 (9.0-12.0) sec INR 0.9 (<1.2) APTT 21.6 L (22.0-30.0) sec Sodium (137-145) mmol/L Potassium (3.5-5.1) mmol/L Chloride (98-107) mmol/L Carbon Dioxide (22-30) mmol/L Anion Gap mmol/L BUN (7-17) mg/dL Creatinine (0.52-1.04) mg/dL Est GFR (CKD-EPI)AfAm (>60 ml/min/1.73 sqM) Est GFR (CKD-EPI)NonAf (>60 ml/min/1.73 sqM) Glucose (74-99) mg/dL Calcium (8.4-10.2) mg/dL Magnesium (1.6-2.3) mg/dL Total Bilirubin (0.2-1.3) mg/dL AST (14-36) U/L ALT (9-52) U/L Alkaline Phosphatase (38-126) U/L Troponin I <0.012 (0.000-0.034) ng/mL NT-Pro-B Natriuret Pep pg/mL Total Protein (6.3-8.2) g/dL Albumin (3.5-5.0) g/dL - EKG Data -: EKG Interpreted by Me (Sinus tachycardia rate below by block with anterior fascicular block rate w) - Radiology Data Radiology results: report reviewed (Did review the imaging and report no acute findings.), image reviewed Disposition Clinical Impression: Acute exacerbation of chronic obstructive airways disease, Failure of outpatient treatment Disposition: ADMITTED IP TO THIS [facility] Condition: Fair Referrals: Matheus Benitez MD [Primary Care Provider] - 1-2 days
[2018-07-28 14:38] LABS: Partial Thromboplastin Time 21.6 sec (22.0-30.0)
--- NOTE | 2018-07-28 14:40 | XR ---
EXAMINATION TYPE: XR chest 2V DATE OF EXAM: 07/28/2018 COMPARISON: Prior chest x-ray 04/14/2018 HISTORY: Difficulty breathing TECHNIQUE: Frontal and lateral views of the chest are obtained. FINDINGS: There is no focal air space opacity, pleural effusion, or pneumothorax seen. The cardiac silhouette size is stable, may be accentuated appearance due to rotation. Lung lines are prominent co mpatible with underlying COPD. There are coronary calcifications suspected. The aorta is tortuous and dense. Interstitium appears prominently. The osseous structures are intact. IMPRESSION: No acute cardiopulmonary process.
[2018-07-28] MEDS ORDERED: MAGNESIUM SULFATE-D5W PMX 1 GM in DEXTROSE/WATER 1 100ML.BAG IVPB ONE (15:30)
--- NOTE | 2018-07-28 17:00 | ED ---
Medical Decision Making - Lab Data Result diagrams: 07/28/18 13:23 07/28/18 13:23 Lab Results 07/28/18 07/28/18 07/28/18 Range/Units 13:23 13:23 13:23 WBC 8.6 (3.8-10.6) k/uL RBC 4.43 (3.80-5.40) m/uL Hgb 9.6 L (11.4-16.0) gm/dL Hct 36.6 (34.0-46.0) % MCV 82.5 (80.0-100.0) fL MCH 21.6 L (25.0-35.0) pg MCHC 26.2 L (31.0-37.0) g/dL RDW 16.7 H (11.5-15.5) % Plt Count 324 (150-450) k/uL Neutrophils % 75 % Lymphocytes % 13 % Monocytes % 9 % Eosinophils % 1 % Basophils % 0 % Neutrophils # 6.5 (1.3-7.7) k/uL Lymphocytes # 1.1 (1.0-4.8) k/uL Monocytes # 0.8 (0-1.0) k/uL Eosinophils # 0.1 (0-0.7) k/uL Basophils # 0.0 (0-0.2) k/uL Hypochromasia Marked Anisocytosis Slight PT (9.0-12.0) sec INR (<1.2) APTT (22.0-30.0) sec Sodium 144 (137-145) mmol/L Potassium 4.1 (3.5-5.1) mmol/L Chloride 83 L (98-107) mmol/L Carbon Dioxide 58 H* (22-30) mmol/L Anion Gap 3 mmol/L BUN 20 H (7-17) mg/dL Creatinine 0.45 L (0.52-1.04) mg/dL Est GFR (CKD-EPI)AfAm >90 (>60 ml/min/1.73 sqM) Est GFR (CKD-EPI)NonAf >90 (>60 ml/min/1.73 sqM) Glucose 118 H (74-99) mg/dL Calcium 9.0 (8.4-10.2) mg/dL Magnesium 1.5 L (1.6-2.3) mg/dL Total Bilirubin 0.4 (0.2-1.3) mg/dL AST 14 (14-36) U/L ALT 20 (9-52) U/L Alkaline Phosphatase 69 (38-126) U/L Troponin I (0.000-0.034) ng/mL NT-Pro-B Natriuret Pep 58 pg/mL Total Protein 6.2 L (6.3-8.2) g/dL Albumin 3.6 (3.5-5.0) g/dL 07/28/18 07/28/18 Range/Units 13:23 13:23 WBC (3.8-10.6) k/uL RBC (3.80-5.40) m/uL Hgb (11.4-16.0) gm/dL Hct (34.0-46.0) % MCV (80.0-100.0) fL MCH (25.0-35.0) pg MCHC (31.0-37.0) g/dL RDW (11.5-15.5) % Plt Count (150-450) k/uL Neutrophils % % Lymphocytes % % Monocytes % % Eosinophils % % Basophils % % Neutrophils # (1.3-7.7) k/uL Lymphocytes # (1.0-4.8) k/uL Monocytes # (0-1.0) k/uL Eosinophils # (0-0.7) k/uL Basophils # (0-0.2) k/uL Hypochromasia Anisocytosis PT 9.9 (9.0-12.0) sec INR 0.9 (<1.2) APTT 21.6 L (22.0-30.0) sec Sodium (137-145) mmol/L Potassium (3.5-5.1) mmol/L Chloride (98-107) mmol/L Carbon Dioxide (22-30) mmol/L Anion Gap mmol/L BUN (7-17) mg/dL Creatinine (0.52-1.04) mg/dL Est GFR (CKD-EPI)AfAm (>60 ml/min/1.73 sqM) Est GFR (CKD-EPI)NonAf (>60 ml/min/1.73 sqM) Glucose (74-99) mg/dL Calcium (8.4-10.2) mg/dL Magnesium (1.6-2.3) mg/dL Total Bilirubin (0.2-1.3) mg/dL AST (14-36) U/L ALT (9-52) U/L Alkaline Phosphatase (38-126) U/L Troponin I <0.012 (0.000-0.034) ng/mL NT-Pro-B Natriuret Pep pg/mL Total Protein (6.3-8.2) g/dL Albumin (3.5-5.0) g/dL Disposition Clinical Impression: Acute exacerbation of chronic obstructive airways disease, Failure of outpatient treatment, Hypomagnesemia syndrome Disposition: ADMITTED IP TO THIS HOSP Condition: Fair Referrals: Matheus Benitez MD [Primary Care Provider] - 1-2 days Procedures - [place] Protocol (Time Out) Nurse: Jannet Nelson
[2018-07-28] MEDS: SODIUM CHLORIDE 0.9% 1,000 ML IV SCH (17:43)
[2018-07-28 18:10] VITALS: BMI 21.7
[2018-07-28] MEDS: BUDESONIDE 0.5 MG/2 ML NEBU INHALATION SCH (19:13)
[2018-07-28] MEDS: IPRATROPIUM-ALBUTEROL 3 ML NEB INHALATION SCH ×2 (19:13→23:26)
[2018-07-28] MEDS: SUCRALFATE 1 GM TAB PO SCH ×2 (19:27→21:46)
[2018-07-28] MEDS: methylPREDNISolone SOD SUCCI 125 MG/2 ML VIAL IV SCH ×2 (19:28→23:30)
[2018-07-28] MEDS: metFORMIN 500 MG TAB PO SCH (19:28)
[2018-07-28] MEDS: HYDROcodone/APAP 5-325MG 1 EACH TAB PO PRN (19:38)
--- NOTE | 2018-07-28 20:16 | CONS ---
CONSULTATION HISTORY: Olena Roman is a 63-year-old female who presented to the ED at [facility] with increasing shortness of breath and lethargy for about one day's duration. She had recently been admitted to [facility] and was discharged home the previous day. She came into the ED at [facility]. She was sleepy but arousable, per the ER physician was following commands. She, however, would start to become drowsy and fall off to sleep. She was subsequently admitted for further evaluation and management. She has been having some cough with wheezing and shortness of breath more than usual. PAST MEDICAL HISTORY: Positive for severe COPD with chronic respiratory failure and CO2 retention, history of obstructive sleep apnea for which she is on BiPAP, history of asthma, gastroesophageal reflux disease, history of malnutrition, peptic ulcer disease, history of bilateral inguinal hernia repair, history of femur fracture with subsequent open reduction, internal fixation. FAMILY HISTORY: Positive for coronary artery disease in his father, dementia in mother. SOCIAL HISTORY: Patient smokes 1 to 2 packs of cigarettes per day. She does not drink alcohol excessively. MEDICATIONS: Prior to admission were ipratropium with albuterol, Lasix, Isoptin, hydrocodone with acetaminophen, Xanax, Prilosec, Singulair, Cymbalta, vitamin D3, Miacalcin nasal spray, Glucophage, K-Dur, Lipitor, Ventolin HFA, Carafate, and Lopressor. REVIEW OF SYSTEMS: Noncontributory. PHYSICAL EXAMINATION: Patient is lying in bed. She is asleep but easily aroused. She is using her accessory muscles of respiration. Respiratory rate is 24, pulse rate of 108, O2 saturation on 2 L by nasal cannula is 95%, blood pressure is 100/75, temperature 98.6. HEENT reveals pupils are equal. Chest reveals decreased breath sounds. Prolonged expiration. Bilateral expiratory wheeze. Cardiovascular system S1, S2. Abdomen is soft. There is no pedal edema. LABS: White count is 8.6, hemoglobin of 9.6, sodium 144, potassium 4.1, chloride 83, bicarb 58, BUN 28, creatinine 0.45, total protein is 6.2, glucose 118. Chest x-ray shows some hyperinflation, no discrete infiltrate. IMPRESSION: 1. Severe chronic obstructive pulmonary disease with asthma with acute exacerbation. 2. Acute on chronic respiratory failure. 3. Medical debility. 4. Obstructive sleep apnea. 5. Metabolic alkalosis, which may be secondary to chronic respiratory acidosis. At this point in time, would keep her on IV steroids, bronchodilators, aerosolized steroids and leukotriene receptor antagonists. Keep her on BiPAP. We will give her a single dose of Diamox, which may help stimulate her respiratory drive as bicarb starts to correct. I would like to thank you for allowing me the privilege of participating in the care of my patient. MMODL / IJN: [id number] /
[2018-07-28 21:01] LABS: Glucose,Whole Blood 287 mg/dL (75-99)
[2018-07-28] MEDS: MONTELUKAST 10 MG TAB PO SCH (21:45)
[2018-07-28] MEDS: VERAPAMIL 40 MG TAB PO SCH (21:45)
[2018-07-28] MEDS: METOPROLOL TARTRATE 25 MG TAB PO SCH (21:45)
[2018-07-29] MEDS: IPRATROPIUM-ALBUTEROL 3 ML NEB INHALATION SCH ×6 (03:22→23:52)
[2018-07-29] MEDS: methylPREDNISolone SOD SUCCI 125 MG/2 ML VIAL IV SCH ×4 (05:14→23:22)
[2018-07-29 07:02] LABS: Glucose,Whole Blood 151 mg/dL (75-99)
[2018-07-29] MEDS: BUDESONIDE 0.5 MG/2 ML NEBU INHALATION SCH ×2 (08:33→19:24)
[2018-07-29] MEDS: CHOLECALCIFEROL 1,000 UNIT TAB PO SCH (09:38)
[2018-07-29] MEDS: CYANOCOBALAMIN 500 MCG TAB PO SCH (09:39)
[2018-07-29] MEDS: SUCRALFATE 1 GM TAB PO SCH ×4 (09:39→21:04)
[2018-07-29] MEDS: DULoxetine HCL 20 MG CAPSULE.DR PO SCH (09:39)
[2018-07-29] MEDS: ATORVASTATIN 10 MG TAB PO SCH (09:39)
[2018-07-29] MEDS: VERAPAMIL 40 MG TAB PO SCH ×3 (09:39→21:04)
[2018-07-29] MEDS: METOPROLOL TARTRATE 25 MG TAB PO SCH ×2 (09:39→21:04)
[2018-07-29] MEDS: metFORMIN 500 MG TAB PO SCH ×2 (09:39→18:03)
[2018-07-29] MEDS: POTASSIUM CHLORIDE ER 10 MEQ TAB.ER.PRT PO SCH (09:39)
[2018-07-29] MEDS: FUROSEMIDE 20 MG TAB PO SCH (09:39)
[2018-07-29] MEDS: PANTOPRAZOLE 40 MG TABLET PO SCH (09:40)
[2018-07-29] MEDS: CALCITONIN 200 USP/1 NASAL SPRAY 3.7ML BTL NASAL SCH (09:43)
--- NOTE | 2018-07-29 10:32 | PN ---
PROGRESS NOTE DATE OF SERVICE: 07/29/2018 Patient is a 63-year-old female who is seen lying in bed, is awake and alert, does complain of some chest discomfort this morning. The patient is afebrile, hemodynamically stable, in no acute distress. PHYSICAL EXAM: VITAL SIGNS: Temperature 97.8, heart rate 104, respiratory rate 22, O2 saturation not documented on 3 L O2 via nasal cannula. HEENT. Head is normocephalic, atraumatic. Neck is supple. Trachea is midline. LUNGS: With expiratory wheezes. Prolonged expiratory phase and diminished breath sounds. HEART: S1, S2 are heard. Not tachycardic. ABDOMEN: Soft with a large hernia noted. Bowel sounds are heard. EXTREMITIES: With no edema. NEUROLOGIC: Patient is awake and alert. LABS: No new labs to review. No new imaging to review. IMPRESSION: 1. Severe chronic obstructive pulmonary disease with asthma with acute exacerbation. 2. Acute on chronic respiratory failure. 3. Medical debility. 4. Obstructive sleep apnea. 5. Metabolic alkalosis. PLAN: Continue current medications which have been reviewed. Continue the bronchodilators, aerosol steroids and IV steroids. Continue to keep her on BiPAP during sleep and any naps. Will continue to follow patient closely with you making further changes as necessary. MMODL / IJN: [id number] /
[2018-07-29 11:48] LABS: Glucose,Whole Blood 272 mg/dL (75-99)
[2018-07-29 16:37] LABS: Glucose,Whole Blood 158 mg/dL (75-99)
[2018-07-29] MEDS: SODIUM CHLORIDE 0.9% 1,000 ML IV SCH (18:04)
[2018-07-29] MEDS: ALPRAZolam 0.25 MG TAB PO PRN (18:07)
--- NOTE | 2018-07-29 18:19 | P.HPIM ---
History of Present Illness H&P Date: 07/28/18 Chief Complaint: Acute respiratory failure, advance COPD with exacerbation, severe bronchiti 63-year-old female one of Dr. Benitez's patient with advance COPD who seen pulmonary on regular basis who was hospitalized recently at [facility] for few days for worsening dyspnea and shortness of breath was treated and sent home. Patient return to the emergency department at [facility] on 619 with worsening shortness of breath cough wheezes not been able to ambulate or walk not been able to lay down her oral intake is very limited and low patient is having hypoxia despite having higher oxygen and despite using her BiPAP. Patient pulse ox in the emergency room was very low was diagnosed with severe hypoxia and severe hypercarbia with CO2 over 53 pulmonary were called and patient be admitted to the hospital for chronic on acute respiratory failure. Review of Systems CONSTITUTIONAL: Looks very chronically sick in mild respiratory distress. EYES: No icterus sclerae, no conjunctivitis. EARS, NOSE, MOUTH, THROAT, and FACE: No sore throat, lymphadenopathy, carotid bruits or deformity. RESPIRATORY: Positive shortness of breath cough or wheezes. CARDIOVASCULAR: Positive PND or the new palpitation no angina. GASTROINTESTINAL: Positive abdominal discomfort with nausea no vomiting no diarrhea or constipation slight indigestion. Tach of appetite. GENITOURINARY: Negative for Hematuria or UTI, no kidney stones. INTEGUMENT/BREAST: Negative for any muscular injury with mild osteoarthritis.. HEMATOLOGIC/LYMPHATIC: Negative for bleed or purpura. MUSCULOSKELTAL: Generalized muscle and joint pain. NEURLOGICAL: No LOC, Sz or syncope, blurred vision dizziness or abnormality.. BEHAVIORAL/PSYCH: Severely depressed. ENDOCRINE: Negative. Past Medical History Past Medical History: Asthma, Heart Failure, COPD, GERD/Reflux, Musculoskeletal Disorder, Osteoarthritis (OA), Pneumonia, Sleep Apnea/CPAP/BIPAP Additional Past Medical History / Comment(s): Bronhitis, chronic low back pain, TIMOTHY with CPAP, home O2 , past L kneecap fx, occasional dependent pedal edema, depression, gallbladder disease, chronic tobacco use and dependence, urinary incontinence, migraine headaches, osteoporosis, sciatica, peptic ulcer disease, urethritis,. History of Any Multi-Drug Resistant Organisms: MRSA Date of last positivie culture/infection: 02/21/17 ([facility]) MDRO Source:: Sputum Past Surgical History: Hernia Repair, Tubal Ligation Additional Past Surgical History / Comment(s): Bilateral inguinal hernia repairs, colonoscopy with benign polyypectomy, surgery for "pinched nerve in my R hip." Discectomy, right femur open reduction internal fixation. Past Anesthesia/Blood Transfusion Reactions: No Reported Reaction Past Psychological History: Depression Additional Psychological History / Comment(s): Pt resides with her krista in an apartment that has 4-5 steps. She uses a walker on occasion. She has a CPAP, nebulizer and home oxygen. She no longer drives, she uses senior transportation. Her daughter does most of the cooking and helps organize pt medication. Smoking Status: Former smoker Past Alcohol Use History: None Reported Additional Past Alcohol Use History / Comment(s): started smoking at age 20(1975) and quit 2017 was smoking 1.5 ppd Past Drug Use History: None Reported - Past Family History Father Family Medical History: Coronary Artery Disease (CAD) Additional Family Medical History / Comment(s): Father is 83 yrs old. He has had 2 vessel CABG and a pacer. Mother Family Medical History: Dementia Additional Family Medical History / Comment(s): Mother of dementia at the age of 78yrs. Brother(s) Family Medical History: No Reported History Sister(s) Family Medical History: No Reported History Additional Family Medical History / Comment(s): Patient has 2 children no major medical problems. Patient lives with her daughter Medications and Allergies Home Medications Medication Instructions Recorded Confirmed Type Cholecalciferol (Vitamin D3) 2,000 unit PO DAILY 10/31/16 07/28/18 History [Vitamin D3] DULoxetine HCL [Cymbalta] 20 mg PO DAILY 10/31/16 07/28/18 History Furosemide [Lasix] 20 mg PO DAILY 10/31/16 07/28/18 History Montelukast [Singulair] 10 mg PO HS #30 tab 11/04/16 07/28/18 Rx Omeprazole Magnesium [PriLOSEC OTC] 20 mg PO DAILY #30 tablet. 11/04/16 07/28/18 Rx Ipratropium-Albuterol Nebulize 3 ml INHALATION RT-QID ampul.neb 02/23/17 07/28/18 Rx [Duoneb 0.5 mg-3 mg/3 ml Soln] ALPRAZolam [Xanax] 0.25 mg PO TID PRN 04/15/18 07/28/18 History Albuterol Inhaler [Ventolin Hfa 2 puff INHALATION RT-Q6H PRN 04/15/18 07/28/18 History Inhaler] Atorvastatin [Lipitor] 10 mg PO DAILY 04/15/18 07/28/18 History Calcitonin Nasal [Fortical 1 spray NASAL DAILY 04/15/18 07/28/18 History (Miacalcin)] Cyanocobalamin (Vitamin B-12) 1,000 mcg PO DAILY 04/15/18 07/28/18 History [Vitamin B-12] HYDROcodone/APAP 5-325MG [[place]end[place] 1 tab PO TID PRN 04/15/18 07/28/18 History 5-325] Ipratropium [place] [Atrovent Hfa] 2 puff INHALATION RT-QID 04/15/18 07/28/18 History Metoprolol Tartrate [Lopressor] 25 mg PO BID 04/15/18 07/28/18 History Potassium Chloride ER [K-Dur 10] 10 meq PO DAILY 04/15/18 07/28/18 History Sucralfate [Carafate] 1 gm PO QID 04/15/18 07/28/18 History metFORMIN HCL [Glucophage] 1,000 mg PO AC-BID 04/15/18 07/28/18 History Verapamil [Isoptin] 40 mg PO TID 07/28/18 07/28/18 History Allergies Allergy/AdvReac Type Severity Reaction Status Date / Time No Known Allergies Allergy Verified 07/28/18 13:30 Physical Exam Vitals: Vital Signs Temp Pulse Pulse Resp BP BP Pulse Ox 07/28/18 21:18 98.9 F 118 H 18 103/58 92 L 07/28/18 19:30 116 H 07/28/18 19:16 124 H 07/28/18 17:30 112/71 93 L 07/28/18 17:00 111/70 92 L 07/28/18 16:30 120/75 86 L 07/28/18 16:00 102/70 84 L 07/28/18 15:46 101 H 07/28/18 15:36 107 H 07/28/18 15:30 112/71 93 L 07/28/18 15:00 111/72 95 07/28/18 14:30 105/70 97 07/28/18 14:00 114/72 95 07/28/18 13:49 24 07/28/18 13:34 108 H 07/28/18 13:30 107/66 07/28/18 13:24 107 H 07/28/18 12:45 98.6 F 112 H 24 100/75 94 L Intake and Output 07/28/18 07/28/18 07/29/18 14:59 22:59 06:59 Other: # Voids 2 # Bowel Movements 1 Weight 62.188 kg General Appearance: Alert, cooperative, in mild distress looks much older than her age. Neck HEENT: Supple, no lymphadenopathy, no thyroid enlargement, no carotid bruits. Lungs: Decreased expansion with inspiration bilaterally with fine rhonchi in both lung field with by basilar crackles and inspiratory expiratory wheezes. Chest Wall: Decrease expansion with deep inspiration no tenderness and no deformity was found on exam, no costochondral pain or discomfort. Heart: Regular rate and rhythm, S1, S2 normal positive S3, positive mild irregularity with systolic murmur. Back: Symmetric, severe scoliosis with kyphosis positive L-spine discomfort.. Abdomen: Soft, non-tender, bowel sounds active all four quadrants, no masses, no organomegaly. Extremities: Extremities normal, atraumatic, mild cyanotic extremities with trace edema. Pulses: 2+ and symmetric. Skin: Skin color, texture, tugor normal, no rashes or lesions. Neurologic: Alert oriented x3 cranial nerves II through XII intact, no motor deficit, no abnormal balance or gait. Results CBC & Chem 7: 07/28/18 13:23 07/28/18 13:23 Labs: Abnormal Lab Results - Last 24 Hours (Table) 07/28/18 07/28/18 07/28/18 Range/Units 13:23 13:23 13:23 Hgb 9.6 L (11.4-16.0) gm/dL MCH 21.6 L (25.0-35.0) pg MCHC 26.2 L (31.0-37.0) g/dL RDW 16.7 H (11.5-15.5) % APTT 21.6 L (22.0-30.0) sec Chloride 83 L (98-107) mmol/L Carbon Dioxide 58 H* (22-30) mmol/L BUN 20 H (7-17) mg/dL Creatinine 0.45 L (0.52-1.04) mg/dL Glucose 118 H (74-99) mg/dL POC Glucose (mg/dL) (75-99) mg/dL Magnesium 1.5 L (1.6-2.3) mg/dL Total Protein 6.2 L (6.3-8.2) g/dL 07/28/18 Range/Units 20:59 Hgb (11.4-16.0) gm/dL MCH (25.0-35.0) pg MCHC (31.0-37.0) g/dL RDW (11.5-15.5) % APTT (22.0-30.0) sec Chloride (98-107) mmol/L Carbon Dioxide (22-30) mmol/L BUN (7-17) mg/dL Creatinine (0.52-1.04) mg/dL Glucose (74-99) mg/dL POC Glucose (mg/dL) 287 H (75-99) mg/dL Magnesium (1.6-2.3) mg/dL Total Protein (6.3-8.2) g/dL Thrombosis Risk Factor Assmnt - DVT/VTE Prophylaxis DVT/VTE Prophylaxis: Pharmacologic Prophylaxis ordered, Mechanical Prophylaxis ordered - Choose All That Apply Any of the Below Risk Factors Present?: Yes Each Factor Represents 1 point: Abnormal pulmonary function (COPD) Other Risk Factors: Yes Each Risk Factor Represents 2 Points: Age 61-74 years Other congenital or acquired thrombophilia - If yes, enter type in comment: No Thrombosis Risk Factor Assessment Total Risk Factor Score: 3 Thrombosis Risk Factor Assessment Level: Moderate Risk Assessment and Plan Plan: 1 acute respiratory failure: On chronic respiratory failure secondary to advanced COPD and worsening right-sided heart failure, continue O2 continue BiPAP pulmonary consultation start patient on steroids along with updraft treatment [id number] with steroid nebulizer as well. 2 COPD excessive patient: Patient was started on Solu-Medrol 125 mg and 60 mg every 6 hours [id number] continue DuoNeb 4 times a day and every 4 hours as needed along with Pulmicort. 3 congestive heart failure: More diastolic dysfunction chronic with acute component, continue patient on furosemide beta paradise and calcium channel paradise. 4 arrhythmia with tachycardia: Doing better on beta paradise and calcium channel paradise. 5 hyperglycemia: Remain on metformin 1000 mg twice a day Accu-Chek with sliding scales coverage and be done. 6 hypertension: Remain on furosemide 20 mg a day, metoprolol 25 mg twice a day and verapamil meal 40 mg 3 times a day. 7 chronic depression: Has been on Cymbalta and alprazolam. 8 medical debility with weight loss with severe protein and albumin been deficiency: Continue patient on nutrition dietitian consultation be done. 9 hyperlipidemia: Remain on atorvastatin 10 mg daily. 10 GERD/GI prophylaxis: Patient remain on Carafate 1 g 4 times a day. 11 DVT prophylaxis: Heparin 5000 units subcutaneous twice a day, CODE STATUS: Full code. Admit patient to inpatient status for more than 2 nights.
--- NOTE | 2018-07-29 18:54 | P.PN ---
Subjective Progress Note Date: 07/29/18 Principal diagnosis: Acute respiratory failure, advance COPD with exacerbation, severe bronchiti 63-year-old female one of Dr. Benitez's patient with advance COPD who seen pulmonary on regular basis who was hospitalized recently at [facility] for few days for worsening dyspnea and shortness of breath was treated and sent home. Patient return to the emergency department at [facility] on 619 with worsening shortness of breath cough wheezes not been able to ambulate or walk not been able to lay down her oral intake is very limited and low patient is having hypoxia despite having higher oxygen and despite using her BiPAP. Patient pulse ox in the emergency room was very low was diagnosed with severe hypoxia and severe hypercarbia with CO2 over 53 pulmonary were called and patient be admitted to the hospital for chronic on acute respiratory failure. 06/28: Patient remain not doing well continue to have significant shortness of breath and hypoxia continued to have symptom with minimum exertion, we'll consult PTOT and social work instructor patient might benefit from being in assisted living or a placement at this point. Objective - Vital Signs Vital signs: Vital Signs Temp 97.9 F 07/29/18 13:54 Pulse 80 07/29/18 16:15 Resp 18 07/29/18 16:15 BP 120/76 07/29/18 13:54 Pulse Ox 93 L 07/29/18 13:54 Intake & Output 07/28/18 07/29/18 07/29/18 18:59 06:59 18:59 Intake Total 240 Balance 240 Weight 62.188 kg Intake: Oral 240 Other: Voiding Method Bedside Commode Bedside Commode # Voids 1 1 # Bowel Movements 1 - Exam Review of Systems CONSTITUTIONAL: Looks very chronically sick in mild respiratory distress. EYES: No icterus sclerae, no conjunctivitis. EARS, NOSE, MOUTH, THROAT, and FACE: No sore throat, lymphadenopathy, carotid bruits or deformity. RESPIRATORY: Positive shortness of breath cough or wheezes. CARDIOVASCULAR: Positive PND or the new palpitation no angina. GASTROINTESTINAL: Positive abdominal discomfort with nausea no vomiting no diarrhea or constipation slight indigestion. Tach of appetite. GENITOURINARY: Negative for Hematuria or UTI, no kidney stones. INTEGUMENT/BREAST: Negative for any muscular injury with mild osteoarthritis.. HEMATOLOGIC/LYMPHATIC: Negative for bleed or purpura. MUSCULOSKELTAL: Generalized muscle and joint pain. NEURLOGICAL: No LOC, Sz or syncope, blurred vision dizziness or abnormality.. BEHAVIORAL/PSYCH: Severely depressed. ENDOCRINE: Negative. Physical Exam General Appearance: Alert, cooperative, in mild distress looks much older than her age. Neck HEENT: Supple, no lymphadenopathy, no thyroid enlargement, no carotid bruits. Lungs: Decreased expansion with inspiration bilaterally with fine rhonchi in both lung field with by basilar crackles and inspiratory expiratory wheezes. Chest Wall: Decrease expansion with deep inspiration no tenderness and no deformity was found on exam, no costochondral pain or discomfort. Heart: Regular rate and rhythm, S1, S2 normal positive S3, positive mild irregularity with systolic murmur. Back: Symmetric, severe scoliosis with kyphosis positive L-spine discomfort.. Abdomen: Soft, non-tender, bowel sounds active all four quadrants, no masses, no organomegaly. Extremities: Extremities normal, atraumatic, mild cyanotic extremities with trace edema. Pulses: 2+ and symmetric. Skin: Skin color, texture, tugor normal, no rashes or lesions. Neurologic: Alert oriented x3 cranial nerves II through XII intact, no motor deficit, no abnormal balance or gait. - Labs CBC & Chem 7: 07/28/18 13:23 07/28/18 13:23 Labs: Abnormal Lab Results - Last 24 Hours (Table) 07/28/18 07/29/18 07/29/18 Range/Units 20:59 07:01 11:47 POC Glucose (mg/dL) 287 H 151 H 272 H (75-99) mg/dL 07/29/18 Range/Units 16:36 POC Glucose (mg/dL) 158 H (75-99) mg/dL Microbiology - Last 24 Hours (Table) 07/28/18 13:35 Blood Culture - Preliminary Blood No Growth after 24 hours Assessment and Plan Plan: 1 acute respiratory failure: On chronic respiratory failure secondary to advanced COPD and worsening right-sided heart failure, continue O2 continue BiPAP pulmonary consultation start patient on steroids along with updraft treatment [id number] with steroid nebulizer as well. Treatment was agreeable by pulmonary. 2 COPD excessive patient: Patient was started on Solu-Medrol 125 mg and 60 mg every 6 hours [id number] continue DuoNeb 4 times a day and every 4 hours as needed along with Pulmicort. 3 congestive heart failure: More diastolic dysfunction chronic with acute component, continue patient on furosemide beta paradise and calcium channel paradise. 4 arrhythmia with tachycardia: Doing better on beta paradise and calcium channel paradise. 5 hyperglycemia: Remain on metformin 1000 mg twice a day Accu-Chek with sliding scales coverage and be done. 6 hypertension: Remain on furosemide 20 mg a day, metoprolol 25 mg twice a day and verapamil meal 40 mg 3 times a day. 7 chronic depression: Has been on Cymbalta and alprazolam. 8 medical debility with weight loss with severe protein and albumin been deficiency: Continue patient on nutrition dietitian consultation be done. 9 hyperlipidemia: Remain on atorvastatin 10 mg daily.
[2018-07-29 19:33] LABS: Glucose,Whole Blood 222 mg/dL (75-99)
[2018-07-29] MEDS: HYDROcodone/APAP 5-325MG 1 EACH TAB PO PRN (19:34)
[2018-07-29] MEDS: MONTELUKAST 10 MG TAB PO SCH (21:04)
[2018-07-30] MEDS: IPRATROPIUM-ALBUTEROL 3 ML NEB INHALATION SCH ×7 (03:29→23:36)
[2018-07-30] MEDS: methylPREDNISolone SOD SUCCI 125 MG/2 ML VIAL IV SCH ×4 (05:27→23:48)
[2018-07-30 07:02] LABS: Glucose,Whole Blood 186 mg/dL (75-99)
[2018-07-30] MEDS: ATORVASTATIN 10 MG TAB PO SCH (07:36)
[2018-07-30] MEDS: metFORMIN 500 MG TAB PO SCH ×2 (07:36→18:13)
[2018-07-30] MEDS: PANTOPRAZOLE 40 MG TABLET PO SCH (07:36)
[2018-07-30] MEDS: CALCITONIN 200 USP/1 NASAL SPRAY 3.7ML BTL NASAL SCH (07:36)
[2018-07-30] MEDS: CYANOCOBALAMIN 500 MCG TAB PO SCH (07:37)
[2018-07-30] MEDS: CHOLECALCIFEROL 1,000 UNIT TAB PO SCH ×2 (07:37→07:47)
[2018-07-30] MEDS: METOPROLOL TARTRATE 25 MG TAB PO SCH ×2 (07:47→20:41)
[2018-07-30] MEDS: POTASSIUM CHLORIDE ER 10 MEQ TAB.ER.PRT PO SCH (07:47)
[2018-07-30] MEDS: FUROSEMIDE 20 MG TAB PO SCH (07:47)
[2018-07-30] MEDS: DULoxetine HCL 20 MG CAPSULE.DR PO SCH (07:48)
[2018-07-30] MEDS: SUCRALFATE 1 GM TAB PO SCH ×4 (07:49→23:48)
[2018-07-30] MEDS: VERAPAMIL 40 MG TAB PO SCH ×3 (07:49→23:48)
[2018-07-30] MEDS: ALPRAZolam 0.25 MG TAB PO PRN (07:52)
[2018-07-30] MEDS: BUDESONIDE 0.5 MG/2 ML NEBU INHALATION SCH ×2 (08:05→19:54)
--- NOTE | 2018-07-30 09:14 | PN ---
PROGRESS NOTE DATE OF SERVICE: 07/30/2018 The patient is a 63-year-old female who is seen sitting up in bed, is awake and alert, feeling about the same. No improvement in shortness of breath. The patient a bit depressed and not feeling much better. Patient also verbalizes concern over the large abdominal hernia that she said occurred about 3 weeks ago. The patient is afebrile, hemodynamically stable, in no acute distress. PHYSICAL EXAMINATION: VITAL SIGNS: Temperature 97.6, heart rate 88, respiratory rate is 18, blood pressure is 100/65, O2 saturation is documented as 94% and when patient was on BiPAP, however, is off BiPAP now and on 3 L nasal cannula. HEENT. Head is normocephalic, atraumatic. NECK: Supple. Trachea is midline. LUNGS: With decreased breath sounds, prolonged expiratory phase and end-expiratory wheeze. HEART: S1, S2 are heard. Not tachycardic. ABDOMEN: Soft with a large abdominal heart hernia. Bowel sounds are heard. EXTREMITIES: With no edema. NEUROLOGIC: Patient is awake and alert. LABS: No new labs to review. No new imaging to review. IMPRESSION: 1. Severe chronic obstructive pulmonary disease with asthma with acute exacerbation. 2. Acute on chronic respiratory failure. 3. Abdominal hernia. 4. Medical debility. 5. Obstructive sleep apnea. 6. Metabolic alkalosis. PLAN: Continue current medications which have been reviewed. Consult surgery for the abdominal hernia as patient did have abdominal surgery in April. Continue bronchodilators, aerosol steroids and IV steroids. Add subcu heparin. Continue GI prophylaxis and will continue to follow patient closely with you making further changes as necessary. MMODL / IJN: [id number] /
--- NOTE | 2018-07-30 10:24 | CDI ---
Documentation Clarification Form Date: July 30, 2018 CDS: Mary Andrea, CCS, CCDS Admit Date: 07/28/2018 Patient Name: Olena Roman Discharge Date: ATTENTION: The Clinical Documentation Specialists (CDI) and [facility] Coding Staff appreciate your assistance in clarifying documentation. Please respond to the clarification below the line at the bottom and electronically sign. The CDI & [facility] Coding staff will review the response and follow-up if needed. Please note: Queries are made part of the Legal Health Record. If you have any questions, please contact the author of this message via ITS. Dear Dr. Tory Green: Asthma is documented in the pulmonary consult and subsequent progress notes: "Severe chronic obstructive pulmonary disease with asthma with acute exacerbation." History/risk factors: COPD, Asthma, Chronic Diastolic CHF, Chronic hypoxic & hypercapnic respiratory failure, TIMOTHY & former smoker. Clinical Indicators: Presented via EMS with SOB for several days, cough w/yellow phlegm, expiratory wheezes & mild chest pain. LAB: CO2 58^^. Radiology: CXR: no acute cardiopulmonary process. Vital Signs: P 112, R 24 (shallow), BP 100/75, PO 94 5Lnc Treatment: BiPAP, O2 2-5L nc, IV steroids, bronchodilators, In your professional opinion, can you please further specify the following, if known? Asthma With: Acute Exacerbation Status asthmaticus Other, please specify ___ Unable to determine Severity: Mild intermittent Mild persistent Moderate persistent Severe persistent Other, please specify ____ Unable to determine Form or Type: Cough variant Childhood Exercise induced bronchospasm Extrinsic allergic Idiosyncratic Intrinsic nonallergic Late-onset Mixed Other, please specify____ Unable to determine (Last Revision: May 2017) MTDD
[2018-07-30] MEDS: HEPARIN SODIUM,PORCINE 5,000 UNIT/ML 1 ML VIAL SQ SCH ×2 (10:53→20:39)
[2018-07-30 11:22] LABS: Glucose,Whole Blood 188 mg/dL (75-99)
--- NOTE | 2018-07-30 13:46 | P.GSCN ---
History of Present Illness Consult date: 07/30/18 History of present illness: 63-year-old female presented to the emergency department with complaints of shortness of breath, cough and wheezing. She was noted to have significant hypoxia on presentation despite having oxygen supplementation. She is known to me secondary to previous small bowel resection secondary to perforated bowel in April of this year. She is also noted to have significant advanced COPD that does follow with pulmonary on a regular basis. She is noted to have been on chronic steroids. Since her surgery, her laparotomy incision has developed into a large incisional hernia. The patient does admit to continuing her chronic steroids and having multiple coughing fits due to her COPD. She has not seek any surgical evaluation for this hernia. She states that she has been told by multiple physicians that she would be significantly high risk for any surgical repair. She denies any nausea and vomiting. She denies any obstructive bowel symptoms. She denies any change in bowel function. She admits to occasional discomfort in her abdomen. Review of Systems All systems: negative Past Medical History Past Medical History: Asthma, Heart Failure, COPD, GERD/Reflux, Musculoskeletal Disorder, Osteoarthritis (OA), Pneumonia, Sleep Apnea/CPAP/BIPAP Additional Past Medical History / Comment(s): Bronhitis, chronic low back pain, TIMOTHY with CPAP, home O2 , past L kneecap fx, occasional dependent pedal edema, depression, gallbladder disease, chronic tobacco use and dependence, urinary incontinence, migraine headaches, osteoporosis, sciatica, peptic ulcer disease, urethritis,. History of Any Multi-Drug Resistant Organisms: MRSA Year Discovered:: 02/21/17 ([facility]) MDRO Source:: Sputum Past Surgical History: Hernia Repair, Tubal Ligation Additional Past Surgical History / Comment(s): Bilateral inguinal hernia repairs, colonoscopy with benign polyypectomy, surgery for "pinched nerve in my R hip." Discectomy, right femur open reduction internal fixation. Past Anesthesia/Blood Transfusion Reactions: No Reported Reaction Past Psychological History: Depression Additional Psychological History / Comment(s): Pt resides with her krista in an apartment that has 4-5 steps. She uses a walker on occasion. She has a CPAP, nebulizer and home oxygen. She no longer drives, she uses senior transportation. Her daughter does most of the cooking and helps organize pt medication. Smoking Status: Former smoker Past Alcohol Use History: None Reported Additional Past Alcohol Use History / Comment(s): started smoking at age 20(1975) and quit 2017 was smoking 1.5 ppd Past Drug Use History: None Reported - Past Family History Father Family Medical History: Coronary Artery Disease (CAD) Additional Family Medical History / Comment(s): Father is 83 yrs old. He has had 2 vessel CABG and a pacer. Mother Family Medical History: Dementia Additional Family Medical History / Comment(s): Mother of dementia at the age of 78yrs. Brother(s) Family Medical History: No Reported History Sister(s) Family Medical History: No Reported History Additional Family Medical History / Comment(s): Patient has 2 children no major medical problems. Patient lives with her daughter Medications and Allergies Home Medications Medication Instructions Recorded Confirmed Type Cholecalciferol (Vitamin D3) 2,000 unit PO DAILY 10/31/16 07/28/18 History [Vitamin D3] DULoxetine HCL [Cymbalta] 20 mg PO DAILY 10/31/16 07/28/18 History Furosemide [Lasix] 20 mg PO DAILY 10/31/16 07/28/18 History Montelukast [Singulair] 10 mg PO HS #30 tab 11/04/16 07/28/18 Rx Omeprazole Magnesium [PriLOSEC OTC] 20 mg PO DAILY #30 tablet. 11/04/16 07/28/18 Rx Ipratropium-Albuterol Nebulize 3 ml INHALATION RT-QID ampul.neb 02/23/17 07/28/18 Rx [Duoneb 0.5 mg-3 mg/3 ml Soln] ALPRAZolam [Xanax] 0.25 mg PO TID PRN 04/15/18 07/28/18 History Albuterol Inhaler [Ventolin Hfa 2 puff INHALATION RT-Q6H PRN 04/15/18 07/28/18 History Inhaler] Atorvastatin [Lipitor] 10 mg PO DAILY 04/15/18 07/28/18 History Calcitonin Nasal [Fortical 1 spray NASAL DAILY 04/15/18 07/28/18 History (Miacalcin)] Cyanocobalamin (Vitamin B-12) 1,000 mcg PO DAILY 04/15/18 07/28/18 History [Vitamin B-12] HYDROcodone/APAP 5-325MG [[place] 1 tab PO TID PRN 04/15/18 07/28/18 History 5-325] Ipratropium [place] [Atrovent Hfa] 2 puff INHALATION RT-QID 04/15/18 07/28/18 History Metoprolol Tartrate [Lopressor] 25 mg PO BID 04/15/18 07/28/18 History Potassium Chloride ER [K-Dur 10] 10 meq PO DAILY 04/15/18 07/28/18 History Sucralfate [Carafate] 1 gm PO QID 04/15/18 07/28/18 History metFORMIN HCL [Glucophage] 1,000 mg PO AC-BID 04/15/18 07/28/18 History Verapamil [Isoptin] 40 mg PO TID 07/28/18 07/28/18 History Allergies Allergy/AdvReac Type Severity Reaction Status Date / Time No Known Allergies Allergy Verified 07/28/18 13:30 Surgical - Exam Osteopathic Statement: *. No significant issues noted on an osteopathic structural exam other than those noted in the History and Physical/Consult. Vital Signs Temp Pulse Resp BP Pulse Ox 98.6 F 112 H 24 100/75 94 L 07/28/18 12:45 07/28/18 12:45 07/28/18 12:45 07/28/18 12:45 07/28/18 12:45 - General well nourished, no distress - Eyes PERRL - ENT no hearing loss - Neck trachea midline - Respiratory No difficulty with respiration currently on oxygen supplementary - Abdomen Soft, nontender, large incisional hernia present that is easily reducible, no rebound, no guarding - Neurologic normal coordination, normal sensation - Psychiatric oriented to time, oriented to person, oriented to place Results - Labs 07/28/18 13:23 07/28/18 13:23 Abnormal Lab Results - Last 24 Hours (Table) 07/29/18 07/29/18 07/30/18 Range/Units 16:36 19:21 07:00 POC Glucose (mg/dL) 158 H 222 H 186 H (75-99) mg/dL 07/30/18 Range/Units 11:21 POC Glucose (mg/dL) 188 H (75-99) mg/dL Microbiology - Last 24 Hours (Table) 07/28/18 13:35 Blood Culture - Preliminary Blood No Growth after 24 hours Assessment and Plan (1) Incisional hernia Narrative/Plan: 63-year-old female with large incisional hernia from previous laparotomy incision. This is likely secondary to chronic steroid use and advanced COPD with coughing. This has likely decreased her wound healing capability. At this point, due to her advanced COPD and large size of this hernia, I would not recommend any surgical repair as the patient also was not having any symptoms. If any surgical repair is required, I would recommend review by a hernia specialist at a tertiary care center as the patient has poor protoplasm for healing secondary to her chronic steroid use and COPD. At this point, I would continue her diet and I did recommend continuing an abdominal binder for comfort measures. Current Visit: Yes Status: Acute Code(s): K43.2 - INCISIONAL HERNIA WITHOUT OBSTRUCTION OR GANGRENE SNOMED Code(s): 122536616
--- NOTE | 2018-07-30 14:11 | P.PN ---
Subjective Progress Note Date: 07/30/18 63-year-old female one of Dr. Benitez's patient with advance COPD who seen pulmonary on regular basis who was hospitalized recently at [facility] for few days for worsening dyspnea and shortness of breath was treated and sent home. Patient return to the emergency department at [facility] on 619 with worsening shortness of breath cough wheezes not been able to ambulate or walk not been able to lay down her oral intake is very limited and low patient is having hypoxia despite having higher oxygen and despite using her BiPAP. Patient pulse ox in the emergency room was very low was diagnosed with severe hypoxia and severe hypercarbia with CO2 over 53 pulmonary were called and patie nt be admitted to the hospital for chronic on acute respiratory failure. 06/28: Patient remain not doing well continue to have significant shortness of breath and hypoxia continued to have symptom with minimum exertion, we'll consult PTOT and social media marketing specialist patient might benefit from being in assisted living or a placement at this point. 06/29 Patient examined the patient and is doing well, breathing is better, currently on home oxygen req [address] Joe, recommned binder for the abd, not a good surgical case. We will decrease Solu-Medrol to 80 mg every 8. Patient had a bout of confusion and agitation overnight which is related to the steroid. Patient is declining rehab butdaughter wants patient to go to the rehab and not get discharge. Objective - Vital Signs Vital signs: Vital Signs Temp 97.7 F 07/30/18 12:03 Pulse 75 07/30/18 12:03 Resp 16 07/30/18 12:03 BP 98/60 07/30/18 12:03 Pulse Ox 97 07/30/18 12:03 Intake & Output 07/29/18 07/30/18 07/30/18 18:59 06:59 18:59 Intake Total 240 470 360 Balance 240 470 360 Intake: Intake, IV Titration 230 Amount Sodium Chloride 0.9% 1, 230 000 ml @ 20 mls/hr IV . Q24H [facility] Rx#:[id number] Oral 240 240 360 Other: Voiding Method Bedside Commode Bedside Commode Bedside Commode # Voids 1 1 4 # Bowel Movements 1 - Exam General Appearance: Alert, cooperative, in mild distress looks much older than her age. Neck HEENT: Supple, no lymphadenopathy, no thyroid enlargement, no carotid bruits. Lungs: Decreased expansion with inspiration bilaterally with fine rhonchi in both lung field with by basilar crackles and inspiratory expiratory wheezesimproved. Chest Wall: Decrease expansion with deep inspiration no tenderness and no deformity was found on exam, no costochondral pain or discomfort. Heart: Regular rate and rhythm, S1, S2 normal positive S3, positive mild irregularity with systolic murmur. Back: Symmetric, severe scoliosis with kyphosis positive L-spine discomfort.. Abdomen: Soft, non-tender, bowel sounds active all four quadrants, no masses, no organomegaly. Extremities: Extremities normal, atraumatic, mild cyanotic extremities with trace edema. Pulses: 2+ and symmetric. Skin: Skin color, texture, tugor normal, no rashes or lesions. Neurologic: Alert oriented x3 cranial nerves II through XII intact, no motor deficit, no abnormal balance or gait. - Labs CBC & Chem 7: 07/28/18 13:23 07/28/18 13:23 Labs: Abnormal Lab Results - Last 24 Hours (Table) 07/29/18 07/29/18 07/30/18 Range/Units 16:36 19:21 07:00 POC Glucose (mg/dL) 158 H 222 H 186 H (75-99) mg/dL 07/30/18 Range/Units 11:21 POC Glucose (mg/dL) 188 H (75-99) mg/dL Microbiology - Last 24 Hours (Table) 07/28/18 13:35 Blood Culture - Preliminary Blood No Growth after 24 hours Assessment and Plan Plan: 1 acute respiratory failure: On chronic respiratory failure secondary to advanced COPD and worsening right-sided heart failure, continue O2 continue BiPAP pulmonary consultation decrease Solu-Medrol to 860 every 8 along with updraft treatment [id number] with steroid nebulizer as well. Treatment was agreeable by pulmonary. 2 COPD excessive patient: Patient was started on Solu-Medrol 125 mg and 60 mg every 8 hours [id number] continue DuoNeb 4 times a day and every 4 hours as needed along with Pulmicort. 3 congestive heart failure: More diastolic dysfunction chronic with acute component, continue patient on furosemide beta paradise and calcium channel paradise. 4 arrhythmia with tachycardia: Doing better on beta paradise and calcium channel paradise. 5 hyperglycemia: Remain on metformin 1000 mg twice a day Accu-Chek with sliding scales coverage and be done. 6 hypertension: Remain on furosemide 20 mg a day, metoprolol 25 mg twice a day and verapamil meal 40 mg 3 times a day. 7 chronic depression: Has been on Cymbalta and alprazolam. 8 medical debility with weight loss with severe protein and albumin been deficiency: Continue patient on nutrition dietitian consultation be done. 9 hyperlipidemia: Remain on atorvastatin 10 mg daily. 10 disposition likely discharge to subacute rehab on Thursday
[2018-07-30 17:18] LABS: Glucose,Whole Blood 257 mg/dL (75-99)
[2018-07-30] MEDS: SODIUM CHLORIDE 0.9% 1,000 ML IV SCH (18:14)
[2018-07-30] MEDS: MONTELUKAST 10 MG TAB PO SCH (20:39)
[2018-07-30 20:43] LABS: Glucose,Whole Blood 248 mg/dL (75-99)
[2018-07-31] MEDS: IPRATROPIUM-ALBUTEROL 3 ML NEB INHALATION SCH ×5 (03:47→20:03)
[2018-07-31 07:10] LABS: Glucose,Whole Blood 204 mg/dL (75-99)
[2018-07-31] MEDS: BUDESONIDE 0.5 MG/2 ML NEBU INHALATION SCH ×2 (07:21→20:02)
[2018-07-31] MEDS: methylPREDNISolone SOD SUCCI 125 MG/2 ML VIAL IV SCH (07:22)
[2018-07-31] MEDS: PANTOPRAZOLE 40 MG TABLET PO SCH (07:22)
[2018-07-31] MEDS: metFORMIN 500 MG TAB PO SCH ×2 (07:22→14:45)
[2018-07-31] MEDS: ATORVASTATIN 10 MG TAB PO SCH (07:23)
[2018-07-31] MEDS: DULoxetine HCL 20 MG CAPSULE.DR PO SCH (07:24)
[2018-07-31] MEDS: FUROSEMIDE 20 MG TAB PO SCH (07:24)
[2018-07-31] MEDS: CYANOCOBALAMIN 500 MCG TAB PO SCH (07:24)
[2018-07-31] MEDS: METOPROLOL TARTRATE 25 MG TAB PO SCH ×2 (07:24→21:46)
[2018-07-31] MEDS: HEPARIN SODIUM,PORCINE 5,000 UNIT/ML 1 ML VIAL SQ SCH ×2 (07:24→21:46)
[2018-07-31] MEDS: VERAPAMIL 40 MG TAB PO SCH ×3 (07:25→21:46)
[2018-07-31] MEDS: POTASSIUM CHLORIDE ER 10 MEQ TAB.ER.PRT PO SCH (07:25)
[2018-07-31] MEDS: SUCRALFATE 1 GM TAB PO SCH ×4 (07:25→21:46)
[2018-07-31] MEDS: CALCITONIN 200 USP/1 NASAL SPRAY 3.7ML BTL NASAL SCH (07:26)
[2018-07-31 11:21] LABS: Glucose,Whole Blood 177 mg/dL (75-99)
--- NOTE | 2018-07-31 12:04 | P.PN ---
Subjective Progress Note Date: 07/31/18 63-year-old female one of Dr. Benitez's patient with advance COPD who seen pulmonary on regular basis who was hospitalized recently at [facility] for few days for worsening dyspnea and shortness of breath was treated and sent home. Patient return to the emergency department at [facility] on 619 with worsening shortness of breath cough wheezes not been able to ambulate or walk not been able to lay down her oral intake is very limited and low patient is having hypoxia despite having higher oxygen and despite using her BiPAP. Patient pulse ox in the emergency room was very low was diagnosed with severe hypoxia and severe hypercarbia with CO2 over 53 pulmonary were called and patien t be admitted to the hospital for chronic on acute respiratory failure. 07/29: Patient remain not doing well continue to have significant shortness of breath and hypoxia continued to have symptom with minimum exertion, we'll consult PTOT and healthcare social worker patient might benefit from being in assisted living or a placement at this point. 07/30 Patient examined the patient and is doing well, breathing is better, currently on home oxygen req [address] Joe, recommned binder for the abd, not a good surgical case. We will decrease Solu-Medrol to 80 mg every 8. Patient had a bout of confusion and agitation overnight which is related to the steroid. Patient is declining rehab butdaughter wants patient to go to the rehab and not get discharge. 07/31: Patient examined at the bedside. Patient is doing well, patient denies any difficulty breathing. Patient states that her breathing is better. Patient was seen by Dr. Joe and a recommendation of a binder to the abdomen was given, also was indicated that surgery should be performed in [place]. Patient is anxious to go home. We will continue to decrease her Solu-Medrol to 40 mg every 12 hours. There was no complaints of confusion or agitation overnight last evening. Review Of Systems: Constitutional: No fever, no chills, no night sweats. No weight change. No weakness, fatigue or lethargy. No daytime sleepiness. EENT: No headache. No blurred vision or double vision, no loss of vision. No loss of Hearing, no ringing in the ears, no dizziness. No nasal drainage or congestion. No epistaxis. No sore throat. Lungs: No shortness of breath, cough, no sputum production. No wheezing. Cardiovascular: No chest pain, no lower extremity edema. No palpitations. No paroxysmal nocturnal dyspnea. No orthopnea. No lightheadedness or dizziness. No syncopal episodes. Abdominal: Reports abdominal hernia. no abdominal discomfort. No nausea, vomiting. no diarrhea. No constipation. No bloody or tarry stools. improved loss of appetite. Genitourinary: No dysuria, increased frequency, urgency. No urinary retention. Musculoskeletal: No myalgias. No muscle weakness, no gait dysfunction, no frequent falls. No back pain. No neck pain. Integumentary: No wounds, no lesions. No rash or pruritus. No unusual bruis ing. No change in hair or nails. Neurologic: No aphasia. No facial droop. No change in mentation. No head injury. No headache. No paralysis. No paresthesia. Psychiatric: No depression. No anxiety. No mood swings. Endocrine: No abnormal blood sugars. No weight change. No excessive sweating or thirst. Objective - Vital Signs Vital signs: Vital Signs Temp 97.6 F 07/31/18 04:39 Pulse 100 07/31/18 11:33 Resp 18 07/31/18 07:34 BP 110/70 07/31/18 04:39 Pulse Ox 98 07/31/18 04:39 Intake & Output 07/30/18 07/31/18 07/31/18 18:59 06:59 18:59 Intake Total 720 360 Balance 720 360 Intake: Intake, IV Titration 160 Amount Sodium Chloride 0.9% 1, 160 000 ml @ 20 mls/hr IV . Q24H [facility] Rx#:[id number] Oral 720 200 Other: Voiding Method Bedside Commode Bedside Commode Bedside Commode # Voids 4 1 # Bowel Movements 1 - Exam General Appearance: Alert, cooperative, mild distress, appears older stated age. Neck HEENT: Supple, no lymphadenopathy, no thyroid enlargement, no carotid bruits. Lungs: Clear to auscultation without crackles or wheezes no rhonchi, no deformity. Chest Wall: Chest wall normal expansion with deep inspiration no tenderness and no deformity was found on exam, no costochondral pain or discomfort. Heart: Regular rate and rhythm, S1, S2 normal, no murmur, rub or gallop. Back: Symmetric, severe scoliosis with kyphosis, no CVA tenderness. Abdomen: Soft, non-tender, no rebound or rigidity, no hepatosplenomegaly. Extremities: Extremities normal, atraumatic, no cyanosis or edema. Pulses: 2+ and symmetric. Skin: Skin color, texture, tugor normal, no rashes or lesions. Neurologic: Alert oriented x3 cranial nerves II through XII intact, no motor deficit, no abnormal balance or gait - Labs CBC & Chem 7: 07/28/18 13:23 07/28/18 13:23 Labs: Abnormal Lab Results - Last 24 Hours (Table) 07/30/18 07/30/18 07/31/18 Range/Units 17:17 20:41 07:09 POC Glucose (mg/dL) 257 H 248 H 204 H (75-99) mg/dL 07/31/18 Range/Units 11:20 POC Glucose (mg/dL) 177 H (75-99) mg/dL Microbiology - Last 24 Hours (Table) 07/28/18 13:35 Blood Culture - Preliminary Blood No Growth after 48 hours Assessment and Plan Plan: 1. acute respiratory failure: On chronic respiratory failure secondary to advanced COPD and worsening right-sided heart failure, continue O2 via nasal cannula 3 L, decreased Solu-Medrol to 40 mg every 12 hours. Pulmonary consult appreciated. 2. COPD excessive patient: Continue Solu-Medrol 40 mg every 12 hours. continue DuoNeb 4 times a day and every 4 hours as needed along with Pulmicort. 3. congestive heart failure: More diastolic dysfunction chronic with acute component, continue patient on furosemide beta paradise and calcium channel paradise. 4. arrhythmia with tachycardia: Doing better on beta paradise and calcium channel paradise. 5. hyperglycemia: Remain on metformin 1000 mg twice a day Accu-Chek with sliding scales coverage and be done. 6. hypertension: Remain on furosemide 20 mg a day, metoprolol 25 mg twice a day and verapamil meal 40 mg 3 times a day. 7. chronic depression: Has been on Cymbalta and alprazolam. 8. medical debility with weight loss with severe protein and albumin been deficiency: Continue patient on nutrition dietitian consultation be done. 9. hyperlipidemia: Remain on atorvastatin 10 mg daily. 10. Abdominal hernia. Poor surgical candidate, if surgery is wanted consider a hernia specialist. Recommendation of abdominal binder to be used. Disposition: Possible discharge tomorrow possibly with home care Impression and plan of care have been directed as dictated by the signing physician. Adelaida Marroquin nurse practitioner acting as scribe for signing physician.
--- NOTE | 2018-07-31 12:33 | PN ---
PROGRESS NOTE DATE OF SERVICE: 07/31/2018 She has been hemodynamically stable. She continues to have a cough with some sputum production. She was seen by General surgery and an abdominal binder is being placed. She is almost back to baseline as far as shortness of breath is concerned. On physical examination respiratory rate is 18, pulse rate is 75, temperature 97.6, blood pressure 110/70. HEENT is unremarkable. Chest reveals decreased breath sounds. Prolonged expiration. Abdomen is distended from hernia. There is trace edema. IMPRESSION: At this time is: 1. Chronic obstructive pulmonary disease with acute exacerbation. 2. Asthma with acute exacerbation. 3. Abdominal wall hernia. Would add a cough syrup to her regimen. Would discontinue her methylprednisolone and keep her on oral steroids, oral prednisone. Increase activity level. I agree with possible discharge planning. MMCHANTALE / EDWINA: [id number] /
[2018-07-31] MEDS: guaiFENesin-DM 100-10MG/5ML 10 ML CUP PO PRN (14:45)
[2018-07-31] MEDS: SODIUM CHLORIDE 0.9% 1,000 ML IV SCH (14:46)
[2018-07-31] MEDS: predniSONE 20 MG TAB PO SCH (14:46)
[2018-07-31 17:22] LABS: Glucose,Whole Blood 154 mg/dL (75-99)
[2018-07-31] MEDS: ALPRAZolam 0.25 MG TAB PO PRN (19:25)
[2018-07-31 20:04] LABS: Glucose,Whole Blood 161 mg/dL (75-99)
[2018-07-31] MEDS ORDERED: methylPREDNISolone SOD SUCCI 40 MG/ML 1 ML VIAL IV SCH (21:00)
[2018-07-31] MEDS: MONTELUKAST 10 MG TAB PO SCH (21:46)
[2018-08-01] MEDS: IPRATROPIUM-ALBUTEROL 3 ML NEB INHALATION SCH ×4 (00:52→11:32)
[2018-08-01] MEDS: guaiFENesin-DM 100-10MG/5ML 10 ML CUP PO PRN (04:28)
[2018-08-01 05:11] VITALS: BP 103/69; RESP 16; TEMP 98.2
[2018-08-01 07:15] LABS: Glucose,Whole Blood 133 mg/dL (75-99)
[2018-08-01] MEDS: CHOLECALCIFEROL 1,000 UNIT TAB PO SCH (08:02)
[2018-08-01] MEDS: predniSONE 20 MG TAB PO SCH (08:02)
[2018-08-01] MEDS: FUROSEMIDE 20 MG TAB PO SCH (08:02)
[2018-08-01] MEDS: metFORMIN 500 MG TAB PO SCH (08:02)
[2018-08-01] MEDS: METOPROLOL TARTRATE 25 MG TAB PO SCH (08:02)
[2018-08-01] MEDS: PANTOPRAZOLE 40 MG TABLET PO SCH (08:02)
[2018-08-01] MEDS: ATORVASTATIN 10 MG TAB PO SCH (08:02)
[2018-08-01] MEDS: CYANOCOBALAMIN 500 MCG TAB PO SCH (08:02)
[2018-08-01] MEDS: VERAPAMIL 40 MG TAB PO SCH (08:03)
[2018-08-01] MEDS: SUCRALFATE 1 GM TAB PO SCH ×2 (08:03→11:48)
[2018-08-01] MEDS: POTASSIUM CHLORIDE ER 10 MEQ TAB.ER.PRT PO SCH (08:03)
[2018-08-01] MEDS: CALCITONIN 200 USP/1 NASAL SPRAY 3.7ML BTL NASAL SCH (08:04)
[2018-08-01] MEDS: DULoxetine HCL 20 MG CAPSULE.DR PO SCH (08:04)
[2018-08-01] MEDS: HEPARIN SODIUM,PORCINE 5,000 UNIT/ML 1 ML VIAL SQ SCH (08:04)
[2018-08-01] MEDS: ALPRAZolam 0.25 MG TAB PO PRN (08:12)
[2018-08-01] MEDS: BUDESONIDE 0.5 MG/2 ML NEBU INHALATION SCH (08:19)
--- NOTE | 2018-08-01 10:11 | P.DS ---
Providers Date of admission: 07/28/18 16:55 Attending physician: Siva George Consults: 07/28/18 16:55 Consult Physician Routine Consulting Provider: Abhilash Green Consult Reason/Comments: COPD with exacerbation Do you want consulting provider notified?: Already Contacted 07/30/18 08:43 Consult Physician Routine Consulting Provider: Hazel Joe Consult Reason/Comments: abdominal hernia Do you want consulting provider notified?: Yes Primary care physician: Matheus [facility] Hospital Course: 63-year-old female one of Dr. Benitez's patient with advance COPD who seen pulmonary on regular basis who was hospitalized recently at [facility] for few days for worsening dyspnea and shortness of breath was treated and sent home. Patient return to the emergency department at [facility] on 619 with worsening shortness of breath cough wheezes not been able to ambulate or walk not been able to lay down her oral intake is very limited and low patient is having hypoxia despite having higher oxygen and despite using her BiPAP. Patient pulse ox in the emergency room was very low was diagnosed with severe hypoxia and severe hypercarbia with CO2 over 53 pulmonary were called and pepe jose juan be admitted to the hospital for chronic on acute respiratory failure. 07/29: Patient remain not doing well continue to have significant shortness of breath and hypoxia continued to have symptom with minimum exertion, we'll consult PTOT and social insurance analyst patient might benefit from being in assisted living or a placement at this point. 07/30 Patient examined the patient and is doing well, breathing is better, currently on home oxygen req [address] Joe, recommned binder for the abd, not a good surgical case. We will decrease Solu-Medrol to 80 mg every 8. Patient had a bout of confusion and agitation overnight which is related to the steroid. Patient is declining rehab butdaughter wants patient to go to the rehab and not get discharge. 07/31: Patient examined at the bedside. Patient is doing well, patient denies any difficulty breathing. Patient states that her breathing is better. Patient was seen by Dr. Joe and a recommendation of a binder to the abdomen was given, also was indicated that surgery should be performed in [place]. Patient is anxious to go home. We will continue to decrease her Solu-Medrol to 40 mg every 12 hours. There was no complaints of confusion or agitation overnight last evening. 08/01: Patient examined at bedside, breathing better, anxious to go home. Has been walking with PT in [place] with walker and tolerating it. Patient is cur rently on oral steroids tolerating well. Patient to be ambulated in the halls prior to discharge. Discussed with patient the possibility of going to the extended care facility patient declined at this time feeling that she does not meet criteria. Patient continues to pulse ox 92% on 3 L via nasal cannula. Heart rate 55 blood pressure 112/71. Discharge diagnosis: 1. acute respiratory failure: On chronic respiratory failure secondary to advanced COPD and worsening right-sided heart failure, c 2. COPD excessive patient: 3. congestive heart failure: 4. arrhythmia with tachycardia: 5. hyperglycemia 6. hypertension: 7. chronic depression: 8. medical debility with weight loss with severe protein and albumin been deficiency: 9. hyperlipidemia: 10. Abdominal hernia. Disposition: Home with homecare Impression and plan of care have been directed as dictated by the signing physician. Adelaida Marroquin nurse practitioner acting as scribe for signing physician. Patient Condition at Discharge: Fair Plan - Discharge Summary Discharge Rx Participant: No New Discharge Prescriptions: New predniSONE 10 mg PO DAILY #40 tab Continue DULoxetine HCL [Cymbalta] 20 mg PO DAILY Cholecalciferol (Vitamin D3) [Vitamin D3] 2,000 unit PO DAILY Furosemide [Lasix] 20 mg PO DAILY Montelukast [Singulair] 10 mg PO HS #30 tab Omeprazole Magnesium [PriLOSEC OTC] 20 mg PO DAILY #30 tablet. Ipratropium-Albuterol Nebulize [Duoneb 0.5 mg-3 mg/3 ml Soln] 3 ml INHALATION RT-QID ampul.neb Potassium Chloride ER [K-Dur 10] 10 meq PO DAILY Ipratropium [place] [Atrovent Hfa] 2 puff INHALATION RT-QID Albuterol Inhaler [Ventolin Hfa Inhaler] 2 puff INHALATION RT-Q6H PRN PRN Reason: Wheezing Metoprolol Tartrate [Lopressor] 25 mg PO BID Atorvastatin [Lipitor] 10 mg PO DAILY HYDROcodone/APAP 5-325MG [[place] 5-325] 1 tab PO TID PRN PRN Reason: Pain Cyanocobalamin (Vitamin B-12) [Vitamin B-12] 1,000 mcg PO DAILY Calcitonin Nasal [Fortical (Miacalcin)] 1 spray NASAL DAILY Sucralfate [Carafate] 1 gm PO QID ALPRAZolam [Xanax] 0.25 mg PO TID PRN PRN Reason: Anxiety metFORMIN HCL [Glucophage] 1,000 mg PO AC-BID Verapamil [Isoptin] 40 mg PO TID Discharge Medication List Cholecalciferol (Vitamin D3) [Vitamin D3] 2,000 unit PO DAILY 10/31/16 [History] DULoxetine HCL [Cymbalta] 20 mg PO DAILY 10/31/16 [History] Furosemide [Lasix] 20 mg PO DAILY 10/31/16 [History] Montelukast [Singulair] 10 mg PO HS #30 tab 11/04/16 [Rx] Omeprazole Magnesium [PriLOSEC OTC] 20 mg PO DAILY #30 tablet. 11/04/16 [Rx] Ipratropium-Albuterol Nebulize [Duoneb 0.5 mg-3 mg/3 ml Soln] 3 ml INHALATION RT-QID ampul.neb 02/23/17 [Rx] ALPRAZolam [Xanax] 0.25 mg PO TID PRN 04/15/18 [History] Albuterol Inhaler [Ventolin Hfa Inhaler] 2 puff INHALATION RT-Q6H PRN 04/15/18 [History] Atorvastatin [Lipitor] 10 mg PO DAILY 04/15/18 [History] Calcitonin Nasal [Fortical (Miacalcin)] 1 spray NASAL DAILY 04/15/18 [History] Cyanocobalamin (Vitamin B-12) [Vitamin B-12] 1,000 mcg PO DAILY 04/15/18 [History] HYDROcodone/APAP 5-325MG [Cherryfield 5-325] 1 tab PO TID PRN 04/15/18 [History] Ipratropium [place] [Atrovent Hfa] 2 puff INHALATION RT-QID 04/15/18 [History] Metoprolol Tartrate [Lopressor] 25 mg PO BID 04/15/18 [History] Potassium Chloride ER [K-Dur 10] 10 meq PO DAILY 04/15/18 [History] Sucralfate [Carafate] 1 gm PO QID 04/15/18 [History] metFORMIN HCL [Glucophage] 1,000 mg PO AC-BID 04/15/18 [History] Verapamil [Isoptin] 40 mg PO TID 07/28/18 [History] predniSONE 10 mg PO DAILY #40 tab 08/01/18 [Rx] Follow up Appointment(s)/Referral(s): Matheus Benitez MD [Primary Care Provider] - 1-2 days [facility] Visiting Nurse, [NON-STAFF] - 1 Week
[2018-08-01 10:31] VITALS: PULSE 74
[2018-08-01 11:20] LABS: Glucose,Whole Blood 180 mg/dL (75-99)
--- NOTE | 2018-08-01 22:37 | PN ---
PROGRESS NOTE DATE OF SERVICE: 08/01/2018. She has been hemodynamically stable. She has an abdominal binder at this time. She is at baseline shortness of breath and she is more awake and alert. PHYSICAL EXAMINATION: Vital signs are stable. She is afebrile. Her chest revealed decreased breath sounds with prolonged expiration. No wheeze. Cardiovascular system reveals an S1, S2. Abdomen is distended due to a hernia. There is trace pedal edema. IMPRESSION: At this time: 1. Asthma with chronic obstructive pulmonary disease which is quite severe with acute exacerbation. 2. CO2 narcosis and metabolic encephalopathy. 3. Abdominal ventral hernia. Continue binder, bronchodilators. Short course of systemic steroids in a tapering fashion and agree with discharge planning. MMODL / IJN: [id number] /
--- NOTE | 2018-08-17 09:21 | CDI ---
Documentation Clarification Form Date: 07/30/2018 10:11:00 AM From: Mary AndreaJEFF, CCDS Admit Date: 07/28/2018 4:55:00 PM Patient Name: Olena Roman Visit Number: [id number] Discharge Date: 08/01/2018 12:27:00 PM ATTENTION: The Clinical Documentation Specialists (CDI) and [facility] Coding Staff appreciate your assistance in clarifying documentation. Please respond to the clarification below the line at the bottom and electronically sign. The CDI & [facility] Coding staff will review the response and follow-up if needed. Please note: Queries are made part of the Legal Health Record. If you have any questions, please contact the author of this message via ITS. Dr. Abhilash Green: Asthma is documented in the pulmonary consult and subsequent progress notes: "Severe chronic obstructive pulmonary disease with asthma with acute exacerbation." History/risk factors: COPD, Asthma, Chronic Diastolic CHF, Chronic hypoxic & hypercapnic respiratory failure, TIMOTHY & former smoker. Clinical Indicators: Presented via EMS with SOB for several days, cough w/yellow phlegm, expiratory wheezes & mild chest pain. LAB: CO2 58^^ Radiology: CXR: no acute cardiopulmonary process. Vital Signs: P 112, R 24 (shallow), BP 100/75, PO 94 5Lnc Treatment: BiPAP, O2 2-5L nc, IV steroids, bronchodilators, In your professional opinion, can you please further specify the following, if known? Asthma With: Acute Exacerbation o Status asthmaticus o Other, please specify ___ o Unable to determine Severity o Mild intermittent o Mild persistent o Moderate persistent o Severe persistent o Other, please specify ____ o Unable to determine Form or Type o Cough variant o Childhood o Exercise induced bronchospasm o Extrinsic allergic o Idiosyncratic o Intrinsic nonallergic o Late-onset o Mixed o Other, please specify____ o Unable to determine (Last Revision: May 2017) MTDD
== END 2018-08-01 12:27 | disposition home health service (06) | DRG 189 ==
LOC: SUPCPDRO 12:30 → EC 12:30 → 3NMEDONC 16:55
PROVIDERS: ADMIT Internal Medicine Geriatric Medicine; ATTEND Internal Medicine Geriatric Medicine
PROC: 5A09457 Assistance with Respiratory Ventilation, 24-96 Consecutive Hours, Continuous Positive Airway Pressure (ICD-10-PCS; principal; 2018-07-28)
DX: J96.21 Acute and chronic respiratory failure with hypoxia (principal); I50.33 Acute on chronic diastolic (congestive) heart failure; G92 Toxic encephalopathy; J44.1 Chronic obstructive pulmonary disease with (acute) exacerbation; E87.4 Mixed disorder of acid-base balance; J45.901 Unspecified asthma with (acute) exacerbation; E83.42 Hypomagnesemia; J96.22 Acute and chronic respiratory failure with hypercapnia; I11.0 Hypertensive heart disease with heart failure; E78.5 Hyperlipidemia, unspecified; G47.33 Obstructive sleep apnea (adult) (pediatric); K43.2 Incisional hernia without obstruction or gangrene; K21.9 Gastro-esophageal reflux disease without esophagitis; F32.9 Major depressive disorder, single episode, unspecified; I44.4 Left anterior fascicular block; M19.90 Unspecified osteoarthritis, unspecified site; M54.5 Low back pain; G89.29 Other chronic pain; G43.909 Migraine, unspecified, not intractable, without status migrainosus; M81.0 Age-related osteoporosis without current pathological fracture; M54.30 Sciatica, unspecified side; R73.9 Hyperglycemia, unspecified; R32 Unspecified urinary incontinence; T38.0X5A Adverse effect of glucocorticoids and synthetic analogues, initial encounter; Z99.81 Dependence on supplemental oxygen; Z79.84 Long term (current) use of oral hypoglycemic drugs; Z79.899 Other long term (current) drug therapy; Z87.81 Personal history of (healed) traumatic fracture; Z99.89 Dependence on other enabling machines and devices; Z86.39 Personal history of other endocrine, nutritional and metabolic disease; Z87.891 Personal history of nicotine dependence; Z86.14 Personal history of Methicillin resistant Staphylococcus aureus infection; Z87.11 Personal history of peptic ulcer disease; Z98.890 Other specified postprocedural states; Z86.010 Personal history of colon polyps; Z90.49 Acquired absence of other specified parts of digestive tract; Z87.01 Personal history of pneumonia (recurrent); Z87.448 Personal history of other diseases of urinary system; Z98.51 Tubal ligation status; Z82.49 Family history of ischemic heart disease and other diseases of the circulatory system; Z81.8 Family history of other mental and behavioral disorders; Y92.230 Patient room in hospital as the place of occurrence of the external cause
CPT/HCPCS: 36415; 71046; 80053; 83735; 83880; 84484; 85025; 85610; 85730; 87040; 93005; 94640; 94660; 94760; 96365; 99285

== ENCOUNTER → 2018-08-30 | Outpatient (CLI) | payer MEDICARE, OTHER ==
--- NOTE | 2018-08-31 09:04 | CT ---
"EXAMINATION TYPE: CT abdomen pelvis w con DATE OF EXAM: 08/30/2018 HISTORY: Incisional hernia w/out obstruction. CT DLP: 1103mGycm Automated Exposure Control for Dose Reduction was Utilized. CONTRAST: CT scan of the abdomen and pelvis is performed with IV Contrast, patient injected with 100 mL of Isov ue 300. COMPARISON: None. FINDINGS: LUNG BASES: There is a solid 3 mm left basilar pulmonary nodule on image 6. LIVER/GB: Hepatic parenchyma is diffusely hypoattenuated in comparison to that of the spleen, most co mmonly seen in hepatic steatosis. This finding limits evaluation for hepatic masses. No gross evidenc e of hepatic mass is seen. No intrahepatic biliary ductal dilatation. The liver is enlarged. No kena lithiasis is seen. PANCREAS: No significant abnormality is seen. SPLEEN: No significant abnormality is seen. ADRENALS: There is low-density right adrenal lesion measuring 1.7 cm. Although this is favored to be benign given the low-density the Hounsfield units on average of 25-32 and are not entirely compatible with benign lesion. Three-phase CT is recommended to assess for absolute and relative washout for fu rther characterization. The left adrenal gland is unremarkable. KIDNEYS: There is a nonobstructing 4 mm left renal calculus in the mid pole and punctate 1 to 2 mm no nobstructing calculus in the right lower pole. No hydronephrosis of either kidney.. BOWEL and abdominal wall: There is a midline wide neck ventral hernia many craniocaudal dimension of 14.0 cm the neck measures 12 cm and the hernia pouch measures up to 16.4 cm in transverse dimension. This contains mesenteric vasculature, mesenteric fat, and multiple loops of nondilated small bowel. Proximal to this within the proximal jejunum there are upper limits of normal size loops of bowel oanh suring up to 3.0 cm displacing bowel wall thickening. Bowel thickening measures up to 1.4 cm. This co ntinues in a long segment of jejunum. Multiple sigmoid colonic diverticula. Portions of the transvers e colon are contained in the cranial aspect of the hernia and are also nondilated. Directly adjacent to the right ovary there is a thin-walled peripherally enhancing fluid collection c ontaining punctate foci of air measuring 3.9 x 2.2 cm. This also abuts the uterine fundus and appears to be contiguous with at least one if not 2 loops of sigmoid colon. Slight haziness of the mesentery surrounding the sigmoid colon may be on the basis of resolving acute diverticulitis. LYMPH NODES: No greater than 1cm abdominal or pelvic lymph nodes are appreciated. OSSEOUS STRUCTURES: There is multilevel malalignment with grade 1 anterolisthesis of L4 on L5, minima l retrolisthesis of L5 on S1, and advanced degenerative disc disease of the lumbar spine. Age indeter minant compression deformity of the L3 vertebral body and Schmorl's node of the inferior endplate of L2 as well as mild age-indeterminate compression deformity of L1 are noted. There is a levoscoliosis present. There are small bilateral joint effusions within the hips and fat stranding overlying the ri ght hip. There is also subcutaneous fluid overlying the greater trochanter. Consider greater trochant adrienne bursitis. Probable decubitus ulceration is seen overlying the sacrum without abscess identified. Probable bone island is seen as a sclerotic focus of the right iliac bone. IMPRESSION: 1. Thin-walled fluid collection measuring 3.9 cm adjacent to the right ovary and uterus as well as th e sigmoid colon. This appears to have a sinus tract communicating with the sigmoid colon and there is evidence of either early or resolving acute diverticulitis. This is thought to represent a small abs cess on the basis of diverticulitis. 2. Large wide neck ventral abdominal hernia measuring 14 cm in craniocaudal dimension and having a 12 cm neck. This contains mesenteric fat, mesenteric vasculature, and nondilated large and small bowel. 3. Long segment prominent jejunal loops with thickened valvulae conniventes a. Infectious or inflamma tory enteritis should be a primary consideration. 4. Indeterminate right adrenal gland lesion for which three-phase CT abdomen is recommended to assess for absolute and relative washout and further characterize this lesion. 5. Nonobstructing left renal calculus. 6. Hepatic steatosis. 7. Left basilar solid 3 mm pulmonary nodule. Full CT thorax could be utilized for further evaluation of the chest. 8. Bilateral small hip joint effusions. 9. Fluid collection and fat stranding overlying the right renal trochanter. Consider greater trochant adrienne bursitis. 10. Sacral decubitus ulceration appears to be present without defined abscess. 11. Age-indeterminate compression deformities of the lumbar spine. Correlate with point tenderness. M RI could assess for bone marrow edema if there is further clinical concern. A Yellow level critical message alert has been initiated for Garth Frederick MD via the Skin Scan 3 60 | Critical Results System on 08/31/2018 8:24 AM. This message alert has been sent to Garth bains MD via the preferences provided by the clinician for the receipt of Radiology Critical Findings. [place] essage ID [id number]."
== END | disposition home or self-care (01) ==
LOC: RADCTMAIN 13:36
PROVIDERS: ATTEND Surgery
DX: N20.0 Calculus of kidney (principal); K46.9 Unspecified abdominal hernia without obstruction or gangrene; K43.9 Ventral hernia without obstruction or gangrene; K76.0 Fatty (change of) liver, not elsewhere classified
CPT/HCPCS: 74177; Q9967

== ENCOUNTER 2019-01-17 01:59 | Inpatient (IN) | payer MEDICARE, OTHER ==
[2019-01-17] MEDS ORDERED: ASPIRIN 81 MG PO STA (02:04)
[2019-01-17] MEDS ORDERED: IPRATROPIUM-ALBUTEROL 3 ML NEB INHALATION STA (02:04)
[2019-01-17] MEDS ORDERED: methylPREDNISolone SOD SUCCI 125 MG/2 ML VIAL IM ONE (02:04)
[2019-01-17] MEDS ORDERED: SODIUM CHLORIDE 0.9% 500 ML 500 ML IV ONE (02:13)
[2019-01-17 02:23] LABS: Basophils % (A) 0 %; Eosinophils % (A) 0 %; HCT 35.5 % (34.0-46.0); HGB 9.6 gm/dL (11.4-16.0); Hypochromasia Marked; Lymphocytes # (A) 0.4 k/uL (1.0-4.8); Lymphocytes % (A) 4 %; MCH 21.4 pg (25.0-35.0); MCHC 27.2 g/dL (31.0-37.0); MCV 78.6 fL (80.0-100.0); Mean Platelet Volume 6.8; Monocytes # (A) 0.9 k/uL (0-1.0); Monocytes % (A) 7 %; Neutrophils # (A) 10.3 k/uL (1.3-7.7); Neutrophils % (A) 85 %; Platelet Count 279 k/uL (150-450); RBC 4.52 m/uL (3.80-5.40); RDW 14.8 % (11.5-15.5); WBC 12.1 k/uL (3.8-10.6)
[2019-01-17 02:28] LABS: ALT 17 U/L (9-52); AST 15 U/L (14-36); African American GFR (CKD) >90 (>60 ml/min/1.73 sqM); Albumin 3.8 g/dL (3.5-5.0); Alkaline Phosphatase 106 U/L (38-126); Blood Urea Nitrogen 15 mg/dL (7-17); Calcium 9.5 mg/dL (8.4-10.2); Chloride 79 mmol/L (98-107); Glucose 142 mg/dL (74-99); Magnesium 1.2 mg/dL (1.6-2.3); Non-African American GFR(CKD) >90 (>60 ml/min/1.73 sqM); Sodium 138 mmol/L (137-145); Total Bilirubin 0.6 mg/dL (0.2-1.3); Total Protein 6.6 g/dL (6.3-8.2)
[2019-01-17 02:29] LABS: Prothrombin Time 10.3 sec (9.0-12.0)
[2019-01-17 02:30] LABS: Partial Thromboplastin Time 25.1 sec (22.0-30.0)
[2019-01-17 02:34] LABS: Anion Gap 5 mmol/L
[2019-01-17 02:41] LABS: Carbon Dioxide 54 mmol/L (22-30)
--- NOTE | 2019-01-17 02:43 | XR ---
EXAMINATION TYPE: XR chest 1V portable DATE OF EXAM: 01/17/2019 COMPARISON: 07/28/2018 HISTORY: Short of breath TECHNIQUE: Single frontal view of the chest is obtained. FINDINGS: Heart is normal. Lungs are clear of consolidation. There is slight coarsening of the inter stitial markings. There are chest leads. There is no heart failure. There is no evidence of pleural e ffusion. IMPRESSION: Mild pulmonary fibrosis. No acute lung disease. No change.
[2019-01-17] MEDS ORDERED: NALOXONE 0.4 MG/ML 1 ML VIAL IV PRN (03:24)
--- NOTE | 2019-01-17 03:35 | ED ---
SOB HPI - General Chief Complaint: Shortness of Breath Stated Complaint: Chest Pain/Diff Breathing Time Seen by Provider: 01/17/19 02:03 Source: EMS Mode of arrival: EMS Limitations: no limitations - History of Present Illness Initial Comments: Olena is a 63-year-old female with extensive past medical history as documented below. Patient presents to the emergency department today via EMS for evaluation of shortness of breath respiratory distress. Able to the patient's house to difficulty breathing. Patient wears 4 L nasal cannula at baseline. She reports she felt like she couldn't breathe. The Her in acute respiratory distress oxygen saturations in the 80s. Oxygen was increased and she was given a DuoNeb. Due to the very short transport time to the hospital IV access was not obtained and she was not given any further medications. - Related Data Home Medications Medication Instructions Recorded Confirmed Cholecalciferol (Vitamin D3) 2,000 unit PO DAILY 10/31/16 07/28/18 [Vitamin D3] DULoxetine HCL [Cymbalta] 20 mg PO DAILY 10/31/16 07/28/18 Furosemide [Lasix] 20 mg PO DAILY 10/31/16 07/28/18 ALPRAZolam [Xanax] 0.25 mg PO TID PRN 04/15/18 07/28/18 Albuterol Inhaler [Ventolin Hfa 2 puff INHALATION RT-Q6H PRN 04/15/18 07/28/18 Inhaler] Atorvastatin [Lipitor] 10 mg PO DAILY 04/15/18 07/28/18 Calcitonin Nasal [Fortical 1 spray NASAL DAILY 04/15/18 07/28/18 (Miacalcin)] Cyanocobalamin (Vitamin B-12) 1,000 mcg PO DAILY 04/15/18 07/28/18 [Vitamin B-12] HYDROcodone/APAP 5-325MG [[place] 1 tab PO TID PRN 04/15/18 07/28/18 5-325] Ipratropium [place] [Atrovent Hfa] 2 puff INHALATION RT-QID 04/15/18 07/28/18 Metoprolol Tartrate [Lopressor] 25 mg PO BID 04/15/18 07/28/18 Potassium Chloride ER [K-Dur 10] 10 meq PO DAILY 04/15/18 07/28/18 Sucralfate [Carafate] 1 gm PO QID 04/15/18 07/28/18 metFORMIN HCL [Glucophage] 1,000 mg PO AC-BID 04/15/18 07/28/18 Verapamil [Isoptin] 40 mg PO TID 07/28/18 07/28/18 Previous Rx's Medication Instructions Recorded Montelukast [Singulair] 10 mg PO HS #30 tab 11/04/16 Omeprazole Magnesium [PriLOSEC OTC] 20 mg PO DAILY #30 tablet. 11/04/16 Ipratropium-Albuterol Nebulize 3 ml INHALATION RT-QID ampul.neb 02/23/17 [Duoneb 0.5 mg-3 mg/3 ml Soln] predniSONE 10 mg PO DAILY #40 tab 08/01/18 Allergies Allergy/AdvReac Type Severity Reaction Status Date / Time No Known Allergies Allergy Verified 01/17/19 02:08 Review of Systems ROS Statement: Those systems with pertinent positive or pertinent negative responses have been documented in the HPI. ROS Other: All systems not noted in ROS Statement are negative. Past Medical History Past Medical History: Asthma, Heart Failure, COPD, GERD/Reflux, Musculoskeletal Disorder, Osteoarthritis (OA), Pneumonia, Sleep Apnea/CPAP/BIPAP Additional Past Medical History / Comment(s): Bronhitis, chronic low back pain, TIMOTHY with CPAP, home O2 , past L kneecap fx, occasional dependent pedal edema, depression, gallbladder disease, chronic tobacco use and dependence, urinary incontinence, migraine headaches, osteoporosis, sciatica, peptic ulcer disease, urethritis,. History of Any Multi-Drug Resistant Organisms: MRSA Date of last positivie culture/infection: 02/21/17 ([facility]) MDRO Source:: Sputum Past Surgical History: Hernia Repair, Tubal Ligation Additional Past Surgical History / Comment(s): Bilateral inguinal hernia repairs, colonoscopy with benign polyypectomy, surgery for "pinched nerve in my R hip." Discectomy, right femur open reduction internal fixation. Past Anesthesia/Blood Transfusion Reactions: No Reported Reaction Past Psychological History: Depression Smoking Status: Current every day smoker Past Alcohol Use History: None Reported Past Drug Use History: None Reported - Past Family History Father Family Medical History: Coronary Artery Disease (CAD) Additional Family Medical History / Comment(s): Father is 83 yrs old. He has had 2 vessel CABG and a pacer. Mother Family Medical History: Dementia Additional Family Medical History / Comment(s): Mother of dementia at the age of 78yrs. Brother(s) Family Medical History: No Reported History Sister(s) Family Medical History: No Reported History Additional Family Medical History / Comment(s): Patient has 2 children no major medical problems. Patient lives with her daughter General Exam - General Exam Comments Initial Comments: Physical Exam GENERAL: Unkempt appearance, appears much older than stated age Moderate respiratory distress receiving breathing treatment in transport HENT: Normocephalic, Atraumatic. Poor dentition, multiple dental extractions, caries in the remaining teeth This membranes are so dry patient was unable to chew or swallow aspirin given in route to the hospital EYES: PERRL, EOMI PULMONARY: Diminished lung sounds and wheezing in all lung roth CARDIOVASCULAR: Tachycardic, regular ABDOMEN: Very large abdominal ventral hernia, no overlying skin changes, no tenderness to palpation SKIN: Skin is dry and flaky : Deferred NEUROLOGIC: Rented to person MUSCULOSKELETAL: Generalized atrophy PSYCHIATRIC: Unable to assess due to respiratory distress Limitations: no limitations Course Vital Signs 01/17/19 01/17/19 01/17/19 02:00 02:30 02:33 Temperature 98.6 F Pulse Rate 122 H 103 H 102 H Respiratory 30 H 24 Rate Blood Pressure 88/71 122/76 O2 Sat by Pulse 88 L 95 Oximetry 01/17/19 01/17/19 01/17/19 02:38 03:00 03:30 Temperature Pulse Rate 108 H 99 101 H Respiratory 22 24 Rate Blood Pressure 127/78 133/89 O2 Sat by Pulse 97 94 L Oximetry Medical Decision Making - Medical Decision Making Patient was seen and evaluated merely upon arrival in the emergency department sign patient arrived prior to [address]ations noted on her prehospital 3- lead EKG, upon 12-lead evaluation patient has a bifascicular block is unchanged in morphology from previous patient has minimal chest pain or complaints of respiratory distress Labs and imaging were ordered patient was placed on BiPAP due to respiratory distress Labs consistent with previous patient is hypercapnic, appears dehydrated Chest x-ray no acute findings aside from pulmonary fibrosis Patient care was discussed with Dr. Self who agrees with plan for her admission - Lab Data Result diagrams: 01/17/19 02:01/17/19 02:09 Lab Results 01/17/19 01/17/19 01/17/19 Range/Units 02:09 02:09 02:09 WBC 12.1 H (3.8-10.6) k/uL RBC 4.52 (3.80-5.40) m/uL Hgb 9.6 L (11.4-16.0) gm/dL Hct 35.5 (34.0-46.0) % MCV 78.6 L (80.0-100.0) fL MCH 21.4 L (25.0-35.0) pg MCHC 27.2 L (31.0-37.0) g/dL RDW 14.8 (11.5-15.5) % Plt Count 279 (150-450) k/uL Neutrophils % 85 % Lymphocytes % 4 % Monocytes % 7 % Eosinophils % 0 % Basophils % 0 % Neutrophils # 10.3 H (1.3-7.7) k/uL Lymphocytes # 0.4 L (1.0-4.8) k/uL Monocytes # 0.9 (0-1.0) k/uL Eosinophils # 0.0 (0-0.7) k/uL Basophils # 0.0 (0-0.2) k/uL Hypochromasia Marked PT 10.3 (9.0-12.0) sec INR 1.0 (<1.2) APTT 25.1 (22.0-30.0) sec Sodium 138 (137-145) mmol/L Potassium 4.0 (3.5-5.1) mmol/L Chloride 79 L (98-107) mmol/L Carbon Dioxide 54 H* (22-30) mmol/L Anion Gap 5 mmol/L BUN 15 (7-17) mg/dL Creatinine 0.30 L (0.52-1.04) mg/dL Est GFR (CKD-EPI)AfAm >90 (>60 ml/min/1.73 sqM) Est GFR (CKD-EPI)NonAf >90 (>60 ml/min/1.73 sqM) Glucose 142 H (74-99) mg/dL Calcium 9.5 (8.4-10.2) mg/dL Magnesium 1.2 L (1.6-2.3) mg/dL Total Bilirubin 0.6 (0.2-1.3) mg/dL AST 15 (14-36) U/L ALT 17 (9-52) U/L Alkaline Phosphatase 106 (38-126) U/L Troponin I (0.000-0.034) ng/mL NT-Pro-B Natriuret Pep pg/mL Total Protein 6.6 (6.3-8.2) g/dL Albumin 3.8 (3.5-5.0) g/dL Influenza Type A RNA (Not Detectd) Influenza Type B (PCR) (Not Detectd) 01/17/19 01/17/19 01/17/19 Range/Units 02:09 02:09 03:40 WBC (3.8-10.6) k/uL RBC (3.80-5.40) m/uL Hgb (11.4-16.0) gm/dL Hct (34.0-46.0) % MCV (80.0-100.0) fL MCH (25.0-35.0) pg MCHC (31.0-37.0) g/dL RDW (11.5-15.5) % Plt Count (150-450) k/uL Neutrophils % % Lymphocytes % % Monocytes % % Eosinophils % % Basophils % % Neutrophils # (1.3-7.7) k/uL Lymphocytes # (1.0-4.8) k/uL Monocytes # (0-1.0) k/uL Eosinophils # (0-0.7) k/uL Basophils # (0-0.2) k/uL Hypochromasia PT (9.0-12.0) sec INR (<1.2) APTT (22.0-30.0) sec Sodium (137-145) mmol/L Potassium (3.5-5.1) mmol/L Chloride (98-107) mmol/L Carbon Dioxide (22-30) mmol/L Anion Gap mmol/L BUN (7-17) mg/dL Creatinine (0.52-1.04) mg/dL Est GFR (CKD-EPI)AfAm (>60 ml/min/1.73 sqM) Est GFR (CKD-EPI)NonAf (>60 ml/min/1.73 sqM) Glucose (74-99) mg/dL Calcium (8.4-10.2) mg/dL Magnesium (1.6-2.3) mg/dL Total Bilirubin (0.2-1.3) mg/dL AST (14-36) U/L ALT (9-52) U/L Alkaline Phosphatase (38-126) U/L Troponin I <0.012 (0.000-0.034) ng/mL NT-Pro-B Natriuret Pep 151 pg/mL Total Protein (6.3-8.2) g/dL Albumin (3.5-5.0) g/dL Influenza Type A RNA Not Detected (Not Detectd) Influenza Type B (PCR) Not Detected (Not Detectd) - EKG Data -: EKG Interpreted by Me EKG Comments: EKG was obtained due to report of ST elevations on prehospital cardiology leads as well as shortness of breath. EKG was obtained at 2:07 AM, rate is 121 rhythm is narrow complex regular tachycardia. Before each QRS this is a sinus tachycardia. There is a bifascicular block. No acute ST elevations or depressions no evidence acute ischemia or infarction. When this EKG was compared to EKG obtained on July 28 of this year there is no change in morphology. Disposition Clinical Impression: Acute exacerbation of chronic obstructive airways disease, Hypomagnesemia syndrome, Incisional hernia, Adult respiratory distress syndrome Disposition: ADMITTED IP TO THIS HOSP Referrals: Raul Brown MD [Primary Care Provider] - 1-2 days
[2019-01-17] MEDS: MAGNESIUM SULFATE-D5W PMX 1 GM in DEXTROSE/WATER 1 100ML.BAG IVPB SCH ×2 (03:41→04:37)
--- NOTE | 2019-01-17 04:04 | P.HPIM ---
History of Present Illness H&P Date: 01/17/19 Patient is a 63-year-old female with a PMH of advance COPD (on home 3 L NC oxygen), hypoxic and hypercapnic resp failure, type 2 DM, and large ventral hernia who presented to the ED for c/o abdominal pain and shortness of breath. The patient was somewhat lethargic during the interview and thereby a poor historian. The patient reports that she has been having 4/10 abdominal pain throughout her large hernia, with no radiation or alleviating/exacerbating factors. She states that this is chronic pain though more recently has worsened. She also endorsed worsening SOB with a mild productive cough. She denied chest pain, nausea, vomiting, palpitations, or dizziness. She used her inhalers without much relief. She underwent an extensive evaluation in the ED w/ CXR showing mild pulm fibrosis. Laboratory evaluation revealed WBC count of 12.1, Hgb 9.1, Troponin < 0.012, Mg 1.2, BNP 151, CO2 79, Na 138, K 4.0, BUN 15, and Cr 0.3. The patient is being admitted for acute COPD exacerbation. Review of Systems Pertinent positives and negatives as discussed in HPI, a complete review of systems was performed and all other systems are negative. Past Medical History Past Medical History: Asthma, Heart Failure, COPD, GERD/Reflux, Musculoskeletal Disorder, Osteoarthritis (OA), Pneumonia, Sleep Apnea/CPAP/BIPAP Additional Past Medical History / Comment(s): Bronhitis, chronic low back pain, TIMOTHY with CPAP, home O2 , past L kneecap fx, occasional dependent pedal edema, depression, gallbladder disease, chronic tobacco use and dependence, urinary incontinence, migraine headaches, osteoporosis, sciatica, peptic ulcer disease, urethritis,. History of Any Multi-Drug Resistant Organisms: MRSA Date of last positivie culture/infection: 02/21/17 ([facility]) MDRO Source:: Sputum Past Surgical History: Hernia Repair, Tubal Ligation Additional Past Surgical History / Comment(s): Bilateral inguinal hernia repairs, colonoscopy with benign polyypectomy, surgery for "pinched nerve in my R hip." Discectomy, right femur open reduction internal fixation. Past Anesthesia/Blood Transfusion Reactions: No Reported Reaction Past Psychological History: Depression Smoking Status: Current every day smoker Past Alcohol Use History: None Reported Past Drug Use History: None Reported - Past Family History Father Family Medical History: Coronary Artery Disease (CAD) Additional Family Medical History / Comment(s): Father is 83 yrs old. He has had 2 vessel CABG and a pacer. Mother Family Medical History: Dementia Additional Family Medical History / Comment(s): Mother of dementia at the age of 78yrs. Brother(s) Family Medical History: No Reported History Sister(s) Family Medical History: No Reported History Additional Family Medical History / Comment(s): Patient has 2 children no major medical problems. Patient lives with her daughter Medications and Allergies Home Medications Medication Instructions Recorded Confirmed Type Cholecalciferol (Vitamin D3) 2,000 unit PO DAILY 10/31/16 07/28/18 History [Vitamin D3] DULoxetine HCL [Cymbalta] 20 mg PO DAILY 10/31/16 07/28/18 History Furosemide [Lasix] 20 mg PO DAILY 10/31/16 07/28/18 History Montelukast [Singulair] 10 mg PO HS #30 tab 11/04/16 07/28/18 Rx Omeprazole Magnesium [PriLOSEC OTC] 20 mg PO DAILY #30 tablet. 11/04/16 07/28/18 Rx Ipratropium-Albuterol Nebulize 3 ml INHALATION RT-QID ampul.neb 02/23/17 07/28/18 Rx [Duoneb 0.5 mg-3 mg/3 ml Soln] ALPRAZolam [Xanax] 0.25 mg PO TID PRN 04/15/18 07/28/18 History Albuterol Inhaler [Ventolin Hfa 2 puff INHALATION RT-Q6H PRN 04/15/18 07/28/18 History Inhaler] Atorvastatin [Lipitor] 10 mg PO DAILY 04/15/18 07/28/18 History Calcitonin Nasal [Fortical 1 spray NASAL DAILY 04/15/18 07/28/18 History (Miacalcin)] Cyanocobalamin (Vitamin B-12) 1,000 mcg PO DAILY 04/15/18 07/28/18 History [Vitamin B-12] HYDROcodone/APAP 5-325MG [[place] 1 tab PO TID PRN 04/15/18 07/28/18 History 5-325] Ipratropium [place] [Atrovent Hfa] 2 puff INHALATION RT-QID 04/15/18 07/28/18 History Metoprolol Tartrate [Lopressor] 25 mg PO BID 04/15/18 07/28/18 History Potassium Chloride ER [K-Dur 10] 10 meq PO DAILY 04/15/18 07/28/18 History Sucralfate [Carafate] 1 gm PO QID 04/15/18 07/28/18 History metFORMIN HCL [Glucophage] 1,000 mg PO AC-BID 04/15/18 07/28/18 History Verapamil [Isoptin] 40 mg PO TID 07/28/18 07/28/18 History predniSONE 10 mg PO DAILY #40 tab 08/01/18 Rx Allergies Allergy/AdvReac Type Severity Reaction Status Date / Time No Known Allergies Allergy Verified 01/17/19 02:08 Physical Exam Vitals: Vital Signs Temp Pulse Resp BP Pulse Ox 01/17/19 02:38 108 H 01/17/19 02:33 102 H 01/17/19 02:30 103 H 24 122/76 95 01/17/19 02:00 98.6 F 122 H 30 H 88/71 88 L Intake and Output 01/16/19 01/16/19 01/17/19 14:59 22:59 06:59 Other: Weight 58.967 kg General: Ill appearing desheveled F, in mild resp distress, appears significantly older than stated age, normal weight Derm: dry skin throughout, no unusual ecchymoses, warm Head: atraumatic, normocephalic, symmetric Eyes: EOMI, no lid lag, anicteric sclera, pupils equal round reactive to light ENT: Nose and ears atraumatic, no thrush, no pharyngeal erythema, very poor dentition Neck: No thyromegaly, no cervical lymphadenopathy, trachea midline, supple Mouth: no lip lesion, mucus membranes moist Cardiovascular: S1S2 reg, no murmur, positive posterior tibial pulse bilateral, no edema, capillary refill less than 2 seconds Lungs: Poor air entry johnson, no rales or ronchi appreciated, no accessory muscle use Abdominal: Very large ventral abdominal hernia noted, minimal tenderness to palpation w/ no erythema, rigidity, or guarding noted, no appreciable organomegaly, normal bowel sounds Ext: no gross muscle atrophy, muscle strength 3 out of 5 in all 4 extremities grossly, no contractures, Neuro: CN II-XI grossly intact, no focal neuro deficits noted Psych: Lethargic, oriented to person, place, and time Results CBC & Chem 7: 01/17/19 02:09 01/17/19 02:09 Labs: Abnormal Lab Results - Last 24 Hours (Table) 01/17/19 01/17/19 Range/Units 02:09 02:09 WBC 12.1 H (3.8-10.6) k/uL Hgb 9.6 L (11.4-16.0) gm/dL MCV 78.6 L (80.0-100.0) fL MCH 21.4 L (25.0-35.0) pg MCHC 27.2 L (31.0-37.0) g/dL Neutrophils # 10.3 H (1.3-7.7) k/uL Lymphocytes # 0.4 L (1.0-4.8) k/uL Chloride 79 L (98-107) mmol/L Carbon Dioxide 54 H* (22-30) mmol/L Creatinine 0.30 L (0.52-1.04) mg/dL Glucose 142 H (74-99) mg/dL Magnesium 1.2 L (1.6-2.3) mg/dL Assessment and Plan Plan: Acute COPD exacerbation w/ hypoic and hypercapnic respiratory failure -Received Solumedrol and start Duoebs in the ED -C/w Solumedrol 40 mg and Duonebs -Pulmonary consult -F/u flu testing -F/u ABG study Abdominal hernia pain -Will consult surgery -Does not appear to be incarcerated at this time Leukocytosis -Likely secondary to acute stressor -Monitor for now Microcytic anemia -Check anemia panel -Possibly secondary to chronic illness Hypomagnasemia -Replace and monitor Type 2 DM -FRANCISCO with FS Chronic conditions: HTN, HLD -Resume home meds once confirmed DVT prophylaxis -IPCDs The patient is admitted with an anticipated greater than 2 midnight stay for evaluation of COPD exacerbation CODE STATUS: Full Code Discussed with: Patient Anticipated discharge date: 2-[address]: Home (pt lives wit daughter who is her caregiver) A total of 45 minutes was spent on the care of this complex patient more than 50% of the time was spent in counseling and care coordination.
[2019-01-17 04:10] LABS: ABG PH 7.27 (7.35-7.45); ABG PO2 136 mmHg (83-108)
[2019-01-17] MEDS ORDERED: IPRATROPIUM-ALBUTEROL 3 ML NEB INHALATION PRN (04:10)
[2019-01-17 04:24] LABS: Allen Test Performed? yes
[2019-01-17] MEDS: methylPREDNISolone SOD SUCCI 40 MG/ML 1 ML VIAL IV SCH ×2 (04:36→12:34)
[2019-01-17] MEDS ORDERED: LORazepam 2 MG/ML INJ IV STA (05:54)
[2019-01-17 07:32] LABS: HCT 32.9 % (34.0-46.0); HGB 8.9 gm/dL (11.4-16.0); Hypochromasia Marked; MCHC 27.1 g/dL (31.0-37.0); MCV 81.2 fL (80.0-100.0); Platelet Count 258 k/uL (150-450); RBC 4.05 m/uL (3.80-5.40); RDW 14.5 % (11.5-15.5); WBC 13.1 k/uL (3.8-10.6)
[2019-01-17 07:46] LABS: African American GFR (CKD) >90 (>60 ml/min/1.73 sqM); Blood Urea Nitrogen 16 mg/dL (7-17); Calcium 9.3 mg/dL (8.4-10.2); Chloride 82 mmol/L (98-107); Glucose 181 mg/dL (74-99); Non-African American GFR(CKD) >90 (>60 ml/min/1.73 sqM); Potassium 4.1 mmol/L (3.5-5.1); Sodium 138 mmol/L (137-145)
[2019-01-17 07:53] LABS: Anion Gap 3 mmol/L; Carbon Dioxide 53 mmol/L (22-30)
[2019-01-17] MEDS: IPRATROPIUM-ALBUTEROL 3 ML NEB INHALATION SCH ×4 (07:54→19:39)
[2019-01-17 08:10] LABS: Reticulocyte % 1.7 % (0.5-2.0)
[2019-01-17 12:13] LABS: ABG Oxygen Saturation 82.5 % (94-97); ABG PH 7.32 (7.35-7.45); ABG TCO2 64 mmol/L (19-24); Allen Test Performed? Yes
[2019-01-17 12:18] LABS: ABG PCO2 118 mmHg (35-45); ABG PO2 51 mmHg (83-108)
[2019-01-17 12:19] LABS: ABG Base Excess 34.5 mmol/L; ABG HCO3 61 mmol/L (21-25)
[2019-01-17 12:31] LABS: Glucose,Whole Blood 170 mg/dL (75-99)
--- NOTE | 2019-01-17 15:42 | P.GSCN ---
History of Present Illness Consult date: 01/17/19 Reason for Consult: ventral hernia Requesting physician: Nas Self History of present illness: CHIEF COMPLAINT: ventral hernia HISTORY OF PRESENT ILLNESS: 63-year-old female with a history of exploratory laparotomy and small bowel resection with anastomosis secondary to perforated bowel by Dr. Villa on 04/17/18. Patient has since developed a large incisional hernia. Dr. Joe has evaluated patient during a previous hospitalization in July 2018 and recommended evaluation at a tertiary care center for surgical repair was required due to her chronic steroid use and the size of her hernia. Patient is currently admitted to the hospital secondary to COPD. General surgery was consulted to evaluate hernia. patient did undergo a CAT scan in August 2018 revealing large wide neck ventral abdominal hernia measuring 14 cm in craniocaudal dimension and having a 12 cm neck. This contains mesenteric fat, mesenteric vasculature, and nondilated large and small bowel. Patient was examined in the emergency room today. Patient is extremely lethargic and unable to provide any history. There is no family at the bedside. It is noted the patient's CO2 was greater than 120 on recent ABGs. She is currently on a BiPAP. PAST MEDICAL HISTORY: See list. PAST SURGICAL HISTORY: See list. SOCIAL HISTORY: No illicit drug use. REVIEW OF SYSTEMS: Unable to obtain secondary to lethargy PHYSICAL EXAM: VITAL SIGNS: Reviewed. GENERAL: Well-developed. Lethargic. HEENT: No sclera icterus. Extraocular movements grossly intact. Moist buccal mucosa. Head is atraumatic, normocephalic. ABDOMEN: Soft. Nontender. Large ventral hernia noted. NEUROLOGIC: Lethargic. Mildly arousable with verbal stimulation ASSESSMENT: 1. Ventral hernia with loss of domain 2. History of exploratory laparotomy and small bowel resection with anastomosis secondary to perforated bowelby Dr. Villa on 04/17/18 PLAN: Okay for a diet from a surgical standpoint once lethargy improves No surgical intervention recommended at this time for ventral hernia. Patient currently high risk for surgical intervention due to her COPD and chronic steroid use. Recommend outpatient evaluation at a tertiary care center for repair of ventral hernia Nurse practitioner note has been reviewed by physician. Signing provider agrees with the documented findings, assessment, and plan of care. Past Medical History Past Medical History: Asthma, Heart Failure, COPD, Diabetes Mellitus, GERD/Reflux, Hyperlipidemia, Hypertension, Musculoskeletal Disorder, Osteoart hritis (OA), Pneumonia, Sleep Apnea/CPAP/BIPAP Additional Past Medical History / Comment(s): Home oxygen, chronic respiratory failure, severe persistent asthma, bronchitiis, TIMOTHY with CPap, NIDDM type II, PUD, chronic anemia, chronic low back pain, sciatica, migraines, osteoporosis, past L patellar fracture, occasional dependent pedal edema, sinus tachycardia, abdominal hernia, urinary incontinence, gallbladder disease, vitamin deficiency, gait instability. History of Any Multi-Drug Resistant Organisms: MRSA Year Discovered:: 02/21/17 ([facility]) MDRO Source:: Sputum Past Surgical History: Hernia Repair, Tubal Ligation Additional Past Surgical History / Comment(s): Bilateral inguinal hernia repairs, colonoscopy with benign polyypectomy, surgery for "pinched nerve in my R hip." Discectomy, right femur open reduction internal fixation. Past Anesthesia/Blood Transfusion Reactions: No Reported Reaction Smoking Status: Former smoker - Past Family History Father Family Medical History: Coronary Artery Disease (CAD) Additional Family Medical History / Comment(s): Father is 83 yrs old. He has h ad 2 vessel CABG and a pacer. Mother Family Medical History: Dementia Additional Family Medical History / Comment(s): Mother of dementia at the age of 78yrs. Brother(s) Family Medical History: No Reported History Sister(s) Family Medical History: No Reported History Additional Family Medical History / Comment(s): Patient has 2 children no major medical problems. Patient lives with her daughter Medications and Allergies Home Medications Medication Instructions Recorded Confirmed Type DULoxetine HCL [Cymbalta] 20 mg PO DAILY 10/31/16 01/17/19 History Furosemide [Lasix] 40 mg PO DAILY 10/31/16 01/17/19 History Montelukast [Singulair] 10 mg PO HS #30 tab 11/04/16 01/17/19 Rx Omeprazole Magnesium [PriLOSEC OTC] 20 mg PO DAILY #30 tablet. 11/04/16 01/17/19 Rx Atorvastatin [Lipitor] 10 mg PO HS 04/15/18 01/17/19 History Ipratropium [place] [Atrovent Hfa] 2 puff INHALATION RT-QID 04/15/18 01/17/19 History Potassium Chloride ER [K-Dur 10] 10 meq PO DAILY 04/15/18 01/17/19 History metFORMIN HCL [Glucophage] 1,000 mg PO AC-BID 04/15/18 01/17/19 History Verapamil [Isoptin] 40 mg PO TID 07/28/18 01/17/19 History Budesonide [Pulmicort] 0.5 mg INHALATION RT-BID 01/17/19 01/17/19 History Cholecalciferol [Vitamin D3 (25 1,000 unit PO DAILY 01/17/19 01/17/19 History Mcg = 1000 Iu)] Ferrous Sulfate [Feosol] 325 mg PO DAILY 01/17/19 01/17/19 History Ipratropium-Albuterol Nebulize 3 ml INHALATION RT-Q6H 01/17/19 01/17/19 History [Duoneb 0.5 mg-3 mg/3 ml Soln] busPIRone HCl [Buspar] 10 mg PO TID 01/17/19 01/17/19 History Allergies Allergy/AdvReac Type Severity Reaction Status Date / Time No Known Allergies Allergy Verified 01/17/19 09:23 Surgical - Exam Vital Signs Temp Pulse Resp BP Pulse Ox 98.6 F 122 H 30 H 88/71 88 L 01/17/19 02:00 01/17/19 02:00 01/17/19 02:00 01/17/19 02:00 01/17/19 02:00 Results - Labs 01/17/19 06:54 01/17/19 06:54 Abnormal Lab Results - Last 24 Hours (Table) 01/17/19 01/17/19 01/17/19 Range/Units 02:09 02:09 03:56 WBC 12.1 H (3.8-10.6) k/uL Hgb 9.6 L (11.4-16.0) gm/dL Hct (34.0-46.0) % MCV 78.6 L (80.0-100.0) fL MCH 21.4 L (25.0-35.0) pg MCHC 27.2 L (31.0-37.0) g/dL Neutrophils # 10.3 H (1.3-7.7) k/uL Lymphocytes # 0.4 L (1.0-4.8) k/uL ABG pH 7.27 L (7.35-7.45) ABG pCO2 >120 H* (35-45) mmHg ABG pO2 136 H (83-108) mmHg ABG HCO3 (21-25) mmol/L ABG Total CO2 (19-24) mmol/L ABG O2 Saturation 99.0 H (94-97) % Chloride 79 L (98-107) mmol/L Carbon Dioxide 54 H* (22-30) mmol/L Creatinine 0.30 L (0.52-1.04) mg/dL Glucose 142 H (74-99) mg/dL POC Glucose (mg/dL) (75-99) mg/dL Magnesium 1.2 L (1.6-2.3) mg/dL 01/17/19 01/17/19 01/17/19 Range/Units 06:54 06:54 12:02 WBC 13.1 H (3.8-10.6) k/uL Hgb 8.9 L (11.4-16.0) gm/dL Hct 32.9 L (34.0-46.0) % MCV (80.0-100.0) fL MCH 22.0 L (25.0-35.0) pg MCHC 27.1 L (31.0-37.0) g/dL Neutrophils # (1.3-7.7) k/uL Lymphocytes # (1.0-4.8) k/uL ABG pH 7.32 L (7.35-7.45) ABG pCO2 118 H* (35-45) mmHg ABG pO2 51 L* (83-108) mmHg ABG HCO3 61 H* (21-25) mmol/L ABG Total CO2 64 H (19-24) mmol/L ABG O2 Saturation 82.5 L (94-97) % Chloride 82 L (98-107) mmol/L Carbon Dioxide 53 H* (22-30) mmol/L Creatinine 0.23 L (0.52-1.04) mg/dL Glucose 181 H (74-99) mg/dL POC Glucose (mg/dL) (75-99) mg/dL Magnesium (1.6-2.3) mg/dL 01/17/19 Range/Units 12:29 WBC (3.8-10.6) k/uL Hgb (11.4-16.0) gm/dL Hct (34.0-46.0) % MCV (80.0-100.0) fL MCH (25.0-35.0) pg MCHC (31.0-37.0) g/dL Neutrophils # (1.3-7.7) k/uL Lymphocytes # (1.0-4.8) k/uL ABG pH (7.35-7.45) ABG pCO2 (35-45) mmHg ABG pO2 (83-108) mmHg ABG HCO3 (21-25) mmol/L ABG Total CO2 (19-24) mmol/L ABG O2 Saturation (94-97) % Chloride (98-107) mmol/L Carbon Dioxide (22-30) mmol/L Creatinine (0.52-1.04) mg/dL Glucose (74-99) mg/dL POC Glucose (mg/dL) 170 H (75-99) mg/dL Magnesium (1.6-2.3) mg/dL Diabetes panel 01/17/19 01/17/19 Range/Units 02: 06:54 Sodium 138 138 (137-145) mmol/L Potassium 4.0 4.1 (3.5-5.1) mmol/L Chloride 79 L 82 L (98-107) mmol/L Carbon Dioxide 54 H* 53 H* (22-30) mmol/L BUN 15 16 (7-17) mg/dL Creatinine 0.30 L 0.23 L (0.52-1.04) mg/dL Glucose 142 H 181 H (74-99) mg/dL Calcium 9.5 9.3 (8.4-10.2) mg/dL AST 15 (14-36) U/L ALT 17 (9-52) U/L Alkaline Phosphatase 106 (38-126) U/L Total Protein 6.6 (6.3-8.2) g/dL Albumin 3.8 (3.5-5.0) g/dL Calcium panel 01/17/19 01/17/19 Range/Units 02: 06:54 Calcium 9.5 9.3 (8.4-10.2) mg/dL Albumin 3.8 (3.5-5.0) g/dL Pituitary panel 01/17/19 01/17/19 Range/Units 02: 06:54 Sodium 138 138 (137-145) mmol/L Potassium 4.0 4.1 (3.5-5.1) mmol/L Chloride 79 L 82 L (98-107) mmol/L Carbon Dioxide 54 H* 53 H* (22-30) mmol/L BUN 15 16 (7-17) mg/dL Creatinine 0.30 L 0.23 L (0.52-1.04) mg/dL Glucose 142 H 181 H (74-99) mg/dL Calcium 9.5 9.3 (8.4-10.2) mg/dL Adrenal panel 01/17/19 01/17/19 Range/Units 02:09 06:54 Sodium 138 138 (137-145) mmol/L Potassium 4.0 4.1 (3.5-5.1) mmol/L Chloride 79 L 82 L (98-107) mmol/L Carbon Dioxide 54 H* 53 H* (22-30) mmol/L BUN 15 16 (7-17) mg/dL Creatinine 0.30 L 0.23 L (0.52-1.04) mg/dL Glucose 142 H 181 H (74-99) mg/dL Calcium 9.5 9.3 (8.4-10.2) mg/dL Total Bilirubin 0.6 (0.2-1.3) mg/dL AST 15 (14-36) U/L ALT 17 (9-52) U/L Alkaline Phosphatase 106 (38-126) U/L Total Protein 6.6 (6.3-8.2) g/dL Albumin 3.8 (3.5-5.0) g/dL
--- NOTE | 2019-01-17 17:37 | CONS ---
CONSULTATION PULMONARY/CRITICAL CARE CONSULTATION: DATE OF CONSULTATION: 01/17/2019 REASON FOR CONSULTATION: Shortness of breath and respiratory failure. HISTORY OF PRESENT ILLNESS: This is a 63-year-old female patient with a history of COPD. She apparently has a history of heavy tobacco use. She apparently suffers from chronic hypoxemic and hypercapnic respiratory failure. She apparently was brought into the emergency department early on the morning of January 17 with apparent complaints of shortness of breath and respiratory distress. The patient apparently does wear oxygen at baseline at 4 L/minute. She reports not being able to breathe. Her saturations are in the 80s. She was treated with oxygen and DuoNeb and placed on BiPAP. No additional history could be obtained. Her most recent blood gases were reviewed. Her prior blood gases were reviewed as well. Currently, she is on BiPAP therapy in the observation area of the emergency department. She herself is very lethargic and somnolent but improving in her mental status and can give no additional history. Her repeat blood gases in my PA opinion were much improved. HOME MEDICATIONS: Apparently include vitamin D3, Cymbalta, Lasix, Xanax, Ventolin inhaler, Lipitor, calcitonin, vitamin B12, [place], Atrovent HFA, metoprolol, potassium chloride, Carafate, metformin, verapamil, Singulair, omeprazole, updrafts with DuoNeb, and prednisone 10 mg a day. ALLERGIES: Denied. MEDICAL HISTORY: Positive for asthma, CHF, COPD, GERD, DJD, sleep apnea, pneumonia, bronchitis, chronic low back pain, left kneecap fracture, depression, gallbladder disease, chronic tobacco dependence, urinary incontinence, migraine cephalgia, osteoporosis, sciatica, peptic ulcer disease, and urethritis. She also apparently has a previous history of MRSA infection. SURGICAL HISTORY: Includes tubal ligation and hernia repair. She has also had a colonoscopy with polypectomy and surgery for pinched nerve in her right hip area. She has had spine surgery in the form of discectomy and open reduction internal fixation of the right femur. SOCIAL HISTORY: Positive for ongoing tobacco use. She has smoked for at least 45 years or more. She continues to smoke. She denies any alcohol or illicit drug use. FAMILY HISTORY: Apparently positive for father with CAD and status post 2-vessel bypass grafting and pacemaker insertion and a mother with a history of dementia. A brother was healthy and a sister apparently has no medical problems. REVIEW OF SYSTEMS: Cannot be obtained. The patient is too lethargic and sleepy. BiPAP mask in place. Reported symptoms on admission to the emergency department were shortness of breath. PHYSICAL EXAMINATION: VITAL SIGNS: Current vital signs are reviewed. Temperature is 98.9. Heart rate 95, respiratory rate 16, blood pressure 122/81, mean 94 and saturations are about 88-92 percent on the BiPAP at 40%. GENERAL: Appears in no acute distress. Again, lethargic. HEENT examination is grossly unremarkable. BiPAP mask in place. She does look older than her stated age. NECK: Supple. Full range of motion. No adenopathy. CARDIOVASCULAR examination reveals distant heart sounds. Heart rate in mid 90s. S1, S2 normal. LUNGS: Reveal severely diminished breath sounds. A few scattered wheezes and expiratory rhonchi. No crackles. Breath sounds equal, but severely diminished throughout. ABDOMEN: Soft. EXTREMITIES are intact. No cyanosis, clubbing, or edema. SKIN: Without rash. NEUROLOGIC: Examination could not be adequately assessed. She does attempt to verbalize words. She does arouse on stimulation. LABS: Reviewed. White count 13.1, hemoglobin 8.9, hematocrit 32.9, and platelet count 258,000. Her initial blood gas shows a pO2 of 136, a pCO2 of greater than 120, and a pH of 7.27. Her followup blood gas shows a pO2 of 51 and a pCO2 of 118 and a pH is 7.32. In my opinion, these gases are improved. The FiO2 was dropped down to 40%. Sodium 138, potassium 4.1, chloride 82, CO2 53, anion gap is 3. BUN and creatinine were 16 and 0.23. Influenza studies were negative. X-RAY: Shows no acute abnormalities. There are some minimal interstitial changes noted. Microbiologic studies are pending or negative. Medications are reviewed. He is currently on albuterol and Atrovent updrafts and Solu- Medrol 40 q.8h. ASSESSMENT: 1. Acute hypoxemic and hypercapnic respiratory failure in a patient with severe chronic obstructive pulmonary disease. 2. Ongoing tobacco use with nicotine addiction. 3. Acute on chronic hypercapnic respiratory failure. 4. History of heart failure. 5. History of gastroesophageal reflux disease. 6. History of degenerative joint disease. 7. History of pneumonia. 8. History of sleep apnea syndrome. 9. Chronic low back pain. 10.History of chronic bronchitis. 11.Depression. 12.History of gallbladder disease. 13.Urinary incontinence. 14.Migraine cephalgia. 15.Osteoporosis. 16.Sciatic neuralgia. 17.Peptic ulcer disease. PLAN: I would add Perforomist and Pulmicort 1 mg twice a day. Additional recommendations and suggestions are forthcoming. Prognosis is very poor. I have asked the nurses and respiratory therapist to maintain saturations between 88 and 92%. When I was in the emergency room, her saturations were 96 to 97%. The FiO2 could certainly be titrated down. Additional recommendations and suggestions are forthcoming. MMANTHONYL / IJN: [id number] /
[2019-01-17] MEDS ORDERED: methylPREDNISolone SOD SUCCI 40 MG/ML 1 ML VIAL IV SCH (18:00)
[2019-01-17 18:05] LABS: Ferritin 21.5 ng/mL (10.0-291.0)
[2019-01-17 18:11] LABS: % Iron Saturation 2.38 (12.00-45.00); Iron 10 ug/dL (50-170); Total Iron Binding Capacity 421 ug/dL (228-460)
[2019-01-17] MEDS: methylPREDNISolone SOD SUCCI 125 MG/2 ML VIAL IV SCH ×2 (18:34→22:20)
[2019-01-17] MEDS: FORMOTEROL FUMARATE 20 MCG/2 ML NEBU INHALATION SCH (19:39)
[2019-01-17] MEDS: BUDESONIDE 1 MG/2 ML NEBU INHALATION SCH (19:39)
[2019-01-17] MEDS ORDERED: BUDESONIDE 0.5 MG/2 ML NEBU INHALATION SCH (20:00)
[2019-01-17 20:45] LABS: Glucose,Whole Blood 147 mg/dL (75-99)
[2019-01-18 06:26] LABS: HCT 32.2 % (34.0-46.0); HGB 8.5 gm/dL (11.4-16.0); Hypochromasia Marked; MCH 21.4 pg (25.0-35.0); MCHC 26.4 g/dL (31.0-37.0); MCV 81.2 fL (80.0-100.0); Mean Platelet Volume 7.2; Platelet Count 307 k/uL (150-450); RBC 3.96 m/uL (3.80-5.40); RDW 14.6 % (11.5-15.5); WBC 9.5 k/uL (3.8-10.6)
[2019-01-18] MEDS: methylPREDNISolone SOD SUCCI 125 MG/2 ML VIAL IV SCH ×2 (06:28→11:52)
[2019-01-18 06:40] LABS: African American GFR (CKD) >90 (>60 ml/min/1.73 sqM); Blood Urea Nitrogen 22 mg/dL (7-17); Calcium 9.9 mg/dL (8.4-10.2); Chloride 84 mmol/L (98-107); Glucose 144 mg/dL (74-99); Non-African American GFR(CKD) >90 (>60 ml/min/1.73 sqM); Sodium 142 mmol/L (137-145)
[2019-01-18 06:46] LABS: Anion Gap 1 mmol/L
[2019-01-18 06:49] LABS: Glucose,Whole Blood 169 mg/dL (75-99)
[2019-01-18] MEDS: INSULIN ASPART (NovoLOG) 100 UNIT/ML VIAL SQ SCH ×4 (07:03→21:15)
[2019-01-18 07:04] LABS: Carbon Dioxide 57 mmol/L (22-30)
[2019-01-18] MEDS: BUDESONIDE 1 MG/2 ML NEBU INHALATION SCH ×2 (08:58→20:22)
[2019-01-18] MEDS: FORMOTEROL FUMARATE 20 MCG/2 ML NEBU INHALATION SCH ×2 (08:58→20:22)
[2019-01-18] MEDS: IPRATROPIUM-ALBUTEROL 3 ML NEB INHALATION SCH ×4 (08:58→20:21)
[2019-01-18] MEDS: busPIRone HCl 10 MG TAB PO SCH ×3 (09:25→21:15)
[2019-01-18] MEDS: VERAPAMIL 40 MG TAB PO SCH ×3 (09:25→21:15)
[2019-01-18 10:59] LABS: ABG PH 7.33 (7.35-7.45); ABG TCO2 64 mmol/L (19-24); Allen Test Performed? Yes
[2019-01-18 11:03] LABS: ABG PCO2 115 mmHg (35-45)
[2019-01-18 11:04] LABS: ABG PO2 56 mmHg (83-108)
[2019-01-18 11:35] LABS: Glucose,Whole Blood 169 mg/dL (75-99)
[2019-01-18] MEDS: POTASSIUM CHLORIDE ER 10 MEQ TAB.ER.PRT PO SCH (11:52)
[2019-01-18] MEDS: DULoxetine HCL 20 MG CAPSULE.DR PO SCH (11:52)
[2019-01-18] MEDS: CHOLECALCIFEROL 1,000 UNIT TAB PO SCH (11:52)
[2019-01-18] MEDS: FUROSEMIDE 40 MG TAB PO SCH (11:52)
[2019-01-18] MEDS: FERROUS SULFATE 325 MG TAB PO SCH (11:52)
[2019-01-18] MEDS ORDERED: FLUCONAZOLE 100 MG TAB PO ONE (12:58)
--- NOTE | 2019-01-18 13:16 | P.PN ---
Subjective Progress Note Date: 01/18/19 Principal diagnosis: Hypercapnic/hypoxemic respiratory failure secondary to severe exacerbation of chronic obstructive pulmonary disease. The patient is seen today 01/18/2019 in follow-up on the regular medical floor. She is resting in bed. She is currently on the BiPAP with settings of 12/6 and FiO2 40%. Follow-up blood gases revealed a P O2 of 56, pCO2 115, pH 7.33. Sodi um 142. Potassium 4.0. Bicarb 57. Creatinine 0.37. He hemoglobin 8.5. White count 9.5. She is continued on DuoNeb inhalations, Pulmicort and Perforomist inhalations, IV Solu-Medrol. She is afebrile. Objective - Vital Signs Vital signs: Vital Signs Temp 98.1 F 01/18/19 11:42 Pulse 100 01/18/19 12:14 Resp 24 01/18/19 11:42 BP 123/79 01/18/19 11:42 Pulse Ox 89 L 01/18/19 11:42 Intake & Output 01/17/19 01/18/19 01/18/19 18:59 06:59 18:59 Intake Total 240 Output Total 150 Balance -150 240 Weight 58.5 kg Intake: Oral 240 Output: Urine 150 Other: Voiding Method Bedside Commode Bedside Commode # Voids 1 - Exam GENERAL EXAM: Alert, dyspneic, appears older than stated age, on BiPAP. HEAD: Normocephalic. EYES: Normal reaction of pupils, equal size. NOSE: Clear with pink turbinates. THROAT: No erythema or exudates. NECK: No masses, no JVD. CHEST: No chest wall deformity. LUNGS: Equal air entry with scattered rhonchi, end expiratory wheeze, diminished. CVS: S1 and S2 normal with no audible murmur, regular rhythm. ABDOMEN: No hepatosplenomegaly, normal bowel sounds, no guarding or rigidity. SPINE: No scoliosis or deformity SKIN: No rashes CENTRAL NERVOUS SYSTEM: No focal deficits, tone is normal in all 4 extremities. EXTREMITIES: There is no peripheral edema. No clubbing, no cyanosis. Peripheral pulses are intact. - Labs CBC & Chem 7: 01/18/19 06:04 01/18/19 06:04 Labs: Abnormal Lab Results - Last 24 Hours (Table) 01/17/19 01/17/1901/18/19 Range/Units 06:54 20:44 06:04 Hgb (11.4-16.0) gm/dL Hct (34.0-46.0) % MCH (25.0-35.0) pg MCHC (31.0-37.0) g/dL ABG pH (7.35-7.45) ABG pCO2 (35-45) mmHg ABG pO2 (83-108) mmHg ABG HCO3 (21-25) mmol/L ABG Total CO2 (19-24) mmol/L ABG O2 Saturation (94-97) % Chloride 84 L (98-107) mmol/L Carbon Dioxide 57 H* (22-30) mmol/L BUN 22 H (7-17) mg/dL Creatinine 0.37 L (0.52-1.04) mg/dL Glucose 144 H (74-99) mg/dL POC Glucose (mg/dL) 147 H (75-99) mg/dL Iron 10 L (50-170) ug/dL % Saturation 2.38 L (12.00-45.00) 01/18/19 01/18/19 01/18/19 Range/Units 06:04 06:48 10:45 Hgb 8.5 L (11.4-16.0) gm/dL Hct 32.2 L (34.0-46.0) % MCH 21.4 L (25.0-35.0) pg MCHC 26.4 L (31.0-37.0) g/dL ABG pH 7.33 L (7.35-7.45) ABG pCO2 115 H* (35-45) mmHg ABG pO2 56 L* (83-108) mmHg ABG HCO3 61 H* (21-25) mmol/L ABG Total CO2 64 H (19-24) mmol/L ABG O2 Saturation 85.0 L (94-97) % Chloride (98-107) mmol/L Carbon Dioxide (22-30) mmol/L BUN (7-17) mg/dL Creatinine (0.52-1.04) mg/dL Glucose (74-99) mg/dL POC Glucose (mg/dL) 169 H (75-99) mg/dL Iron (50-170) ug/dL % Saturation (12.00-45.00) 01/18/19 Range/Units 11:34 Hgb (11.4-16.0) gm/dL Hct (34.0-46.0) % MCH (25.0-35.0) pg MCHC (31.0-37.0) g/dL ABG pH (7.35-7.45) ABG pCO2 (35-45) mmHg ABG pO2 (83-108) mmHg ABG HCO3 (21-25) mmol/L ABG Total CO2 (19-24) mmol/L ABG O2 Saturation (94-97) % Chloride (98-107) mmol/L Carbon Dioxide (22-30) mmol/L BUN (7-17) mg/dL Creatinine (0.52-1.04) mg/dL Glucose (74-99) mg/dL POC Glucose (mg/dL) 169 H (75-99) mg/dL Iron (50-170) ug/dL % Saturation (12.00-45.00) Assessment and Plan Assessment: #1 Acute on chronic hypoxemic/hypercapnic respiratory failure secondary to an acute exacerbation of severe chronic obstructive pulmonary disease. #2 Chronic and ongoing tobacco dependence. #3 History of heart failure. #4 GERD. #5 Degenerative joint disease. #6 Obstructive sleep apnea. #7 Chronic low back pain. #8 Migraine cephalgia. #9 Osteoporosis. Plan: The patient was seen and evaluated by Dr. Reid. ABGs and labs reviewed. We'll continue with the current treatment plan. She has been slow to progress. Continue with BiPAP as needed. Alternating with nasal cannula if possible. Ti trate down the FiO2 as tolerated. Her overall prognosis remains quite guarded and poor. We will continue to follow and make further recommendations based on her clinical status. I, the cosigning physician, performed a history & physical examination of the patient. Lungs sounds with few scattered rhonchi, end expiratory wheeze, diminished. Maintaining good O2 saturations in the 90s on BiPAP 12/6 and 40% FiO2. I discussed the assessment and plan of care with my nurse practitioner, Drea Alcazar. I attest to the above note as dictated by her.
--- NOTE | 2019-01-18 13:56 | P.PN ---
Subjective Progress Note Date: 01/18/19 CHIEF COMPLAINT: ventral hernia HISTORY OF PRESENT ILLNESS: Patient seen and examined at the bedside. Patient is more alert today. She currently denies abdominal pain. Denies nausea or vomiting. PHYSICAL EXAM: VITAL SIGNS: Reviewed. GENERAL: Well-developed. HEENT: No sclera icterus. Extraocular movements grossly intact. Moist buccal mucosa. Head is atraumatic, normocephalic. ABDOMEN: Soft. Nontender. Large ventral hernia noted. NEUROLOGIC: Arousable to verbal stimulation. ASSESSMENT: 1. Ventral hernia with loss of domain 2. History of exploratory laparotomy and small bowel resection with anastomosis secondary to perforated bowelby Dr. Villa on 04/17/18 PLAN: Okay for a diet from a surgical standpoint once lethargy improves No surgical intervention recommended at this time for ventral hernia. Patient currently high risk for surgical intervention due to her COPD and chronic steroid use and size of hernia Recommend outpatient evaluation at a tertiary care center for repair of ventral hernia Nurse practitioner note has been reviewed by physician. Signing provider agrees with the documented findings, assessment, and plan of care. Objective - Vital Signs Vital signs: Vital Signs Temp 98.1 F 01/18/19 11:42 Pulse 100 01/18/19 12:14 Resp 24 01/18/19 11:42 BP 123/79 01/18/19 11:42 Pulse Ox 89 L 01/18/19 11:42 Intake & Output 01/17/19 01/18/19 01/18/19 18:59 06:59 18:59 Intake Total 240 Output Total 150 Balance -150 240 Weight 58.5 kg Intake: Oral 240 Output: Urine 150 Other: Voiding Method Bedside Commode Bedside Commode # Voids 1 - Labs CBC & Chem 7: 01/18/19 06:04 01/18/19 06:04 Labs: Abnormal Lab Results - Last 24 Hours (Table) 01/17/19 01/17/19 01/18/19 Range/Units 06:54 20:44 06:04 Hgb (11.4-16.0) gm/dL Hct (34.0-46.0) % MCH (25.0-35.0) pg MCHC (31.0-37.0) g/dL ABG pH (7.35-7.45) ABG pCO2 (35-45) mmHg ABG pO2 (83-108) mmHg ABG HCO3 (21-25) mmol/L ABG Total CO2 (19-24) mmol/L ABG O2 Saturation (94-97) % Chloride 84 L (98-107) mmol/L Carbon Dioxide 57 H* (22-30) mmol/L BUN 22 H (7-17) mg/dL Creatinine 0.37 L (0.52-1.04) mg/dL Glucose 144 H (74-99) mg/dL POC Glucose (mg/dL) 147 H (75-99) mg/dL Iron 10 L (50-170) ug/dL % Saturation 2.38 L (12.00-45.00) 01/18/19 01/18/19 01/18/19 Range/Units 06:04 06:48 10:45 Hgb 8.5 L (11.4-16.0) gm/dL Hct 32.2 L (34.0-46.0) % MCH 21.4 L (25.0-35.0) pg MCHC 26.4 L (31.0-37.0) g/dL ABG pH 7.33 L (7.35-7.45) ABG pCO2 115 H* (35-45) mmHg ABG pO2 56 L* (83-108) mmHg ABG HCO3 61 H* (21-25) mmol/L ABG Total CO2 64 H (19-24) mmol/L ABG O2 Saturation 85.0 L (94-97) % Chloride (98-107) mmol/L Carbon Dioxide (22-30) mmol/L BUN (7-17) mg/dL Creatinine (0.52-1.04) mg/dL Glucose (74-99) mg/dL POC Glucose (mg/dL) 169 H (75-99) mg/dL Iron (50-170) ug/dL % Saturation (12.00-45.00) 01/18/19 Range/Units 11:34 Hgb (11.4-16.0) gm/dL Hct (34.0-46.0) % MCH (25.0-35.0) pg MCHC (31.0-37.0) g/dL ABG pH (7.35-7.45) ABG pCO2 (35-45) mmHg ABG pO2 (83-108) mmHg ABG HCO3 (21-25) mmol/L ABG Total CO2 (19-24) mmol/L ABG O2 Saturation (94-97) % Chloride (98-107) mmol/L Carbon Dioxide (22-30) mmol/L BUN (7-17) mg/dL Creatinine (0.52-1.04) mg/dL Glucose (74-99) mg/dL POC Glucose (mg/dL) 169 H (75-99) mg/dL Iron (50-170) ug/dL % Saturation (12.00-45.00)
[2019-01-18] MEDS: guaiFENesin 600 MG TABLET.ER PO SCH ×2 (16:03→21:15)
[2019-01-18] MEDS: methylPREDNISolone SOD SUCCI 40 MG/ML 1 ML VIAL IV SCH ×2 (16:03→23:15)
[2019-01-18 16:59] LABS: Glucose,Whole Blood 294 mg/dL (75-99)
[2019-01-18 19:58] LABS: Glucose,Whole Blood 144 mg/dL (75-99)
[2019-01-18] MEDS: ATORVASTATIN 10 MG TAB PO SCH (21:15)
[2019-01-18] MEDS: MONTELUKAST 10 MG TAB PO SCH (21:15)
--- NOTE | 2019-01-18 22:52 | PN ---
PROGRESS NOTE DATE OF SERVICE: 01/18/2019. PRESENTING COMPLAINT: Short of breath. INTERVAL HISTORY: Patient is admitted with acute on chronic hypoxic hypercapnic respiratory failure and severe COPD exacerbation. Today-patient remains short of breath, some wheezing. The patient is eating about 50% of her meals. Some cough. REVIEW OF SYSTEMS: Done for constitutional, cardiovascular, GI, pulmonary; relevant findings as above. CURRENT MEDICATIONS: Reviewed that include DuoNeb, inhaled Pulmicort, IV Solu-Medrol 40 q.8h. EXAMINATION: VITAL SIGNS: Temperature 98.8, pulse 115, respiration 24, blood pressure 123/73, pulse ox 92 percent on BiPAP. GENERAL APPEARANCE: Sitting up tired, short of breath. EYES: Pupils equal. Conjunctivae normal. HEENT oral cavity shows white spots in the posterior part of the tongue and the pharynx. NECK: JVD unable to assess. Mass not palpable. RESPIRATORY: Effort increased. LUNGS: Diminished breath sounds. Prolonged expiration. Wheezing. Some accessory muscles are working. CARDIOVASCULAR: First and second sounds normal. No edema. ABDOMEN: Abdominal wall ventral hernia. Soft, nontender. PSYCHIATRY: Alert and oriented x3. Mood and affect slightly anxious. INVESTIGATIONS: Blood gas earlier today showed a pH of 7.33, pCO2 115, PO2 56. Accu-Cheks 169, 294, 144, hemoglobin 8.5. EKG tracing personally reviewed by me shows sinus tachycardia with right bundle branch block pattern. Chest x-ray film personally reviewed by me shows possibly basal chronic changes. ASSESSMENT: 1. Acute on chronic hypoxic hypercapnic respiratory failure secondary to chronic obstructive pulmonary disease exacerbation, slow to respond. 2. Acute severe chronic obstructive pulmonary disease exacerbation, slow to respond. 3. Chronic nicotine dependence, patient is a cigarette smoker. 4. Primary osteoarthritis. 5. Normocytic anemia, cause unknown. 6. Gastroesophageal reflux disease. 7. Essential hypertension. 8. Hyperlipidemia. 9. Obstructive sleep apnea with CPAP. 10.Abdominal wall ventral hernia. 11.Chronic urinary incontinence. 12.Oropharyngeal candidiasis secondary to steroid use. PLAN: Patient is slow to respond at the present time. Continue with bronchodilators, IV steroids. The patient has oral thrush. We will start the patient on Diflucan. Continue to follow with Pulmonary. Prognosis is guarded. MMODL / IJN: [id number] /
[2019-01-19 06:11] LABS: Glucose,Whole Blood 196 mg/dL (75-99)
[2019-01-19] MEDS: PANTOPRAZOLE 40 MG TABLET PO SCH (06:12)
[2019-01-19] MEDS: INSULIN ASPART (NovoLOG) 100 UNIT/ML VIAL SQ SCH ×4 (06:12→21:30)
[2019-01-19 06:28] LABS: HCT 31.8 % (34.0-46.0); HGB 8.4 gm/dL (11.4-16.0); Hypochromasia Marked; MCH 21.2 pg (25.0-35.0); MCHC 26.3 g/dL (31.0-37.0); MCV 80.8 fL (80.0-100.0); Mean Platelet Volume 7.4; Platelet Count 304 k/uL (150-450); RBC 3.94 m/uL (3.80-5.40); RDW 15.1 % (11.5-15.5); WBC 13.2 k/uL (3.8-10.6)
[2019-01-19 06:35] LABS: African American GFR (CKD) >90 (>60 ml/min/1.73 sqM); Blood Urea Nitrogen 30 mg/dL (7-17); Chloride 84 mmol/L (98-107); Glucose 174 mg/dL (74-99); Non-African American GFR(CKD) >90 (>60 ml/min/1.73 sqM); Potassium 4.3 mmol/L (3.5-5.1); Sodium 140 mmol/L (137-145)
[2019-01-19 06:42] LABS: Anion Gap 1 mmol/L
[2019-01-19 06:59] LABS: Carbon Dioxide 55 mmol/L (22-30)
[2019-01-19] MEDS: FORMOTEROL FUMARATE 20 MCG/2 ML NEBU INHALATION SCH ×2 (09:05→21:11)
[2019-01-19] MEDS: BUDESONIDE 1 MG/2 ML NEBU INHALATION SCH ×2 (09:05→21:11)
[2019-01-19] MEDS: IPRATROPIUM-ALBUTEROL 3 ML NEB INHALATION SCH ×4 (09:05→21:11)
[2019-01-19] MEDS: FLUCONAZOLE 100 MG TAB PO SCH (10:18)
[2019-01-19] MEDS: CHOLECALCIFEROL 1,000 UNIT TAB PO SCH (10:18)
[2019-01-19] MEDS: FERROUS SULFATE 325 MG TAB PO SCH (10:18)
[2019-01-19] MEDS: POTASSIUM CHLORIDE ER 10 MEQ TAB.ER.PRT PO SCH (10:18)
[2019-01-19] MEDS: methylPREDNISolone SOD SUCCI 40 MG/ML 1 ML VIAL IV SCH ×2 (10:18→18:07)
[2019-01-19] MEDS: DULoxetine HCL 20 MG CAPSULE.DR PO SCH (10:18)
[2019-01-19] MEDS: VERAPAMIL 40 MG TAB PO SCH ×2 (10:18→18:07)
[2019-01-19] MEDS: busPIRone HCl 10 MG TAB PO SCH ×2 (10:18→18:06)
[2019-01-19] MEDS: guaiFENesin 600 MG TABLET.ER PO SCH ×2 (10:18→20:23)
[2019-01-19] MEDS: FUROSEMIDE 40 MG TAB PO SCH (10:19)
--- NOTE | 2019-01-19 11:55 | P.PN ---
Subjective Progress Note Date: 01/19/19 CHIEF COMPLAINT: ventral hernia HISTORY OF PRESENT ILLNESS: Patient seen and examined at the bedside. She currently denies abdominal pain. Denies nausea or vomiting. PHYSICAL EXAM: VITAL SIGNS: Reviewed. GENERAL: Well-developed. HEENT: No sclera icterus. Extraocular movements grossly intact. Moist buccal mucosa. Head is atraumatic, normocephalic. ABDOMEN: Soft. Nontender. Large ventral hernia noted. NEUROLOGIC: Awake and alert. ASSESSMENT: 1. Ventral hernia with loss of domain 2. History of exploratory laparotomy and small bowel resection with anastomosis secondary to perforated bowelby Dr. Villa on 04/17/18 PLAN: Continue diet as tolerated No surgical intervention recommended at this time for ventral hernia. Patient currently high risk for surgical intervention due to her COPD and chronic steroid use and size of hernia Recommend outpatient evaluation at a tertiary care center for repair of ventral hernia We will sign off. Please reconsult if needed Nurse practitioner note has been reviewed by physician. Signing provider agrees with the documented findings, assessment, and plan of care. Objective - Vital Signs Vital signs: Vital Signs Temp 97.9 F 01/19/19 08:20 Pulse 87 01/19/19 11:27 Resp 18 01/19/19 11:27 BP 123/72 01/19/19 11:27 Pulse Ox 90 L 01/19/19 11:27 Intake & Output 01/18/19 01/19/19 01/19/19 18:59 06:59 18:59 Intake Total 240 222 Output Total 300 Balance -60 222 Weight 58.5 kg Intake: Oral 240 222 Output: Urine 300 Other: Voiding Method Bedside Commode Bedside Commode Bedside Commode # Voids 2 - Labs CBC & Chem 7: 01/19/19 05:20 01/19/19 05:20 Labs: Abnormal Lab Results - Last 24 Hours (Table) 01/18/19 01/18/19 01/19/19 Range/Units 16:58 19:56 05:20 WBC (3.8-10.6) k/uL Hgb (11.4-16.0) gm/dL Hct (34.0-46.0) % MCH (25.0-35.0) pg MCHC (31.0-37.0) g/dL Chloride 84 L (98-107) mmol/L Carbon Dioxide 55 H* (22-30) mmol/L BUN 30 H (7-17) mg/dL Creatinine 0.32 L (0.52-1.04) mg/dL Glucose 174 H (74-99) mg/dL POC Glucose (mg/dL) 294 H 144 H (75-99) mg/dL 01/19/19 01/19/19 Range/Units 05:20 06:10 WBC 13.2 H (3.8-10.6) k/uL Hgb 8.4 L (11.4-16.0) gm/dL Hct 31.8 L (34.0-46.0) % MCH 21.2 L (25.0-35.0) pg MCHC 26.3 L (31.0-37.0) g/dL Chloride (98-107) mmol/L Carbon Dioxide (22-30) mmol/L BUN (7-17) mg/dL Creatinine (0.52-1.04) mg/dL Glucose (74-99) mg/dL POC Glucose (mg/dL) 196 H (75-99) mg/dL
[2019-01-19 12:16] LABS: ABG Oxygen Saturation 93.4 % (94-97); ABG PH 7.24 (7.35-7.45); ABG PO2 81 mmHg (83-108); Allen Test Performed? Yes
[2019-01-19 12:22] LABS: ABG PCO2 >120 mmHg (35-45)
[2019-01-19 12:25] LABS: Glucose,Whole Blood 182 mg/dL (75-99)
--- NOTE | 2019-01-19 14:05 | P.PN ---
Subjective Progress Note Date: 01/19/19 Principal diagnosis: Hypercapnic/hypoxemic respiratory failure secondary to severe exacerbation of chronic obstructive pulmonary disease. The patient is seen today 01/18/2019 in follow-up on the regular medical floor. She is resting in bed. She is currently on the BiPAP with settings of 12/6 and FiO2 40%. Follow-up blood gases revealed a P O2 of 56, pCO2 115, pH 7.33. Sodi um 142. Potassium 4.0. Bicarb 57. Creatinine 0.37. He hemoglobin 8.5. White count 9.5. She is continued on DuoNeb inhalations, Pulmicort and Perforomist inhalations, IV Solu-Medrol. She is afebrile. The patient is seen today 01/19/2019 in follow-up on the regular medical floor. She remains resting in bed. She is still requiring BiPAP support 01/14 with 50% FiO2. A bit less responsive today. Arterial blood gases revealed a PaO2 of 81, pCO2 of 120, pH of 7.24. White count 13.2. Hemoglobin 8.4. Bicarb 55. Creatinine 0.32. She remains on bronchodilators, IV site Medrol. Objective - Vital Signs Vital signs: Vital Signs Temp 97.9 F 01/19/19 08:20 Pulse 96 01/19/19 12:48 Resp 16 01/19/19 13:50 BP 123/72 01/19/19 11:27 Pulse Ox 92 L 01/19/19 13:50 Intake & Output 01/18/19 01/19/19 01/19/19 18:59 06:59 18:59 Intake Total 240 222 Output Total 300 Balance -60 222 Weight 58.5 kg Intake: Oral 240 222 Output: Urine 300 Other: Voiding Method Bedside Commode Bedside Commode Bedside Commode # Voids 2 1 - Exam GENERAL EXAM: Alert, dyspneic, appears older than stated age, on BiPAP. HEAD: Normocephalic. EYES: Normal reaction of pupils, equal size. NOSE: Clear with pink turbinates. THROAT: No erythema or exudates. NECK: No masses, no JVD. CHEST: No chest wall deformity. LUNGS: Equal air entry with scattered rhonchi, end expiratory wheeze, diminished. CVS: S1 and S2 normal with no audible murmur, regular rhythm. ABDOMEN: No hepatosplenomegaly, normal bowel sounds, no guarding or rigidity. SPINE: No scoliosis or deformity SKIN: No rashes CENTRAL NERVOUS SYSTEM: No focal deficits, tone is normal in all 4 extremities. EXTREMITIES: There is no peripheral edema. No clubbing, no cyanosis. Peripheral pulses are intact. - Labs CBC & Chem 7: 01/19/19 05:20 01/19/19 05:20 Labs: Abnormal Lab Results - Last 24 Hours (Table) 01/18/19 01/18/19 01/19/19 Range/Units 16:58 19:56 05:20 WBC (3.8-10.6) k/uL Hgb (11.4-16.0) gm/dL Hct (34.0-46.0) % MCH (25.0-35.0) pg MCHC (31.0-37.0) g/dL ABG pH (7.35-7.45) ABG pCO2 (35-45) mmHg ABG pO2 (83-108) mmHg ABG O2 Saturation (94-97) % Chloride 84 L (98-107) mmol/L Carbon Dioxide 55 H* (22-30) mmol/L BUN 30 H (7-17) mg/dL Creatinine 0.32 L (0.52-1.04) mg/dL Glucose 174 H (74-99) mg/dL POC Glucose (mg/dL) 294 H 144 H (75-99) mg/dL 01/19/19 01/19/19 01/19/19 Range/Units 05:20 06:10 12:10 WBC 13.2 H (3.8-10.6) k/uL Hgb 8.4 L (11.4-16.0) gm/dL Hct 31.8 L (34.0-46.0) % MCH 21.2 L (25.0-35.0) pg MCHC 26.3 L (31.0-37.0) g/dL ABG pH (7.35-7.45) ABG pCO2 (35-45) mmHg ABG pO2 (83-108) mmHg ABG O2 Saturation (94-97) % Chloride (98-107) mmol/L Carbon Dioxide (22-30) mmol/L BUN (7-17) mg/dL Creatinine (0.52-1.04) mg/dL Glucose (74-99) mg/dL POC Glucose (mg/dL) 196 H 182 H (75-99) mg/dL 01/19/19 Range/Units 12:13 WBC (3.8-10.6) k/uL Hgb (11.4-16.0) gm/dL Hct (34.0-46.0) % MCH (25.0-35.0) pg MCHC (31.0-37.0) g/dL ABG pH 7.24 L (7.35-7.45) ABG pCO2 >120 H* (35-45) mmHg ABG pO2 81 L (83-108) mmHg ABG O2 Saturation 93.4 L (94-97) % Chloride (98-107) mmol/L Carbon Dioxide (22-30) mmol/L BUN (7-17) mg/dL Creatinine (0.52-1.04) mg/dL Glucose (74-99) mg/dL POC Glucose (mg/dL) (75-99) mg/dL Assessment and Plan Assessment: #1 Acute on chronic hypoxemic/hypercapnic respiratory failure secondary to an acute exacerbation of severe chronic obstructive pulmonary disease. #2 Chronic and ongoing tobacco dependence. #3 History of heart failure. #4 GERD. #5 Degenerative joint disease. #6 Obstructive sleep apnea. #7 Chronic low back pain. #8 Migraine cephalgia. #9 Osteoporosis. Plan: The patient was seen and evaluated by Dr. Reid. ABGs and labs reviewed. Decrease the FiO2 to 40%. Increase the iPAP to 15. We'll continue with the current treatment plan. Her overall prognosis remains quite guarded and poor. Dr. Reid did leave a message for the patient's daughter to return a call regarding her current situation. We will continue to follow and make further recommendations based on her clinical status. I, the cosigning physician, performed a history & physical examination of the patient. Lungs sounds with few scattered rhonchi, end expiratory wheeze, diminished. Maintaining good O2 saturations in the 90s on BiPAP 15/6 and 40% FiO2. I discussed the assessment and plan of care with my nurse practitioner, Drea Alcazar. I attest to the above note as dictated by her.
[2019-01-19 17:18] LABS: Glucose,Whole Blood 125 mg/dL (75-99)
[2019-01-19] MEDS: MONTELUKAST 10 MG TAB PO SCH (20:23)
[2019-01-19] MEDS: ATORVASTATIN 10 MG TAB PO SCH (20:24)
[2019-01-19 21:23] LABS: Glucose,Whole Blood 212 mg/dL (75-99)
--- NOTE | 2019-01-19 23:37 | P.PN ---
Progress Note - Text Progress Note Date: 01/19/19 Interval history: Patient admitted with acute on chronic hypoxic hypercapnic respiratory failure and severe COPD exacerbation. Today-tired. Eating about 50% of her meals. Using a BiPAP. Slight cough. Tired. Review of systems: Was done for constitutional, cardiovascular, GI, pulmonary. relevant finding as above Active Medications Albuterol/Ipratropium (Duoneb 0.5 Mg-3 Mg/3 Ml Soln) 3 ml INHALATION QID [facility] Last Admin: 01/19/19 21:11 Dose: 3 ml Documented by: Albuterol/Ipratropium (Duoneb 0.5 Mg-3 Mg/3 Ml Soln) 3 ml INHALATION Q6H PRN PRN Reason: Shortness Of Breath Atorvastatin Calcium (Lipitor) 10 mg PO HS [facility] Last Admin: 01/19/19 20:24 Dose: 10 mg Documented by: Budesonide (Pulmicort) 1 mg INHALATION RT-BID [facility] Last Admin: 01/19/19 21:11 Dose: 1 mg Documented by: Buspirone HCl (Buspar) 10 mg PO TID [facility] Last Admin: 01/19/19 18:06 Dose: 10 mg Documented by: Cholecalciferol (Vitamin D3 (25 Mcg = 1000 Iu)) 1,000 unit PO DAILY [facility] Last Admin: 01/19/19 10:18 Dose: 1,000 unit Documented by: Duloxetine HCl (Cymbalta) 20 mg PO DAILY [facility] Last Admin: 01/19/19 10:18 Dose: 20 mg Documented by: Ferrous Sulfate (Feosol) 325 mg PO DAILY [facility] Last Admin: 01/19/19 10:18 Dose: 325 mg Documented by: Fluconazole (Diflucan) 100 mg PO DAILY [facility] Last Admin: 01/19/19 10:18 Dose: 100 mg Documented by: Formoterol Fumarate (Perforomist) 20 mcg INHALATION RT-BID [facility] Last Admin: 01/19/19 21:11 Dose: 20 mcg Documented by: Furosemide (Lasix) 40 mg PO DAILY [facility] Last Admin: 01/19/19 10:19 Dose: 40 mg Documented by: Guaifenesin (Mucinex) 1,200 mg PO Q12HR [facility] Last Admin: 01/19/19 20:23 Dose: 1,200 mg Documented by: Insulin Aspart (Novolog) 0 unit SQ [facility]; Protocol Last Admin: 01/19/19 21:30 Dose: 6 unit Documented by: Methylprednisolone Sodium Succinate (Solu-Medrol) 40 mg IV Q8HR [facility] Last Admin: 01/19/19 18:07 Dose: 40 mg Documented by: Montelukast Sodium (Singulair) 10 mg PO HS [facility] Last Admin: 01/19/19 20:23 Dose: 10 mg Documented by: Naloxone HCl (Narcan) 0.2 mg IV Q2M PRN PRN Reason: Opioid Reversal Pantoprazole Sodium (Protonix) 40 mg PO AC-BRKFST [facility] Last Admin: 01/19/19 06:12 Dose: 40 mg Documented by: Potassium Chloride (K-Dur 10) 10 meq PO DAILY [facility] Last Admin: 01/19/19 10:18 Dose: 10 meq Documented by: Verapamil HCl (Isoptin) 40 mg PO TID [facility] Last Admin: 01/19/19 18:07 Dose: 40 mg Documented by: Physical examination: VITAL SIGNS: 97.9, 104, 18, 128/80, 90% on 3.5 L GENERAL: Propped up in bed, using the BiPAP tired]. EYES: Pupils equal. Conjunctiva normal. HEENT: [External appearance of nose and ears normal, oral cavity white spots. NECK: JVD not raised; masses not palpable. HEART: First and second heart sounds are normal; no edema. LUNGS:[ Respiratory rate increased, diminished breath sounds, prolonged expiration. ABDOMEN: Soft, ventral hernia, nontender, liver spleen not palpable, no masses palpable. PSYCH: [Alert and oriented x3; mood and affect tired l. INVESTIGATIONS, reviewed in the clinical context: White count 13.2 hemoglobin 8.4 percussion 4.3 bun 30 creatinine 0.3 to blood gases show pH of 7.24 pCO2 greater than 120 Accu-Cheks noted Assessment: -Acute on chronic hypoxic and hypercapnic respiratory failure secondary to COPD, slow to respond -Acute severe COPD exacerbation, slow to respond requiring BiPAP -Chronic nicotine dependence patient cigarette smoker -Primary osteoarthritis -Normocytic anemia cause unknown -GERD -Essential hypertension -Hyperlipidemia -Obstructive sleep apnea with CPAP -Abdominal wall ventral hernia, high surgical risk -Chronic urinary incontinence -Oropharyngeal candidiasis secondary to steroid use Plan: -Patient slowly short of breath. Current with bronchodilators steroids, care was discussed with the patient. Encouraged to increase oral intake. Follow with pulmonary.
[2019-01-20] MEDS: methylPREDNISolone SOD SUCCI 40 MG/ML 1 ML VIAL IV SCH ×3 (00:40→18:06)
[2019-01-20] MEDS: busPIRone HCl 10 MG TAB PO SCH ×4 (02:51→21:04)
[2019-01-20] MEDS: VERAPAMIL 40 MG TAB PO SCH ×4 (02:51→21:04)
[2019-01-20 06:10] LABS: Glucose,Whole Blood 172 mg/dL (75-99)
[2019-01-20] MEDS: INSULIN ASPART (NovoLOG) 100 UNIT/ML VIAL SQ SCH ×4 (06:26→21:04)
[2019-01-20] MEDS: PANTOPRAZOLE 40 MG TABLET PO SCH (06:26)
[2019-01-20 07:21] LABS: HCT 34.8 % (34.0-46.0); Hypochromasia Marked; MCH 21.3 pg (25.0-35.0); Mean Platelet Volume 6.5; Platelet Count 349 k/uL (150-450); RBC 4.24 m/uL (3.80-5.40); RDW 14.9 % (11.5-15.5); WBC 13.1 k/uL (3.8-10.6)
[2019-01-20 07:34] LABS: African American GFR (CKD) >90 (>60 ml/min/1.73 sqM); Blood Urea Nitrogen 30 mg/dL (7-17); Calcium 9.9 mg/dL (8.4-10.2); Chloride 81 mmol/L (98-107); Glucose 150 mg/dL (74-99); Non-African American GFR(CKD) >90 (>60 ml/min/1.73 sqM); Potassium 4.4 mmol/L (3.5-5.1); Sodium 144 mmol/L (137-145)
[2019-01-20] MEDS: IPRATROPIUM-ALBUTEROL 3 ML NEB INHALATION SCH ×4 (07:35→20:21)
[2019-01-20] MEDS: BUDESONIDE 1 MG/2 ML NEBU INHALATION SCH ×2 (07:36→20:21)
[2019-01-20] MEDS: FORMOTEROL FUMARATE 20 MCG/2 ML NEBU INHALATION SCH ×2 (07:36→20:21)
[2019-01-20 07:41] LABS: Anion Gap 2 mmol/L
[2019-01-20 07:42] LABS: Carbon Dioxide 61 mmol/L (22-30)
[2019-01-20] MEDS: guaiFENesin 600 MG TABLET.ER PO SCH ×2 (09:14→21:05)
[2019-01-20] MEDS: FUROSEMIDE 40 MG TAB PO SCH (09:14)
[2019-01-20] MEDS: FLUCONAZOLE 100 MG TAB PO SCH (09:14)
[2019-01-20] MEDS: DULoxetine HCL 20 MG CAPSULE.DR PO SCH (09:14)
[2019-01-20] MEDS: POTASSIUM CHLORIDE ER 10 MEQ TAB.ER.PRT PO SCH (09:14)
[2019-01-20] MEDS: CHOLECALCIFEROL 1,000 UNIT TAB PO SCH (09:15)
[2019-01-20] MEDS: FERROUS SULFATE 325 MG TAB PO SCH (09:15)
[2019-01-20 12:09] LABS: Glucose,Whole Blood 182 mg/dL (75-99)
--- NOTE | 2019-01-20 14:19 | P.PN ---
Subjective Progress Note Date: 01/20/19 Principal diagnosis: hypercapnic/hypoxic respiratory failure secondary to severe exacerbation of chronic obstructive pulmonary disease on 01/20/2017 patient seen in follow-up on selective care unit, patient is more awake today, she remains on BiPAP, with pressures to 15/6, and FiO2 of 40%, yesterday patient's FiO2 was briefly increased causing worsening hypercapnic respiratory failure, and subsequently FiO2 was dropped back down, on and patient started clinically improving, and waking up, today her O2 sat is ranging between mid 70s to mid 80s, however clinically patient looks better, more awake and responsive, and answering simple questions, she is afebrile, hemodynamically patient is stable, lung sounds are very diminished, with with no rhonchi, no wheezing. Today's labs have been reviewed, showing white blood cell count of 13.1, hemoglobin of 9.0, sodium of 144, potassium is 4.4, chloride is 81, CO2 61, BUN is 30, creatinine 0.34. she has been afebrile, no acute issues overnight, yesterday we had tried to get in touch with patient's family, and tried calling the phone numbers provided on patient's chart to update the patient's family members about her status, and this" status. However we were unable to get in touch with anybody. Objective - Vital Signs Vital signs: Vital Signs Temp 97.9 F 01/20/19 11:41 Pulse 120 H 01/20/19 11:54 Resp 20 01/20/19 11:41 BP 117/75 01/20/19 11:41 Pulse Ox 89 L 01/20/19 11:41 Intake & Output 01/19/19 01/20/19 01/20/19 18:59 06:59 18:59 Intake Total 240 237 Output Total 50 Balance 240 237 -50 Weight 56.5 kg Intake: Oral 240 237 Output: Urine 50 Other: Voiding Method Bedside Commode Bedside Commode Bedside Commode # Voids 3 - Exam GENERAL EXAM: Alert, review pleasant, 63-year-old white female, on BiPAP support, currently with pressures of 15/5, and FiO2 of 40% comfortable in no apparent distress. HEAD: Normocephalic/atraumatic. EYES: Normal reaction of pupils, equal size. Conjunctiva pink, sclera white. NOSE: Clear with pink turbinates. THROAT: No erythema or exudates. NECK: No masses, no JVD, no thyroid enlargement, no adenopathy. CHEST: No chest wall deformity. Symmetrical expansion. LUNGS: Diminished air entry with no crackles, wheeze, rhonchi or dullness. CVS: Regular rate and rhythm, normal S1 and S2, no gallops, no murmurs, no rubs ABDOMEN: Soft, nontender. No hepatosplenomegaly, normal bowel sounds, no guarding or rigidity. EXTREMITIES: No clubbing, no edema, no cyanosis, 2+ pulses and upper and lower extremities. MUSCULOSKELETAL: Muscle strength and tone normal. SPINE: No scoliosis or deformity SKIN: No rashes CENTRAL NERVOUS SYSTEM: Alert and oriented -3. No focal deficits, tone is normal in all 4 extremities. PSYCHIATRIC: Alert and oriented -3. Appropriate affect. Intact judgment and insight. - Labs CBC & Chem 7: 01/20/19 06:23 01/20/19 06:23 Labs: Abnormal Lab Results - Last 24 Hours (Table) 01/19/19 01/19/19 01/20/19 Range/Units 17:04 21:15 06:08 WBC (3.8-10.6) k/uL Hgb (11.4-16.0) gm/dL MCH (25.0-35.0) pg MCHC (31.0-37.0) g/dL Chloride (98-107) mmol/L Carbon Dioxide (22-30) mmol/L BUN (7-17) mg/dL Creatinine (0.52-1.04) mg/dL Glucose (74-99) mg/dL POC Glucose (mg/dL) 125 H 212 H 172 H (75-99) mg/dL 01/20/19 01/20/19 01/20/19 Range/Units 06:23 06:23 12:07 WBC 13.1 H (3.8-10.6) k/uL Hgb 9.0 L (11.4-16.0) gm/dL MCH 21.3 L (25.0-35.0) pg MCHC 26.0 L (31.0-37.0) g/dL Chloride 81 L (98-107) mmol/L Carbon Dioxide 61 H* (22-30) mmol/L BUN 30 H (7-17) mg/dL Creatinine 0.34 L (0.52-1.04) mg/dL Glucose 150 H (74-99) mg/dL POC Glucose (mg/dL) 182 H (75-99) mg/dL Assessment and Plan Plan: assessment: #1. acute on chronic hypoxemic/hypercapnic respiratory failure secondary to an acute exacerbation of severe chronic obstructive pulmonary disease #2. Chronic and ongoing tobacco dependence #3. History of heart failure #4. GERD/reflux #5. Degenerative joint disease #6. Obstructive sleep apnea #7. Chronic low back pain #8. Migraine cephalgia #9. Osteoporosis Plan: Continue same dose of IV steroids, continue with BiPAP support, accept O2 sat between 75-85%, patient is a CO2 retainer, and is very sensitive to increased FiO2 and immediately starts deteriorating and becoming hypercapnic. Continue with nebulized bronchodilator's, empiric antibiotics, patient's family apparently was in earlier, and septum supposed to come in later in the afternoon, they need to be updated on patient's status, and CODE STATUS needs to be discussed his overall prognosis is extremely poor of patient's very poor lung function multiple other comorbidities. I performed a history & physical examination of the patient and discussed their management with my nurse practitioner, Dominique Powell. I reviewed the nurse practitioner's note and agree with the documented findings and plan of care. Lung sounds are positive for diminished breath sounds. The findings and the impression was discussed with the patient. I attest to the documentation by the nurse practitioner. Time with Patient: Less than 30
--- NOTE | 2019-01-20 16:19 | CDI ---
Documentation Clarification Form Date: 01/20/2019 3:51:32 PM From: Blossom Goff RN, CCDS Admit Date: 01/17/2019 3:24:00 AM Patient Name: Olena Roman Visit Number: [id number] Discharge Date: ATTENTION: The Clinical Documentation Specialists (CDI) and [facility] Coding Staff appreciate your assistance in clarifying documentation. Please respond to the clarification below the line at the bottom and electronically sign. The CDI & [facility] Coding staff will review the response and follow-up if needed. Please note: Queries are made part of the Legal Health Record. If you have any questions, please contact the author of this message via ITS. Dr. Cody Gonzales Heart Failure is documented in the past medical history and further clarification is needed. History/Risk Factors: Asthma, Heart Failure, COPD, Obstructive sleep apnea with CPAP on home O2 3/L NC Current every day smoker Clinical Indicators: 63-year-old female presented to ED with complaints of abdominal pain shortness of breath, mild productive cough. She used inhalers without much relief. VS/Pulse OX: 01/17/19 at 02:00: 88/71 122 0 98.6 88 % 4/L NC, changed to BIPAP BNP: 151 Echocardiogram Results: (02/10/17)EF 60-65 % Chest X Ray: (01/17/19) Mild pulmonary fibrosis. No acute lung disease. Treatment: Nebulized bronchodilator's per orders Monitor O2 Sat's (titrate) Lasix 40 mg PO Daily Verapamil Hcl 40 mg PO TID In your professional opinion, can you please clarify the acuity and type of CHF if known? Systolic Heart Failure: Acute Chronic Acute on Chronic Diastolic Heart Failure: Acute Chronic Acute on Chronic Systolic & Diastolic Heart Failure: Acute Chronic Acute on Chronic Heart Failure Unable to Determine Other, please specify (Last Revision: May 2017) Unable to determine MTDD
[2019-01-20 16:41] LABS: Glucose,Whole Blood 181 mg/dL (75-99)
[2019-01-20 20:47] LABS: Glucose,Whole Blood 162 mg/dL (75-99)
[2019-01-20] MEDS: MONTELUKAST 10 MG TAB PO SCH (21:05)
[2019-01-20] MEDS: ATORVASTATIN 10 MG TAB PO SCH (21:05)
--- NOTE | 2019-01-20 22:13 | P.PN ---
Progress Note - Text Progress Note Date: 01/20/19 Interval history: Patient admitted with acute on chronic hypoxic hypercapnic respiratory failure and severe COPD exacerbation. Today-tired. mostly on the BiPAP. Poor oral intake. Review of systems: Was done for constitutional, cardiovascular, GI, pulmonary. relevant finding as above Active Medications Albuterol/Ipratropium (Duoneb 0.5 Mg-3 Mg/3 Ml Soln) 3 ml INHALATION QID [facility] Last Admin: 01/20/19 20:21 Dose: 3 ml Documented by: Albuterol/Ipratropium (Duoneb 0.5 Mg-3 Mg/3 Ml Soln) 3 ml INHALATION Q6H PRN PRN Reason: Shortness Of Breath Atorvastatin Calcium (Lipitor) 10 mg PO HS [facility] Last Admin: 01/20/19 21:05 Dose: 10 mg Documented by: Budesonide (Pulmicort) 1 mg INHALATION RT-BID [facility] Last Admin: 01/20/19 20:21 Dose: 1 mg Documented by: Buspirone HCl (Buspar) 10 mg PO TID [facility] Last Admin: 01/20/19 18:06 Dose: Not Given Documented by: Cholecalciferol (Vitamin D3 (25 Mcg = 1000 Iu)) 1,000 unit PO DAILY [facility] Last Admin: 01/20/19 09:15 Dose: 1,000 unit Documented by: Duloxetine HCl (Cymbalta) 20 mg PO DAILY [facility] Last Admin: 01/20/19 09:14 Dose: 20 mg Documented by: Ferrous Sulfate (Feosol) 325 mg PO DAILY [facility] Last Admin: 01/20/19 09:15 Dose: 325 mg Documented by: Fluconazole (Diflucan) 100 mg PO DAILY [facility] Last Admin: 01/20/19 09:14 Dose: 100 mg Documented by: Formoterol Fumarate (Perforomist) 20 mcg INHALATION RT-BID [facility] Last Admin: 01/20/19 20:21 Dose: 20 mcg Documented by: Furosemide (Lasix) 40 mg PO DAILY [facility] Last Admin: 01/20/19 09:14 Dose: 40 mg Documented by: Guaifenesin (Mucinex) 1,200 mg PO Q12HR [facility] Last Admin: 01/20/19 21:05 Dose: 1,200 mg Documented by: Insulin Aspart (Novolog) 0 unit SQ ACHS [facility]; Protocol Last Admin: 01/20/19 21:04 Dose: 3 unit Documented by: Methylprednisolone Sodium Succinate (Solu-Medrol) 40 mg IV Q8HR [facility] Last Admin: 01/20/19 18:06 Dose: Not Given Documented by: Montelukast Sodium (Singulair) 10 mg PO HS [facility] Last Admin: 01/20/19 21:05 Dose: 10 mg Documented by: Naloxone HCl (Narcan) 0.2 mg IV Q2M PRN PRN Reason: Opioid Reversal Pantoprazole Sodium (Protonix) 40 mg PO AC-BRKFST [facility] Last Admin: 01/20/19 06:26 Dose: 40 mg Documented by: Potassium Chloride (K-Dur 10) 10 meq PO DAILY [facility] Last Admin: 01/20/19 09:14 Dose: 10 meq Documented by: Verapamil HCl (Isoptin) 40 mg PO TID [facility] Last Admin: 01/20/19 18:07 Dose: Not Given Documented by: Physical examination: VITAL SIGNS: 97.6, 56, 23, 152/94, 83% on BiPAP GENERAL: Propped up in bed, using the BiPAP tired]. EYES: Pupils equal. Conjunctiva normal. HEENT: [External appearance of nose and ears normal, oral cavity white spots. NECK: JVD not raised; masses not palpable. HEART: First and second heart sounds are normal; no edema. LUNGS:[ Respiratory rate increased, diminished breath sounds, prolonged expiration. ABDOMEN: Soft, ventral hernia, nontender, liver spleen not palpable, no masses palpable. PSYCH: [lethargic but able to answer questions l. INVESTIGATIONS, reviewed in the clinical context: white count 13.1 and hemoglobin 9 potassium 4.4 bun 30 creatinine 0.34 bicarb 61 Accu-Cheks noted Assessment: -Acute on chronic hypoxic and hypercapnic respiratory failure secondary to COPD, slow to respond -Acute severe COPD exacerbation, slow to respond requiring BiPAP -Chronic nicotine dependence patient cigarette smoker -Primary osteoarthritis -Normocytic anemia cause unknown -GERD -Essential hypertension -Hyperlipidemia -Obstructive sleep apnea with CPAP -Abdominal wall ventral hernia, high surgical risk -Chronic urinary incontinence -Oropharyngeal candidiasis secondary to steroid use Plan: patient is now doing well. Did speak to the nurse and wanted to have the patient's daughter and son-in-law: and talk about the patient. Prognosis is poor. Patient should benefit from hospice. This was discussed with the patient again. She does understand. wants her family to be involved in decision- making.
[2019-01-21] MEDS: methylPREDNISolone SOD SUCCI 40 MG/ML 1 ML VIAL IV SCH ×3 (00:29→18:13)
[2019-01-21 06:13] LABS: Glucose,Whole Blood 159 mg/dL (75-99)
[2019-01-21] MEDS: PANTOPRAZOLE 40 MG TABLET PO SCH (06:46)
[2019-01-21] MEDS: INSULIN ASPART (NovoLOG) 100 UNIT/ML VIAL SQ SCH ×4 (06:46→21:54)
[2019-01-21] MEDS: FORMOTEROL FUMARATE 20 MCG/2 ML NEBU INHALATION SCH ×2 (07:01→20:01)
[2019-01-21] MEDS: IPRATROPIUM-ALBUTEROL 3 ML NEB INHALATION SCH ×4 (07:01→21:52)
[2019-01-21] MEDS: BUDESONIDE 1 MG/2 ML NEBU INHALATION SCH ×2 (07:01→20:01)
[2019-01-21 08:32] VITALS: RESP 20
[2019-01-21] MEDS: FERROUS SULFATE 325 MG TAB PO SCH (08:44)
[2019-01-21] MEDS: POTASSIUM CHLORIDE ER 10 MEQ TAB.ER.PRT PO SCH (08:44)
[2019-01-21] MEDS: FUROSEMIDE 40 MG TAB PO SCH (08:44)
[2019-01-21] MEDS: FLUCONAZOLE 100 MG TAB PO SCH (08:44)
[2019-01-21] MEDS: busPIRone HCl 10 MG TAB PO SCH ×2 (08:44→18:08)
[2019-01-21] MEDS: CHOLECALCIFEROL 1,000 UNIT TAB PO SCH (08:44)
[2019-01-21] MEDS: VERAPAMIL 40 MG TAB PO SCH ×2 (08:44→18:08)
[2019-01-21] MEDS: DULoxetine HCL 20 MG CAPSULE.DR PO SCH (08:45)
[2019-01-21] MEDS: guaiFENesin 600 MG TABLET.ER PO SCH ×2 (08:45→21:54)
[2019-01-21 11:49] LABS: Glucose,Whole Blood 192 mg/dL (75-99)
--- NOTE | 2019-01-21 11:58 | P.PN ---
Subjective Progress Note Date: 01/21/19 Principal diagnosis: Hypercapnic/hypoxemic respiratory failure secondary to severe exacerbation of chronic obstructive pulmonary disease. The patient is seen today 01/21/2019 in follow-up on the regular medical floor. She is currently sitting up in a chair at the bedside. She is currently on the BiPAP 15/ at 40% FiO2. She's been mainly BiPAP dependent since admission. Her overall prognosis is quite poor. Family is considering hospice. She remains on DuoNeb inhalations, Pulmicort and Perforomist inhalations, Singulair, IV Solu- Medrol. Objective - Vital Signs Vital signs: Vital Signs Temp 97.8 F 01/21/19 11:49 Pulse 124 H 01/21/19 11:49 Resp 20 01/21/19 11:49 BP 136/81 01/21/19 11:49 Pulse Ox 85 L 01/21/19 11:49 Intake & Output 01/20/19 01/21/19 01/21/19 18:59 06:59 18:59 Intake Total 240 25 Output Total 50 250 350 Balance -50 -10 -325 Weight 56 kg Intake: Oral 240 25 Output: Urine 50 250 350 Other: Voiding Method Incontinent Bedpan Bedpan # Voids 0 - Exam GENERAL EXAM: Alert, dyspneic, appears older than stated age, on BiPAP. HEAD: Normocephalic. EYES: Normal reaction of pupils, equal size. NOSE: Clear with pink turbinates. THROAT: No erythema or exudates. NECK: No masses, no JVD. CHEST: No chest wall deformity. LUNGS: Equal air entry with scattered rhonchi, end expiratory wheeze, diminished. CVS: S1 and S2 normal with no audible murmur, regular rhythm. ABDOMEN: No hepatosplenomegaly, normal bowel sounds, no guarding or rigidity. SPINE: No scoliosis or deformity SKIN: No rashes CENTRAL NERVOUS SYSTEM: No focal deficits, tone is normal in all 4 extremities. EXTREMITIES: There is no peripheral edema. No clubbing, no cyanosis. Peripheral pulses are intact. - Labs CBC & Chem 7: 01/20/19 06:23 01/20/19 06:23 Labs: Abnormal Lab Results - Last 24 Hours (Table) 01/20/19 01/20/19 01/20/19 Range/Units 12:07 16:40 20:41 POC Glucose (mg/dL) 182 H 181 H 162 H (75-99) mg/dL 01/21/19 01/21/19 Range/Units 06:11 11:38 POC Glucose (mg/dL) 159 H 192 H (75-99) mg/dL Assessment and Plan Assessment: #1 Acute on chronic hypoxemic/hypercapnic respiratory failure secondary to an acute exacerbation of severe chronic obstructive pulmonary disease. #2 Chronic and ongoing tobacco dependence. #3 History of heart failure. #4 GERD. #5 Degenerative joint disease. #6 Obstructive sleep apnea. #7 Chronic low back pain. #8 Migraine cephalgia. #9 Osteoporosis. Plan: The patient was seen and evaluated by Dr. Reid. We'll continue with the current treatment plan. Her overall prognosis remains quite guarded and poor. She is a DO NOT RESUSCITATE/DO NOT INTUBATE CODE STATUS. The patient and family are considering hospice. In the interim we'll continue to follow make further recommendations based on her clinical status. I, the cosigning physician, performed a history & physical examination of the patient. Lungs sounds with few scattered rhonchi, end expiratory wheeze, diminished. Maintaining good O2 saturations in the 90s on BiPAP 15/6 and 40% FiO2. I discussed the assessment and plan of care with my nurse practitioner, Drea Alcazar. I attest to the above note as dictated by her.
[2019-01-21] MEDS ORDERED: SCOPOLAMINE 1.5MG/72HR PATCH TRANSDERM SCH (14:00)
--- NOTE | 2019-01-21 18:26 | P.PN ---
Progress Note - Text Progress Note Date: 01/21/19 Interval history: Patient admitted with acute on chronic hypoxic hypercapnic respiratory failure and severe COPD exacerbation. Today-remains tired. BiPAP mostly. Not keen to use the BiPAP. Oral intake limited. Review of systems: Was done for constitutional, cardiovascular, GI, pulmonary. relevant finding as above A Active Medications Albuterol/Ipratropium (Duoneb 0.5 Mg-3 Mg/3 Ml Soln) 3 ml INHALATION QID [facility] Last Admin: 01/21/19 12:10 Dose: 3 ml Documented by: Albuterol/Ipratropium (Duoneb 0.5 Mg-3 Mg/3 Ml Soln) 3 ml INHALATION Q6H PRN PRN Reason: Shortness Of Breath Atorvastatin Calcium (Lipitor) 10 mg PO HS [facility] Last Admin: 01/20/19 21:05 Dose: 10 mg Documented by: Budesonide (Pulmicort) 1 mg INHALATION RT-BID [facility] Last Admin: 01/21/19 07:01 Dose: 1 mg Documented by: Buspirone HCl (Buspar) 10 mg PO TID [facility] Last Admin: 01/21/19 18:08 Dose: Not Given Documented by: Cholecalciferol (Vitamin D3 (25 Mcg = 1000 Iu)) 1,000 unit PO DAILY [facility] Last Admin: 01/21/19 08:44 Dose: 1,000 unit Documented by: Duloxetine HCl (Cymbalta) 20 mg PO DAILY [facility] Last Admin: 01/21/19 08:45 Dose: 20 mg Documented by: Ferrous Sulfate (Feosol) 325 mg PO DAILY [facility] Last Admin: 01/21/19 08:44 Dose: 325 mg Documented by: Fluconazole (Diflucan) 100 mg PO DAILY [facility] Last Admin: 01/21/19 08:44 Dose: 100 mg Documented by: Formoterol Fumarate (Perforomist) 20 mcg INHALATION RT-BID [facility] Last Admin: 01/21/19 07:01 Dose: 20 mcg Documented by: Furosemide (Lasix) 40 mg PO DAILY [facility] Last Admin: 01/21/19 08:44 Dose: 40 mg Documented by: Guaifenesin (Mucinex) 1,200 mg PO Q12HR [facility] Last Admin: 01/21/19 08:45 Dose: 1,200 mg Documented by: Insulin Aspart (Novolog) 0 unit SQ [facility]; Protocol Last Admin: 01/21/19 18:09 Dose: Not Given Documented by: Methylprednisolone Sodium Succinate (Solu-Medrol) 40 mg IV Q8HR [facility] Last Admin: 01/21/19 18:13 Dose: 40 mg Documented by: Montelukast Sodium (Singulair) 10 mg PO HS [facility] Last Admin: 01/20/19 21:05 Dose: 10 mg Documented by: Naloxone HCl (Narcan) 0.2 mg IV Q2M PRN PRN Reason: Opioid Reversal Pantoprazole Sodium (Protonix) 40 mg PO AC-BRKFST [facility] Last Admin: 01/21/19 06:46 Dose: 40 mg Documented by: Potassium Chloride (K-Dur 10) 10 meq PO DAILY [facility] Last Admin: 01/21/19 08:44 Dose: 10 meq Documented by: Scopolamine (Transderm-Scop 1.5mg/72hr Patch) 1 patch TRANSDERM Q72H [facility] Last Admin: 01/21/19 15:58 Dose: 1 patch Documented by: Verapamil HCl (Isoptin) 40 mg PO TID [facility] Last Admin: 01/21/19 18:08 Dose: Not Given Documented by: Physical examination: VITAL SIGNS:98.2, 101, 20, 126/75, 86% BiPAP GENERAL: Propped up in bed, using the BiPAP tired]. EYES: Pupils equal. Conjunctiva normal. HEENT: External appearance of nose and ears normal, NECK: JVD not raised; masses not palpable. HEART: First and second heart sounds are normal; no edema. LUNGS: Respiratory rate increased, diminished breath sounds, prolonged expiration. ABDOMEN: Soft, ventral hernia, nontender, liver spleen not palpable, no masses palpable. PSYCH: lethargic but able to answer questions . INVESTIGATIONS, reviewed in the clinical context: Accu-Cheks noted Previous testing white count 13.1 and hemoglobin 9 potassium 4.4 bun 30 creatinine 0.34 bicarb 61 Accu-Cheks noted Assessment: -Acute on chronic hypoxic and hypercapnic respiratory failure secondary to COPD, slow to respond -Acute severe COPD exacerbation, slow to respond requiring BiPAP -Chronic nicotine dependence patient cigarette smoker -Primary osteoarthritis -Normocytic anemia cause unknown -GERD -Essential hypertension -Hyperlipidemia -Obstructive sleep apnea with CPAP -Abdominal wall ventral hernia, high surgical risk -Chronic urinary incontinence -Oropharyngeal candidiasis secondary to steroid use Plan: discussed with the patient. She understands her condition is now doing well. She understands the lung condition is terminal. She is not keen to use the BiPAP. She was a daughter to be her to make the decision with her. Daughter was called in. Advanced care planning: Daughter was present so was her boyfriend. Daughter did explain that patient has been end-stage lung disease and she's noticed for a while. And condition is progressing. She will some other be comfortable. Patient wishes the same. Patient does not wish use the BiPAP and just be comfortable on nasal cannula. Other family members are coming in later today. Plan is to continue with current treatment plan. Keep the patient comfortable. And discharged the patient home with hospice which is her wishes. Patient's daughter will also get help from other family members. In the meantime if things would rotatory) patient will proceed with inpatient hospice care. Patient at this point is able to tolerate small amounts of food. Patient will be left on nasal cannula. Nurse: Was also present for part of the discussion Time spent with the discussion was about 30 minutes
[2019-01-21 20:24] LABS: Glucose,Whole Blood 158 mg/dL (75-99)
[2019-01-21] MEDS: ATORVASTATIN 10 MG TAB PO SCH (21:53)
[2019-01-21] MEDS: MONTELUKAST 10 MG TAB PO SCH (21:54)
[2019-01-22 04:50] VITALS: PULSE 105; TEMP 97.7
[2019-01-22 04:52] VITALS: BP 147/84
[2019-01-22 06:14] LABS: Glucose,Whole Blood 151 mg/dL (75-99)
[2019-01-22] MEDS: BUDESONIDE 1 MG/2 ML NEBU INHALATION SCH (07:48)
[2019-01-22] MEDS: IPRATROPIUM-ALBUTEROL 3 ML NEB INHALATION SCH ×2 (07:49→11:57)
[2019-01-22] MEDS: FORMOTEROL FUMARATE 20 MCG/2 ML NEBU INHALATION SCH (07:49)
--- NOTE | 2019-01-22 22:45 | P.DS ---
Providers Date of admission: 01/17/19 03:24 Expected date of discharge: 01/22/19 (patient ) Attending physician: Cody Gonzales Consults: 01/17/19 04:11 Consult Physician Urgent Consulting Provider: Ivonne Wilcox Consult Reason/Comments: Advanced COPD Do you want consulting provider notified?: Yes [facility] Course: Hospital course: Patient admitted with acute on chronic hypoxic hypercapnic respiratory failure and severe COPD exacerbation. continued to deteriorate. Care was discussed with the patient daughter. Decision was made to treat the patient comfortable. Plan was to admit the patient home with hospice. patient deteriorated succumbed to the same. INVESTIGATIONS, reviewed in the clinical context: Accu-Cheks noted Previous testing white count 13.1 and hemoglobin 9 potassium 4.4 bun 30 creatinine 0.34 bicarb 61 Accu-Cheks noted Cause of : COPD Assessment: -Acute on chronic hypoxic and hypercapnic respiratory failure secondary to COPD, slow to respond -Acute severe COPD exacerbation, slow to respond requiring BiPAP -Chronic nicotine dependence patient cigarette smoker -Primary osteoarthritis -Normocytic anemia cause unknown -GERD -Essential hypertension -Hyperlipidemia -Obstructive sleep apnea with CPAP -Abdominal wall ventral hernia, high surgical risk -Chronic urinary incontinence -Oropharyngeal candidiasis secondary to steroid use disposition: Patient Plan - Discharge Summary Discharge Rx Participant: No New Discharge Prescriptions: No Action DULoxetine HCL [Cymbalta] 20 mg PO DAILY Furosemide [Lasix] 40 mg PO DAILY Montelukast [Singulair] 10 mg PO HS #30 tab Omeprazole Magnesium [PriLOSEC OTC] 20 mg PO DAILY #30 tablet Potassium Chloride ER [K-Dur 10] 10 meq PO DAILY Ipratropium Power [Atrovent Hfa] 2 puff INHALATION RT-QID Atorvastatin [Lipitor] 10 mg PO HS metFORMIN HCL [Glucophage] 1,000 mg PO AC-BID Verapamil [Isoptin] 40 mg PO TID Budesonide [Pulmicort] 0.5 mg INHALATION RT-BID Cholecalciferol [Vitamin D3 (25 Mcg = 1000 Iu)] 1,000 unit PO DAILY Ferrous Sulfate [Feosol] 325 mg PO DAILY Ipratropium-Albuterol Nebulize [Duoneb 0.5 mg-3 mg/3 ml Soln] 3 ml INHALATION RT-Q6H busPIRone HCl [Buspar] 10 mg PO TID Discharge Medication List DULoxetine HCL [Cymbalta] 20 mg PO DAILY 10/31/16 [History] Furosemide [Lasix] 40 mg PO DAILY 10/31/16 [History] Montelukast [Singulair] 10 mg PO HS #30 tab 11/04/16 [Rx] Omeprazole Magnesium [PriLOSEC OTC] 20 mg PO DAILY #30 tablet. 11/04/16 [Rx] Atorvastatin [Lipitor] 10 mg PO HS 04/15/18 [History] Ipratropium Power [Atrovent Hfa] 2 puff INHALATION RT-QID 04/15/18 [History] Potassium Chloride ER [K-Dur 10] 10 meq PO DAILY 04/15/18 [History] metFORMIN HCL [Glucophage] 1,000 mg PO AC-BID 04/15/18 [History] Verapamil [Isoptin] 40 mg PO TID 07/28/18 [History] Budesonide [Pulmicort] 0.5 mg INHALATION RT-BID 01/17/19 [History] Cholecalciferol [Vitamin D3 (25 Mcg = 1000 Iu)] 1,000 unit PO DAILY 01/17/19 [History] Ferrous Sulfate [Feosol] 325 mg PO DAILY 01/17/19 [History] Ipratropium-Albuterol Nebulize [Duoneb 0.5 mg-3 mg/3 ml Soln] 3 ml INHALATION RT-Q6H 01/17/19 [History] busPIRone HCl [Buspar] 10 mg PO TID 01/17/19 [History] Follow up Appointment(s)/Referral(s): Raul Brown MD [Primary Care Provider] - 1-2 days Discharge Disposition: - Preliminary Cause of Preliminary Cause of : COPD
[2019-01-23 10:41] LABS: ABG HCO3 61 mmol/L (21-25)
[2019-01-23 10:42] LABS: ABG PCO2 >120 mmHg (35-45)
--- NOTE | 2019-01-26 11:03 | CDI ---
Documentation Clarification Form Date: 01/26/2019 09:56:22 AM From: Arlin MILLS,TALISHA,RN Email: [email or web address] Admit Date: 01/17/2019 03:24:00 AM Patient Name: Olena Roman Visit Number: [id number] Discharge Date: 01/22/2019 12:00:00 PM ATTENTION: The Clinical Documentation Specialists (CDI) and [facility] Coding Staff appreciate your assistance in clarifying documentation. Please respond to the clarification below the line at the bottom and electronically sign. The CDI & [facility] Coding staff will review the response and follow-up if needed. Please note: Queries are made part of the Legal Health Record. If you have any questions, please contact the author of this message via ITS. Dr. Cody Gonzales After study please render your opinion on the underlying etiology, if known, of pts lethargy and somnolence. History/Risk Factors: a 63-year-w PMH of depression, advance COPD (on home 3 L NC oxygen), hypoxic and hypercapnic resp failure, type 2 DM, and large ventral hernia who presented to the ED for c/o abdominal pain and shortness of breath. Clinical Indicators: HP somewhat lethargic and Consult on 01/17/2019 very lethargic and somnolent but improving in her mental status and can give no additional history. Okay for diet from surgical standpoint once lethargy improves. It is noted patients CO2 was greater than 120 on recent ABGs PN 121/12 FiO2 was briefly increased causing worsening hypercapnic respiratory failure, and subsequently FiO2 was dropped back down, on and patient started clinically improving, and waking up, today her O2 sat is ranging between mid 70s to mid 80s, however clinically patient looks better, more awake and responsive, and answering simple questions Nurses note pt with extreme weakness 01/17 improving on 01/18 Labs: Magnesium 1.2 to 2.0 ABGS 7.27 to 7.24 PCO2 >120 HCO3 61 PaO2 136 to 81 X Ray: chest : no acute lung disease CT:N/A Treatment: Magnesium supplementation, BIPAP, ABGS, Solumedrol, SVNs, Cymbalta, Buspar, IV Ativan times one 01/17/2019 In your professional opinion, please clarify the etiolog(s) of the somnolence and lethargy, if known. Weakness due to general medical condition Metabolic Encephalopathy (specify Type and Underlying Medical Illness) Hypoxic Encephalopathy Other condition (please specify) (Last Revision: May 2017) Possible Hypoxic encephalopathy MTDD
--- NOTE | 2019-01-26 11:04 | CDI ---
Documentation Clarification Form Date: 01/26/2019 From: Arlin MILLS,DARSHANAS,RN Email: [email or web address]: Admit Date: 01/17/2019 03:24:00 AM Patient Name: Olena Roman Visit Number: [id number] Discharge Date: 01/22/2019 12:00:00 PM ATTENTION: The Clinical Documentation Specialists (CDI) and [facility] Coding Staff appreciate your assistance in clarifying documentation. Please respond to the clarification below the line at the bottom and electronically sign. The CDI & [facility] Coding staff will review the response and follow-up if needed. Please note: Queries are made part of the Legal Health Record. If you have any questions, please contact the author of this message via ITS. Dr. Cody Gonzales Documentation states: 63 yo female admitted with hypoxic and hypercapnic respiratory failure with COPD exacerbation, Type 2 DM History/Risk Factors: Type 2 DM Clinical indicators: glucose range from 147 to 294, Treatment: Insulin to scale, lab monitoring Clinical significance of diagnostic testing and treatment CANNOT be assumed or coded without physician documentation of significance if any. Please clarify what abnormal laboratory signifies: Diabetes with Hyperglycemia Unable to determine Other, please specify (Last Revision: November 2016) Diabetes with hyperglycemia MTDD
--- NOTE | 2019-01-26 11:11 | CDI ---
Documentation Clarification Form Date: 01/26/2019 From: Arlin MILLS,CCDS,RN Email: [email or web address] Admit Date: 01/17/2019 03:24:00 AM Patient Name: Olena Roman Visit Number: [id number] Discharge Date: 01/22/2019 12:00:00 PM ATTENTION: The Clinical Documentation Specialists (CDI) and [facility] Coding Staff appreciate your assistance in clarifying documentation. Please respond to the clarification below the line at the bottom and electronically sign. The CDI & [facility] Coding staff will review the response and follow-up if needed. Please note: Queries are made part of the Legal Health Record. If you have any questions, please contact the author of this message via ITS. Dr. Cody Gonzales Depression is documented in the HP and in progress notes. History/Risk factors: Current every day smoker, history of depression, COPD on home O2 Clinical indicators: noted as slightly anxious, hx of depression, Treatment: Continuation of home med of Buspar 10 mg TID and Cymbalta 20 mg qd In your professional opinion, can you please clarify if the Depression can be further specified? Specify type if known Single or recurrent episode Mild, moderate, or severe With or without psychotic features Whether in partial or full remission Other (please specify) Unable to determine (Last Revision: November 2016) Unable to determine MTDD
== END 2019-01-22 12:00 | disposition expired | DRG 189 ==
LOC: EC 01:59 → 3SCARD 03:24
PROVIDERS: ADMIT Hospitalist; ATTEND Hospitalist
PROC: 5A09557 Assistance with Respiratory Ventilation, Greater than 96 Consecutive Hours, Continuous Positive Airway Pressure (ICD-10-PCS; principal; 2019-01-17)
DX: J96.22 Acute and chronic respiratory failure with hypercapnia (principal); J44.1 Chronic obstructive pulmonary disease with (acute) exacerbation; B37.0 Candidal stomatitis; G93.1 Anoxic brain damage, not elsewhere classified; Z66 Do not resuscitate; Z51.5 Encounter for palliative care; K21.9 Gastro-esophageal reflux disease without esophagitis; M19.91 Primary osteoarthritis, unspecified site; G47.33 Obstructive sleep apnea (adult) (pediatric); F32.9 Major depressive disorder, single episode, unspecified; E11.65 Type 2 diabetes mellitus with hyperglycemia; J45.50 Severe persistent asthma, uncomplicated; Z99.81 Dependence on supplemental oxygen; G43.909 Migraine, unspecified, not intractable, without status migrainosus; J84.10 Pulmonary fibrosis, unspecified; E83.42 Hypomagnesemia; E78.5 Hyperlipidemia, unspecified; F17.210 Nicotine dependence, cigarettes, uncomplicated; E11.41 Type 2 diabetes mellitus with diabetic mononeuropathy; I11.0 Hypertensive heart disease with heart failure; I50.9 Heart failure, unspecified; J96.21 Acute and chronic respiratory failure with hypoxia; K43.2 Incisional hernia without obstruction or gangrene; D50.9 Iron deficiency anemia, unspecified; G89.29 Other chronic pain; M81.0 Age-related osteoporosis without current pathological fracture; M54.5 Low back pain; R32 Unspecified urinary incontinence; M79.2 Neuralgia and neuritis, unspecified; T38.0X5A Adverse effect of glucocorticoids and synthetic analogues, initial encounter; Z90.49 Acquired absence of other specified parts of digestive tract; Z79.899 Other long term (current) drug therapy; Z79.84 Long term (current) use of oral hypoglycemic drugs; Z79.52 Long term (current) use of systemic steroids; Z87.01 Personal history of pneumonia (recurrent); Z87.11 Personal history of peptic ulcer disease; Z86.14 Personal history of Methicillin resistant Staphylococcus aureus infection; Z82.49 Family history of ischemic heart disease and other diseases of the circulatory system; Z99.89 Dependence on other enabling machines and devices; Z98.890 Other specified postprocedural states; Z98.51 Tubal ligation status; Z81.8 Family history of other mental and behavioral disorders
CPT/HCPCS: 36415; 36600; 71045; 80048; 80053; 82607; 82728; 82805; 83540; 83550; 83735; 83880; 84484; 85025; 85027; 85045; 85610; 85730; 87502; 93005; 94640; 94660; 94760; 96361; 96374; 96375; 96376; 99285